=== PATIENT | male | born 1945 | race Caucasian/White ===

== ENCOUNTER → 2016-10-30 | Outpatient (CLI) | payer MEDICARE ==
[~2016-10-30] MED LIST: ACET-2267 PO; ASPI-983 PO; ASPI-999 PO; ATEN50TA PO; ATOR20TA66 PO; CATHETER FLUSH 10 ML SYR IV PRN; CHOL100048 PO; DOXA4TAB2 PO; FLUR100T2 PO; FURO40TA4 PO; LEVO1CAP11 PO; LORA10CA PO; MECL-106 PO; MULT-873 PO; OMEG1000 PO; PANT40TA3 PO; POLY17PO6 PO; REGADENOSON 0.4 MG/5 ML SYR (LEXISCAN) IV ONE; VERA240T98 PO
[2016-10-30 12:44] VITALS: BP 141/89
--- NOTE | 2016-10-31 12:44 | STRESS TEST ---
DATE OF SERVICE: 10/30/2016 RESTING AND POST REGADENOSON TECHNETIUM 99-M AND TETROFOSMIN SPECT CT IMAGING CLINICAL DIAGNOSES: Coronary artery disease, hypertension. ORDERING PHYSICIAN: Dr. Longo PRIMARY PHYSICIAN: Dr. Palafox Baseline images were carried out after injection of 10.19 mCi of technetium-99m tetrofosmin. This was followed by 0.4 mg of regadenoson and 29.5 mCi of technetium-99m tetrofosmin for stress imaging. The electrocardiogram showed sinus rhythm at baseline and the electrocardiogram did not change significantly with the regadenoson infusion. Only rare isolated premature ventricular contractions were seen. The patient tolerated the procedure well and did not report symptoms. Review of images at rest and following stress does not indicate any significant perfusion defects consistent with significant myocardial ischemia or infarction. Gated images show normal global left ventricular systolic function with normal regional wall motion. Left ventricular ejection fraction is calculated to be 58%. Left ventricular end-diastolic volume is 91 mL. TID is absent (1.07). CONCLUSIONS: 1. No evidence of any significant myocardial ischemia or infarction on this study. 2. Normal regional wall motion. 3. Normal global left ventricular systolic function with a calculated ejection fraction of 58%. Job ID: [id number] DocumentID: [id number] Dictated Date: 10/31/2016 09:05:09 Veterinary Technician Date: 10/31/2016 11:45:30 Dictated By: FELECIA LONGO MD, MA, FACP, FACC,
--- NOTE | 2016-11-01 08:39 | ECHOCARDIOGRAPHY REPORT ---
DATE OF SERVICE: 10/30/2016 ECHOCARDIOGRAM DATE OF SERVICE: 10/30/2016 ORDERING PHYSICIAN: Dr. Longo. PRIMARY PHYSICIAN: Dr. Palafox. CLINICAL DIAGNOSIS: Coronary artery disease, hypertension, shortness of breath. MEASUREMENTS: Left atrium 4.5. Aortic root 3.9. LV diameter, diastolic 5.1. IVF thickness, diastolic 1.3. LVPW thickness, diastolic 1.2. DESCRIPTION: Two-dimensional echocardiography shows mild concentric left ventricular hypertrophy, global left ventricular systolic function is normal. Left ventricular ejection fraction approximately 60%. Mitral valve and tricuspid valve leaflets show good leaflet excursion. There is moderate aortic valve sclerosis and calcification. There is no Doppler evidence of any significant valvular stenosis. Doppler imaging shows trivial to mild mitral and tricuspid regurgitation. There appears to be mild aortic regurgitation. Mitral inflow is consistent with grade 1 diastolic dysfunction of left ventricle. There is no evidence of any significant intracardiac shunt on this transthoracic echocardiographic study. Inferior vena cava does not appear dilated. CONCLUSIONS: 1. Normal global systolic function with ejection fraction approximately 60%. 2. Aortic valve sclerosis without significant aortic stenosis. 3. Mild aortic regurgitation. 4. Trivial to mild mitral, tricuspid and pulmonic regurgitation. 5. Mild diastolic dysfunction, left ventricle. 6. Mild concentric left ventricular hypertrophy. 7. Pulmonary artery systolic pressure is estimated to be approximately 25 mmHg. Job ID: [id number] DocumentID: [id number] Dictated Date: 10/31/2016 16:21:01 Pulp Refiner Operator Date: 11/01/2016 08:34:40 Dictated By: FELECIA LONGO MD, MA, FACP, FACC,
== END ==
LOC: CARD 09:52
PROVIDERS: ATTEND Internal Medicine Cardiovascular Disease
DX: I25.10 Atherosclerotic heart disease of native coronary artery without angina pectoris (principal); I10 Essential (primary) hypertension; E66.09 Other obesity due to excess calories; R06.02 Shortness of breath
CPT/HCPCS: 78452; 93017; 93306

== ENCOUNTER → 2017-04-15 | Outpatient (CLI) | payer MEDICARE ==
[~2017-04-15] MED LIST changes: +BARIUM SUSPENSION 2.1% (VANILLA SILQ) 450 ML PO ONE; +IOHEXOL 350 MG/ML 100 ML (OMNIPAQUE 350) VIAL IV ONE; +NS 100 ML (IVPB) BAG IV ONE; -REGADENOSON 0.4 MG/5 ML SYR (LEXISCAN) IV ONE
--- NOTE | 2017-04-15 13:28 | Diagnostic Imaging Report ---
PROCEDURE: CT chest and abdomen with contrast. TECHNIQUE: Multiple contiguous axial images were obtained through the chest and abdomen after the administration of intravenous contrast. INDICATION: Lung cancer. Status post resection of the left upper lobe. 100 mL Omnipaque 350 administered intravenously. FINDINGS: CT chest: There is post left upper lobe resection with no soft tissue mass or suspicious pulmonary nodule seen. There is minimal atelectasis or scarring suggested in the dependent region of the left lower lobe. No suspicious pulmonary nodule. There is no significant lymphadenopathy in the alejandra, the mediastinum, or in the axilla. The heart size is normal. No pericardial or pleural effusion. The thoracic aorta is normal in caliber. The osseous structures demonstrate degenerative changes. CT abdomen: The liver demonstrates diffuse hypodensity compatible with fatty infiltration. The gallbladder, the spleen, the adrenal glands, and the pancreas appear unremarkable. There are multiple nonobstructive stones in the left kidney up to 5 mm in size without hydronephrosis. Symmetric contrast enhancement and excretion of the kidneys is seen. The abdominal aorta is normal in caliber. No para-aortic significantly enlarged lymph node is seen. There is a tiny fat-containing umbilical hernia. The lumbar spine demonstrates degenerative changes particularly prominent at the L5-S1 disc and facet joints. IMPRESSION: CT chest: Post resection of the left upper lobe without evidence of tumor recurrence or lymphadenopathy. CT abdomen: No evidence of metastasis. Dictated by: Dictated on workstation # [id number]
== END ==
LOC: RAD 10:32
PROVIDERS: ATTEND Internal Medicine Hematology & Oncology
DX: C34.90 Malignant neoplasm of unspecified part of unspecified bronchus or lung (principal); Z90.2 Acquired absence of lung [part of]
CPT/HCPCS: 71260; 74160

== ENCOUNTER → 2017-07-04 | Outpatient (RCR) | payer MEDICARE ==
[2017-04-09 10:24] LABS: BASOPHILS % (AUTO) 1 % (0-10); EOSINOPHILS # (AUTO) 0.1 10^3/uL (0.0-0.3); EOSINOPHILS % (AUTO) 2 % (0-10); HEMATOCRIT 45 % (40-54); HEMOGLOBIN 15.3 G/DL (13.3-17.7); LYMPHOCYTES # (AUTO) 1.3 X 10^3 (1.0-4.0); LYMPHOCYTES % (AUTO) 24 % (12-44); MEAN CORPUSCULAR HEMOGLOBIN 31 PG (25-34); MEAN CORPUSCULAR HGB CONC 34 G/DL (32-36); MEAN CORPUSCULAR VOLUME 92 FL (80-99); MEAN PLATELET VOLUME 9.7 FL (7.4-10.4); MONOCYTES # (AUTO) 0.6 X 10^3 (0.0-1.0); MONOCYTES % (AUTO) 10 % (0-12); NEUTROPHILS # (AUTO) 3.6 X 10^3 (1.8-7.8); NEUTROPHILS % (AUTO) 64 % (42-75); PLATELET COUNT 233 10^3/uL (130-400); RED BLOOD COUNT 4.92 10^6/uL (4.35-5.85); RED CELL DISTRIBUTION WIDTH 13.5 % (10.0-14.5); WHITE BLOOD COUNT 5.6 10^3/uL (4.3-11.0)
[2017-04-09 10:47] LABS: BILIRUBIN,TOTAL 0.8 MG/DL (0.1-1.0); CALCIUM 9.3 MG/DL (8.5-10.1); CREATININE SERUM 1.19 MG/DL (0.60-1.30); TOTAL PROTEIN 7.9 GM/DL (6.4-8.2)
[~2017-07-04] MED LIST changes: -BARIUM SUSPENSION 2.1% (VANILLA SILQ) 450 ML PO ONE; -CATHETER FLUSH 10 ML SYR IV PRN; -IOHEXOL 350 MG/ML 100 ML (OMNIPAQUE 350) VIAL IV ONE; -NS 100 ML (IVPB) BAG IV ONE
== END | disposition home or self-care (01) ==
LOC: ONC 10-27 11:05
PROVIDERS: ATTEND Internal Medicine Hematology & Oncology
DX: Z51.0 Encounter for antineoplastic radiation therapy (principal); D3A.090 Benign carcinoid tumor of the bronchus and lung; I25.10 Atherosclerotic heart disease of native coronary artery without angina pectoris; I10 Essential (primary) hypertension; E78.00 Pure hypercholesterolemia, unspecified; K21.9 Gastro-esophageal reflux disease without esophagitis; M19.91 Primary osteoarthritis, unspecified site; G47.30 Sleep apnea, unspecified; Z79.82 Long term (current) use of aspirin; Z79.899 Other long term (current) drug therapy
CPT/HCPCS: 36415; 77300; 77301; 77334; 77336; 77338; 77385; 80053; 83615; 85025; 99213; 99214

== ENCOUNTER 2017-09-17 15:44 | Outpatient (RCR) | payer MEDICARE | END 2017-10-03 | disposition home or self-care (01) | LOC: ONC 15:44 | PROVIDERS: ATTEND Internal Medicine Hematology & Oncology | DX: Z51.0 Encounter for antineoplastic radiation therapy (principal); D3A.090 Benign carcinoid tumor of the bronchus and lung; I25.10 Atherosclerotic heart disease of native coronary artery without angina pectoris; I10 Essential (primary) hypertension; E78.00 Pure hypercholesterolemia, unspecified; K21.9 Gastro-esophageal reflux disease without esophagitis; M19.91 Primary osteoarthritis, unspecified site; G47.30 Sleep apnea, unspecified; Z79.82 Long term (current) use of aspirin; Z79.899 Other long term (current) drug therapy | CPT/HCPCS: 36415; 77307; 77334; 77336; 77385; 84153; 99213 ==

== ENCOUNTER → 2017-09-30 | Outpatient (CLI) | payer MEDICARE ==
[~2017-09-30] MED LIST changes: +CATHETER FLUSH 10 ML SYR IV PRN; +IOHEXOL 350 MG/ML 100 ML (OMNIPAQUE 350) VIAL IV ONE; +NS 100 ML (IVPB) BAG IV ONE
--- NOTE | 2017-09-30 17:22 | Diagnostic Imaging Report ---
PROCEDURE: CT abdomen and pelvis with and without contrast. TECHNIQUE: Precontrast acquisitions were acquired through the abdomen and pelvis. Multiple contiguous axial images were obtained through the abdomen and pelvis after the administration of intravenous contrast. INDICATION: Left upper quadrant abdominal pain. COMPARISON: 04/15/2017 FINDINGS: Included portions of the lower chest show severe calcified coronary atherosclerosis. Included portions of the lung jaramillo are clear. CT ABDOMEN: There is colonic diverticulosis, but no CT evidence of acute diverticulitis. Normal appendix cannot be adequately identified, but there is no pericecal inflammation. Small bowel loops are nondistended. Multiple bilateral nonobstructive renal calculi are noted, left greater than right. No calculi are seen within either ureter. Additionally, there is no hydroureteronephrosis or other evidence of obstruction. No focal renal mass type lesions are identified. Liver is diffusely hypodense consistent with hepatic steatosis. No focal hepatic mass type lesions are identified. The adrenal glands, spleen, and pancreas have a normal CT appearance. There is no loculated fluid collection, free fluid, nor free air within the abdomen. No abnormal mesenteric or retroperitoneal adenopathy is seen. There is moderate calcified aortic and arterial atherosclerosis. Bony structures show no acute abnormalities. CT PELVIS: There is a lobulated appearance to the serosal surface of the anterior margins of the urinary bladder. Largest nodular area measures approximately 1.2 cm. No intraluminal filling defects are seen, but the urinary bladder is incompletely opacified. There is no loculated fluid collection, free fluid, nor free air within the pelvis. No abnormal lymph nodes are identified. Bony structures show no acute abnormalities. Patient is status post previous prostatectomy. IMPRESSION: 1. Abnormal lobulated appearance to the serosal surface of the anterior urinary bladder. These do not have typical appearance for urinary bladder diverticuli, but further evaluation with delayed sequence in prone positioning may be of benefit. Urologic consultation and direct visualization should also be considered, as malignancy cannot be excluded. 2. Significant calcified coronary and aortic atherosclerosis. Correlation for underlying risk factors is recommended. 3. Multiple bilateral nonobstructive renal calculi. 4. Hepatic steatosis. 5. Colonic diverticulosis, but no CT evidence of acute diverticulitis. Dictated by: Dictated on workstation # [id number]
== END ==
LOC: RAD 15:57
DX: K76.0 Fatty (change of) liver, not elsewhere classified (principal); K57.30 Diverticulosis of large intestine without perforation or abscess without bleeding; I25.10 Atherosclerotic heart disease of native coronary artery without angina pectoris; N20.0 Calculus of kidney
CPT/HCPCS: 74178

== ENCOUNTER 2017-10-08 13:36 | Outpatient (RCR) | payer MEDICARE ==
[~2017-10-08 13:36] MED LIST changes: -CATHETER FLUSH 10 ML SYR IV PRN; -IOHEXOL 350 MG/ML 100 ML (OMNIPAQUE 350) VIAL IV ONE; -NS 100 ML (IVPB) BAG IV ONE
[2017-10-08 13:46] LABS: BASOPHILS % (AUTO) 0 % (0-10); EOSINOPHILS # (AUTO) 0.1 10^3/uL (0.0-0.3); EOSINOPHILS % (AUTO) 1 % (0-10); HEMATOCRIT 44 % (40-54); HEMOGLOBIN 15.5 G/DL (13.3-17.7); LYMPHOCYTES # (AUTO) 0.8 X 10^3 (1.0-4.0); LYMPHOCYTES % (AUTO) 11 % (12-44); MEAN CORPUSCULAR HEMOGLOBIN 33 PG (25-34); MEAN CORPUSCULAR HGB CONC 35 G/DL (32-36); MEAN CORPUSCULAR VOLUME 94 FL (80-99); MEAN PLATELET VOLUME 8.8 FL (7.4-10.4); MONOCYTES # (AUTO) 0.8 X 10^3 (0.0-1.0); MONOCYTES % (AUTO) 12 % (0-12); NEUTROPHILS # (AUTO) 5.1 X 10^3 (1.8-7.8); NEUTROPHILS % (AUTO) 76 % (42-75); PLATELET COUNT 203 10^3/uL (130-400); RED CELL DISTRIBUTION WIDTH 13.7 % (10.0-14.5); WHITE BLOOD COUNT 6.7 10^3/uL (4.3-11.0)
[2017-10-08 14:06] LABS: ALANINE AMINOTRANSFERASE 51 U/L (0-55); ALBUMIN 4.4 GM/DL (3.2-4.5); ALKALINE PHOSPHATASE 43 U/L (40-136); BILIRUBIN,TOTAL 0.7 MG/DL (0.1-1.0); BUN/CREATININE RATIO 17; CALCIUM 9.7 MG/DL (8.5-10.1); CARBON DIOXIDE 31 MMOL/L (21-32); CHLORIDE 103 MMOL/L (98-107); CREATININE SERUM 1.09 MG/DL (0.60-1.30); GFR ESTIMATED > 60; GLUCOSE 91 MG/DL (70-105); POTASSIUM 4.7 MMOL/L (3.6-5.0); SODIUM 137 MMOL/L (135-145)
== END 2018-01-06 | disposition home or self-care (01) ==
LOC: ONC 13:36
PROVIDERS: ATTEND Internal Medicine Hematology & Oncology
DX: D3A.090 Benign carcinoid tumor of the bronchus and lung (principal); I25.10 Atherosclerotic heart disease of native coronary artery without angina pectoris; I10 Essential (primary) hypertension; E78.00 Pure hypercholesterolemia, unspecified; K21.9 Gastro-esophageal reflux disease without esophagitis; M19.91 Primary osteoarthritis, unspecified site; G47.30 Sleep apnea, unspecified; Z79.82 Long term (current) use of aspirin; Z79.899 Other long term (current) drug therapy
CPT/HCPCS: 36415; 80053; 83615; 85025; 99213

== ENCOUNTER → 2018-04-10 | Outpatient (CLI) | payer MEDICARE ==
[~2018-04-10] MED LIST changes: +IOHEXOL 350 MG/ML 100 ML (OMNIPAQUE 350) VIAL IV ONE; +NS 250 ML (IVPB) BAG IV ONE
--- NOTE | 2018-04-10 14:30 | Diagnostic Imaging Report ---
PROCEDURE: CT chest with contrast only. TECHNIQUE: Multiple contiguous axial images were obtained through the chest after administration of intravenous contrast. INDICATION: Carcinoid tumor of the lung. FINDINGS: The previous exam of 04/15/2017 noted postsurgical changes consistent with resection of a left upper lobe nodule. On this exam, there is a small 3 mm nodular density in the left apex (image 10, series 2, image 19, series 4, image 42, series 5). This finding is of uncertain etiology. This may be minimally larger than noted on the previous exam. The precise etiology of this finding is not certain. While this may well be benign, the possibly that this finding is neoplastic in nature should still be considered. I do feel that this finding would be too small to resolve by PET/CT imaging. A short-term (6 month) followup exam would be recommended for continued evaluation. The lungs are otherwise generally clear and well aerated. There is no sign of failure, pneumonia or pleural effusion to indicate an acute abnormality. The heart is stable in size. Dense coronary artery calcifications are noted. The aorta is not abnormally dilated and there is no sign of a dissection. There is no defect within the pulmonary arteries to indicate a pulmonary embolus. There is no mediastinal or hilar adenopathy. The thyroid gland is partially obscured by streak artifact. The sections through the upper abdomen failed to show any sign of an acute abnormality. The liver is of lower density than usually seen. This does suggest fatty metamorphosis. The bone windows are unremarkable for a fracture or for a destructive lesion. IMPRESSION: 1. There is a small 3 mm nodular density in the left apex. This finding is of uncertain etiology but could be neoplastic in nature. Recommendations as above. 2. There is no other parenchymal mass identified and there is no sign of an acute cardiopulmonary abnormality. Dictated by: Dictated on workstation # [id number]
== END ==
LOC: RAD 12:58
PROVIDERS: ATTEND Internal Medicine Hematology & Oncology
DX: D3A.090 Benign carcinoid tumor of the bronchus and lung (principal)
CPT/HCPCS: 71260

== ENCOUNTER 2018-04-15 15:00 | Outpatient (RCR) | payer MEDICARE ==
[2018-04-08 13:20] LABS: BASOPHILS % (AUTO) 0 % (0-10); EOSINOPHILS # (AUTO) 0.1 10^3/uL (0.0-0.3); EOSINOPHILS % (AUTO) 1 % (0-10); HEMATOCRIT 45 % (40-54); HEMOGLOBIN 15.5 G/DL (13.3-17.7); LYMPHOCYTES # (AUTO) 0.9 X 10^3 (1.0-4.0); LYMPHOCYTES % (AUTO) 12 % (12-44); MEAN CORPUSCULAR HEMOGLOBIN 33 PG (25-34); MEAN CORPUSCULAR HGB CONC 35 G/DL (32-36); MEAN CORPUSCULAR VOLUME 96 FL (80-99); MEAN PLATELET VOLUME 8.7 FL (7.4-10.4); MONOCYTES # (AUTO) 0.8 X 10^3 (0.0-1.0); MONOCYTES % (AUTO) 11 % (0-12); NEUTROPHILS # (AUTO) 5.8 X 10^3 (1.8-7.8); NEUTROPHILS % (AUTO) 77 % (42-75); PLATELET COUNT 232 10^3/uL (130-400); RED BLOOD COUNT 4.67 10^6/uL (4.35-5.85); RED CELL DISTRIBUTION WIDTH 13.7 % (10.0-14.5); WHITE BLOOD COUNT 7.6 10^3/uL (4.3-11.0)
[2018-04-08 13:41] LABS: ALBUMIN 4.3 GM/DL (3.2-4.5); BILIRUBIN,TOTAL 0.9 MG/DL (0.1-1.0); CALCIUM 9.4 MG/DL (8.5-10.1); CREATININE SERUM 1.21 MG/DL (0.60-1.30); POTASSIUM 3.9 MMOL/L (3.6-5.0); TOTAL PROTEIN 7.8 GM/DL (6.4-8.2)
[~2018-04-15 15:00] MED LIST changes: -IOHEXOL 350 MG/ML 100 ML (OMNIPAQUE 350) VIAL IV ONE; -NS 250 ML (IVPB) BAG IV ONE
== END 2018-07-07 | disposition home or self-care (01) ==
LOC: ONC 15:00
PROVIDERS: ATTEND Internal Medicine Hematology & Oncology
DX: D3A.090 Benign carcinoid tumor of the bronchus and lung (principal); I25.10 Atherosclerotic heart disease of native coronary artery without angina pectoris; I10 Essential (primary) hypertension; E78.00 Pure hypercholesterolemia, unspecified; K21.9 Gastro-esophageal reflux disease without esophagitis; M19.91 Primary osteoarthritis, unspecified site; G47.30 Sleep apnea, unspecified; Z85.46 Personal history of malignant neoplasm of prostate; Z79.899 Other long term (current) drug therapy; Z79.82 Long term (current) use of aspirin
CPT/HCPCS: 36415; 80053; 84153; 85025; 86316; 99213

== ENCOUNTER → 2018-10-07 | Outpatient (CLI) | payer MEDICARE ==
[~2018-10-07] MED LIST changes: +VERA240T14 PO; -VERA240T98 PO
--- NOTE | 2018-10-07 13:27 | Diagnostic Imaging Report ---
PROCEDURE: CT chest with contrast only. TECHNIQUE: Multiple contiguous axial images were obtained through the chest after administration of intravenous contrast. Auto Exposure Controls were utilized during the CT exam to meet ALARA standards for radiation dose reduction. INDICATION: Carcinoid tumor. FINDINGS: The previous CT chest exam of 04/10/2018 noted a 3 mm parenchymal density in the left upper lung. That findings is again evident and no different (image 9/48). When compared to the prior exam of 04/15/2017, I do not feel that this finding has changed significantly. There is no other parenchymal lung mass visualized. The lungs are clear and well aerated. The heart is stable in size. There are extensive coronary artery calcifications again evident. The aorta is not abnormally dilated and there is no sign of dissection. There is no defect within the pulmonary arteries to indicate a pulmonary embolus either. There is no mediastinal or hilar adenopathy. The sections through the upper abdomen show that the liver is of lower density than usually seen. This does suggest fatty metamorphosis. The bone windows show no sign of an acute fracture. The mild compression deformities of the lower thoracic spine noted on the prior exam are again evident and no different. IMPRESSION: 1. There is no evidence for an acute cardiopulmonary abnormality. 2. The small nodular density in the left upper lung seen previously appears stable. The fact that this density has not changed over an 18-month period would suggest that it is most likely benign. A six-month followup study would be recommended for continued evaluation and to establish a two-year stability. 3. There is cardiomegaly and coronary artery disease. 4. The appearance of the liver does suggest fatty metamorphosis. Dictated by: Dictated on workstation # [id number]
== END ==
LOC: RAD 11:23
PROVIDERS: ATTEND Internal Medicine Hematology & Oncology
DX: D3A.090 Benign carcinoid tumor of the bronchus and lung (principal); I25.10 Atherosclerotic heart disease of native coronary artery without angina pectoris; I51.7 Cardiomegaly; J98.4 Other disorders of lung
CPT/HCPCS: 71260

== ENCOUNTER 2018-10-14 14:44 | Outpatient (RCR) | payer MEDICARE ==
[2018-10-07 11:19] LABS: BASOPHILS % (AUTO) 0 % (0-10); EOSINOPHILS # (AUTO) 0.1 10^3/uL (0.0-0.3); EOSINOPHILS % (AUTO) 1 % (0-10); HEMATOCRIT 46 % (40-54); HEMOGLOBIN 16.1 G/DL (13.3-17.7); LYMPHOCYTES % (AUTO) 13 % (12-44); MEAN CORPUSCULAR HEMOGLOBIN 33 PG (25-34); MEAN CORPUSCULAR HGB CONC 35 G/DL (32-36); MEAN CORPUSCULAR VOLUME 95 FL (80-99); MEAN PLATELET VOLUME 8.8 FL (7.4-10.4); MONOCYTES # (AUTO) 0.8 X 10^3 (0.0-1.0); MONOCYTES % (AUTO) 10 % (0-12); NEUTROPHILS # (AUTO) 5.9 X 10^3 (1.8-7.8); NEUTROPHILS % (AUTO) 76 % (42-75); PLATELET COUNT 252 10^3/uL (130-400); RED CELL DISTRIBUTION WIDTH 14.2 % (10.0-14.5); WHITE BLOOD COUNT 7.7 10^3/uL (4.3-11.0)
[2018-10-07 11:42] LABS: ALBUMIN 4.3 GM/DL (3.2-4.5); BILIRUBIN,TOTAL 0.9 MG/DL (0.1-1.0); CALCIUM 9.9 MG/DL (8.5-10.1); CREATININE SERUM 1.43 MG/DL (0.60-1.30); POTASSIUM 4.4 MMOL/L (3.6-5.0); TOTAL PROTEIN 7.8 GM/DL (6.4-8.2)
== END 2019-01-05 | disposition home or self-care (01) ==
LOC: ONC 14:44
PROVIDERS: ATTEND Internal Medicine Hematology & Oncology
DX: D3A.090 Benign carcinoid tumor of the bronchus and lung (principal); Z85.46 Personal history of malignant neoplasm of prostate; I25.10 Atherosclerotic heart disease of native coronary artery without angina pectoris; I10 Essential (primary) hypertension; E78.00 Pure hypercholesterolemia, unspecified; K21.9 Gastro-esophageal reflux disease without esophagitis; M19.91 Primary osteoarthritis, unspecified site; G47.30 Sleep apnea, unspecified; Z79.899 Other long term (current) drug therapy; Z79.82 Long term (current) use of aspirin
CPT/HCPCS: 36415; 80053; 84153; 85025; 86316; 99213

== ENCOUNTER → 2018-12-18 | Outpatient (CLI) | payer MEDICARE ==
--- NOTE | 2018-12-18 21:17 | Diagnostic Imaging Report ---
INDICATION: Pain behind the right nipple. No prior studies are available for comparison. Unilateral right 2-D and 3-D diagnostic mammography was performed. The current study was also evaluated with a Computer Aided Detection (CAD) system. 3-D tomosynthesis was also performed and reviewed. FINDINGS: Minimal fibroglandular tissue is identified in the retroareolar right breast consistent with minimal gynecomastia. No discrete mass or suspicious microcalcifications are seen. Right axilla is unremarkable. IMPRESSION: Findings suggestive of mild gynecomastia on the right. Sonographic interrogation of the retroareolar right breast is recommended and will be performed today. ACR BI-RADS Category 0: Incomplete. (Needs additional imaging evaluation). Result letter will be mailed to the patient. Note: At least 10% of breast cancer is not imaged by mammography. Dictated by: Dictated on workstation # [id number]
--- NOTE | 2018-12-18 21:19 | Diagnostic Imaging Report ---
INDICATION: Pain behind the right nipple. Correlation is made with diagnostic mammogram earlier same day. FINDINGS: Sonographic interrogation of the retroareolar right breast was performed. No sonographic abnormality is seen. No solid or cystic mass is detected. IMPRESSION: No sonographic abnormality is identified. Mammographic findings are consistent with mild gynecomastia. ACR BI-RADS Category 2: Benign findings. Dictated by: Dictated on workstation # [id number]
== END ==
LOC: RAD 09:48
DX: N64.4 Mastodynia (principal)

== ENCOUNTER 2019-04-16 13:20 | Outpatient (RCR) | payer MEDICARE | END 2019-07-15 | disposition home or self-care (01) | LOC: ONC 13:20 | PROVIDERS: ATTEND Internal Medicine Hematology & Oncology | DX: D3A.090 Benign carcinoid tumor of the bronchus and lung (principal); Z85.46 Personal history of malignant neoplasm of prostate; I25.10 Atherosclerotic heart disease of native coronary artery without angina pectoris; I10 Essential (primary) hypertension; E78.00 Pure hypercholesterolemia, unspecified; K21.9 Gastro-esophageal reflux disease without esophagitis; M19.91 Primary osteoarthritis, unspecified site; G47.30 Sleep apnea, unspecified; Z79.899 Other long term (current) drug therapy; Z79.82 Long term (current) use of aspirin | CPT/HCPCS: 99213 ==

== ENCOUNTER → 2019-07-28 | Outpatient (CLI) | payer MEDICARE ==
[~2019-07-28] VITALS: Ht 173 cm; Wt 146.0 kg
[~2019-07-28] MED LIST changes: +CATHETER FLUSH 10 ML SYR IV PRN; +REGADENOSON 0.4 MG/5 ML SYR (LEXISCAN) IV ONE
--- NOTE | 2019-07-29 11:36 | STRESS TEST ---
DATE OF SERVICE: 07/28/2019 RESTING AND POST REGADENOSON TECHNETIUM-99M TETROFOSMIN SPECT CT IMAGING CLINICAL DIAGNOSES: Coronary artery disease, hypertension, shortness of breath. Baseline images were carried out after injection of 10.71 mCi of technetium-99m Tetrofosmin. This was followed by 0.4 mg regadenoson and 33 mCi of technetium-99m Tetrofosmin for stress imaging. The electrocardiogram showed sinus rhythm at baseline. The electrocardiogram did not change significantly with regadenoson infusion. The patient tolerated the procedure well. Review of images at rest and following stress does not indicate any significant perfusion defects consistent with myocardial ischemia or infarction. Gated images show well preserved global left ventricular systolic function with a calculated ejection fraction of 51%. No regional wall motion abnormalities seen. Left ventricular end diastolic volume is 99 mL. CONCLUSIONS: 1. No evidence of significant myocardial ischemia or infarction on this study. 2. Mild cardiomegaly. 3. Well preserved global left ventricular systolic function with a calculated ejection fraction of 51%. 4. No significant regional wall motion abnormalities seen on this study. Job ID: [id number] DocumentID: [id number] Dictated Date: 07/29/2019 08:54:30 Fresh Foods Technician Date: 07/29/2019 11:36:00 Dictated By: FELECIA CANCINO MD, MA, FACP, FACC,
== END ==
LOC: CARD 11:11
PROVIDERS: ATTEND Internal Medicine Cardiovascular Disease
DX: I25.10 Atherosclerotic heart disease of native coronary artery without angina pectoris (principal); I11.9 Hypertensive heart disease without heart failure; I77.89 Other specified disorders of arteries and arterioles; E66.9 Obesity, unspecified; R06.02 Shortness of breath; Z79.82 Long term (current) use of aspirin; Z79.899 Other long term (current) drug therapy
CPT/HCPCS: 78452; 93017; 93306

== ENCOUNTER → 2020-06-14 | Outpatient (CLI) | payer MEDICARE ==
[~2020-06-14] MED LIST changes: +ASPI-1238 PO; -ASPI-983 PO; -CATHETER FLUSH 10 ML SYR IV PRN; -MECL-106 PO; +MECL-149 PO; -PANT40TA3 PO; +PANT40TA52 PO; -REGADENOSON 0.4 MG/5 ML SYR (LEXISCAN) IV ONE
[2020-06-14 09:18] LABS: BASOPHILS % (AUTO) 1 % (0-10); EOSINOPHILS # (AUTO) 0.1 10^3/uL (0.0-0.3); EOSINOPHILS % (AUTO) 1 % (0-10); HEMATOCRIT 53 % (40-54); HEMOGLOBIN 17.5 g/dL (13.3-17.7); LYMPHOCYTES # (AUTO) 1.2 X 10^3 (1.0-4.0); LYMPHOCYTES % (AUTO) 19 % (12-44); MEAN CORPUSCULAR HEMOGLOBIN 32 pg (25-34); MEAN CORPUSCULAR HGB CONC 33 g/dL (32-36); MEAN CORPUSCULAR VOLUME 97 fL (80-99); MONOCYTES # (AUTO) 0.8 X 10^3 (0.0-1.0); MONOCYTES % (AUTO) 12 % (0-12); NEUTROPHILS # (AUTO) 4.5 X 10^3 (1.8-7.8); NEUTROPHILS % (AUTO) 67 % (42-75); PLATELET COUNT 244 10^3/uL (130-400); WHITE BLOOD COUNT 6.6 10^3/uL (4.3-11.0)
[2020-06-14 09:28] LABS: ALBUMIN 4.2 GM/DL (3.2-4.5); POTASSIUM 3.7 MMOL/L (3.6-5.0)
[2020-06-14 09:29] LABS: CALCIUM 9.4 MG/DL (8.5-10.1)
[2020-06-14 09:31] LABS: TOTAL PROTEIN 8.1 GM/DL (6.4-8.2)
[2020-06-14 09:32] LABS: BILIRUBIN,TOTAL 0.8 MG/DL (0.1-1.0)
[2020-06-14 09:34] LABS: CREATININE SERUM 1.24 MG/DL (0.60-1.30)
== END | disposition home or self-care (01) ==
LOC: ONC 09:08 → EDSTATUS 16:05
PROVIDERS: ATTEND Internal Medicine Hematology & Oncology
DX: C34.90 Malignant neoplasm of unspecified part of unspecified bronchus or lung (principal); C61 Malignant neoplasm of prostate; D14.32 Benign neoplasm of left bronchus and lung
CPT/HCPCS: 80053; 84153; 85025; 86316; G0463; 99213

== ENCOUNTER → 2021-01-16 | Outpatient (CLI) | payer MEDICARE ==
--- NOTE | 2021-01-16 18:51 | Diagnostic Imaging Report ---
INDICATION: Abdominal pain TECHNIQUE: Multiple contiguous axial images were obtained through the abdomen and pelvis without the use of intravenous contrast. Auto Exposure Controls were utilized during the CT exam to meet ALARA standards for radiation dose reduction. The exam was compared to 09/30/2017 The visualized portions of the lung bases are clear. There were no pleural fluid collections. There is no free intraperitoneal air. There are extensive coronary calcifications. The liver and gallbladder appear unremarkable without contrast. The spleen, adrenals, and pancreas appear unremarkable without contrast. There are numerous bilateral intrarenal calculi, left more numerous than right, but no evidence of hydronephrosis or ureteral stone. There is no retroperitoneal mass or adenopathy. There is no ascites or abnormal fluid collection. There are sigmoid diverticula which are fairly extensive, as well as an diverticula along the left colon. The is minimal fat stranding about the mid descending colon with thickening of Gerota's fascia, this may represent minimal or early diverticulitis. There is no sign of bowel obstruction or abscess. There are postoperative changes status post prior prostate surgery. IMPRESSION: There is extensive colonic diverticulosis, with mild fat stranding about the mid descending colon which may represent minimal or early diverticulitis. There is no evidence of abscess. There is extensive nephrolithiasis without hydronephrosis or ureteral stone. Incidentally, there are extensive coronary artery calcifications. Dictated by: Dictated on workstation # [id number]
== END ==
LOC: RAD 16:45
DX: K57.30 Diverticulosis of large intestine without perforation or abscess without bleeding (principal); N20.0 Calculus of kidney; I25.10 Atherosclerotic heart disease of native coronary artery without angina pectoris
CPT/HCPCS: 74176

== ENCOUNTER 2021-01-22 12:30 | Emergency (ER) | payer MEDICARE ==
[~2021-01-22] VITALS: Ht 180 cm; Wt 136.0 kg
[2021-01-22] MEDS ORDERED: ASPIRIN 81 MG CHEW (CHILDREN'S ASA) PO ONE (12:45)
[2021-01-22 12:59] LABS: BASOPHILS % (AUTO) 1 % (0-10); EOSINOPHILS # (AUTO) 0.1 10^3/uL (0.0-0.3); EOSINOPHILS % (AUTO) 1 % (0-10); HEMATOCRIT 47 % (40-54); HEMOGLOBIN 15.7 g/dL (13.3-17.7); LYMPHOCYTES # (AUTO) 0.8 10^3/uL (1.0-4.0); LYMPHOCYTES % (AUTO) 13 % (12-44); MEAN CORPUSCULAR HEMOGLOBIN 33 pg (25-34); MEAN CORPUSCULAR HGB CONC 34 g/dL (32-36); MEAN CORPUSCULAR VOLUME 97 fL (80-99); MEAN PLATELET VOLUME 8.9 fL (9.0-12.2); MONOCYTES # (AUTO) 0.5 10^3/uL (0.0-1.0); MONOCYTES % (AUTO) 9 % (0-12); NEUTROPHILS # (AUTO) 4.8 10^3/uL (1.8-7.8); NEUTROPHILS % (AUTO) 77 % (42-75); PLATELET COUNT 196 10^3/uL (130-400); WHITE BLOOD COUNT 6.2 10^3/uL (4.3-11.0)
[2021-01-22 13:10] LABS: ALBUMIN 3.6 GM/DL (3.2-4.5)
[2021-01-22 13:11] LABS: POTASSIUM 3.7 MMOL/L (3.6-5.0)
[2021-01-22 13:12] LABS: CALCIUM 8.6 MG/DL (8.5-10.1)
[2021-01-22 13:13] LABS: INR 1.1 (0.8-1.4); PROTHROMBIN TIME PATIENT 14.5 SEC (12.2-14.7); TOTAL PROTEIN 6.9 GM/DL (6.4-8.2)
[2021-01-22 13:15] LABS: BILIRUBIN,TOTAL 1.2 MG/DL (0.1-1.0)
[2021-01-22 13:17] LABS: CREATININE SERUM 0.93 MG/DL (0.60-1.30)
--- NOTE | 2021-01-22 14:05 | Diagnostic Imaging Report ---
Indication: Chest pain Comparison made with prior study from April 102014 FINDINGS: There are some background interstitial changes present within the lungs. Allowing for differences in technique, heart size is not significantly changed. There are no current findings of edema or failure. There is no convincing evidence of new consolidation, large effusion or pneumothorax. IMPRESSION: Background interstitial changes within the lungs with mild prominence of the cardiac silhouette. There is no current edema or failure. There is no convincing evidence of new alveolar infiltrate or consolidation. Dictated by: Dictated on workstation # [id number]
[2021-01-22] MEDS ORDERED: hydrALAZINE (APESOLINE) 20 MG/ML VIAL IV ONE (14:15)
--- NOTE | 2021-01-22 14:17 | ED Respiratory ---
General Chief Complaint: Respiratory Problems Stated Complaint: INTERMITTENT CP Nursing Triage Note: PT AMB TO ROOM 5 PT CO OF SOA AND TINGE IN CHEST THIS AM. DENIES C/P AT THIS X. (KAREN BROOKS) History of Present Illness Date Seen by Provider: Jan 22, 2021 Time Seen by Provider: 12:38 Initial Comments 75-year-old male presents for shortness of air and occasional twinge in his left chest. He denies chest pain at this time. He reports getting a new CPAP machine and he did not use it last night, he had shortness of breath through the night but was able to sleep. Earlier today he had some twinges in his left chest and was uncertain of the origin. They did not continue or get worse. He denies any chest pain presently. He took all of his morning medications including aspirin. He denies a history of diabetes, and has had no nausea or vomiting today. No known exposure to Covid, he did receive his vaccine. Timing/Duration: this morning Prior Episodes/Possible Cause: no prior episodes Associated Symptoms: No chest pain/soreness, No cough, No fever/chills, No headache, No lightheadedness, No muscle aches; shortness of breath; No sinus infection, No sore throat, No wheezing (KAREN BROOKS) Allergies and Home Medications Allergies Coded Allergies: No Known Drug Allergies (Unverified , 04/10/15) Home Medications Acetaminophen 500 Mg Tablet, 500 MG PO Q6H PRN for PAIN, (Reported) Aspirin 81 Mg Tablet.dr, 81 MG PO DAILY, (Reported) Atenolol 50 Mg Tablet, 50 MG PO HS, (Reported) Atorvastatin Calcium 20 Mg Tablet, 20 MG PO HS, (Reported) Cholecalciferol (Vitamin D3) 1,000 Unit Capsule, 1,000 UNIT PO DAILY, (Reported) Doxazosin Mesylate 4 Mg Tablet, 4 MG PO HS, (Reported) Furosemide 40 Mg Tablet, 40 MG PO DAILY PRN for SWELLING, (Reported) Levomefolate/B6/B12/Algal Oil 1 Each Capsule, 1 TAB PO DAILY, (Reported) Loratadine 10 Mg Capsule, 10 MG PO DAILY, (Reported) Meclizine HCl 25 Mg Tablet, 25 MG PO Q6HR Prescribed by: RADHA MILAN on 04/11/15 1323 Mv,Minerals/FA/Lycopene/Ginkgo 1 Each Tablet, 1 TAB PO DAILY, (Reported) [place]-3 Fatty Acids 1,000 Mg Capsule, 1,000 MG PO DAILY, (Reported) Pantoprazole Sodium 40 Mg Tablet.dr, 40 MG PO TWICE WEEKLY PRN for HEARTBURN, (Reported) [facility] LAST FILLED 01-28-14 #180 Polyethylene Glycol 3350 17 Gm Powd.pack, 17 GM PO HS, (Reported) Verapamil HCl 240 Mg Tablet.er, 240 MG PO HS, (Reported) Patient Home Medication List Home Medication List Reviewed: Yes (KAREN BROOKS) Review of Systems Review of Systems Constitutional: no symptoms reported, see HPI Respiratory: see HPI, dyspnea on exertion (Chronic) Cardiovascular: no symptoms reported, see HPI; No chest pain Gastrointestinal: no symptoms reported, see HPI (KAREN BROOKS) All Other Systems Reviewed Negative Unless Noted: Yes (KAREN BROOKS) Past Pwgyggi-Vecsqn-Wkmqoo Hx Patient Social History Tobacco Use?: No Substance use?: No Alcohol Use?: No Pt feels they are or have been: No (KAREN BROOKS) Immunizations Up To Date 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 (KAREN BROOKS) Seasonal Allergies Seasonal Allergies: No (KAREN BROOKS) Past Medical History Adenoidectomy, Orthopedic, Tonsillectomy Sleep Apnea Currently Using CPAP: Yes Currently Using BIPAP: No High Cholesterol, Hypertension Reproductive Disorders: No Sexually Transmitted Disease: No HIV/AIDS: No Arthritis Loss of Vision: Denies Hearing Impairment: Denies Recent Skin Changes (KAREN BROOKS) Family Medical History Reviewed Nursing Family Hx (KAREN BROOKS) Arthritis Hypertension Physical Exam Vital Signs - First Documented 01/22/21 12:38 Temp 36.3 Pulse 86 Resp 26 B/P (MAP) 188/96 (126) Pulse Ox 96 O2 Delivery Room Air (LINDA PIMENTEL MD) Capillary Refill : Less Than 3 Seconds (KAREN BROOKS) Height: 5'11.00" Weight: 310lbs. 0.0oz. 140.423399fv; 41.00 BMI Method: General Appearance: no apparent distress, obese HEENT: PERRL/EOMI, normal ENT inspection, TMs normal, pharynx normal Neck: non-tender, full range of motion, supple, normal inspection Respiratory: chest non-tender, lungs clear, normal breath sounds Cardiovascular: normal peripheral pulses, regular rate, rhythm Gastrointestinal: normal bowel sounds, non tender, soft, distended Neurologic/Psychiatric: no motor/sensory deficits, alert, normal mood/affect, oriented x 3 Skin: normal color, warm/dry (KAREN BROOKSP) Progress/Results/Core Measures Suspected Sepsis SIRS Temperature: Pulse: 86 Respiratory Rate: 26 Laboratory Tests 01/22/21 12:45: White Blood Count 6.2 Blood Pressure 188 /96 Mean: 126 Laboratory Tests 01/22/21 12:45: Creatinine 0.93, INR Comment 1.1, Platelet Count 196, Total Bilirubin 1.2H (CECILIAKAREN VILLALOBOSP) Results/Orders Lab Results Laboratory Tests Test 01/22/21 12:45 Range/Units White Blood Count 6.2 4.3-11.0 10^3/uL Red Blood Count 4.82 4.30-5.52 10^6/uL Hemoglobin 15.7 13.3-17.7 g/dL Hematocrit 47 40-54 % Mean Corpuscular Volume 97 80-99 fL Mean Corpuscular Hemoglobin 33 25-34 pg Mean Corpuscular Hemoglobin Concent 34 32-36 g/dL Red Cell Distribution Width 13.8 10.0-14.5 % Platelet Count 196 130-400 10^3/uL Mean Platelet Volume 8.9 L 9.0-12.2 fL Immature Granulocyte % (Auto) 0 % Neutrophils (%) (Auto) 77 H 42-75 % Lymphocytes (%) (Auto) 13 12-44 % Monocytes (%) (Auto) 9 0-12 % Eosinophils (%) (Auto) 1 0-10 % Basophils (%) (Auto) 1 0-10 % Neutrophils # (Auto) 4.8 1.8-7.8 10^3/uL Lymphocytes # (Auto) 0.8 L 1.0-4.0 10^3/uL Monocytes # (Auto) 0.5 0.0-1.0 10^3/uL Eosinophils # (Auto) 0.1 0.0-0.3 10^3/uL Basophils # (Auto) 0.0 0.0-0.1 10^3/uL Immature Granulocyte # (Auto) 0.0 0.0-0.1 10^3/uL Prothrombin Time 14.5 12.2-14.7 SEC INR Comment 1.1 0.8-1.4 Activated Partial Thromboplast Time 32 24-35 SEC Sodium Level 144 135-145 MMOL/L Potassium Level 3.7 3.6-5.0 MMOL/L Chloride Level 110 H 98-107 MMOL/L Carbon Dioxide Level 24 21-32 MMOL/L Anion Gap 10 5-14 MMOL/L Blood Urea Nitrogen 10 7-18 MG/DL Creatinine 0.93 0.60-1.30 MG/DL Estimat Glomerular Filtration Rate 79 BUN/Creatinine Ratio 11 Glucose Level 87 70-105 MG/DL Calcium Level 8.6 8.5-10.1 MG/DL Corrected Calcium 8.9 8.5-10.1 MG/DL Magnesium Level 2.0 1.6-2.4 MG/DL Total Bilirubin 1.2 H 0.1-1.0 MG/DL Aspartate Amino Transf (AST/SGOT) 43 H 5-34 U/L Alanine Aminotransferase (ALT/SGPT) 54 0-55 U/L Alkaline Phosphatase 45 40-136 U/L Myoglobin 157.0 H 10.0-92.0 NG/ML Troponin I < 0.028 <0.028 NG/ML B-Type Natriuretic Peptide 151.1 H <100.0 PG/ML Total Protein 6.9 6.4-8.2 GM/DL Albumin 3.6 3.2-4.5 GM/DL (LINDA PIMENTEL MD) Medications Given in ED Current Medications Medications Dose Ordered Sig/Maribeth Route Start Time Stop Time Status Last Admin Dose Admin Aspirin 324 mg ONCE ONCE PO 01/22/21 12:45 01/22/21 12:46 DC 01/22/21 13:04 324 MG Hydralazine HCl 10 mg ONCE ONCE IV 01/22/21 14:15 01/22/21 14:17 DC 01/22/21 14:18 10 MG (LINDA PIMENTEL MD) Vital Signs/I&O 01/22/21 01/22/21 12:38 14:57 Temp 36.3 Pulse 86 65 Resp 26 18 B/P (MAP) 188/96 (126) 172/96 (126) Pulse Ox 96 96 O2 Delivery Room Air (LINDA PIMENTEL MD) Vital Signs/I&O Capillary Refill : Less Than 3 Seconds (KAREN BROOKS) Blood Pressure Mean: 126 Progress Note : Time: 12:38 Progress Note Patient seen and evaluated, will obtain EKG, chest x-ray, and labs. 1330 patient's had no complaints of shortness of breath or chest pain since admission. Labs are all within normal limits. B/P has remained elevated 160-180/90-100. Will give Hydralazine 10 mg IV. 1420 B/P 160/80. Discharge instructions and return precautions reviewed with the patient. (KAREN BROOKS) ECG Initial ECG Impression Date: Jan 22, 2021 Initial ECG Impression Time: 12:38 Initial ECG Rate: 71 Initial ECG Rhythm: Normal Sinus Initial ECG Intervals: Normal Initial ECG Intervals SC 233, QRSD 92, QT 410, QTc 446. Donna P 23, QRS -35, T 43 Initial ECG Impression: Normal Initial ECG Comparisson: Unchanged (KAREN BROOKS) Diagnostic Imaging Diagonstic Imaging: Xray Plain Films/CT/US/NM/MRI: chest Comments NAME: EVENS DOMINGUEZ [facility] REC#: [id number] PT STATUS: REG ER : 1945 PHYSICIAN: KAREN BROOKS ADMIT DATE: 01/22/21/ER Draft Date of Exam:01/22/21 CHEST 1 VIEW, AP/PA ONLY Indication: Chest pain Comparison made with prior study from April 102014 FINDINGS: There are some background interstitial changes present within the lungs. Allowing for differences in technique, heart size is not significantly changed. There are no current findings of edema or failure. There is no convincing evidence of new consolidation, large effusion or pneumothorax. IMPRESSION: Background interstitial changes within the lungs with mild prominence of the cardiac silhouette. There is no current edema or failure. There is no convincing evidence of new alveolar infiltrate or consolidation. Dictated on workstation # [id number] Dict: 01/22/21 1348 Trans: 01/22/21 1405 [facility] [id number] Interpreted by: CORY MELÉNDEZ MD Electronically signed by: (KAREN BROOKS) Departure Impression Primary Impression: Sleep apnea Qualified Codes: G47.30 - Sleep apnea, unspecified Additional Impression: Essential hypertension Disposition: 01 HOME, SELF-CARE Condition: Improved Departure-Patient Inst. Decision time for Depature: 14:00 (KAREN BROOKS) Referrals: RADHA MILAN MD (PCP/Family) Primary Care Physician Patient Instructions: Sleep Apnea (DC), High Blood Pressure (DC) Add. Discharge Instructions: Continue taking your home medications as prescribed. Return to the emergency department for chest pain. Use the CPAP every night. Follow-up with your primary care provider if symptoms are not improving or worsen. All discharge instructions reviewed with patient and/or family. Voiced understanding. ATTENDING PHYSICIAN NOTE: I was physically present as attending physician in the emergency department during the care of this patient, but I was not directly involved in the decision making or delivery of care for this patient. (LINDA PIMENTEL MD) KAREN BROOKS Jan 22, 2021 14:17 LINDA PIMENTEL MD Jan 22, 2021 20:56
[2021-01-22 14:57] VITALS: BP 172/96
== END 2021-01-22 14:57 | disposition home or self-care (01) ==
LOC: EDUNIT# 12:30 → ER 12:32
DX: G47.30 Sleep apnea, unspecified (principal); I10 Essential (primary) hypertension; E66.9 Obesity, unspecified; E78.00 Pure hypercholesterolemia, unspecified; Z68.41 Body mass index [BMI] 40.0-44.9, adult; Z79.899 Other long term (current) drug therapy; Z79.82 Long term (current) use of aspirin
CPT/HCPCS: 36415; 71045; 80053; 83735; 83874; 83880; 84484; 85025; 85610; 85730; 93005; 93041; 96374

== ENCOUNTER → 2021-10-16 | Outpatient (CLI) | payer MEDICARE ==
[~2021-10-16] MED LIST changes: -VERA240T14 PO; +VERA240T90 PO
[2021-10-16 15:36] LABS: HEMATOCRIT 48 % (40-54); HEMOGLOBIN 16.7 g/dL (13.3-17.7); MEAN CORPUSCULAR HEMOGLOBIN 32 pg (25-34); MEAN CORPUSCULAR HGB CONC 35 g/dL (32-36); MEAN CORPUSCULAR VOLUME 92 fL (80-99); MEAN PLATELET VOLUME 9.5 fL (9.0-12.2); PLATELET COUNT 235 10^3/uL (130-400); WHITE BLOOD COUNT 9.2 10^3/uL (4.3-11.0)
[2021-10-16 15:59] LABS: BILIRUBIN,TOTAL 1.4 MG/DL (0.1-1.0); CALCIUM 9.6 MG/DL (8.5-10.1); CREATININE SERUM 1.57 MG/DL (0.60-1.30); POTASSIUM 2.8 MMOL/L (3.6-5.0); TOTAL PROTEIN 7.8 GM/DL (6.4-8.2)
--- NOTE | 2021-10-16 16:00 | Diagnostic Imaging Report ---
Indication: Shortness of air. Time of Exam: 3:53 PM Comparison is made with prior chest from 01/22/2021. Minimal scarring or atelectasis in the left base is noted. Otherwise, the lungs are clear. There is no effusion or pneumothorax. IMPRESSION: No acute cardiopulmonary process is detected. Dictated by: Dictated on workstation # [id number]
== END ==
LOC: LAB 15:06
DX: R53.83 Other fatigue (principal); R06.02 Shortness of breath
CPT/HCPCS: 36415; 71046; 80053; 83880; 84443; 85027; 93005

== ENCOUNTER → 2021-12-12 | Outpatient (CLI) | payer MEDICARE ==
[~2021-12-12] MED LIST changes: +REGADENOSON 0.4 MG/5 ML SYR (LEXISCAN) IV ONE
[2021-12-12] MEDS: CATHETER FLUSH 10 ML SYR IVP PRN ×2 (11:13→12:42)
[2021-12-12 12:39] VITALS: BP 209/90
--- NOTE | 2021-12-14 14:55 | STRESS TEST ---
DATE OF SERVICE: 12/12/2021 RESTING AND POST REGADENOSON TECHNETIUM-99M TETROFOSMIN SPECT CT IMAGING ORDERING PHYSICIAN: Dr. Longo. PRIMARY PHYSICIAN: Dr. Palafox. CLINICAL DIAGNOSES: Coronary artery disease, congestive heart failure. Baseline images were carried out after injection of 10.21 mCi of technetium-99m Tetrofosmin. This was followed by 0.4 mg regadenoson and 29.1 mCi of technetium-99m Tetrofosmin for stress imaging. The electrocardiogram showed sinus rhythm at baseline. It did not change significantly with the regadenoson infusion. The patient tolerated the procedure well. Review of images at rest and following stress indicates a small to moderate amount of a transient inferolateral perfusion defect. Gated images show well preserved global left ventricular systolic function without any distinct regional wall motion abnormality. Left ventricular ejection fraction is calculated to be 64%. CONCLUSIONS: 1. This study is indicative of a small to moderate amount of inferolateral ischemia. 2. Normal regional wall motion. 3. Normal global left ventricular systolic function with a calculated ejection fraction of 64%. Job ID: [id number] DocumentID: [id number] Dictated Date: 12/14/2021 12:13:51 Labor Relations Analyst Date: 12/14/2021 14:54:36 Dictated By: FELECIA LONGO MD, MA, FACP, FACC,
== END ==
LOC: CARD 10:30
PROVIDERS: ATTEND Internal Medicine Cardiovascular Disease
DX: I51.7 Cardiomegaly (principal); I35.1 Nonrheumatic aortic (valve) insufficiency; I25.10 Atherosclerotic heart disease of native coronary artery without angina pectoris; I65.23 Occlusion and stenosis of bilateral carotid arteries; G47.33 Obstructive sleep apnea (adult) (pediatric)
CPT/HCPCS: 78452; 93017; 93306; A9502

== ENCOUNTER 2021-12-26 08:00 | Day surgery (SDC) | payer MEDICARE ==
[~2021-12-26] VITALS: Ht 174 cm; Wt 142.3 kg
[2021-12-26] VITALS (9 sets, daily range): BP systolic 107–158; BP diastolic 68–113
[~2021-12-26 08:00] MED LIST changes: +HEParin (CATH LAB) 2,000 ML IV ONE; +LIDOCAINE 1% INJ 20 ML VIAL ONE; +NS IV 1000 ML 1,000 ML IV SCH; +NS IV 1000 ML 1,000 ML ONE; -REGADENOSON 0.4 MG/5 ML SYR (LEXISCAN) IV ONE
[2021-12-26 08:03] LABS: HEMATOCRIT 46 % (40-54); HEMOGLOBIN 15.5 g/dL (13.3-17.7); MEAN CORPUSCULAR HEMOGLOBIN 32 pg (25-34); MEAN CORPUSCULAR HGB CONC 34 g/dL (32-36); MEAN CORPUSCULAR VOLUME 96 fL (80-99); MEAN PLATELET VOLUME 8.9 fL (9.0-12.2); PLATELET COUNT 230 10^3/uL (130-400); WHITE BLOOD COUNT 5.3 10^3/uL (4.3-11.0)
[2021-12-26] MEDS ORDERED: OXYB-52 PO (08:19)
[2021-12-26] MEDS ORDERED: TRIA1CAP84 PO (08:19)
[2021-12-26] MEDS ORDERED: FAMO40TA6 PO (08:19)
[2021-12-26] MEDS ORDERED: MONT-40 PO (08:19)
[2021-12-26] MEDS ORDERED: TMSL.4C PO (08:19)
[2021-12-26] MEDS ORDERED: PRAM1TAB2 PO (08:19)
[2021-12-26] MEDS ORDERED: GABA-486 PO (08:19)
[2021-12-26] MEDS ORDERED: POTA10CA43 PO (08:19)
[2021-12-26] MEDS ORDERED: TRM50T PO (08:19)
[2021-12-26] MEDS ORDERED: CITA20TA9 PO (08:19)
[2021-12-26] MEDS ORDERED: SPIR25TA PO (08:19)
[2021-12-26 08:25] LABS: ALBUMIN 3.6 GM/DL (3.2-4.5); CALCIUM 9.4 MG/DL (8.5-10.1); CREATININE SERUM 1.08 MG/DL (0.60-1.30); POTASSIUM 3.9 MMOL/L (3.6-5.0); TOTAL PROTEIN 7.2 GM/DL (6.4-8.2)
[2021-12-26 08:42] LABS: INR 1.1 (0.8-1.4); PROTHROMBIN TIME PATIENT 14.2 SEC (12.2-14.7)
[2021-12-26] MEDS ORDERED: fentaNYL INJ 100 MCG/2 ML AMP ONE (09:51)
[2021-12-26] MEDS ORDERED: MIDAZOLAM 5 MG/5 ML (VERSED) VIAL ONE (09:51)
--- NOTE | 2021-12-26 11:16 | Cardiac Procedure Note-CS/ASA ---
Pre-Procedure Note Pre-Op Procedure Note H&P Reviewed The H&P was reviewed, patient examined and no changes noted. Date H&P Reviewed: Dec 26, 2021 Time H&P Reviewed: 10:15 Conscious Sedation Pre-Proced Time 10:15 ASA Score 4 For ASA 3 and 4: Consider anesthesia and medical clearance. Also, for patients with a history of failed moderate sedation consider anesthesia. Airway Lungs Heart ASA score ASA 1: a normal healthy patient ASA 2: a patient with a mild systemic disease (mid diabetes, controlled hypertension, obesity ASA 3: a patient with a severe systemic disease that limits activity (angina, COPD, prior Myocardial infarction) ASA 4: a patient with an incapacitating disease that is a constant threat to life (CHF, renal failure) ASA 5: a moribund patient not expected to survive 24 hrs. (ruptured aneurysm) ASA 6: a declared brain- patient whose organs are being harvested. For emergent operations, add the letter E after the classification Mallampati Classification Grade 3 Sedation Plan Analgesia, Amnesia, Plan communicated to team members, Discussed options with patient/fam, Discussed risks with patient/fam The patient is an appropriate candidate to undergo the planned procedure, sedation, and anesthesia. The patient immediately re-assessed prior to indication. FELECIA CANCINO MD FACP FAC CCDS Dec 26, 2021 11:16
[2021-12-26] MEDS ORDERED: ASPI-999 PO (11:27)
[2021-12-26] MEDS ORDERED: METO100T6 PO (11:27)
[2021-12-26] MEDS ORDERED: NS IV 1000 ML 1,000 ML IV SCH (11:30)
[2021-12-26] MEDS ORDERED: PATIENT MAY USE OWN MEDS, ALL PO SCH (11:30)
--- NOTE | 2021-12-26 11:30 | Discharge Inst-Cardiology ---
Discharge Inst-Cardiac Discharge Medications New Medications: Aspirin (Aspirin) 81 Mg Tab.chew 81 MG PO DAILY, #90 TAB 3 Refills Metoprolol Succinate (Toprol Xl) 100 Mg Tab.er.24h 100 MG PO DAILY, #30 TAB 5 Refills Continued Medications: Acetaminophen (Tylenol Extra Strength) 500 Mg Tablet 500 MG PO Q6H PRN for PAIN Atorvastatin Calcium (Atorvastatin Calcium) 20 Mg Tablet 20 MG PO HS Cholecalciferol (Vitamin D3) (Vitamin D) 1,000 Unit Capsule 1000 UNIT PO DAILY, CAP Citalopram Hydrobromide (Citalopram HBr) 20 Mg Tablet 20 MG PO DAILY, TAB Famotidine (Famotidine) 40 Mg Tablet 40 MG PO DAILY, TAB Furosemide (Furosemide) 40 Mg Tablet 40 MG PO DAILY Gabapentin (Gabapentin) 100 Mg Capsule 200 MG PO HS for Neuropathic pain, CAP Loratadine (Claritin) 10 Mg Capsule 10 MG PO DAILY, CAP Montelukast Sodium (Montelukast Sodium) 10 Mg Tablet 10 MG PO DAILY, TAB Oxybutynin Chloride (Oxybutynin Chloride ER) 5 Mg Tab.er.24 5 MG PO DAILY, TAB Potassium Chloride (Potassium Chloride) 10 Meq Capsule.er 5 MEQ PO DAILY, CAP Pramipexole Di-HCl (Mirapex) 1 Mg Tablet 1 MG PO HS, TAB Spironolactone (Aldactone) 25 Mg Tablet 25 MG PO DAILY, TAB Tamsulosin HCl (Flomax) 0.4 Mg Cap 0.4 MG PO DAILY, CAP Tramadol HCl (Tramadol HCl) 50 Mg Tablet 50 MG PO Q4-6HRS PRN for PAIN-MODERATE (5-7), TAB Triamterene/Hydrochlorothiazid (Triamterene-Hctz 37.5-25 mg Cp) 37.5 Mg-25 Mg Capsule 1 EACH PO DAILY, CAP Discontinued Medications: Verapamil HCl (Verapamil ER) 240 Mg Tablet.er 240 MG PO HS FELECIA CANCINO MD [facility] Dec 26, 2021 11:30
--- NOTE | 2021-12-26 11:31 | Discharge Inst-Post CATH ---
Discharge Inst-CATH/EP Post Cardiac Cath/EP D/C Inst Follow Up/Plan F/u with Dr Longo in 2 weeks ACTIVITY * Go Home directly and rest. * Limit activity of the leg (or wrist if it was used) for 7 days including aerobics, swimming, jogging, bicycling, etc. * Restrict stair-climbing for 7 days if possible, if not, climb up with your n on-cath leg, then bring together on the same step. * Avoid lifting, pushing, pulling or excessive movement of the affected ex tremity for 7 days. * Customary sexual activity may be resumed after 2 days-use caution not to use a position that strains or causes pain to the affected extremity. * No driving for 24 hours. * NO SMOKING. * Avoid straining for bowel movements for 7 days. * Gentle walking on level ground is allowed. * Returning to work will depend on the type of procedure and the results. Your doctor will discuss this with you. CALL YOUR DOCTOR FOR ANY OF THE FOLLOWING: *If bleeding from the puncture site occurs- Apply gentle pressure to site with clean cloth and call your doctor or EMS. * If a knot or lump forms under the skin, increases in size, or causes pain. * If bruising appears to be worsening or moving further down your leg instead of disappearing. * Temperature above 101 F. CARE OF YOUR GROIN INCISION; * Bruising or purple discoloration of the skin near the puncture site is common. * You may shower only, no bathtub bathing for 5 days. Be careful to avoid slipping as your leg may feel stiff. * If a closure device was used on your femoral artery, please see the attached guide regarding care of the device and your leg. * Leave dressing on FOR 24 hours. CARE OF YOUR WRIST INCISION; * Bruising or purple discoloration of the skin near the puncture site is common. * You may shower. * DO NOT submerge wrist. * Leave dressing on FOR 24 hours. FELECIA LONGO MD [facility] CCDS Dec 26, 2021 11:31
--- NOTE | 2021-12-26 11:37 | CARDIAC CATHETERIZATION ---
DATE OF SERVICE: 12/26/2021 CARDIAC CATHETERIZATION REPORT The patient is a 76-year-old gentleman who has recently been diagnosed with congestive heart failure. Myocardial perfusion imaging indicated inferolateral ischemia. Cardiac catheterization was recommended, and informed consent was obtained. DESCRIPTION OF PROCEDURE: He is brought to the cardiac catheterization laboratory in a fasting state. Right groin was prepared and draped in the usual sterile fashion. Lidocaine 1% was used for local anesthesia. Modified Seldinger technique was used to advance a 5-[place] sheath in the right femoral artery, 5-[place] JL4 catheter for left coronary angiography, 5-[place] JR4 catheter for right coronary angiography, 5-[place] pigtail catheter was used for left heart catheterization and left ventricular angiography. At the end of the procedure, angiography of the right femoral artery was carried out through the sheath and Mynx was used to achieve hemostasis. HEMODYNAMICS: Left ventricular end-diastolic pressure following coronary angiography was 12 mmHg. There is no significant pressure gradient on pullback across the aortic valve. Ascending aortic pressure was 112/67 with a mean of 85 mmHg. CORONARY ANGIOGRAPHY: Heavy coronary calcification is seen, particularly in the proximal and left anterior descending and the proximal and mid right coronary arteries. The left main coronary artery does not exhibit significant disease. Left anterior descending artery has diffuse moderate disease. The first diagonal branch of the left anterior descending artery has approximately 70% ostial and proximal stenosis. This vessel is of a relatively small caliber. Left circumflex has diffuse moderate disease. Right coronary artery is occluded in its mid portion and is collateralized by the left anterior descending artery in its distal portion. LEFT VENTRICULAR ANGIOGRAPHY: Left ventricular angiography was carried out in the right anterior oblique projection. In the first of view, there appeared to be catheter-induced mitral regurgitation. The catheter was then moved forward, and a repeat angiogram did not indicate any significant mitral regurgitation. Left ventricular ejection fraction is approximately 60%. No distinct regional wall motion abnormality was seen. CONCLUSIONS: 1. Coronary artery disease primarily consisting of mid vessel occlusion of the right coronary with collateralization of the distal right coronary by the left anterior descending artery. There is diffuse moderate disease of the left coronary system. The first diagonal branch of left anterior descending artery is of a small caliber and has approximately 70% ostial and proximal stenosis. 2. Normal left ventricular end-diastolic pressure. 3. Normal global left ventricular systolic function with ejection fraction approximately 60%. DISCUSSION AND RECOMMENDATIONS: Based on results of the study, it appears appropriate to continue a conservative approach at this time. Continuing outpatient followup is advised. Job ID: [id number] DocumentID: [id number] Dictated Date: 12/26/2021 11:21:21 [employer] Bi Developer Date: 12/26/2021 11:36:35 Dictated By: FELECIA CANCINO MD, MA, FACP, FACC, MTDD
== END 2021-12-26 15:15 | disposition home or self-care (01) ==
LOC: CATH 08:00 → SDC 11:51 → CATH 15:15
PROVIDERS: ATTEND Internal Medicine Cardiovascular Disease
DX: I25.10 Atherosclerotic heart disease of native coronary artery without angina pectoris (principal); G47.33 Obstructive sleep apnea (adult) (pediatric); C61 Malignant neoplasm of prostate; N18.30 Chronic kidney disease, stage 3 unspecified; I65.23 Occlusion and stenosis of bilateral carotid arteries; I50.33 Acute on chronic diastolic (congestive) heart failure; R94.39 Abnormal result of other cardiovascular function study; E66.01 Morbid (severe) obesity due to excess calories; Z68.42 Body mass index [BMI] 45.0-49.9, adult; Z79.82 Long term (current) use of aspirin
CPT/HCPCS: 80053; 80061; 85027; 85610; 85730; 87081; 93005; 93458; C1760; C1894; 36415

== ENCOUNTER 2021-12-30 08:26 | Emergency (ER) | payer MEDICARE ==
[~2021-12-30] VITALS: Ht 180 cm; Wt 145.0 kg
[~2021-12-30 08:26] MED LIST changes: +CITA20TA9 PO; +FAMO40TA6 PO; +GABA-486 PO; -HEParin (CATH LAB) 2,000 ML IV ONE; -LIDOCAINE 1% INJ 20 ML VIAL ONE; +METO100T6 PO; +MONT-40 PO; -NS IV 1000 ML 1,000 ML IV SCH; -NS IV 1000 ML 1,000 ML ONE; +OXYB-52 PO; +POTA10CA43 PO; +PRAM1TAB2 PO; +SPIR25TA PO; +TMSL.4C PO; +TRIA1CAP84 PO; +TRM50T PO
--- NOTE | 2021-12-30 09:03 | ED Abdominal Pain ---
General Chief Complaint: Abdominal/GI Problems Stated Complaint: LEFT LEG/BACK PAIN Nursing Triage Note: PT AMBULATORY TO ER. PT C/O L FLANK/ABD PAIN ONSET 4-5 DAYS AGO, DENIES HEMATURIA AND N/V/D. PT POOR HISTORIAN. Source of Information: Patient Exam Limitations: Other (Memory) History of Present Illness Date Seen by Provider: Dec 30, 2021 Time Seen by Provider: 08:50 Initial Comments Patient is a 76-year-old male who presents to the emergency department today with a chief complaint of left lower quadrant and left flank pain. Patient states that this pain has been going on for "weeks". He states over the last 4 to 5 days it is more intense. He states when he gets up and moves around the pain is more intense. He denies chest pain or shortness of breath. He denies nausea, vomiting. No diarrhea or black or bloody stools. He denies painful urination. He thinks his urine is "normal". He had a remote history of kidney stones. No fevers or chills. He is on multiple medications but has a hard time remembering them. He did see an orthopedic doctor recently for his left knee and states he was given some pain pills. He took 1 at 6:00 this morning but it has not really helped. Nothing makes the pain any better. He currently rates it at a "9". He states he has had a history of colonoscopy in the past with no abnormalities. He is very poor on details of his history. He states he came in this morning because his was coming in to be seen and he thought he would seek another opinion. His primary care doctor, Dr. Milan recently . All other review of systems reviewed and negative except as stated. Timing/Duration: Other (Several weeks) Severity/Quality: Moderate, Aching Location: LLQ Radiation: No Radiation Activities at Onset: None Modifying Factors: Worsens With Movement Associated Symptoms: Denies Symptoms Allergies and Home Medications Allergies Coded Allergies: No Known Drug Allergies (Unverified , 04/10/15) Patient Home Medication List Home Medication List Reviewed: Yes Acetaminophen (Tylenol Extra Strength) 500 Mg Tablet, 500 MG PO Q6H PRN for PAIN, (Reported) Entered as Reported by: FATIMAH BEAR on 04/11/15 0940 Aspirin (Aspirin) 81 Mg Tab.chew, 81 MG PO DAILY Prescribed by: FELECIA CANCINO on 12/26/21 112 Atorvastatin Calcium (Atorvastatin Calcium) 20 Mg Tablet, 20 MG PO HS, (Reported) Entered as Reported by: MARIELENA FERNANDEZ on 04/10/15 110 Cholecalciferol (Vitamin D3) (Vitamin D) 1,000 Unit Capsule, 1,000 UNIT PO DAILY, (Reported) Entered as Reported by: MARIELENA FERNANDEZ on 04/10/15 111 Citalopram Hydrobromide (Citalopram HBr) 20 Mg Tablet, 20 MG PO DAILY, (Reported) Entered as Reported by: MATEUSZ BISHOP on 12/26/21818 Famotidine (Famotidine) 40 Mg Tablet, 40 MG PO DAILY, (Reported) Entered as Reported by: MATEUSZ BISHOP on 12/26/21818 Furosemide (Furosemide) 40 Mg Tablet, 40 MG PO DAILY, (Reported) Entered as Reported by: MARIELENA FERNANDEZ on 04/10/15 110 Gabapentin (Gabapentin) 100 Mg Capsule, 200 MG PO HS, (Reported) Entered as Reported by: MATEUSZ BISHOP on 12/26/21818 Loratadine (Claritin) 10 Mg Capsule, 10 MG PO DAILY, (Reported) Entered as Reported by: MARIELENA FERNANDEZ on 04/10/15 111 Metoprolol Succinate (Toprol Xl) 100 Mg Tab.er.24h, 100 MG PO DAILY Prescribed by: FELECIA CANCINO on 12/26/21 112 Montelukast Sodium (Montelukast Sodium) 10 Mg Tablet, 10 MG PO DAILY, (Reported) Entered as Reported by: MATEUSZ BISHOP on 12/26/21818 Oxybutynin Chloride (Oxybutynin Chloride ER) 5 Mg Tab.er.24, 5 MG PO DAILY, (Reported) Entered as Reported by: MATEUSZ BISHOP on 12/26/21818 Potassium Chloride (Potassium Chloride) 10 Meq Capsule.er, 5 MEQ PO DAILY, (Reported) Entered as Reported by: MATEUSZ BISHOP on 12/26/21818 Pramipexole Di-HCl (Mirapex) 1 Mg Tablet, 1 MG PO HS, (Reported) Entered as Reported by: MATEUSZ BISHOP on 12/26/21818 Spironolactone (Aldactone) 25 Mg Tablet, 25 MG PO DAILY, (Reported) Entered as Reported by: MATEUSZ BISHOP on 12/26/21818 Tamsulosin HCl (Flomax) 0.4 Mg Cap, 0.4 MG PO DAILY, (Reported) Entered as Reported by: MATEUSZ BISHOP on 12/26/21818 Tramadol HCl (Tramadol HCl) 50 Mg Tablet, 50 MG PO Q4-6HRS PRN for PAIN-MODERATE (5-7), (Reported) Entered as Reported by: MATEUSZ BISHOP on 12/26/21818 Triamterene/Hydrochlorothiazid (Triamterene-Hctz 37.5-25 mg Cp) 37.5 Mg-25 Mg Capsule, 1 EACH PO DAILY, (Reported) Entered as Reported by: MATEUSZ BISHOP on 12/26/21818 Discontinued Medications Aspirin (Aspirin EC) 81 Mg Tablet.dr, 81 MG PO DAILY, (Reported) Discontinued Reason: No Longer Taking Entered as Reported by: FATIMAH BEAR on 04/11/15 0940 Atenolol (Atenolol) 50 Mg Tablet, 50 MG PO HS, (Reported) Discontinued Reason: No Longer Taking Entered as Reported by: MARIELENA FERNANDEZ on 04/10/15 1105 Doxazosin Mesylate (Doxazosin Mesylate) 4 Mg Tablet, 4 MG PO HS, (Reported) Discontinued Reason: No Longer Taking Entered as Reported by: MARIELENA FERNANDEZ on 04/10/15 1105 Levomefolate/B6/B12/Algal Oil (Metanx Capsule) 1 Each Capsule, 1 TAB PO DAILY, (Reported) Discontinued Reason: No Longer Taking Entered as Reported by: MARIELENA FERNANDEZ on 04/10/15 1113 Meclizine HCl (Meclizine HCl) 25 Mg Tablet, 25 MG PO Q6HR Discontinued Reason: No Longer Taking Prescribed by: RADHA MILAN on 04/11/15 1323 Mv,Minerals/FA/Lycopene/Ginkgo (Men's 50+ Daily Formula Tablet) 1 Each Tablet, 1 TAB PO DAILY, (Reported) Discontinued Reason: No Longer Taking Entered as Reported by: MARIELENA FERNANDEZ on 04/10/15 1113 Jeannette-3 Fatty Acids (Fish Oil Concentrate) 1,000 Mg Capsule, 1,000 MG PO DAILY, (Reported) Discontinued Reason: No Longer Taking Entered as Reported by: MARIELENA FERNANDEZ on 04/10/15 1113 Pantoprazole Sodium (Pantoprazole Sodium) 40 Mg Tablet.dr, 40 MG PO TWICE WEEKLY PRN for HEARTBURN, (Reported) Discontinued Reason: No Longer Taking Entered as Reported by: MARIELENA FERNANDEZ on 04/10/15 1113 Polyethylene Glycol 3350 (Miralax) 17 Gm Powd.pack, 17 GM PO HS, (Reported) Discontinued Reason: No Longer Taking Entered as Reported by: MARIELENA FERNANDEZ on 04/10/15 1113 Verapamil HCl (Verapamil ER) 240 Mg Tablet.er, 240 MG PO HS, (Reported) Entered as Reported by: MARIELENA FERNANDEZ on 04/10/15 1105 Review of Systems Review of Systems Constitutional: see HPI EENTM: No Symptoms Reported Respiratory: No Symptoms Reported Cardiovascular: No Symptoms Reported Gastrointestinal: Abdominal Pain Genitourinary: No Symptoms Reported Musculoskeletal: no symptoms reported Skin: no symptoms reported Psychiatric/Neurological: No Symptoms Reported All Other Systems Reviewed Negative Unless Noted: Yes Past Yaztowf-Efaafx-Piciub Hx Patient Social History Tobacco Use?: No Use of E-Cig and/or Vaping dev: No Substance use?: No Alcohol Use?: Yes Alcohol Frequency: Several times a month Pt feels they are or have been: No Immunizations Up To Date First/Initial COVID19 Vaccinat: YES, UNK WHEN COVID19 Vaccine Pedigree Researcher: UNK Seasonal Allergies Seasonal Allergies: No Past Medical History Adenoidectomy, Orthopedic, Tonsillectomy Sleep Apnea Currently Using CPAP: Yes Currently Using BIPAP: No High Cholesterol, Hypertension Reproductive Disorders: No Sexually Transmitted Disease: No HIV/AIDS: No Arthritis Loss of Vision: Denies Hearing Impairment: Denies Recent Skin Changes Family Medical History Arthritis Hypertension Physical Exam Vital Signs Vital Signs - First Documented 12/30/21 12/30/21 08:44 09:17 Temp 36.0 Pulse 62 Resp 24 B/P (MAP) 147/97 (114) Pulse Ox 93 O2 Delivery Room Air Capillary Refill : Height/Weight/BMI Height: 5'11.00" Weight: 310lbs. 0.0oz. 140.210388wz; 44.00 BMI Method: General Appearance: WD/WN, mild distress (Slightly labored breathing secondary to comfort and obesity) HEENT: PERRL/EOMI Respiratory: lungs clear, normal breath sounds, no respiratory distress, no accessory muscle use Cardiovascular: regular rate, rhythm Gastrointestinal: soft, tenderness (Left lower quadrant) Extremities: normal range of motion, normal inspection, pedal edema (2+ pedal edema bilateral lower extremity) Back: normal inspection Neurologic/Psychiatric: alert, normal mood/affect, oriented x 3 Skin: normal color, warm/dry, other (Patchy macular erythematous rash along the waistline and over his left flank. This appears to be more irritative in origin rather than contact dermatitis or infectious. I do not suspect shingles.) Progress/Results/Core Measures Results/Orders Lab Results Laboratory Tests Test 12/30/21 09:09 12/30/21 10:05 12/30/21 10:28 Range/Units White Blood Count 7.3 4.3-11.0 10^3/uL Red Blood Count 4.54 4.30-5.52 10^6/uL Hemoglobin 14.6 13.3-17.7 g/dL Hematocrit 44 40-54 % Mean Corpuscular Volume 97 80-99 fL Mean Corpuscular Hemoglobin 32 25-34 pg Mean Corpuscular Hemoglobin Concent 33 32-36 g/dL Red Cell Distribution Width 14.2 10.0-14.5 % Platelet Count 194 130-400 10^3/uL Mean Platelet Volume 9.3 9.0-12.2 fL Immature Granulocyte % (Auto) 1 % Neutrophils (%) (Auto) 73 42-75 % Lymphocytes (%) (Auto) 11 L 12-44 % Monocytes (%) (Auto) 15 H 0-12 % Eosinophils (%) (Auto) 0 0-10 % Basophils (%) (Auto) 0 0-10 % Neutrophils # (Auto) 5.3 1.8-7.8 10^3/uL Lymphocytes # (Auto) 0.8 L 1.0-4.0 10^3/uL Monocytes # (Auto) 1.1 H 0.0-1.0 10^3/uL Eosinophils # (Auto) 0.0 0.0-0.3 10^3/uL Basophils # (Auto) 0.0 0.0-0.1 10^3/uL Immature Granulocyte # (Auto) 0.0 0.0-0.1 10^3/uL Sodium Level 137 135-145 MMOL/L Potassium Level 3.9 3.6-5.0 MMOL/L Chloride Level 105 98-107 MMOL/L Carbon Dioxide Level 23 21-32 MMOL/L Anion Gap 9 5-14 MMOL/L Blood Urea Nitrogen 11 7-18 MG/DL Creatinine 1.26 0.60-1.30 MG/DL Estimat Glomerular Filtration Rate 58 BUN/Creatinine Ratio 9 Glucose Level 86 70-105 MG/DL Calcium Level 8.8 8.5-10.1 MG/DL Corrected Calcium 9.1 8.5-10.1 MG/DL Total Bilirubin 1.0 0.1-1.0 MG/DL Aspartate Amino Transf (AST/SGOT) 102 H 5-34 U/L Alanine Aminotransferase (ALT/SGPT) 81 H 0-55 U/L Alkaline Phosphatase 69 40-136 U/L Total Protein 6.9 6.4-8.2 GM/DL Albumin 3.6 3.2-4.5 GM/DL SARS-CoV-2 RNA (RT-PCR) Detected H Not Detecte Urine Color YELLOW Urine Clarity CLEAR Urine pH 5.5 5-9 Urine Specific [place] 1.025 H 1.016-1.022 Urine Protein NEGATIVE NEGATIVE Urine Glucose (UA) NEGATIVE NEGATIVE Urine Ketones NEGATIVE NEGATIVE Urine Nitrite NEGATIVE NEGATIVE Urine Bilirubin NEGATIVE NEGATIVE Urine Urobilinogen 0.2 < = 1.0 MG/DL Urine Leukocyte Esterase NEGATIVE NEGATIVE Urine RBC (Auto) 1+ H NEGATIVE Urine RBC 5-10 H /HPF Urine WBC NONE /HPF Urine Squamous Epithelial Cells NONE /HPF Urine Crystals NONE /LPF Urine Bacteria NEGATIVE /HPF Urine Casts NONE /LPF Urine Mucus NEGATIVE /LPF Urine Culture Indicated NO My Orders Orders - NANCY CRUZ MD Ed Iv/Invasive Line Start (12/30/21 09:03) Cbc With Automated Diff (12/30/21 09:03) Comprehensive Metabolic Panel (12/30/21 09:03) Ua Culture If Indicated (12/30/21 09:03) Covid 19 Inhouse Test (12/30/21 10:06) Isolation Central Supply Req (12/30/21 10:06) Ibuprofen Tablet (Motrin Tablet) (12/30/21 10:15) Ct Abd/Pelvis Wo(Kidney Stone) (12/30/21 10:51) Abdomen/Kub 1view (12/30/21 11:48) Bebtelovimab (Bebtelovimab) (12/30/21 12:00) Medications Given in ED Current Medications Medications Dose Ordered Sig/Maribeth Route Start Time Stop Time Status Last Admin Dose Admin Bebtelovimab 175 mg ONCE ONCE IV 12/30/21 12:00 12/30/21 12:01 DC 12/30/21 12:15 175 MG Ibuprofen 600 mg ONCE ONCE PO 12/30/21 10:15 12/30/21 10:16 DC 12/30/21 10:15 600 MG Vital Signs/I&O 12/30/21 12/30/21 12/30/21 08:44 09:17 12:38 Temp 36.0 Pulse 62 48 54 Resp 24 18 B/P (MAP) 147/97 (114) 117/72 137/76 Pulse Ox 93 98 92 O2 Delivery Room Air Room Air Blood Pressure Mean: 114 Progress Progress Note #1: Time: 10:10 Progress Note Patient's who also presented for evaluation this morning, hypoxic with a cough was noted to be COVID-positive the test is now being done on Mr. Dominguez. I did look at medicine reconciliation and saw that he was prescribed some tramadol on 12/26. Labs look good.. I am not concerned for any acute intra abdominal pathology. I did note that his last colonoscopy was in 2010. He will need to follow-up for repeat screening colonoscopy soon. We will encourage him to take the tramadol as well as ibuprofen with food for pain. Anticipate discharge to home. We will likely offer monoclonal antibody infusion secondary to age and risk factors for severe COVID disease. Progress Note #2: Time: 11:45 Progress Note Patient noted to have a 3 mm left mid ureteral stone which does support his pain and microscopic hematuria. He is fairly comfortable sitting at the bedside. I am going to get a KUB for follow-up. I have also talked to him about the monoclonal antibody infusion for COVID. He is asymptomatic of his infection c urrently but would be at high risk due to age and comorbidities. I did advise him that it is still under emergency use authorization. We talked about the risks and benefits. He consents to go ahead and have this infusion. Diagnostic Imaging Diagonstic Imaging: CT Comments NAME: EVENS DOMINGUEZ [facility] REC#: [id number] PT STATUS: REG ER : 1945 PHYSICIAN: NANCY CRUZ MD ADMIT DATE: 12/30/21/ER Draft Date of Exam:12/30/21 CT ABD/PELVIS WO(KIDNEY STONE) Procedure: CT urinary tract, rule out kidney stone. Technique: Multiple contiguous axial images were obtained through the abdomen and pelvis without the use of intravenous contrast. Auto Exposure Controls were utilized during the CT exam to meet ALARA standards for radiation dose reduction. Indication: Left flank pain. History of COVID pneumonia. Comparison: 01/16/2021. Discussion: The lung bases are unremarkable. Normal heart size. No pleural or pericardial fluid. The liver, gallbladder, pancreas, stomach, spleen, and adrenal glands are unremarkable. There are bilateral nonobstructing renal calculi noted measuring up to 5 mm. There is a 3 mm stone within the proximal left ureter just after the ureteropelvic junction. No hydronephrosis. Bladder is decompressed. Prostate is normal in size. Diverticulosis with no secondary evidence for diverticulitis. Trace free fluid within the right lower quadrant. No adenopathy. The aorta is normal in caliber. No acute osseous abnormality. 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 Impression: 1. 3 mm nonobstructing stone within the proximal left ureter. Additional nonobstructing bilateral renal calculi are present bilaterally. 2. Diverticulosis. Dictated on workstation # [id number] Dict: 12/30/21 1131 Trans: 12/30/21 1137 [facility] [id number] Interpreted by: CHRISS COVINGTON MD Electronically signed by: Diagonstic Imaging: Xray Comments [facility] [place] [place] NAME: EVENS DOMINGUEZ [facility] REC#: [id number] PT STATUS: REG ER : 1945 PHYSICIAN: NANCY CRUZ MD ADMIT DATE: 12/30/21/ER Draft Date of Exam:12/30/21 ABDOMEN/KUB 1VIEW Indication: Left-sided flank pain. Comparison: CT earlier today. Discussion: Three views of the abdomen were obtained. Nonobstructive bowel gas pattern. There are a few nonobstructing stones projected over the left renal bed. Given the patient body habitus and technique, these are poorly visualized. The stone within the proximal left ureter on CT is not definitely seen by plain film again, the exam is limited. Impression: 1. Limited visualization of the left renal stones due to patient body habitus and technique. Dictated on workstation # [id number] Dict: 12/30/21 1220 Trans: 12/30/21 1224 [facility] [id number] Interpreted by: CHRISS COVINGTON MD Electronically signed by: Departure Impression Primary Impression: Kidney stone on left side Additional Impression: COVID-19 Disposition: 01 HOME, SELF-CARE Condition: Improved Departure-Patient Inst. Decision time for Depature: 13:00 Referrals: NO,LOCAL PHYSICIAN (PCP) Primary Care Physician NA CAHPARRO MD Patient Instructions: COVID-19 ED, Kidney Stone, Adult ED, LOCAL PHYSICIAN LIST Add. Discharge Instructions: You have been diagnosed with COVID-19 today. Please quarantine at home for 5 days. After 5 days you will need to wear a mask out in public for another 5 days. Drink plenty of fluids to stay well-hydrated. Take the Flomax every evening for the next 2 weeks to increase urine flow. Take your tramadol pain medication that was prescribed by your primary care provider every 6 hours as needed for pain. You can always take ibuprofen 3 tablets (200 mg tablets [id number] ) which is 600 mg every 6-8 hours with food as needed for pain as well. Please follow-up with a primary care physician. I have attached the local physician referral list. I have also given you contact information for the urologist on-call, Dr. Plummer, he takes care of patients with kidney stones. Please come back to the emergency department for any worsening pain especially with nausea, vomiting, fever or any other emergent concerning symptoms. Also if you become more short of breath, lightheaded, dizzy or have palpitations you need to come and be reevaluated. Scripts Ondansetron (Ondansetron Odt) 4 Mg Tab.rapdis 4 MG PO Q8H PRN for nausea, #15 TAB Prov: NANCY CRUZ MD 12/30/21 Tamsulosin HCl (Flomax) 0.4 Mg Cap 0.4 MG PO HS, #14 CAP Prov: NANCY CRUZ MD 12/30/21 Copy Copies To 1: NA CHAPARRO MD, KATHRYN M MD Dec 30, 2021 09:03
[2021-12-30 09:15] LABS: BASOPHILS % (AUTO) 0 % (0-10); EOSINOPHILS % (AUTO) 0 % (0-10); HEMATOCRIT 44 % (40-54); HEMOGLOBIN 14.6 g/dL (13.3-17.7); LYMPHOCYTES # (AUTO) 0.8 10^3/uL (1.0-4.0); LYMPHOCYTES % (AUTO) 11 % (12-44); MEAN CORPUSCULAR HEMOGLOBIN 32 pg (25-34); MEAN CORPUSCULAR HGB CONC 33 g/dL (32-36); MEAN CORPUSCULAR VOLUME 97 fL (80-99); MEAN PLATELET VOLUME 9.3 fL (9.0-12.2); MONOCYTES # (AUTO) 1.1 10^3/uL (0.0-1.0); MONOCYTES % (AUTO) 15 % (0-12); NEUTROPHILS # (AUTO) 5.3 10^3/uL (1.8-7.8); NEUTROPHILS % (AUTO) 73 % (42-75); PLATELET COUNT 194 10^3/uL (130-400); WHITE BLOOD COUNT 7.3 10^3/uL (4.3-11.0)
[2021-12-30 09:22] LABS: ALBUMIN 3.6 GM/DL (3.2-4.5)
[2021-12-30 09:23] LABS: POTASSIUM 3.9 MMOL/L (3.6-5.0)
[2021-12-30 09:24] LABS: CALCIUM 8.8 MG/DL (8.5-10.1)
[2021-12-30 09:25] LABS: TOTAL PROTEIN 6.9 GM/DL (6.4-8.2)
[2021-12-30 09:29] LABS: CREATININE SERUM 1.26 MG/DL (0.60-1.30)
[2021-12-30] MEDS ORDERED: IBUPROFEN 600 MG (MOTRIN) TAB PO ONE (10:15)
[2021-12-30 10:34] LABS: BILIRUBIN,URINE NEGATIVE (NEGATIVE); CLARITY,URINE CLEAR; COLOR,URINE YELLOW; GLUCOSE, URINE (UA) NEGATIVE (NEGATIVE); KETONES,URINE NEGATIVE (NEGATIVE); LEUKOCYTE ESTERASE ,URINE NEGATIVE (NEGATIVE); NITRITE,URINE NEGATIVE (NEGATIVE); PH,URINE 5.5 (5-9); PROTEIN,URINE NEGATIVE (NEGATIVE)
[2021-12-30 10:47] LABS: BACTERIA,URINE NEGATIVE /HPF
--- NOTE | 2021-12-30 11:37 | Diagnostic Imaging Report ---
Procedure: CT urinary tract, rule out kidney stone. Technique: Multiple contiguous axial images were obtained through the abdomen and pelvis without the use of intravenous contrast. Auto Exposure Controls were utilized during the CT exam to meet ALARA standards for radiation dose reduction. Indication: Left flank pain. History of COVID pneumonia. Comparison: 01/16/2021. Discussion: The lung bases are unremarkable. Normal heart size. No pleural or pericardial fluid. The liver, gallbladder, pancreas, stomach, spleen, and adrenal glands are unremarkable. There are bilateral nonobstructing renal calculi noted measuring up to 5 mm. There is a 3 mm stone within the proximal left ureter just after the ureteropelvic junction. No hydronephrosis. Bladder is decompressed. Prostate is normal in size. Diverticulosis with no secondary evidence for diverticulitis. Trace free fluid within the right lower quadrant. No adenopathy. The aorta is normal in caliber. No acute osseous abnormality. 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 Impression: 1. 3 mm nonobstructing stone within the proximal left ureter. Additional nonobstructing bilateral renal calculi are present bilaterally. 2. Diverticulosis. Dictated by: Dictated on workstation # [id number]
[2021-12-30] MEDS ORDERED: BEBTELOVIMAB 175 MG/2 ML VIAL IV ONE (12:00)
--- NOTE | 2021-12-30 12:24 | Diagnostic Imaging Report ---
Indication: Left-sided flank pain. Comparison: CT earlier today. Discussion: Three views of the abdomen were obtained. Nonobstructive bowel gas pattern. There are a few nonobstructing stones projected over the left renal bed. Given the patient body habitus and technique, these are poorly visualized. The stone within the proximal left ureter on CT is not definitely seen by plain film again, the exam is limited. Impression: 1. Limited visualization of the left renal stones due to patient body habitus and technique. Dictated by: Dictated on workstation # [id number]
[2021-12-30] MEDS ORDERED: TMSL.4C PO (13:02)
[2021-12-30] MEDS ORDERED: ONDA4TAB11 PO (13:02)
[2021-12-30 13:20] VITALS: BP 122/61
== END 2021-12-30 13:22 | disposition home or self-care (01) ==
LOC: EDUNIT# 08:26 → ER 08:28
DX: U07.1 COVID-19 (principal); N20.0 Calculus of kidney; G47.30 Sleep apnea, unspecified; Z99.89 Dependence on other enabling machines and devices
CPT/HCPCS: 36415; 74018; 74176; 80053; 81000; 85025; 87636

== ENCOUNTER 2022-01-13 22:52 | Inpatient (IN) | payer MEDICARE ==
[~2022-01-13] VITALS: Ht 180.3 cm; Wt 137.8 kg
[~2022-01-13 22:52] MED LIST changes: +ONDA4TAB11 PO
[2022-01-13 23:09] LABS: BASOPHILS % (AUTO) 0 % (0-10); EOSINOPHILS % (AUTO) 0 % (0-10); HEMATOCRIT 50 % (40-54); HEMOGLOBIN 16.6 g/dL (13.3-17.7); LYMPHOCYTES # (AUTO) 0.6 10^3/uL (1.0-4.0); LYMPHOCYTES % (AUTO) 4 % (12-44); MEAN CORPUSCULAR HEMOGLOBIN 32 pg (25-34); MEAN CORPUSCULAR HGB CONC 33 g/dL (32-36); MEAN CORPUSCULAR VOLUME 95 fL (80-99); MEAN PLATELET VOLUME 9.1 fL (9.0-12.2); MONOCYTES # (AUTO) 1.2 10^3/uL (0.0-1.0); MONOCYTES % (AUTO) 9 % (0-12); NEUTROPHILS # (AUTO) 12.6 10^3/uL (1.8-7.8); NEUTROPHILS % (AUTO) 87 % (42-75); PLATELET COUNT 392 10^3/uL (130-400); WHITE BLOOD COUNT 14.6 10^3/uL (4.3-11.0)
[2022-01-13] MEDS ORDERED: LACTATED RINGERS 1,000 ML IV ONE (23:15)
[2022-01-13 23:21] LABS: ALBUMIN 3.5 GM/DL (3.2-4.5); POTASSIUM 3.3 MMOL/L (3.6-5.0)
--- NOTE | 2022-01-13 23:22 | ED General ---
General Chief Complaint: Neurological Problems Stated Complaint: WEAKNESS Source of Information: Patient (VERY POOR HISTORIAN ABOUT CURRENT PROBLEM AND PAST MEDICAL HISTORY--DOES NOT KNOW ANY OF HIS MEDICATIONS; GIVES CONVOLUTED INFORMATION), EMS, Old Records (ALL HISTORY IS FROM OLD RECORDS) History of Present Illness Date Seen by Provider: Jan 13, 2022 Time Seen by Provider: 23:00 Initial Comments PT ARRIVES VIA EMS FROM HOME PT LIVES AT HOME WITH AND 2 CATS SON CALLED EMS TONIGHT TO BRING PT TO HOSPITAL--EMS REPORT THAT SON APPEARED TO BE INTOXICATED. EMS REPORT THAT PT STATES THAT HE "SLID DOWN" FROM A PIECE OF FURNITURE AND COULD NOT GET BACK UP PT HAS BEEN ON THE FLOOR AND NOT ABLE TO GET UP FOR 3 DAYS, BUT HAS BEEN " SCOOTING" HIMSELF AROUND PT HAS URINATED ALL OVER HIMSELF AND ALL OVER THE ROOM AT HOME--PT STATES HE HAS HAD PROBLEMS HOLDING HIS URINE "FOR AWHILE" BUT IS UNABLE TO GIVE DETAILS ABOUT THIS OR HOW LONG THAT PROBLEM HAS BEEN GOING ON EMS REPORT THAT PT HAS NOT HAD ANY MEDICATIONS SINCE THIS HAPPENED THERE IS NO EXPLANATION TO WHY THE DID NOT CONTACT ANYONE ABOUT THIS EMS REPORT THAT NEITHER PT NOR COULD GIVE ANY MEDICAL HISTORY, AND THEY DID NOT KNOW ANY OF HIS MEDICATIONS, BUT STATES "HE TAKES 8 OR 9 OF THEM" NO EXPLANATION TO WHY DID NOT BRING HIM HIS MEDICATIONS EMS REPORT THAT PT HAS HAD SOME WATER BUT HAS NOT EATEN FOR 3 DAYS SINCE THIS HAPPENED--AGAIN, NO EXPLANATION TO WHY DID NOT BRING HIM ANY FOOD. 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 PT STATES HE SAW HIM 3-4 WEEKS AGO, JUST BEFORE DR. MILAN . PT IS UNABLE TO GIVE ANY PAST MEDICAL HISTORY OF ANY KIND OLD CHART REVIEWED AND PT WAS HERE 12/30/21 FOR A KIDNEY STONE, AND HAD A CARDIAC CATH 12/26/[address] CANCINO--MODERATE DISEASE, NO INTERVENTION AT THAT TIME HAS POSSIBLY HAD AT LEAST 1 COVID VACCINE, BUT UNABLE TO VERIFY THIS Allergies and Home Medications Allergies Coded Allergies: No Known Drug Allergies (Unverified , 04/10/15) Patient Home Medication List Home Medication List Reviewed: Yes Acetaminophen (Tylenol Extra Strength) 500 Mg Tablet, 500 MG PO Q6H PRN for PAIN, (Reported) Entered as Reported by: FATIMAH BEAR on 04/11/15 0940 Aspirin (Aspirin) 81 Mg Tab.chew, 81 MG PO DAILY Prescribed by: FELECIA CANCINO on 12/26/21 1127 Atorvastatin Calcium (Atorvastatin Calcium) 20 Mg Tablet, 20 MG PO HS, (Reported) Entered as Reported by: MARIELENA FERNANDEZ on 04/10/15 1105 Cholecalciferol (Vitamin D3) (Vitamin D) 1,000 Unit Capsule, 1,000 UNIT PO DAILY, (Reported) Entered as Reported by: MARIELENA FERNANDEZ on 04/10/15 1113 Citalopram Hydrobromide (Citalopram HBr) 20 Mg Tablet, 20 MG PO DAILY, (Reported) Entered as Reported by: MATEUSZ BISHOP on 12/26/21 0819 Famotidine (Famotidine) 40 Mg Tablet, 40 MG PO DAILY, (Reported) Entered as Reported by: MATEUSZ BISHOP on 12/26/21 0819 Furosemide (Furosemide) 40 Mg Tablet, 40 MG PO DAILY, (Reported) Entered as Reported by: MARIELENA FERNANDEZ on 04/10/15 1105 Gabapentin (Gabapentin) 100 Mg Capsule, 200 MG PO HS, (Reported) Entered as Reported by: MATEUSZ BISHOP on 12/26/21 0819 Loratadine (Claritin) 10 Mg Capsule, 10 MG PO DAILY, (Reported) Entered as Reported by: MARIELENA FERNANDEZ on 04/10/15 1113 Metoprolol Succinate (Toprol Xl) 100 Mg Tab.er.24h, 100 MG PO DAILY Prescribed by: FELECIA CANCINO on 12/26/21 1127 Montelukast Sodium (Montelukast Sodium) 10 Mg Tablet, 10 MG PO DAILY, (Reported) Entered as Reported by: MATEUSZ BISHOP on 12/26/21 0819 Ondansetron (Ondansetron Odt) 4 Mg Tab.rapdis, 4 MG PO Q8H PRN for nausea Prescribed by: NANCY CRUZ on 12/30/21 1302 Oxybutynin Chloride (Oxybutynin Chloride ER) 5 Mg Tab.er.24, 5 MG PO DAILY, (Reported) Entered as Reported by: MATEUSZ BISHOP on 12/26/21818 Potassium Chloride (Potassium Chloride) 10 Meq Capsule.er, 5 MEQ PO DAILY, (Reported) Entered as Reported by: MATEUSZ BISHOP on 12/26/21818 Pramipexole Di-HCl (Mirapex) 1 Mg Tablet, 1 MG PO HS, (Reported) Entered as Reported by: MATEUSZ BISHOP on 12/26/21818 Spironolactone (Aldactone) 25 Mg Tablet, 25 MG PO DAILY, (Reported) Entered as Reported by: MATEUSZ BISHOP on 12/26/21818 Tamsulosin HCl (Flomax) 0.4 Mg Cap, 0.4 MG PO DAILY, (Reported) Entered as Reported by: MATEUSZ BISHOP on 12/26/21818 Tamsulosin HCl (Flomax) 0.4 Mg Cap, 0.4 MG PO HS Prescribed by: NACNY CRUZ on 12/30/21 1302 Tramadol HCl (Tramadol HCl) 50 Mg Tablet, 50 MG PO Q4-6HRS PRN for PAIN-MODERATE (5-7), (Reported) Entered as Reported by: MATEUSZ BISHOP on 12/26/21818 Triamterene/Hydrochlorothiazid (Triamterene-Hctz 37.5-25 mg Cp) 37.5 Mg-25 Mg Capsule, 1 EACH PO DAILY, (Reported) Entered as Reported by: MATEUSZ BISHOP on 12/26/21818 Review of Systems Review of Systems Constitutional: other (PT DENIES ANY SYMPTOMS) Respiratory: other (PT STATES HE "JUST QUIT USING" HIS CPAP--"DIDN'T LIKE IT" ) Past Pyoleiv-Unbguc-Rablmf Hx Patient Social History Tobacco Use?: No Substance use?: No Alcohol Use?: Yes Immunizations Up To Date First/Initial COVID19 Vaccinat: YES, UNK WHEN Seasonal Allergies Seasonal Allergies: No Past Medical History Surgeries: Yes Adenoidectomy, Cardiac, Lobectomy, Orthopedic, Tonsillectomy Respiratory: Yes (CHRONIC DYSPNEA; CARCINOID TUMOR OF LUNG) Sleep Apnea Currently Using CPAP: No Currently Using BIPAP: No Cardiac: Yes (CHF; CAROTID DISEASE) Chronic Edema/Swelling, Coronary Artery Disease, High Cholesterol, Hypertension Neurological: Yes (SUSPECTED DEMENTIA-HAS BEEN PRESCRIBED ARICEPT IN PAST) Reproductive Disorders: No Sexually Transmitted Disease: No HIV/AIDS: No Genitourinary: Yes (PROSTATE CANCERP;CKD) Kidney Stones Gastrointestinal: Yes (POSSIBLE ABDI) Gastroesophageal Reflux, Liver Disease/Jaundice Musculoskeletal: Yes Arthritis Endocrine: Yes (MORBID OBESITY. ) Loss of Vision: Denies Hearing Impairment: Denies Cancer: Yes Prostate, Lung Did You Recieve Any Treatments: Yes What Type of Treatment Did You: Surgical Intervention CARCINOID TUMOR OF LUNG--S/P VATS ASSISTED FAIAN RESECTION--08/2015 PROSTATE CANCER--DX 2016, WITH RADIATION IMPLANTS 2016 Psychosocial: No Integumentary: No Blood Disorders: No Family Medical History Arthritis Hypertension SOCIAL HISTORY: -DENIES SMOKING -DENIES DRUG USE -HISTORY OF ETOH, CLAIMS NO RECENT USE, PER PT 01/13/22 PAST SURGICAL HISTORY: -BILATERAL KNEE REPLACEMENT -VATS ASSISTED LEFT UPPER LOBE RESECTION FOR CARCINOID TUMOR 08/2015 -RADIATION SEED IMPLANTS FOR PROSTATE CANCER 2016 -EGD/COLONOSCOPIES -CARDIAC CATH 12/26/[address] CANCINO: CONCLUSIONS: 1. Coronary artery disease primarily consisting of mid vessel occlusion of the right coronary with collateralization of the distal right coronary by the left anterior descending artery. There is diffuse moderate disease of the left coronary system. The first diagonal branch of left anterior descending artery is of a small caliber and has approximately 70% ostial and proximal stenosis. 2. Normal left ventricular end-diastolic pressure. 3. Normal global left ventricular systolic function with ejection fraction approximately 60%. DISCUSSION AND RECOMMENDATIONS: Based on results of the study, it appears appropriate to continue a conservative approach at this time. Continuing outpatient followup is advised. Physical Exam Vital Signs Vital Signs - First Documented 01/13/22 23:05 Temp 36.3 Pulse 111 Resp 24 B/P (MAP) 196/110 (138) Pulse Ox 97 O2 Delivery Nasal Cannula Capillary Refill : Height, Weight, BMI Height: 5'11.00" Weight: 310lbs. 0.0oz. 140.564102eg; 44.00 BMI Method: General Appearance: WD/WN, Obese (MORBIDLY OBESE), Other (RAMBLES ON NON-STOP, DIFFICULT TO KEEP ON SUBJECT. PT IS MODERATELY DYSPNEIC, BUT TALKS NON-STOP IN FULL SENTENCES. PT WITH VERY POOR MEMORY. PT IS EXTREMELY MALODOROUS AND CLOTHING IS SATURATED WITH URINE, WITH AN EXTREMELY STRONG SMELL OF OLD URINE. BAREFOOT. COVERED IN ANIMAL HAIR. ) HEENT: PERRL/EOMI, Normal ENT Inspection Respiratory: Accessory Muscle Use, Decreased Breath Sounds (IN BASES); No Rales, No Rhonci, No Wheezing; Other (DYSPNEIC) Cardiovascular: Tachycardia (100-110) Gastrointestinal: Non Tender, Soft Extremity: Pedal Edema (UNABLE TO DETERMINE DEGREE OF EDEMA DUE TO BODY HABITUS, BUT RIGHT FOOT AND ANKLE WITH MODERATE SWELLING AND MILD ERYTHEMA. NO WOUNDS/SORES/ULCERS NOTED. ) Neurologic/Psychiatric: Alert, No Motor/Sensory Deficits, Normal Mood/Affect, [employer] II-XII Norm as Tested, Other (ORIENTED TO PERSON, PLACE, CONFUSED TO TIME, SOMEWHAT CONFUSED TO SITUATION, AND VERY POOR MEMORY. ) Skin: Normal Color, Warm/Dry, Tattoos/Piercings (MULTIPLE TATTOOS ) Progress/Results/Core Measures Suspected Sepsis SIRS Temperature: Pulse: Respiratory Rate: Laboratory Tests 01/13/22 22:57: White Blood Count 14.6H Blood Pressure / Mean: Laboratory Tests 01/13/22 22:57: Creatinine 1.41H, Platelet Count 392, Total Bilirubin 2.3H Results/Orders Lab Results Laboratory Tests Test 01/13/22 22:57 01/13/22 23:16 01/13/22 23:21 Range/Units White Blood Count 14.6 H 4.3-11.0 10^3/uL Red Blood Count 5.24 4.30-5.52 10^6/uL Hemoglobin 16.6 13.3-17.7 g/dL Hematocrit 50 40-54 % Mean Corpuscular Volume 95 80-99 fL Mean Corpuscular Hemoglobin 32 25-34 pg Mean Corpuscular Hemoglobin Concent 33 32-36 g/dL Red Cell Distribution Width 13.7 10.0-14.5 % Platelet Count 392 130-400 10^3/uL Mean Platelet Volume 9.1 9.0-12.2 fL Immature Granulocyte % (Auto) 1 % Neutrophils (%) (Auto) 87 H 42-75 % Lymphocytes (%) (Auto) 4 L 12-44 % Monocytes (%) (Auto) 9 0-12 % Eosinophils (%) (Auto) 0 0-10 % Basophils (%) (Auto) 0 0-10 % Neutrophils # (Auto) 12.6 H 1.8-7.8 10^3/uL Lymphocytes # (Auto) 0.6 L 1.0-4.0 10^3/uL Monocytes # (Auto) 1.2 H 0.0-1.0 10^3/uL Eosinophils # (Auto) 0.0 0.0-0.3 10^3/uL Basophils # (Auto) 0.0 0.0-0.1 10^3/uL Immature Granulocyte # (Auto) 0.1 0.0-0.1 10^3/uL Neutrophils % (Manual) 85 % Lymphocytes % (Manual) 11 % Monocytes % (Manual) 3 % Sodium Level 147 H 135-145 MMOL/L Potassium Level 3.3 L 3.6-5.0 MMOL/L Chloride Level 107 98-107 MMOL/L Carbon Dioxide Level 21 21-32 MMOL/L Anion Gap 19 H 5-14 MMOL/L Blood Urea Nitrogen 21 H 7-18 MG/DL Creatinine 1.41 H 0.60-1.30 MG/DL Estimat Glomerular Filtration Rate 51 BUN/Creatinine Ratio 15 Glucose Level 95 70-105 MG/DL Calcium Level 9.5 8.5-10.1 MG/DL Corrected Calcium 9.9 8.5-10.1 MG/DL Magnesium Level 2.2 1.6-2.4 MG/DL Total Bilirubin 2.3 H 0.1-1.0 MG/DL Aspartate Amino Transf (AST/SGOT) 120 H 5-34 U/L Alanine Aminotransferase (ALT/SGPT) 65 H 0-55 U/L Alkaline Phosphatase 82 40-136 U/L Total Creatine Kinase 1846 H 30-200 U/L Creatine Kinase MB 23.4 *H <6.6 NG/ML Myoglobin 1778.2 H 10.0-92.0 NG/ML Troponin I 0.049 H <0.028 NG/ML B-Type Natriuretic Peptide 64.3 <100.0 PG/ML Total Protein 7.6 6.4-8.2 GM/DL Albumin 3.5 3.2-4.5 GM/DL Serum Alcohol < 10 <10 MG/DL SARS-CoV-2 RNA (RT-PCR) Detected H Not Detecte Urine Color YELLOW Urine Clarity CLEAR Urine pH 6.0 5-9 Urine Specific [place] 1.025 H 1.016-1.022 Urine Protein TRACE H NEGATIVE Urine Glucose (UA) NEGATIVE NEGATIVE Urine Ketones 1+ H NEGATIVE Urine Nitrite NEGATIVE NEGATIVE Urine Bilirubin 1+ H NEGATIVE Urine Urobilinogen 2.0 < = 1.0 MG/DL Urine Leukocyte Esterase NEGATIVE NEGATIVE Urine RBC (Auto) TRACE-I H NEGATIVE Urine RBC 0-2 /HPF Urine WBC NONE /HPF Urine Crystals NONE /LPF Urine Bacteria TRACE /HPF Urine Casts NONE /LPF Urine Mucus SMALL H /LPF Urine Culture Indicated NO Urine Opiates Screen NEGATIVE NEGATIVE Urine Oxycodone Screen NEGATIVE NEGATIVE Urine Methadone Screen NEGATIVE NEGATIVE Urine Propoxyphene Screen NEGATIVE NEGATIVE Urine Barbiturates Screen NEGATIVE NEGATIVE Ur Tricyclic Antidepressants Screen NEGATIVE NEGATIVE Urine Phencyclidine Screen NEGATIVE NEGATIVE Urine Amphetamines Screen NEGATIVE NEGATIVE Urine Methamphetamines Screen NEGATIVE NEGATIVE Urine Benzodiazepines Screen NEGATIVE NEGATIVE Urine Cocaine Screen NEGATIVE NEGATIVE Urine Cannabinoids Screen NEGATIVE NEGATIVE My Orders Orders - SNEHA COLE DO Ed Iv/Invasive Line Start (01/13/22 23:) Ekg Tracing (01/13/22 23:) Monitor-Rhythm Ecg Trace Only (01/13/22 23:) Cbc With Automated Diff (01/13/22 23:) Comprehensive Metabolic Panel (01/13/22 23:) Creatine Kinase (01/13/22:) Creatine Kinase Mb (01/13/22 23:) Magnesium (01/13/22:) Ua Culture If Indicated (01/13/22:) Myoglobin Serum (01/13/22 23:) Ed Iv/Invasive Line Start (01/13/22 23:) Lactated Ringers (Lr 1000 Ml Iv Solution (01/13/22 23:15) Ct Thoracic/Lumbar Spine Wo (01/13/22 23:01) Covid 19 Inhouse Test (01/13/22 23:) Isolation Central Supply Req (01/13/22 23:) Manual Differential (01/13/22 22:57) Ct Head/Cervical Spine Wo (01/13/22 23:01) D5 1/2 Ns W/Kcl 20 Meq/L (Dextrose 5%/0. (01/14/22 00:00) Chest 1 View, Ap/Pa Only (01/14/22 00:01) Pelvis (01/14/22 00:01) Bnp González (01/14/22 00:20) Troponin I González (01/14/22 00:20) Alcohol (01/14/22 00:30) Drug Screen Stat (Urine) (01/14/22 00:30) Nitroglycerin Ointment (Nitrobid Ointme (01/14/22 01:00) Medications Given in ED Current Medications Medications Dose Ordered Sig/Maribeth Route Start Time Stop Time Status Last Admin Dose Admin Lactated Ringer's 1,000 ml @ 0 mls/hr Q0M ONCE IV 01/13/22 23:15 01/13/22 23:16 DC 01/13/22 23:42 1,000 MLS/HR Nitroglycerin 1 inch ONCE ONCE TOP 01/14/22 01:00 01/14/22 01:01 DC 01/14/22 01:01 1 INCH Vital Signs/I&O 01/13/22 01/13/22 23:05 23:37 Temp 36.3 36.3 Pulse 111 108 Resp 24 24 B/P (MAP) 196/110 (138) Pulse Ox 97 96 O2 Delivery Nasal Cannula Nasal Cannula 01/14/22 00:00 Intake Total 100 ml Balance 100 ml Capillary Refill : Progress Note : Progress Note PPE WORN COVID TESTING DONE GIVEN IV FLUIDS NITROPASTE APPLIED FOR PERSISTENT HTN--190-200 SYSTOLIC. O2 SATS 99% ON ROOM AIR ON ARRIVAL, WHILE LAYING NEARLY FLAT, BUT PT IS MODERATELY DYSPNEIC--BUT ABLE TO TALK IN FULL SENTENCES PLACED ON O2 AT 2L/NC WITH IMPROVEMENT IN DYSPNEA. PT LATER STATES HE IS SUPPOSED TO USE CPAP , BUT HE QUIT USING IT "A LONG TIME AGO" BECAUSE HE SIMPLY "DIDN'T LIKE IT" DID APPEAR TO EXHIBIT SOME CONFUSION AT TIMES DURING ER STAY. REVIEWED MED RECONCILATION, AND PT HAS BEEN PRESCRIBED ARICEPT/DONEPEZIL IN THE PAST. PT VOICED NO COMPLAINTS DURING ER STAY ECG Initial ECG Impression Date: Jan 13, 2022 Initial ECG Impression Time: 23:11 Initial ECG Rate: 107 Initial ECG Rhythm: S.Tach Initial ECG Impression: Nonspecific Changes Diagnostic Imaging Comments CXR--CARDIOMEGALY, CHF, PENDING RADIOLOGIST REVIEW PELVIS XRAY--NO FX OR DISLOCATION, PENDING RADIOLOGIST REVIEW CT HEAD/CERVICAL SPINE--PER [facility] VIA FAX AT 0100 -NO ACUTE FINDINGS -CHRONIC DEGENERATIVE CHANGES CT THORACIC/LUMBAR SPINE--PER [facility] VIA FAX AT 0125 -MILD RIGHT PLEURAL EFFUSION -NO ACUTE FINDINGS IN CHEST -AGE INDETERMINATE MILD SUPERIOR ENDPLATE WEDGING OF L3. NO SUBLUXATION -MILD LEFT HYDRONEPHROSIS, DISTAL URETER NOT VISUALIZED. NO STONE IN PROXIMAL URETER -DEGENERATIVE CHANGES OF SPINE Reviewed: Reviewed by Me Departure Communication (Admissions) 0125--SPOKE WITH DR. HAAS, HOSPITALIST, ACCEPTS PT FOR ADMIT. Impression Primary Impression: COVID-19 virus infection Additional Impressions: Rhabdomyolysis Acute kidney injury Morbid obesity Dyspnea HTN (hypertension) UNABLE TO CARE FOR SELF Dehydration Chronic CHF Sleep apnea Elevated troponin INTERMITTNT CONFUSION, SUSPECTED DEMENTIA Disposition: ADMITTED INPATIENT Condition: Stable Admissions Decision to Admit Reason: Admit from ER (General) Decision to Admit/Date: Jan 14, 2022 Time/Decision to Admit Time: 01:25 Departure-Patient Inst. Referrals: NO,LOCAL PHYSICIAN (PCP/Family) Primary Care Physician SNEHA COLE DO Jan 13, 2022 23:22
[2022-01-13 23:23] LABS: CALCIUM 9.5 MG/DL (8.5-10.1)
[2022-01-13 23:24] LABS: TOTAL PROTEIN 7.6 GM/DL (6.4-8.2)
[2022-01-13 23:26] LABS: BILIRUBIN,TOTAL 2.3 MG/DL (0.1-1.0)
[2022-01-13 23:26] LABS: BILIRUBIN,URINE 1+ (NEGATIVE); CLARITY,URINE CLEAR; COLOR,URINE YELLOW; GLUCOSE, URINE (UA) NEGATIVE (NEGATIVE); KETONES,URINE 1+ (NEGATIVE); LEUKOCYTE ESTERASE ,URINE NEGATIVE (NEGATIVE); NITRITE,URINE NEGATIVE (NEGATIVE); PROTEIN,URINE TRACE (NEGATIVE)
[2022-01-13 23:27] LABS: CREATININE SERUM 1.41 MG/DL (0.60-1.30)
[2022-01-13 23:30] LABS: MAGNESIUM 2.2 MG/DL (1.6-2.4)
[2022-01-13 23:50] LABS: BACTERIA,URINE TRACE /HPF; RBC,URINE 0-2 /HPF
[2022-01-13 23:51] LABS: CREATINE KINASE MB 23.4 NG/ML (<6.6)
[2022-01-13 23:54] LABS: LYMPHOCYTES % (MANUAL) 11 %; MONOCYTES % (MANUAL) 3 %; NEUTROPHILS % (MANUAL) 85 %
[2022-01-14] VITALS (8 sets, daily range): BP systolic 112–196; BP diastolic 65–110
[2022-01-14] MEDS ORDERED: D5 1/2 NS W/KCL 20 MEQ/L 1,000 ML IV SCH
[2022-01-14] MEDS ORDERED: NITROGLYCERIN 2% OINT 1 GM UNIT DOSE PACKET TOP ONE (01:00)
[2022-01-14 01:33] LABS: AMPHETAMINE SCREEN, URINE NEGATIVE (NEGATIVE); BARBITURATE SCREEN URINE NEGATIVE (NEGATIVE); BENZODIAZEPINES SCREEN URINE NEGATIVE (NEGATIVE); CANNABINOID SCREEN, URINE NEGATIVE (NEGATIVE); COCAINE SCREEN URINE NEGATIVE (NEGATIVE); METHADONE STAT NEGATIVE (NEGATIVE); OPIATE SCREEN URINE NEGATIVE (NEGATIVE); OXYCODONE STAT NEGATIVE (NEGATIVE); PROPOXYPHENE STAT NEGATIVE (NEGATIVE); TRICYCLIC ANTIDEPRESSANTS SCRE NEGATIVE (NEGATIVE)
[2022-01-14] MEDS ORDERED: ONDANSETRON 4 MG/2 ML (SDV) Z0FRAN IV PRN (02:15)
[2022-01-14] MEDS: D5 1/2 NS W/KCL 20 MEQ/L 1,000 ML IV SCH ×3 (03:05→20:27)
[2022-01-14] MEDS ORDERED: RT-ALBUTEROL HFA 8.5 GM INHALER IH PRN (04:00)
--- NOTE | 2022-01-14 05:07 | Diagnostic Imaging Report ---
PROCEDURE: CT head and CT cervical spine without contrast. TECHNIQUE: Multiple contiguous axial images were obtained through the brain and cervical spine without the use of intravenous contrast. Sagittal and coronal reformations through the cervical spine were then performed. Auto Exposure Controls were utilized during the CT exam to meet ALARA standards for radiation dose reduction. INDICATION: Neurologic deficit. FINDINGS: There is prominence of the ventricles and sulci. There is no hydrocephalus or cerebral edema. There is no midline shift or mass-effect. There is no intracranial mass, hemorrhage, or extra-axial fluid collection. There is some diffuse decreased attenuation of the periventricular white matter which is nonspecific. The visualized paranasal sinuses and mastoid air cells are clear. There are no regional areas of decreased attenuation appreciated to suggest an acute CVA. IMPRESSION: 1. No acute intracranial process. 2. Age-appropriate atrophy. 3. Decreased attenuation of the periventricular white matter which is nonspecific, however, likely reflects senescent change and/or chronic small vessel ischemic disease. If there is continued clinical concern for acute CVA, further evaluation with MRI should be considered. Dictated by: Dictated on workstation # [id number]
--- NOTE | 2022-01-14 05:09 | Diagnostic Imaging Report ---
INDICATION: Weakness. Comparison is made with prior examination of 01/22/2021. FINDINGS: There is cardiomegaly. There is a patchy left basilar infiltrate. There is no pleural effusion or pneumothorax. The mediastinum is unremarkable. IMPRESSION: Cardiomegaly and patchy left basilar infiltrate. There may be some mild central pulmonary venous congestion Dictated by: Dictated on workstation # [id number]
--- NOTE | 2022-01-14 05:46 | Diagnostic Imaging Report ---
INDICATION: Pelvic pain. FINDINGS: The bony pelvis is intact. Proximal femurs are intact. There is no fracture or dislocation. Soft tissues are unremarkable. IMPRESSION: Unremarkable single view pelvis Dictated by: Dictated on workstation # [id number]
--- NOTE | 2022-01-14 05:55 | Diagnostic Imaging Report ---
PROCEDURE: CT thoracic and lumbar spine without contrast. TECHNIQUE: Multiple contiguous axial images were obtained through the thoracic and lumbar spine without the use of intravenous contrast. Sagittal and coronal reformations were then performed. All CT scans use one or more of the following dose optimizing techniques: automated exposure control, MA and/or KvP adjustment based on a patient size and exam type, or iterative reconstruction. INDICATION: Back pain. FINDINGS: The alignment of the thoracic spine is essentially normal. Vertebral body heights are well-maintained. There is no fracture or traumatic subluxation. There is no bony encroachment upon the spinal canal. There is a small right pleural effusion. There are coronary artery calcifications. The alignment of the lumbar spine is normal. There is minimal superior endplate deformity at L3. There is no spondylolysis or spondylolisthesis. There is a vacuum disc at L5-S1. There are otherwise diffuse degenerative changes. There is mild left hydronephrosis. No obvious stone is appreciated. IMPRESSION: [id number] diffuse thoracolumbar spondylosis with slight superior endplate deformity at L3 age of which is indeterminate. If there is high clinical concern for acute fracture, further evaluation with MRI should be considered. Small right pleural effusion. Left hydronephrosis without definitive visualization of a left ureteral stone. Dictated by: Dictated on workstation # [id number]
[2022-01-14] MEDS: NITROGLYCERIN 2% OINT 1 GM UNIT DOSE PACKET TOP SCH ×3 (06:10→18:26)
[2022-01-14] MEDS: RT-ALBUTEROL HFA 8.5 GM INHALER IH SCH ×5 (07:11→22:20)
[2022-01-14 07:33] LABS: BASOPHILS % (AUTO) 0 % (0-10); EOSINOPHILS % (AUTO) 0 % (0-10); HEMATOCRIT 49 % (40-54); HEMOGLOBIN 15.5 g/dL (13.3-17.7); LYMPHOCYTES # (AUTO) 0.5 10^3/uL (1.0-4.0); LYMPHOCYTES % (AUTO) 4 % (12-44); MEAN CORPUSCULAR HEMOGLOBIN 32 pg (25-34); MEAN CORPUSCULAR HGB CONC 32 g/dL (32-36); MEAN CORPUSCULAR VOLUME 99 fL (80-99); MEAN PLATELET VOLUME 9.1 fL (9.0-12.2); MONOCYTES # (AUTO) 1.2 10^3/uL (0.0-1.0); MONOCYTES % (AUTO) 8 % (0-12); NEUTROPHILS # (AUTO) 13.7 10^3/uL (1.8-7.8); NEUTROPHILS % (AUTO) 88 % (42-75); PLATELET COUNT 295 10^3/uL (130-400); WHITE BLOOD COUNT 15.6 10^3/uL (4.3-11.0)
[2022-01-14 07:46] LABS: POTASSIUM 3.5 MMOL/L (3.6-5.0)
[2022-01-14 07:52] LABS: CREATININE SERUM 1.2 MG/DL (0.60-1.30)
[2022-01-14 08:15] LABS: CREATINE KINASE MB 20.7 NG/ML (<6.6)
[2022-01-14] MEDS: ACETAMINOPHEN 500 MG TAB (TYLENOL) PO PRN (10:29)
[2022-01-14] MEDS ORDERED: meTOprolol SUCCINATE 100 MG (TOPROL XL) TAB PO ONE (10:30)
--- NOTE | 2022-01-14 10:59 | History & Physical-Hospitalist ---
History of Present Illness HPI/Chief Complaint Patient is a 76-year-old male with a past medical history of coronary artery disease who presented to the emergency department after being found down by family member. He is unable to provide much history and does not recall any falls or being on the ground. His only complaint is that he has a headache. Al fernie information is from the chart. Reportedly his son called EMS tonight to bring him to the hospital as he had fallen roughly 3 days ago and had not been able to get up. He had been scooting around his house and was covered in urine. Apparently there is a in the home but I am uncertain whether she was able to help. EMS reported that he had not been given any food or medications in the past 3 days. He was found to have rhabdomyolysis and was COVID-positive admitted for further management. Source: patient Date Seen 01/14/22 Time Seen by a Provider: 10:30 Attending Physician No,Local Physician PCP Admitting Physician: Wesly Dejesus MD Attending Physician: Wesly Dejesus MD Referring Physician Date of Admission Jan 14, 2022 at 01:30 Home Medications & Allergies Home Medications Reviewed patient Home Medication Reconciliation performed by pharmacy medication reconciliations on site wastewater systems technician and/or nursing. Patients Allergies have been reviewed. Allergies Allergies Coded Allergies No Known Drug Allergies (Ldlrxsawrp22/11/15) Past Ixlywzg-Tgrsfe-Bzqkmg Hx Patient Social History Marrital Status: Employed/Student: retired Tobacco Use?: No Smoking Status: Unknown if Ever Smoked Substance use?: No Alcohol Use?: Yes Alcohol Frequency: Rarely Pt feels they are or have been: No Immunizations Up To Date Date of Influenza Vaccine: Mar 31, 2015 First/Initial COVID19 Vaccinat: 2020 Seasonal Allergies Seasonal Allergies: No Current Status Advance Directives: Unable to obtain Communicates: Verbally Primary Language: Austrian Preferred Spoken Language: Austrian Past Medical History Surgeries: Adenoidectomy, Cardiac, Lobectomy, Orthopedic, Tonsillectomy Sleep Apnea Currently Using CPAP: No Currently Using BIPAP: No Chronic Edema/Swelling, Coronary Artery Disease, High Cholesterol, Hypertension Sexually Transmitted Disease: No HIV/AIDS: No Kidney Stones Gastroesophageal Reflux, Liver Disease/Jaundice Arthritis Loss of Vision: Denies Hearing Impairment: Denies Prostate, Lung Did You Recieve Any Treatments: Yes What Type of Treatment Did You: Surgical Intervention CARCINOID TUMOR OF LUNG--S/P VATS ASSISTED FAINA RESECTION--08/2015 PROSTATE CANCER--DX 2017, WITH RADIATION IMPLANTS 2017 Blood Disorders: No Family Medical History Reviewed Nursing Family Hx Arthritis Hypertension SOCIAL HISTORY: -DENIES SMOKING -DENIES DRUG USE -HISTORY OF ETOH, CLAIMS NO RECENT USE, PER PT 01/13/22 PAST SURGICAL HISTORY: -BILATERAL KNEE REPLACEMENT -VATS ASSISTED LEFT UPPER LOBE RESECTION FOR CARCINOID TUMOR 08/2015 -RADIATION SEED IMPLANTS FOR PROSTATE CANCER 2016 -EGD/COLONOSCOPIES -CARDIAC CATH 12/26/[address] CANCINO: CONCLUSIONS: 1. Coronary artery disease primarily consisting of mid vessel occlusion of the right coronary with collateralization of the distal right coronary by the left anterior descending artery. There is diffuse moderate disease of the left coronary system. The first diagonal branch of left anterior descending artery is of a small caliber and has approximately 70% ostial and proximal stenosis. 2. Normal left ventricular end-diastolic pressure. 3. Normal global left ventricular systolic function with ejection fraction approximately 60%. DISCUSSION AND RECOMMENDATIONS: Based on results of the study, it appears appropriate to continue a conservative approach at this time. Continuing outpatient followup is advised. Review of Systems ROS-Unable to Obtain: clinical condition Constitutional: see HPI Psychiatric/Neurological: Headache Physical Exam Physical Exam Vital Signs Vital Signs - First Documented 01/13/22 01/14/22 01/14/22 23:05 01:53 02:23 Temp 36.3 Pulse 111 Resp 24 B/P (MAP) 196/110 (138) Pulse Ox 97 O2 Delivery Nasal Cannula O2 Flow Rate 3.00 FiO2 28 Capillary Refill : Less Than 3 Seconds Height, Weight, BMI Height: 5'11.00" Weight: 310lbs. 0.0oz. 140.069403tq; 42.38 BMI Method: General Appearance: No Apparent Distress, Chronically ill, Obese HEENT: PERRL/EOMI, Moist Mucous Membranes; No Scleral Icterus (L), No Scleral Icterus (R) Neck: Normal Inspection, Supple Respiratory: No Accessory Muscle Use, No Respiratory Distress, Wheezing Cardiovascular: Regular Rate, Rhythm, No JVD, No Murmur Gastrointestinal: Normal Bowel Sounds, Non Tender, Soft Genital/Rectal: Other (conti in place) Extremity: Normal Capillary Refill, No Calf Tenderness, No Pedal Edema (trace) Neurologic/Psychiatric: Alert, Disoriented (knows name only) Skin: Jaundice (mild); No Mottled; Tattoos/Piercings Results Results/Procedures Labs Laboratory Tests 01/13/22 22:57 01/14/22 07:01 Patient resulted labs reviewed. Imaging [facility] [place], [place] NAME: [facility] REC#: [id number] PT STATUS: ADM IN : 1945 PHYSICIAN: SNEHA COLE DO ADMIT DATE: 01/14/22 Signed Date of Exam:01/13/22 CT HEAD/CERVICAL SPINE WO PROCEDURE: CT head and CT cervical spine without contrast. TECHNIQUE: Multiple contiguous axial images were obtained through the brain and cervical spine without the use of intravenous contrast. Sagittal and coronal reformations through the cervical spine were then performed. Auto Exposure Controls were utilized during the CT exam to meet ALARA standards for radiation dose reduction. INDICATION: Neurologic deficit. FINDINGS: There is prominence of the ventricles and sulci. There is no hydrocephalus or cerebral edema. There is no midline shift or mass-effect. There is no intracranial mass, hemorrhage, or extra-axial fluid collection. There is some diffuse decreased attenuation of the periventricular white matter which is nonspecific. The visualized paranasal sinuses and mastoid air cells are clear. There are no regional areas of decreased attenuation appreciated to suggest an acute CVA. IMPRESSION: 1. No acute intracranial process. 2. Age-appropriate atrophy. 3. Decreased attenuation of the periventricular white matter which is nonspecific, however, likely reflects senescent change and/or chronic small vessel ischemic disease. If there is continued clinical concern for acute CVA, further evaluation with MRI should be considered. Dictated by: Dictated on workstation # [id number] Dict: 01/14/22 0456 Trans: 01/14/22 07 TO [id number] Interpreted by: BETSY SENA MD Electronically signed by: BETSY SENA MD 01/14/22720 [facility] [place] [place] NAME: [facility] REC#: [id number] PT STATUS: ADM IN : 1945 PHYSICIAN: SNEHA COLE DO ADMIT DATE: 01/14/22 Signed Date of Exam:01/13/22 CT THORACIC/LUMBAR SPINE WO PROCEDURE: CT thoracic and lumbar spine without contrast. TECHNIQUE: Multiple contiguous axial images were obtained through the thoracic and lumbar spine without the use of intravenous contrast. Sagittal and coronal reformations were then performed. All CT scans use one or more of the following dose optimizing techniques: automated exposure control, MA and/or KvP adjustment based on a patient size and exam type, or iterative reconstruction. INDICATION: Back pain. FINDINGS: The alignment of the thoracic spine is essentially normal. Vertebral body heights are well-maintained. There is no fracture or traumatic subluxation. There is no bony encroachment upon the spinal canal. There is a small right pleural effusion. There are coronary artery calcifications. The alignment of the lumbar spine is normal. There is minimal superior endplate deformity at L3. There is no spondylolysis or spondylolisthesis. There is a vacuum disc at L5-S1. There are otherwise diffuse degenerative changes. There is mild left hydronephrosis. No obvious stone is appreciated. IMPRESSION: Kauf-aq-osquaztk diffuse thoracolumbar spondylosis with slight superior endplate deformity at L3 age of which is indeterminate. If there is high clinical concern for acute fracture, further evaluation with MRI should be considered. Small right pleural effusion. Left hydronephrosis without definitive visualization of a left ureteral stone. Dictated by: Dictated on workstation # [id number] Dict: 01/14/22 0501 Trans: 01/14/22 0721 [facility] [id number] Interpreted by: BETSY SENA MD Electronically signed by: BETSY SENA MD 01/14/22 0721 [facility] [place] NAME: [facility] REC#: [id number] PT STATUS: ADM IN : 1945 PHYSICIAN: SNEHA COLE DO ADMIT DATE: 01/14/22 Signed Date of Exam:01/14/22 CHEST 1 VIEW, AP/PA ONLY INDICATION: Weakness. Comparison is made with prior examination of 01/22/2021. FINDINGS: There is cardiomegaly. There is a patchy left basilar infiltrate. There is no pleural effusion or pneumothorax. The mediastinum is unremarkable. IMPRESSION: Cardiomegaly and patchy left basilar infiltrate. There may be some mild central pulmonary venous congestion Dictated by: Dictated on workstation # [id number] Dict: 01/14/22 0421 Trans: 01/14/22720 TO [id number] Interpreted by: BETSY SENA MD Electronically signed by: BETSY SENA MD 01/14/22720 [facility] [place] NAME: [facility] REC#: [id number] PT STATUS: ADM IN : 1945 PHYSICIAN: SNEHA COLE DO ADMIT DATE: 01/14/22 Signed Date of Exam:01/14/22 PELVIS INDICATION: Pelvic pain. FINDINGS: The bony pelvis is intact. Proximal femurs are intact. There is no fracture or dislocation. Soft tissues are unremarkable. IMPRESSION: Unremarkable single view pelvis Dictated by: Dictated on workstation # [id number] Dict: 01/14/22 0516 Trans: 01/14/22721 TO [id number] Interpreted by: BETSY SENA MD Electronically signed by: BETSY SENA MD 01/14/22721 Assessment/Plan Admission Diagnosis Rhabdomyolysis Admission Status: Inpatient Order (span 2 midnights) Reason for Inpatient Admission: see below Assessment and Plan Rhabdomyolysis SALINA Falls Debility Continue IVF CK trended down Creatinine improving as well Monitor UOP Check in AM PT/OT Troponin up slightly likely due to rhabdo Cardiology consulted, appreciate recs COVID19 Start Decadron Was on 3-4 lpm on arrival Now on CPAP from overnight which he wears at home for JENN MAT Protocol HTN resume home Metoprolol AMS Unsure of baseline Son reportedly intoxicated and demented nutrition services manager consulted Diagnosis/Problems Diagnosis/Problems (1) COVID-19 virus infection Status: Acute (2) Acute kidney injury Status: Acute (3) Elevated troponin Status: Acute (4) Sleep apnea Status: Acute (5) Rhabdomyolysis Status: Acute (6) HTN (hypertension) Status: Acute (7) Morbid obesity Status: Acute (8) Dehydration Status: Acute (9) CAD (coronary artery disease) (10) Chronic diastolic (congestive) heart failure WESLY DEJESUS MD Jan 14, 2022 10:59
[2022-01-14] MEDS: dexAMETHasone 6 MG TAB (DECADRON) PO SCH (12:15)
--- NOTE | 2022-01-14 15:11 | Consultation-Cardiology ---
HPI-Cardiology Cardiology Consultation: Date of Consultation 01/14/22 Time Seen by a Provider: 13:45 Date of Admission 01/13/22 Attending Physician No,Local Physician Admitting Physician Admitting Physician: Keke Dejesus MD Attending Physician: Keke Dejesus MD Consulting Physician FELECIA CANCINO MD, MA, FACP, FACC, FSCAI, CCDS Physician requesting consult: Dr Dejesus HPI: Chief Complaint: Reason for Card consult: H/o CAD 76 yo man who was admitted to Dr Dejesus after his son called EMS after he found him lying on the floor and having urinated on the floor. The patient himself is unable to provide any history. History is gathered from the ER and from the Hospitalist notes. Apparently, he had not taken any food or meds for 3 days. He had reported at presentation to the ER physician that he had slid off a chair and could not get up. Had not reported any other symptoms Review of Systems-Cardiology Review of Systems Constitutional: other (pt is not communicative at the time of my exam; he does not provide a history or ROS) FRO-Mpnsnb-Mwnlkf Hx Patient Social History Marrital Status: Employed/Student: retired Smoking Status: Unknown if Ever Smoked Have you traveled recently?: Unable to obtain Alcohol Use?: Yes Pt feels they are or have been: No Immunizations Up To Date Date of Influenza Vaccine: Mar 31, 2015 Past Medical History PMH As described under Assessment. Family Medical History Family History: Arthritis Hypertension Allergies and Home Medications Allergies Coded Allergies: No Known Drug Allergies (Unverified , 04/10/15) Patient Home Medication List Home Medication List Reviewed: Yes Acetaminophen (Tylenol Extra Strength) 500 Mg Tablet, 500 MG PO Q6H PRN for PAIN, (Reported) Entered as Reported by: FATIMAH BEAR on 04/11/15 0940 Aspirin (Aspirin) 81 Mg Tab.chew, 81 MG PO DAILY Prescribed by: FELECIA CANCINO on 12/26/21 1127 Atorvastatin Calcium (Atorvastatin Calcium) 20 Mg Tablet, 20 MG PO HS, (Reported) Entered as Reported by: MARIELENA FERNANDEZ on 04/10/15 1105 Cholecalciferol (Vitamin D3) (Vitamin D) 1,000 Unit Capsule, 1,000 UNIT PO DAILY, (Reported) Entered as Reported by: MARIELENA FERNANDEZ on 04/10/15 1113 Citalopram Hydrobromide (Citalopram HBr) 20 Mg Tablet, 20 MG PO DAILY, (Reported) Entered as Reported by: MATEUSZ BISHOP on 12/26/21818 Famotidine (Famotidine) 40 Mg Tablet, 40 MG PO DAILY, (Reported) Entered as Reported by: MATEUSZ BISHOP on 12/26/21818 Furosemide (Furosemide) 40 Mg Tablet, 40 MG PO DAILY, (Reported) Entered as Reported by: MARIELENA FERNANDEZ on 04/10/15 1105 Gabapentin (Gabapentin) 100 Mg Capsule, 200 MG PO HS, (Reported) Entered as Reported by: MATEUSZ BISHOP on 12/26/21818 Loratadine (Claritin) 10 Mg Capsule, 10 MG PO DAILY, (Reported) Entered as Reported by: MARIELENA FERNANDEZ on 04/10/15 111 Metoprolol Succinate (Toprol Xl) 100 Mg Tab.er.24h, 100 MG PO DAILY Prescribed by: FELECIA CANCINO on 12/26/21 1127 Montelukast Sodium (Montelukast Sodium) 10 Mg Tablet, 10 MG PO DAILY, (Reported) Entered as Reported by: MATEUSZ BISHOP on 12/26/21818 Ondansetron (Ondansetron Odt) 4 Mg Tab.rapdis, 4 MG PO Q8H PRN for nausea Prescribed by: NANCY CRUZ on 12/30/21 1302 Oxybutynin Chloride (Oxybutynin Chloride ER) 5 Mg Tab.er.24, 5 MG PO DAILY, (Reported) Entered as Reported by: MATEUSZ BISHOP on 12/26/21818 Potassium Chloride (Potassium Chloride) 10 Meq Capsule.er, 5 MEQ PO DAILY, (Reported) Entered as Reported by: MATEUSZ BISHOP on 12/26/21818 Pramipexole Di-HCl (Mirapex) 1 Mg Tablet, 1 MG PO HS, (Reported) Entered as Reported by: MATEUSZ BISHOP on 12/26/21818 Spironolactone (Aldactone) 25 Mg Tablet, 25 MG PO DAILY, (Reported) Entered as Reported by: MATEUSZ BISHOP on 12/26/21818 Tamsulosin HCl (Flomax) 0.4 Mg Cap, 0.4 MG PO DAILY, (Reported) Entered as Reported by: MATEUSZ BISHOP on 12/26/21818 Tamsulosin HCl (Flomax) 0.4 Mg Cap, 0.4 MG PO HS Prescribed by: NANCY CRUZ on 12/30/21 1302 Tramadol HCl (Tramadol HCl) 50 Mg Tablet, 50 MG PO Q4-6HRS PRN for PAIN-MODERATE (5-7), (Reported) Entered as Reported by: MATEUSZ BISHOP on 12/26/21818 Triamterene/Hydrochlorothiazid (Triamterene-Hctz 37.5-25 mg Cp) 37.5 Mg-25 Mg Capsule, 1 EACH PO DAILY, (Reported) Entered as Reported by: MATEUSZ BISHOP on 12/26/21818 Physical Exam-Cardiology Physical Exam Vital Signs/I&O 01/14/22 01/14/22 01/14/22 01/14/22 03:16 04:00 07:00 07:11 Temp 36.1 Pulse 110 95 91 191 Resp 24 27 B/P (MAP) 161/86 (111) Pulse Ox 97 93 O2 Delivery NIV CPAP O2 Flow Rate 30.00 30.00 01/14/22 01/14/22 01/14/22 01/14/22 08:30 08:52 10:54 12:29 Temp 36.1 36.4 Pulse 98 92 76 Resp 26 27 24 B/P (MAP) 174/107 (129) 155/89 (111) Pulse Ox 93 96 95 98 O2 Delivery NIV CPAP NIV CPAP NIV CPAP O2 Flow Rate 4.00 30.00 30.00 30.00 01/14/22 12:59 Pulse 71 01/13/22 23:59 Intake Total 100 ml Balance 100 ml Capillary Refill : Less Than 3 Seconds Constitutional: No AAO x 3; well-developed, well-nourished, other (non- communicative, on BiPAP) HEENT: PERRL; No xanthelasmas are seen Neck: carotid pulses are 2 + bilaterally Respiratory: No accessory muscle use; other (fair air entry, prolonged exp, diminished bs at bases) Cardiovascular: regular rate-rhythm, S1 and S2, systolic murmur (soft GAURAV at card base) Gastrointestinal: No tender; soft, distended; No guarding, No rebound; audible bowel sounds Extremities: other (mod, bilateral, pitting and non-pitting leg edema); No clubbing, No cyanosis Neurologic/Psychiatric: oriented x 3, other (not cooperative with neuro exam) Skin: warm/dry; No rash on exposed areas, No ulcerations on exposed areas Data Review Labs Laboratory Tests 01/13/22 22:57: White Blood Count 14.6H, Red Blood Count 5.24, Hemoglobin 16.6, Hematocrit 50, Mean Corpuscular Volume 95, Mean Corpuscular Hemoglobin 32, Mean Corpuscular Hemoglobin Concent 33, Red Cell Distribution Width 13.7, Platelet Count 392, Mean Platelet Volume 9.1, Immature Granulocyte % (Auto) 1, Neutrophils (%) (Auto) 87H, Lymphocytes (%) (Auto) 4L, Monocytes (%) (Auto) 9, Eosinophils (%) (Auto) 0, Basophils (%) (Auto) 0, Neutrophils # (Auto) 12.6H, Lymphocytes # (Auto) 0.6L, Monocytes # (Auto) 1.2H, Eosinophils # (Auto) 0.0, Basophils # (Auto) 0.0, Immature Granulocyte # (Auto) 0.1, Neutrophils % (Manual) 85, Lymphocytes % (Manual) 11, Monocytes % (Manual) 3, Sodium Level 147H, Potassium Level 3.3L, Chloride Level 107, Carbon Dioxide Level 21, Anion Gap 19H, Blood Urea Nitrogen 21H, Creatinine 1.41H, Estimat Glomerular Filtration Rate 51, BUN/Creatinine Ratio 15, Glucose Level 95, Calcium Level 9.5, Corrected Calcium 9.9, Magnesium Level 2.2, Total Bilirubin 2.3H, Aspartate Amino Transf (AST/SGOT) 120H, Alanine Aminotransferase (ALT/SGPT) 65H, Alkaline Phosphatase 82, Total Creatine Kinase 1846H, Creatine Kinase MB 23.4*H, Myoglobin 1778.2H, Troponin I 0.049H, B-Type Natriuretic Peptide 64.3, Total Protein 7.6, Albumin 3.5, Serum Alcohol < 10 01/13/22 23:16: SARS-CoV-2 RNA (RT-PCR) DetectedH 01/13/22 23:21: Urine Color YELLOW, Urine Clarity CLEAR, Urine pH 6.0, Urine Specific [place] 1.025H, Urine Protein TRACEH, Urine Glucose (UA) NEGATIVE, Urine Ketones 1+H, Urine Nitrite NEGATIVE, Urine Bilirubin 1+H, Urine Urobilinogen 2.0, Urine Leukocyte Esterase NEGATIVE, Urine RBC (Auto) TRACE-IH, Urine RBC 0-2, Urine WBC NONE, Urine Crystals NONE, Urine Bacteria TRACE, Urine Casts NONE, Urine Mucus SMALLH, Urine Culture Indicated NO, Urine Opiates Screen NEGATIVE, Urine Oxycodone Screen NEGATIVE, Urine Methadone Screen NEGATIVE, Urine Propoxyphene Screen NEGATIVE, Urine Barbiturates Screen NEGATIVE, Ur Tricyclic Antidepressants Screen NEGATIVE, Urine Phencyclidine Screen NEGATIVE, Urine Amphetamines Screen NEGATIVE, Urine Methamphetamines Screen NEGATIVE, Urine Benzodiazepines Screen NEGATIVE, Urine Cocaine Screen NEGATIVE, Urine Cannabinoids Screen NEGATIVE 01/14/22 07:01: White Blood Count 15.6H, Red Blood Count 4.92, Hemoglobin 15.5, Hematocrit 49, Mean Corpuscular Volume 99, Mean Corpuscular Hemoglobin 32, Mean Corpuscular H emoglobin Concent 32, Red Cell Distribution Width 13.9, Platelet Count 295, Mean Platelet Volume 9.1, Immature Granulocyte % (Auto) 1, Neutrophils (%) (Auto) 88H , Lymphocytes (%) (Auto) 4L, Monocytes (%) (Auto) 8, Eosinophils (%) (Auto) 0, Basophils (%) (Auto) 0, Neutrophils # (Auto) 13.7H, Lymphocytes # (Auto) 0.5L, Monocytes # (Auto) 1.2H, Eosinophils # (Auto) 0.0, Basophils # (Auto) 0.0, I mmature Granulocyte # (Auto) 0.1, Sodium Level 143, Potassium Level 3.5L, Chloride Level 111H, Carbon Dioxide Level 19L, Anion Gap 13, Blood Urea Nitrogen 20H, Creatinine 1.20, Estimat Glomerular Filtration Rate 62, BUN/Creatinine Ratio 17, Glucose Level 116H, Calcium Level 9.0, Total Creatine Kinase 1522H, Creatine Kinase MB 20.7*H, Myoglobin 857.5H Laboratory Tests 01/13/22 22:57 01/14/22 07:01 A/P-Cardiology Assessment/Admission Diagnosis Rhabdomyolysis due to prolonged stay on the floor at home (reason unclear) - minimal troponin elevation probably is a part of the marked enzyme release of rhabdomyolysis (no evidence of ACS; see recent cath results below) Confusion / Mental Status Change - etiology unclear, Hospitalist service managing CAD: - CT chest of August 2016 at [facility] is reported to have shown marked cor calcification and at least mildaortic valve calcification - Echocardiogram of 07/28/19 showed LVEF 60-65%; mild MR, mild to mod tricuspid regurg; [id number] - MPI 12-12-21: Small to moderate amount of inferolateral ischemia. Normal regional wall motion. Normal global left ventricular systolic function with a calculated ejection fraction of 64%. - Last card cath of 12-26-21: 1. Coronary artery disease primarily consisting of mid vessel occlusion of the right coronary with collateralization of the distal right coronary by the left anterior descending artery. There is diffuse moderate disease of the left coronary system. The first diagonal branch of left anterior descending artery is of a small caliber and has approximately 70% ostial and proximal stenosis. Normal left ventricular end-diastolic pressure. Normal global left ventricular systolic function with ejection fraction approximately 60%. Carotid dz - Mild carotid art disease on carotid u/s of 12/04/18 No evidence of AAA on abd ao screening scan of 11/06/16 Sinus donita - seen on ECG of 04/10/15; beta-blockers were stopped at that time by Dr Palafox Palpitations - Holter study of 04-25-15 showed infrequent isolated and coupled PVC's. 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 Status post VATS assisted left upper lobe lobectomy in August 2015. Followed by Dr Pederson - cT1c [place] 7 (4+3) prostate cancer with initial PSA level of 8.98 diagnosed in late 2016, status-post definitive radiation therapy to 8100 cGy in 45 fractions completed on 08/08/2017 with no ADT. Followedby Henrique Pederson and Dyana Obesity - with BMI approx 42 Obstructive sleep apnea - treated with CPAP CHAUDHARY - prob multifactorial: Partial pneumonectomy, obesity-hypovent Chronic bilat leg swelling - likely related to venous insuff and/or chronic therapy with calcium channel blockers Prostate cancer, - managed by his urologist, Dr Turpin Chronic mild transaminase elevation -likely ABDI, followed by Dr Palafox Discussion and Recomendations * ASA and bb because of h/o CAD * Monitor labs * Treat bp * Further recs to be based on hosp course FELECIA CANCINO MD FACP FACC CCDS Jan 14, 2022 15:11
[2022-01-14] MEDS: TAMSULOSIN 0.4 MG (FLOMAX) CAP PO SCH (16:27)
[2022-01-14 19:07] LABS: INR 1.2 (0.8-1.4); PROTHROMBIN TIME PATIENT 15.3 SEC (12.2-14.7)
[2022-01-15] VITALS (7 sets, daily range): BP systolic 141–180; BP diastolic 72–94
[2022-01-15] MEDS: NITROGLYCERIN 2% OINT 1 GM UNIT DOSE PACKET TOP SCH ×5 (00:34→23:15)
[2022-01-15] MEDS: RT-ALBUTEROL HFA 8.5 GM INHALER IH SCH ×6 (02:33→21:56)
[2022-01-15] MEDS: D5 1/2 NS W/KCL 20 MEQ/L 1,000 ML IV SCH (05:52)
[2022-01-15] MEDS: dexAMETHasone 6 MG TAB (DECADRON) PO SCH (05:54)
[2022-01-15 06:49] LABS: HEMATOCRIT 43 % (40-54); HEMOGLOBIN 14.3 g/dL (13.3-17.7); MEAN CORPUSCULAR HEMOGLOBIN 32 pg (25-34); MEAN CORPUSCULAR HGB CONC 33 g/dL (32-36); MEAN CORPUSCULAR VOLUME 98 fL (80-99); MEAN PLATELET VOLUME 9.5 fL (9.0-12.2); PLATELET COUNT 266 10^3/uL (130-400); WHITE BLOOD COUNT 12.4 10^3/uL (4.3-11.0)
[2022-01-15 07:05] LABS: POTASSIUM 3.6 MMOL/L (3.6-5.0)
[2022-01-15 07:06] LABS: CALCIUM 8.7 MG/DL (8.5-10.1)
[2022-01-15 07:11] LABS: CREATININE SERUM 0.83 MG/DL (0.60-1.30)
[2022-01-15] MEDS: meTOprolol SUCCINATE 100 MG (TOPROL XL) TAB PO SCH (08:50)
[2022-01-15] MEDS: ACETAMINOPHEN 500 MG TAB (TYLENOL) PO PRN (08:50)
[2022-01-15] MEDS ORDERED: ASPIRIN 81 MG CHEW (CHILDREN'S ASA) PO SCH (09:00)
--- NOTE | 2022-01-15 10:13 | Progress Note - Cardiology ---
Cardiology SOAP Progress Note Subjective: Sitting up in bed Oriented to self only States he does not know why he's here No c/o CP or SOB States he wants to go home soon Objective: I&O/Vital Signs 01/14/22 01/15/22 01/15/22 01/15/22 22:21 00:00 01:00 02:33 Temp 36.0 Pulse 77 67 Resp 24 B/P (MAP) 155/82 (106) Pulse Ox 94 95 99 O2 Delivery Nasal Cannula NIV CPAP Nasal Cannula O2 Flow Rate 4.00 4.00 01/15/22 01/15/22 01/15/22 01/15/22 04:00 06:00 07:00 07:39 Temp 36.0 36.0 Pulse 70 69 68 Resp 22 18 B/P (MAP) 141/72 (95) 160/90 (113) Pulse Ox 95 96 O2 Delivery NIV CPAP Nasal Cannula Nasal Cannula O2 Flow Rate 2.00 2.00 01/15/22 01/15/22 01/15/22 07:46 07:47 08:51 Pulse Ox 96 O2 Delivery Nasal Cannula Nasal Cannula Nasal Cannula O2 Flow Rate 3.00 2.00 2.00 01/15/22 00:00 Intake Total 1350 ml Output Total 800 ml Balance 550 ml Weight (Pounds): 310 Weight (Ounces): 0.0 Weight (Calculated Kilograms): 140.690136 Constitutional: No AAO x 3; well-developed, well-nourished, other (oriented to self only) Respiratory: No accessory muscle use; other (fair air entry, prolonged exp, diminished bs at bases) Cardiovascular: regular rate-rhythm, S1 and S2, systolic murmur (soft GAURAV at card base) Gastrointestional: No tender; soft, distended; No guarding, No rebound; audible bowel sounds Extremities: other (mod, bilateral, pitting and non-pitting leg edema); No clubbing, No cyanosis Neurologic/Psychiatric: other (Oriented to self; able to move all extremities) Skin: warm/dry; No rash on exposed areas, No ulcerations on exposed areas Results/Procedures: Labs Laboratory Tests 01/14/22 18:40: Prothrombin Time 15.3H, INR Comment 1.2 01/14/22 20:50: Glucometer 94 01/14/22 21:28: Glucometer 216H 01/15/22 06:45: Sodium Level 142, Potassium Level 3.6, Chloride Level 109H, Carbon Dioxide Level 22, Anion Gap 11, Blood Urea Nitrogen 20H, Creatinine 0.83, Estimat Glomerular Filtration Rate 90, BUN/Creatinine Ratio 24, Glucose Level 83, Calcium Level 8.7, Total Creatine Kinase 647H 01/15/22 06:46: White Blood Count 12.4H, Red Blood Count 4.43, Hemoglobin 14.3, Hematocrit 43, Mean Corpuscular Volume 98, Mean Corpuscular Hemoglobin 32, Mean Corpuscular Hemoglobin Concent 33, Red Cell Distribution Width 13.8, Platelet Count 266, Mean Platelet Volume 9.5 Laboratory Tests 01/13/22 22:57 01/14/22 07:01 01/15/22 06:45 01/15/22 06:46 A/P: Assessment: COVID (+) - management per medical services Rhabdomyolysis due to prolonged stay on the floor at home (reason unclear) - minimal troponin elevation probably is a part of the marked enzyme release of rhabdomyolysis (no evidence of ACS; see recent cath results below) Confusion / Mental Status Change - etiology unclear, Hospitalist service managing CAD: - CT chest of August 2016 at is reported to have shown marked cor calcification and at least mildaortic valve calcification - Echocardiogram of 07/28/19 showed LVEF 60-65%; mild MR, mild to mod tricuspid regurg; [id number] - MPI 12-12-21: Small to moderate amount of inferolateral ischemia. Normal regional wall motion. Normal global left ventricular systolic function with a calculated ejection fraction of 64%. - Last card cath of 12-26-21: 1. Coronary artery disease primarily consisting of mid vessel occlusion of the right coronary with collateralization of the distal right coronary by the left anterior descending artery. There is diffuse moderate disease of the left coronary system. The first diagonal branch of left anterior descending artery is of a small caliber and has approximately 70% ostial and proximal stenosis. Normal left ventricular end-diastolic pressure. Normal global left ventricular systolic function with ejection fraction approximately 60%. Carotid dz - Mild carotid art disease on carotid u/s of 12/04/18 No evidence of AAA on abd ao screening scan of 11/06/16 Sinus donita - seen on ECG of 04/10/15; beta-blockers were stopped at that time by Dr Palafox Palpitations - Holter study of 04-25-15 showed infrequent isolated and coupled PVC's. 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 Status post VATS assisted left upper lobe lobectomy in August 2015. Followed by Dr Pederson - cT1c [place] 7 (4+3) prostate cancer with initial PSA level of 8.98 diagnosed in late 2016, status-post definitive radiation therapy to 8100 cGy in 45 fractions completed on 08/08/2017 with no ADT. Followedby Henrique Pederson and Dyana Obesity - with BMI approx 42 Obstructive sleep apnea - treated with CPAP CHAUDHARY - prob multifactorial: Partial pneumonectomy, obesity-hypovent Chronic bilat leg swelling - likely related to venous insuff and/or chronic therapy with calcium channel blockers Prostate cancer, - managed by his urologist, Dr Turpin Chronic mild transaminase elevation -likely ABDI, followed by Dr Palafox Plan: * Management of COVID per medical services * ASA and bb because of h/o CAD * Monitor labs * Treat bp - add Norvasc * Further recs to be based on hosp course KALPANA LINDO Jan 15, 2022 10:13
[2022-01-15] MEDS ORDERED: amLODIPine 5 MG (NORVASC) TAB PO NR (10:45)
--- NOTE | 2022-01-15 11:30 | Physical Therapy Evaluation ---
PT Evaluation-General Medical Diagnosis Admission Date Jan 14, 2022 at 01:30 Medical Diagnosis: Covid/Rhabdomylosis/SALINA/CHF Onset Date: Jan 14, 2022 Therapy Diagnosis Therapy Diagnosis: debility/weakness Height/Weight Height (Feet): 5 Height (Inches): 11.00 Weight (Pounds): 310 Weight (Ounces): 0.0 Precautions Precautions/Isolations: Airborne Isolation, Contact Isolation, Droplet I solation, Fall Prevention Referral Physician: Martha Reason for Referral: Evaluation/Treatment Medical History Pertinent Medical History: CAD, Heart Failure, HTN Additional Medical History morbid obesity Current History EMS from home secondary to scooting on floor after a fall, for 3 days. FAmily present at home (spouse and son) Reviewed History: Yes Social History Home: Single Level Current Living Status: Spouse Prior Prior Level of Function SCALE: Activities may be completed with or without assistive devices. 9-Jehxbzrvhi-ogmuhdv completes the activity by him/herself with no assistance from a helper. 5-Set-up or Clean-up Assistance-helper sets up or cleans up; patient completes activity. [place] assists only prior to or following the activity. 4-Supervision or Touching Assistance-helper provides verbal cues and/or touching/steadying and/or contact guard assistance as patient completes activity. Assistance may be provided throughout the activity or intermittently. 3-Partial/Moderate Assistance-helper does LESS THAN HALF the effort. [place] lifts, holds or supports trunk or limbs, but provides less than half the effort. 2-Substantial/Maximal Assistance-helper does MORE THAN HALF the effort. [place] lifts or holds trunk or limbs and provides more than half the effort. 3-Aqrjazodr-fjaxhk does ALL the effort. Patient does none of the effort to complete the activity. Or, the assistance of 2 or more helpers is required for the patient to complete the activity. If activity was not attempted, code reason: 7-Patient Refused. 9-Not Applicable-not attempted and the patient did not perform the activity before the current illness, exacerbation or injury. 10-Not Attempted due to Environmental Limitations-(lack of equipment, weather restraints, etc.). 88-Not Attempted due to Medical Conditions or Safety Concerns. Bed Mobility: 6 Transfers (B,C,W/C): 6 Gait: 6 Indoor Mobility (Ambulation): Independent Prior Devices Use: Other-see list below (2 canes per patient report) PT Evaluation-Current Subjective Patient agrees to PT. Objective Patient Orientation: Person, Time, Situation Attachments: Diggs Catheter, IV ROM/Strength ROM Lower Extremities bilateral LE WFL Strength Lower Extremities 3+/5 grossly bilateral LE Integumentary/Posture Bladder Incontinence: Diggs Cath Posture WFL Neuromuscular (Tone, Coordination, Reflexes) grossly intact Sensory Vision: Functional Hearing: Impaired Transfers Lying to Sitting/Side of Bed(Q: 4 Sit to Stand (QC): 4 Chair/Uxq-sb-Uurky Xfer(QC): 4 Gait Does the Patient Walk?: Yes Mode of Locomotion: Walk Anticipated Mode of Locomotion: Walk Walk 10 feet (QC): 4 Walk 50 ft with 2 Turns(QC): 4 Walk 150 ft (QC): 88 Distance: 50' Gait Assistive Device: FWW Comments/Gait Description slightly unsteady due to weakness Balance Sitting Static: Normal Sitting Dynamic: Normal Standing Static: Fair Standing Dynamic: Fair Assessment/Needs 76 y.o. male, will benefit from skilled PT to address functional strength and mobility to improve current LOF to safely return to home with spouse at maximum LOF. Rehab Potential: Fair PT Cdl Bulk Driver Goals Cdl Bulk Driver Goals PT Custodial Goals Time Frame: Jan 27, 2022 Roll Left & Right (QC): 6 Sit to Lying (QC): 6 Lying-Sitting on Side/Bed(QC): 6 Sit to Stand (QC): 6 Chair/Rhy-lg-Jwtdk Xfer(QC): 6 Toilet Transfer (QC): 6 Walk 10 feet (QC): 6 Walk 50ft with 2 Turns (QC): 6 Walk 150 ft (QC): 6 PT Plan Problem List Problem List: Activity Tolerance, Functional Strength, Safety, Balance, Gait, Transfer, Bed Mobility Treatment/Plan Treatment Plan: Continue Plan of Care Treatment Plan: Bed Mobility, Education, Functional Activity Prasanna, Functional Strength, Gait, Safety, Therapeutic Exercise, Transfers Treatment Duration: Jan 27, 2022 Frequency: 6 times per week Estimated Hrs Per Day: .25 hour per day Patient and/or Family Agrees t: Yes Time/GCodes Time In: 1030 Time Out: 1040 Total Billed Treatment Time: 10 Total Billed Treatment 1 visit EVModC 10 min KATHIE PALOMINO PT Jan 15, 2022 11:30
--- NOTE | 2022-01-15 13:59 | Occupational Therapy Eval ---
OT Evaluation-General/PLF Medical Diagnosis Admission Date Jan 14, 2022 at 01:30 Medical Diagnosis: Covid/Rhabdomylosis/SALINA/CHF Onset Date: Jan 14, 2022 Therapy Diagnosis Therapy Diagnosis: decreased ADL status Height/Weight Height (Feet): 5 Height (Inches): 11.00 Weight (Pounds): 310 Weight (Ounces): 0.0 Precautions Precautions/Isolations: Airborne Isolation, Contact Isolation, Droplet Isolation, Fall Prevention Referral Physician: Martha Referral Reason: Evaluation/Treatment Medical History Pertinent Medical History: CAD, Heart Failure, HTN Additional Medical History CAD, lobectomy, sleep apnea, chronic edema/swelling, HTN, kidney stones, GERD, arthritis, prostate cancer, lung cancer Current History ED after being found down on floor x3 days by a family member, c/o headache Social History Home: Single Level Current Living Status: Spouse ADL-Prior Level of Function SCALE: Activities may be completed with or without assistive devices. 8-Vkcroskvgq-umvaspf completes the activity by him/herself with no assistance from a helper. 5-Set-up or Clean-up Assistance-helper sets up or cleans up; patient completes activity. [place] assists only prior to or following the activity. 4-Supervision or Touching Assistance-helper provides verbal cues and/or touching/steadying and/or contact guard assistance as patient completes activity. Assistance may be provided throughout the activity or intermittently. 3-Partial/Moderate Assistance-helper does LESS THAN HALF the effort. [place] lifts, holds or supports trunk or limbs, but provides less than half the effort. 2-Substantial/Maximal Assistance-helper does MORE THAN HALF the effort. [place] lifts or holds trunk or limbs and provides more than half the effort. 0-Sdtokjlrq-dhwrrd does ALL the effort. Patient does none of the effort to complete the activity. Or, the assistance of 2 or more helpers is required for the patient to complete the activity. If activity was not attempted, code reason: 7-Patient Refused. 9-Not Applicable-not attempted and the patient did not perform the activity before the current illness, exacerbation or injury. 10-Not Attempted due to Environmental Limitations-(lack of equipment, weather restraints, etc.). 88-Not Attempted due to Medical Conditions or Safety Concerns. ADL PLOF Comments Pt reports IND with ADLs and functional mobility at PLOF, declines AD. Pt reports assisting with IADLs, housework and cooking. Accuracy of info rmation unknown due to slight confusion. Pt unable to state what brought him to the hospital Self Care: Unknown Functional Cognition: Unknown OT Current Status Subjective Pt in bed, agreeable to OT tx. Pt unable to recall why he is in the hospital. Mental Status/Objective Patient Orientation: Person, Confused Current Upper Extremity ROM WFL Upper Extremity Strength grossly 4-/5 ADL-Treatment Eating (QC): 6 (IND per nursing report.) On/Off Footwear (QC): 7 Toileting Hygiene (QC): 7 Other Treatments Pt in bed, agreeable to OT Tx. Pt unable to provide much information about PLOF and home set up. Pt transferred supine to sit EOB, SBA, sit to stand from EOB CGA, then CGA transfer to recliner. Pt declined need to toilet or perform ADLs at this time. Post tx, pt in recliner, call light in reach and all needs met. Education OT Patient Education: Correct positioning, Energy conservation, Modified ADL techniques, Progress toward Goal/Update tx plan, Purpose of tx/functional a ctivities, Rehab process Teaching Recipient: Patient Teaching Methods: Discussion Response to Teaching: Verbalize Understanding OT Fiber Designer Goals Fiber Designer Goals Time Frame: Jan 26, 2022 Eating (QC): 6 Oral Hygiene (QC): 6 Toileting Hygiene (QC): 6 Shower/Bathe Self (QC): 6 Upper Body Dressing (QC): 6 Lower Body Dressing (QC): 6 On/Off Footwear (QC): 6 Additional Goals: 1-Demonstrate ADL Tasks, 2-Verbalize Understanding, 3- ImproveStrength/Prasanna 1=Demonstrate adherence to instructed precautions during ADL tasks. 2=Patient will verbalize/demonstrate understanding of assistive devices/modifications for ADL. 3=Patient will improve strength/tolerance for activity to enable patient to perform ADL's. OT Education/Plan Problem List/Assessment Assessment: Decreased Activ Tolerance, Decreased UE Strength, Impaired Funct Balance, Impaired I ADL's, Impaired Self-Care Skills Pt would benefit from skilled OT Services in order to increase BUE Strength and activity tolerance, and to increase independence and safety with ADLs and functional mobility in order to maximize LOF for safe return home. Discharge Recommendations Plan/Recommendations: Continue POC Treatment Plan/Plan of Care Patient would benefit from OT for education, treatment and training to promote independence in ADL's, mobility, safety and/or upper extremity function for ADL's. Plan of Care: ADL Retraining, Functional Mobility, UE Funct Exercise/Act Treatment Duration: Jan 26, 2022 Frequency: 3 times per week (3-5 times per week) Estimated Hrs Per Day: .25 hour per day Agreement: Yes Rehab Potential: Fair Time/GCodes Start Time: 13:36 Stop Time: 13:50 Total Time Billed (hr/min): 14 Billed Treatment Time 1, MARIBEL SIMS OT Jan 15, 2022 13:59
[2022-01-15] MEDS: TAMSULOSIN 0.4 MG (FLOMAX) CAP PO SCH (16:51)
--- NOTE | 2022-01-15 16:55 | Progress Note - Hospitalist ---
Subjective HPI/CC On Admission Date Seen by Provider: Jan 15, 2022 Time Seen by Provider: 10:55 Patient is a 76-year-old male with a past medical history of coronary artery disease who presented to the emergency department after being found down by family member. He is unable to provide much history and does not recall any falls or being on the ground. His only complaint is that he has a headache. All information is from the chart. Reportedly his son called EMS tonight to bring him to the hospital as he had fallen roughly 3 days ago and had not been able to get up. He had been scooting around his house and was covered in urine. Apparently there is a in the home but I am uncertain whether she was able to help. EMS reported that he had not been given any food or medications in the past 3 days. He was found to have rhabdomyolysis and was COVID-positive admitted for further management. Subjective/Events-last exam He is sitting on the toilet. He is not on oxygen. He has been up and moving. He is feeling better. He does not remember what happened that he ended up in the hospital. Objective Exam Vital Signs Vital Signs Date Time Temp Pulse Resp B/P (MAP) Pulse Ox O2 Delivery O2 Flow Rate FiO2 01/15/22 15:55 36.7 81 20 150/85 (106) 92 Room Air 0.00 01/14/22 02:23 28 Capillary Refill : Less Than 3 Seconds General Appearance: No Apparent Distress, Obese Respiratory: Lungs Clear, No Respiratory Distress Cardiovascular: Regular Rate, Rhythm, No Murmur Gastrointestinal: Normal Bowel Sounds, Non Tender Extremity: Normal Inspection, No Pedal Edema Neurologic/Psychiatric: Alert, Normal Mood/Affect Skin: Normal Color, Warm/Dry Results/Procedures Lab Laboratory Tests 01/15/22 06:45 01/15/22 06:46 Patient resulted labs reviewed. Assessment/Plan Assessment and Plan Assess & Plan/Chief Complaint Rhabdomyolysis SALINA Falls Debility Stop fluids Remove conti CK trended down Creatinine improving as well PT/OT COVID-19 JENN on CPAP Decadron Was on 3-4 lpm on arrival, now on room air CPAP at night MAT Protocol Elevated troponin Cardiology following No evidence of ACS HTN Continue Metoprolol DVT prophylaxis: Lovenox AMS, resolved Diagnosis/Problems Diagnosis/Problems (1) COVID-19 virus infection Status: Acute (2) Acute kidney injury Status: Acute (3) Rhabdomyolysis Status: Acute (4) Morbid obesity Status: Acute (5) Sleep apnea Status: Acute (6) Elevated troponin Status: Acute OKSANA WARE MD Jan 15, 2022 16:55
[2022-01-15] MEDS ORDERED: ENOXAPARIN 40 MG/0.4 ML (LOVENOX) SYR SQ SCH (17:00)
[2022-01-15] MEDS: ENOXAPARIN 40 MG/0.4 ML (LOVENOX) SYR SC SCH (17:30)
--- NOTE | 2022-01-15 18:39 | Progress Note - Cardiology ---
Cardiology SOAP Progress Note Subjective: He is confused and not able to provide a meaningful history Objective: I&O/Vital Signs 01/15/22 01/15/22 01/15/22 01/15/22 07:00 07:39 07:46 07:47 Temp 36.0 Pulse 69 68 Resp 18 B/P (MAP) 160/90 (113) Pulse Ox 96 96 O2 Delivery Nasal Cannula Nasal Cannula Nasal Cannula O2 Flow Rate 2.00 3.00 2.00 01/15/22 01/15/22 01/15/22 01/15/22 08:51 10:06 11:33 13:00 Temp 36.2 Pulse 70 86 Resp 18 B/P (MAP) 155/86 (109) Pulse Ox 90 96 O2 Delivery Nasal Cannula Room Air Nasal Cannula O2 Flow Rate 2.00 2.00 01/15/22 15:55 Temp 36.7 Pulse 81 Resp 20 B/P (MAP) 150/85 (106) Pulse Ox 92 O2 Delivery Room Air O2 Flow Rate 0.00 01/15/22 00:00 Intake Total 1350 ml Output Total 800 ml Balance 550 ml Weight (Pounds): 310 Weight (Ounces): 0.0 Weight (Calculated Kilograms): 140.003468 Constitutional: No AAO x 3; well-developed, well-nourished, other (oriented to self only) Respiratory: No accessory muscle use; other (fair air entry, prolonged exp, diminished bs at bases) Cardiovascular: regular rate-rhythm, S1 and S2, systolic murmur (soft GAURAV at card base) Gastrointestional: No tender; soft, distended; No guarding, No rebound; audible bowel sounds Extremities: other (mod, bilateral, pitting and non-pitting leg edema); No clubbing, No cyanosis Neurologic/Psychiatric: other (Oriented to self; able to move all extremities) Skin: warm/dry; No rash on exposed areas, No ulcerations on exposed areas Results/Procedures: Labs Laboratory Tests 01/14/22 18:40: Prothrombin Time 15.3H, INR Comment 1.2 01/14/22 20:50: Glucometer 94 01/14/22 21:28: Glucometer 216H 01/15/22 06:45: Sodium Level 142, Potassium Level 3.6, Chloride Level 109H, Carbon Dioxide Level 22, Anion Gap 11, Blood Urea Nitrogen 20H, Creatinine 0.83, Estimat Glomerular Filtration Rate 90, BUN/Creatinine Ratio 24, Glucose Level 83, Calcium Level 8.7, Total Creatine Kinase 647H 01/15/22 06:46: White Blood Count 12.4H, Red Blood Count 4.43, Hemoglobin 14.3, Hematocrit 43, Mean Corpuscular Volume 98, Mean Corpuscular Hemoglobin 32, Mean Corpuscular Hemoglobin Concent 33, Red Cell Distribution Width 13.8, Platelet Count 266, Mean Platelet Volume 9.5 Laboratory Tests 01/13/22 22:57 01/14/22 07:01 01/15/22 06:45 01/15/22 06:46 A/P: Assessment: COVID (+) - management per Medical services Rhabdomyolysis due to prolonged stay on the floor at home (reason unclear) - minimal troponin elevation probably is a part of the marked enzyme release of rhabdomyolysis (no evidence of ACS; see recent cath results below) Confusion / Mental Status Change - etiology unclear, Hospitalist service managing CAD: - CT chest of August 2016 at is reported to have shown marked cor calcification and at least mildaortic valve calcification - Echocardiogram of 07/28/19 showed LVEF 60-65%; mild MR, mild to mod tricuspid regurg; [id number] - MPI 12-12-21: Small to moderate amount of inferolateral ischemia. Normal regional wall motion. Normal global left ventricular systolic function with a calculated ejection fraction of 64%. - Last card cath of 12-26-21: 1. Coronary artery disease primarily consisting of mid vessel occlusion of the right coronary with collateralization of the distal right coronary by the left anterior descending artery. There is diffuse moderate disease of the left coronary system. The first diagonal branch of left anterior descending artery is of a small caliber and has approximately 70% ostial and proximal stenosis. Normal left ventricular end-diastolic pressure. Normal global left ventricular systolic function with ejection fraction approximately 60%. Carotid dz - Mild carotid art disease on carotid u/s of 12/04/18 No evidence of AAA on abd ao screening scan of 11/06/16 Sinus donita - seen on ECG of 04/10/15; beta-blockers were stopped at that time by Dr Palafox Palpitations - Holter study of 04-25-15 showed infrequent isolated and coupled PVC's. 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 Status post VATS assisted left upper lobe lobectomy in August 2015. Followed by Dr Pederson - cT1c [place] 7 (4+3) prostate cancer with initial PSA level of 8.98 diagnosed in late 2016, status-post definitive radiation therapy to 8100 cGy in 45 fractions completed on 08/08/2017 with no ADT. Followedby Henrique Pederson and Dyana Obesity - with BMI approx 42 Obstructive sleep apnea - treated with CPAP CHAUDHARY - prob multifactorial: Partial pneumonectomy, obesity-hypovent Chronic bilat leg swelling - likely related to venous insuff and/or chronic therapy with calcium channel blockers Prostate cancer, - managed by his urologist, Dr Turpin Chronic mild transaminase elevation -likely ABDI, followed by Dr Palafox Plan: * Management of COVID per medical services * ASA and bb because of h/o CAD * Monitor labs * Treat bp - add Norvasc * Further recs to be based on hosp course FELECIA CANCINO MD FACP FACC CCDS Jan 15, 2022 18:39
[2022-01-15] MEDS: OLANZapine 5 MG (ZyPREXA) TAB PO SCH (23:15)
[2022-01-15] MEDS: HALOPERIDOL 5 MG/ML (HALDOL) VIAL IM PRN (23:15)
[2022-01-16] MEDS: HALOPERIDOL 5 MG/ML (HALDOL) VIAL IM PRN (02:22)
[2022-01-16] MEDS: RT-ALBUTEROL HFA 8.5 GM INHALER IH SCH ×4 (02:40→20:00)
[2022-01-16 03:46] VITALS: BP 166/80
[2022-01-16] MEDS: NITROGLYCERIN 2% OINT 1 GM UNIT DOSE PACKET TOP SCH ×4 (05:49→17:40)
[2022-01-16] MEDS: dexAMETHasone 6 MG TAB (DECADRON) PO SCH ×2 (05:49→09:39)
[2022-01-16] MEDS: ENOXAPARIN 40 MG/0.4 ML (LOVENOX) SYR SC SCH ×2 (05:49→17:40)
[2022-01-16 07:36] VITALS: BP 166/77
[2022-01-16] MEDS ORDERED: amLODIPine 5 MG (NORVASC) TAB PO SCH (09:00)
--- NOTE | 2022-01-16 09:21 | Physical Therapy Progress Note ---
Therapy Progress Note Patient adamantly declined PT stating, "I just don't want to do anything." PT will attempt tomorrow a.m. 1 ref KATHIE PALOMINO PT Jan 16, 2022 09:21
[2022-01-16] MEDS: ASPIRIN 81 MG CHEW (CHILDREN'S ASA) PO SCH (09:38)
[2022-01-16] MEDS: meTOprolol SUCCINATE 100 MG (TOPROL XL) TAB PO SCH (09:39)
[2022-01-16 11:11] VITALS: BP 134/72
--- NOTE | 2022-01-16 13:35 | Occ Therapy Progress Note ---
Therapy Progress Note Attempted to wake pt. Pt would open eyes for seconds then close them again and fall asleep. Attempted to have pt look at lunch, pt would then he would close eyes and fall asleep. Will attempt to see pt tomorrow. WALLY ABDUL Jan 16, 2022 13:35
[2022-01-16 15:25] VITALS: BP 159/79
--- NOTE | 2022-01-16 16:38 | Physician Query Clarification ---
Physician Query-General Query to Physician: The medical record reflects the following clinical evidence: Clinical Indicators: O2 sat 95% on 5L (P/F=198) on arrival to the medical floor, has been on oxygen from 1 to 5 L O2 sat 92% on 1 L 90% on room air O2 as high as 5 L, respiratory rate 24 on admission increased to 27 and remained 23 to 27 for more than 8 hours, Nursing documenting shortness of air at rest on admission as well as unable to lie flat,Has been on 02 for more than 48 hours Risk Factor(s): COVID, advanced age, rhabdomyolysis, No documentation of Home 02, Hx of Lung cancer with lobectomy Treatment: Supplemental 02 up to 5L, Breathing RX, 1. Acute respiratory failure with hypoxia, present on admission 2. Other explanation of clinical findings 3. Unable to determine (no explanation for clinical findings) Please clarify and document your clinical opinion in the progress notes and discharge summary including the definitive and/or presumptive diagnosis, (suspected or probable), related to the above clinical findings. Please include clinical findings supporting your diagnosis. Christiane Hamilton RN, MSN Clinical Pleater Hand [phone] [email or web address] PHYSICIAN RESPONSE: Based on the clinical findings in the record, please respond to the query above on this document as an addendum. Physician Response: Physician Response 1 If you have questions please contact: Motorcycle Assembler: Ext: Thank you for your time and cooperation. Clinical Pleater Hand/Motorcycle Assembler This is a permanent part of the medical record CHRISTIANE HAMILTON Jan 16, 2022 16:37 WESLY HAAS MD Jan 22, 2022 12:53
--- NOTE | 2022-01-16 16:40 | Progress Note - Hospitalist ---
Subjective HPI/CC On Admission Date Seen by Provider: Jan 16, 2022 Time Seen by Provider: 10:30 Patient is a 76-year-old male with a past medical history of coronary artery disease who presented to the emergency department after being found down by family member. He is unable to provide much history and does not recall any falls or being on the ground. His only complaint is that he has a headache. All information is from the chart. Reportedly his son called EMS tonight to bring him to the hospital as he had fallen roughly 3 days ago and had not been able to get up. He had been scooting around his house and was covered in urine. Apparently there is a in the home but I am uncertain whether she was able to help. EMS reported that he had not been given any food or medications in the past 3 days. He was found to have rhabdomyolysis and was COVID-positive admitted for further management. Subjective/Events-last exam He is sitting in his chair. He is feeling ok. He has been up and moving. He shows no signs of confusion, knows where he is at and why he is here. He denies pain. Objective Exam Vital Signs Vital Signs Date Time Temp Pulse Resp B/P (MAP) Pulse Ox O2 Delivery O2 Flow Rate FiO2 01/16/22 15:46 92 Nasal Cannula 1.00 01/16/22 15:25 36.2 52 22 159/79 (105) 01/14/22 02:23 28 Capillary Refill : Less Than 3 Seconds General Appearance: No Apparent Distress, Obese Respiratory: Lungs Clear, No Respiratory Distress Cardiovascular: Regular Rate, Rhythm, No Murmur Gastrointestinal: Normal Bowel Sounds, Soft Extremity: Normal Inspection, No Pedal Edema Neurologic/Psychiatric: Alert, Oriented x3, Normal Mood/Affect Skin: Normal Color, Warm/Dry Results/Procedures Lab Patient resulted labs reviewed. Assessment/Plan Assessment and Plan Assess & Plan/Chief Complaint Rhabdomyolysis SALINA Falls Debility CK trended down Creatinine normalized PT/OT COVID-19 JENN on CPAP Decadron Now on room air CPAP at night MAT Protocol Elevated troponin Cardiology following No evidence of ACS HTN Continue Metoprolol DVT prophylaxis: Lovenox AMS, resolved Diagnosis/Problems Diagnosis/Problems (1) COVID-19 virus infection Status: Acute (2) Acute kidney injury Status: Acute (3) Rhabdomyolysis Status: Acute (4) Morbid obesity Status: Acute (5) Sleep apnea Status: Acute (6) Elevated troponin Status: Acute OKSANA WARE MD Jan 16, 2022 16:40
[2022-01-16] MEDS: TAMSULOSIN 0.4 MG (FLOMAX) CAP PO SCH (17:40)
--- NOTE | 2022-01-16 18:11 | Progress Note - Cardiology ---
Cardiology SOAP Progress Note Subjective: Sleepy Very difficult to awaken Does not report any symptoms Does not communicate verbally Objective: I&O/Vital Signs 01/16/22 01/16/22 01/16/22 01/16/22 06:31 07:36 11:00 11:11 Temp 36.1 36.0 Pulse 49 72 61 Resp 18 20 B/P (MAP) 166/77 (106) 134/72 (92) Pulse Ox 95 92 90 O2 Delivery Nasal Cannula Nasal Cannula Room Air O2 Flow Rate 3.00 1.00 01/16/22 01/16/22 01/16/22 12:35 15:25 15:46 Temp 36.2 Pulse 52 52 Resp 22 B/P (MAP) 159/79 (105) Pulse Ox 94 92 O2 Delivery Room Air Nasal Cannula O2 Flow Rate 1.00 01/16/22 00:00 Intake Total 2520 ml Balance 2520 ml Weight (Pounds): 310 Weight (Ounces): 0.0 Weight (Calculated Kilograms): 140.632233 Constitutional: No AAO x 3, No apparent distress; well-developed, well-nouris hed, other (oriented to self only) Respiratory: No accessory muscle use; other (fair air entry, prolonged exp, diminished bs at bases) Cardiovascular: regular rate-rhythm, S1 and S2, systolic murmur (soft GAURAV at card base) Gastrointestional: No tender; soft, distended; No guarding, No rebound; audible bowel sounds Extremities: other (mod, bilateral, pitting and non-pitting leg edema); No clubbing, No cyanosis Neurologic/Psychiatric: other (able to move all extremities) Skin: warm/dry; No rash on exposed areas, No ulcerations on exposed areas Results/Procedures: Labs Laboratory Tests 01/15/22 06:45 01/15/22 06:46 A/P: Assessment: COVID (+) - management per Medical services Rhabdomyolysis due to prolonged stay on the floor at home (reason unclear) - minimal troponin elevation probably is a part of the marked enzyme release of rhabdomyolysis (no evidence of ACS; see recent cath results below) Confusion / Mental Status Change - etiology unclear, Hospitalist service managing CAD: - CT chest of August 2016 at is reported to have shown marked cor calcification and at least mildaortic valve calcification - Echocardiogram of 07/28/19 showed LVEF 60-65%; mild MR, mild to mod tricuspid regurg; [id number] - MPI 12-12-21: Small to moderate amount of inferolateral ischemia. Normal regional wall motion. Normal global left ventricular systolic function with a calculated ejection fraction of 64%. - Last card cath of 12-26-21: 1. Coronary artery disease primarily consisting of mid vessel occlusion of the right coronary with collateralization of the distal right coronary by the left anterior descending artery. There is diffuse moderate disease of the left coronary system. The first diagonal branch of left anterior descending artery is of a small caliber and has approximately 70% ostial and proximal stenosis. Normal left ventricular end-diastolic pressure. Normal global left ventricular systolic function with ejection fraction approximately 60%. Carotid dz - Mild carotid art disease on carotid u/s of 12/04/18 No evidence of AAA on abd ao screening scan of 11/06/16 Sinus donita - seen on ECG of 04/10/15; beta-blockers were stopped at that time by Dr Palafox Palpitations - Holter study of 04-25-15 showed infrequent isolated and coupled PVC's. 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 Status post VATS assisted left upper lobe lobectomy in August 2015. Followed by Dr Pederson - cT1c [place] 7 (4+3) prostate cancer with initial PSA level of 8.98 diagnosed in late 2016, status-post definitive radiation therapy to 8100 cGy in 45 fractions completed on 08/08/2017 with no ADT. Followedby Henrique Pederson and Dyana Obesity - with BMI approx 42 Obstructive sleep apnea - treated with CPAP CHAUDHARY - prob multifactorial: Partial pneumonectomy, obesity-hypovent Chronic bilat leg swelling - likely related to venous insuff and/or chronic therapy with calcium channel blockers Prostate cancer, - managed by his urologist, Dr Turpin Chronic mild transaminase elevation -likely ABDI, followed by Dr Palafox Plan: * Management of COVID per medical services * ASA and bb because of h/o CAD * Monitor labs * Treat bp - add Norvasc * Further recs to be based on hosp course FELECIA CANCINO MD FACP FAC CCDS Jan 16, 2022 18:11
[2022-01-16 19:49] VITALS: BP 161/82
[2022-01-16] MEDS: OLANZapine 5 MG (ZyPREXA) TAB PO SCH (20:55)
[2022-01-16] MEDS: ACETAMINOPHEN 500 MG TAB (TYLENOL) PO PRN (20:55)
[2022-01-16 23:17] VITALS: BP 129/60
[2022-01-17] MEDS: NITROGLYCERIN 2% OINT 1 GM UNIT DOSE PACKET TOP SCH ×2 (00:31→05:18)
[2022-01-17] MEDS: RT-ALBUTEROL HFA 8.5 GM INHALER IH SCH ×2 (03:05→08:25)
[2022-01-17 03:28] VITALS: BP 139/76
[2022-01-17] MEDS: ENOXAPARIN 40 MG/0.4 ML (LOVENOX) SYR SC SCH (05:18)
[2022-01-17 05:55] LABS: POTASSIUM 4.2 MMOL/L (3.6-5.0)
[2022-01-17 05:57] LABS: CALCIUM 8.7 MG/DL (8.5-10.1)
[2022-01-17 06:01] LABS: CREATININE SERUM 0.79 MG/DL (0.60-1.30)
[2022-01-17 07:43] VITALS: BP 174/87
[2022-01-17] MEDS ORDERED: meTOproloL SUCCINATE 50 MG (TOPROL XL) TAB PO SCH (09:00)
[2022-01-17] MEDS ORDERED: amLODIPine 5 MG (NORVASC) TAB PO SCH (09:00)
[2022-01-17] MEDS ORDERED: amLODIPine 10 MG (NORVASC) TAB PO SCH (09:00)
[2022-01-17] MEDS: dexAMETHasone 6 MG TAB (DECADRON) PO SCH (09:13)
[2022-01-17] MEDS: ASPIRIN 81 MG CHEW (CHILDREN'S ASA) PO SCH (09:14)
--- NOTE | 2022-01-17 10:04 | D/C HH Face to Face Order ---
D/C Face to Face Orders Reconcile Patient Problems Problems Reviewed?: Yes Instructions for Patient Via [employer], Patient Instructions/FollowUp: See instructions Physician to follow Patient: [facility] Discharge Diet for Home: Low Sodium Diet Patient Data-Allergies,Ht & Wt Patient Allergies: Coded Allergies: No Known Drug Allergies (Unverified , 04/10/15) Height (Feet): 5 Height (Inches): 11.00 Weight (Pounds): 310 Weight (Ounces): 0.0 Home Health Need/Face to Face Date of Face to Face: Jan 17, 2022 Clinical Findings: Generalized weakness and fatigue, Instability, Muscle weakness, Unsteady gait I have seen Pt [id number]: Yes Discharged To: Home Diagnosis/Conditions: COVID JENN HTN Morbid obesity Problems/Diagnosis/Condition: (1) COVID-19 (2) Morbid obesity (3) HTN (hypertension) (4) Sleep apnea Patient is Homebound due to: Elle fall risk due to instabilty, Muscle weakness Homebound Status Due to the above stated illness, injury or surgical procedure (medical condition or diagnosis) and associated clinical findings, the patient is homebound because of his/her inability to leave home except with aid of a supportive device and/or person AND leaving the home requires a considerable and taxing effort or is medically contraindicated. Pt req the following assistanc: Aid of another person Home Health Nursing Orders Home Health Services Order: Nursing Services, Curtain Supervisor-Evaluate & Treat, Physical Therapy-Evaluate & Treat Home Health Infusion Therapy Line Start Date: Jan 14, 2022 Therapy Orders Therapy Orders: OT (must have SN or PT order), Physical Therapy Therapy Specific Orders: Eval assistive deivces, Teach enviro modification s/safety, Gait training, Increase strength/endurance Certify Stmt I certify that this patient is under my care and that I, a nurse practitioner or a physician; a surgical first assistant working with me, had a face to face encounter that - meets the physician face to face encounter requirements with this patient as dated. OKSANA WARE MD Jan 17, 2022 10:04
--- NOTE | 2022-01-17 11:30 | Discharge Summary ---
Discharge Summary Hospital Course Problems/Dx: (1) COVID-19 virus infection Status: Acute (2) Acute kidney injury Status: Acute (3) Rhabdomyolysis Status: Acute (4) Morbid obesity Status: Acute (5) Sleep apnea Status: Acute (6) Elevated troponin Status: Acute Hospital Course Date of Admission: Jan 14, 2022 at 01:30 Admission Diagnosis : Rhabdomyolysis, SALINA, COVID Family Physician/Provider: RiriLocal Physician Date of Discharge: 01/17/22 Discharge Diagnosis: Rhabdomyolysis, SALINA, COVID Hospital Course: Toño Shepard is a 76 year old male who presented after a fall and was admitted with rhabdomyolysis. He also had an acute kidney inury. Both responded well to IV fluids and resolved. He was also found to have COVID. He was requiring some supplemental oxygen initially but this resolved. He has JENN and is on CPAP at home. He did use some oxygen at night instead of his CPAP but was not requiring any oxygen during the day. He was discharged home in stable condition. He does not have a primary care physician at this time and he needs to establish with a new PCP. Labs and Pending Lab Test: Laboratory Tests 01/17/22 05:40: Sodium Level 144, Potassium Level 4.2, Chloride Level 110H, Carbon Dioxide Level 23, Anion Gap 11, Blood Urea Nitrogen 19H, Creatinine 0.79, Estimat Glomerular Filtration Rate 91, BUN/Creatinine Ratio 24, Glucose Level 96, Calcium Level 8.7 Home Meds Active Ondansetron Odt (Ondansetron) 4 Mg Tab.rapdis 4 Mg PO Q8H PRN Flomax (Tamsulosin HCl) 0.4 Mg Cap 0.4 Mg PO HS Toprol Xl (Metoprolol Succinate) 100 Mg Tab.er.24h 100 Mg PO DAILY Aspirin 81 Mg Tab.chew 81 Mg PO DAILY Reported Tramadol HCl 50 Mg Tablet 50 Mg PO Q4-6HRS PRN Citalopram HBr (Citalopram Hydrobromide) 20 Mg Tablet 20 Mg PO DAILY Potassium Chloride 10 Meq Capsule.er 5 Meq PO DAILY Aldactone (Spironolactone) 25 Mg Tablet 25 Mg PO DAILY Triamterene-Hctz 37.5-25 mg Cp (Triamterene/Hydrochlorothiazid) 37.5 Mg-25 Mg Capsule 1 Each PO DAILY Famotidine 40 Mg Tablet 40 Mg PO DAILY Gabapentin 100 Mg Capsule 200 Mg PO HS Montelukast Sodium 10 Mg Tablet 10 Mg PO DAILY Oxybutynin Chloride ER (Oxybutynin Chloride) 5 Mg Tab.er.24 5 Mg PO DAILY Flomax (Tamsulosin HCl) 0.4 Mg Cap 0.4 Mg PO DAILY Mirapex (Pramipexole Di-HCl) 1 Mg Tablet 1 Mg PO HS Tylenol Extra Strength (Acetaminophen) 500 Mg Tablet 500 Mg PO Q6H PRN Vitamin D (Cholecalciferol (Vitamin D3)) 1,000 Unit Capsule 1,000 Unit PO DAILY Claritin (Loratadine) 10 Mg Capsule 10 Mg PO DAILY Furosemide 40 Mg Tablet 40 Mg PO DAILY Atorvastatin Calcium 20 Mg Tablet 20 Mg PO HS Assessment/Pt Instructions See instructions Discharge Planning: >30 minutes discharge planning Discharge Instructions Discharge Diet: Low Sodium Diet Activity as Tolerated: Yes Consultations Cardiology Discharge Physical Examination Vital Signs Vital Signs Date Time Temp Pulse Resp B/P (MAP) Pulse Ox O2 Delivery O2 Flow Rate FiO2 01/17/22 08:25 94 Nasal Cannula 1.00 01/17/22 07:43 36.1 52 20 174/87 (116) 01/14/22 02:23 28 General Appearance: No Apparent Distress, Obese Respiratory: Lungs Clear, No Respiratory Distress Cardiovascular: Regular Rate, Rhythm, No Murmur Gastrointestinal: Normal Bowel Sounds, Soft Extremity: Normal Inspection, No Pedal Edema Neurologic/Psychiatric: Alert, Normal Mood/Affect Allergies: Coded Allergies: No Known Drug Allergies (Unverified , 04/10/15) Discharge Summary Date of Admission Jan 14, 2022 at 01:30 Date of Discharge Discharge Date: Jan 17, 2022 Discharge Time: 11:18 Admission Diagnosis Rhabdomyolysis Consults/Procedures Consulations Cardiology Discharge Diagnosis Rhabdomyolysis SALINA Falls Debility COVID-19 JENN on CPAP Elevated troponin (1) COVID-19 virus infection Status: Acute (2) Acute kidney injury Status: Acute (3) Rhabdomyolysis Status: Acute (4) Morbid obesity Status: Acute (5) Sleep apnea Status: Acute (6) Elevated troponin Status: Acute OKSANA WARE MD Jan 17, 2022 11:29
[2022-01-17 12:34] VITALS: BP 174/87
== END 2022-01-17 12:36 | disposition home or self-care (01) | DRG 177 ==
LOC: EDUNIT# 22:52 → ER 22:54 → 4TH 01-14 01:30
PROVIDERS: ADMIT Family Medicine; ATTEND Internal Medicine
DX: U07.1 COVID-19 (principal); J96.01 Acute respiratory failure with hypoxia; M62.82 Rhabdomyolysis; N17.9 Acute kidney failure, unspecified; Z68.41 Body mass index [BMI] 40.0-44.9, adult; I13.0 Hypertensive heart and chronic kidney disease with heart failure and stage 1 through stage 4 chronic kidney disease, or unspecified chronic kidney disease; I50.32 Chronic diastolic (congestive) heart failure; E86.0 Dehydration; E66.01 Morbid (severe) obesity due to excess calories; G47.33 Obstructive sleep apnea (adult) (pediatric); R41.0 Disorientation, unspecified; N18.9 Chronic kidney disease, unspecified; I25.10 Atherosclerotic heart disease of native coronary artery without angina pectoris; E78.00 Pure hypercholesterolemia, unspecified; M79.89 Other specified soft tissue disorders; R74.01 Elevation of levels of liver transaminase levels; K21.9 Gastro-esophageal reflux disease without esophagitis; C61 Malignant neoplasm of prostate; M19.91 Primary osteoarthritis, unspecified site; Z85.118 Personal history of other malignant neoplasm of bronchus and lung; Z79.82 Long term (current) use of aspirin
CPT/HCPCS: 36415; 51702; 70450; 71045; 72125; 72128; 72131; 72170; 80048; 80053; 80306; 80320; 81000; 82550; 82553; 82947; 83735; 83874; 83880; 84484; 85007; 85025; 85027; 85610; 87636; 93005; 94640; 94760

== ENCOUNTER 2022-01-30 14:25 | Inpatient (IN) | payer MEDICARE ==
[~2022-01-30] VITALS: Ht 180.3 cm; Wt 140.2 kg
[~2022-01-30 14:25] MED LIST changes: -MTP100TCR PO
--- NOTE | 2022-01-30 15:29 | ED Integumentary General ---
General Chief Complaint: Skin/Wound Problems Stated Complaint: SORE ON BOTTOM Source: patient Exam Limitations: no limitations History of Present Illness Date Seen by Provider: Jan 30, 2022 Time Seen by Provider: 15:28 Initial Comments Patient is a 76-year-old male with a history of coronary artery disease, CHF who presents ED for potential decubitus ulcer that needs surgical intervention. Wound care contacted us regarding a purulent draining decubitus ulcer to left buttock. Patient reports buttock pain. Patient is not diabetic. Patient denies of any nausea, vomiting, diarrhea. Patient was recently admitted this past month and discharged late last month. Patient states he is not taking all of his medication. He is hypertensive here. Patient denies chest pain, shortness of breath, vomiting, diarrhea, fever Allergies and Home Medications Allergies Coded Allergies: No Known Drug Allergies (Unverified , 04/10/15) Patient Home Medication List Home Medication List Reviewed: Yes Acetaminophen (Tylenol Extra Strength) 500 Mg Tablet, 500 MG PO Q6H PRN for PAIN, (Reported) Entered as Reported by: FATIMAH BEAR on 04/11/15 0940 Aspirin (Aspirin) 81 Mg Tab.chew, 81 MG PO DAILY Prescribed by: FELECIA CANCINO on 12/26/21 1127 Atorvastatin Calcium (Atorvastatin Calcium) 20 Mg Tablet, 20 MG PO HS, (Reported) Entered as Reported by: MARIELENA FERNANDEZ on 04/10/15 1105 Cholecalciferol (Vitamin D3) (Vitamin D) 1,000 Unit Capsule, 1,000 UNIT PO DAILY, (Reported) Entered as Reported by: MARIELENA FERNANDEZ on 04/10/15 1113 Citalopram Hydrobromide (Citalopram HBr) 20 Mg Tablet, 20 MG PO DAILY, (Reported) Entered as Reported by: MATEUSZ BISHOP on 12/26/21 0819 Famotidine (Famotidine) 40 Mg Tablet, 40 MG PO DAILY, (Reported) Entered as Reported by: MATEUSZ BISHOP on 12/26/21 0819 Furosemide (Furosemide) 40 Mg Tablet, 40 MG PO DAILY, (Reported) Entered as Reported by: MARIELENA FERNANDEZ on 04/10/15 1105 Gabapentin (Gabapentin) 100 Mg Capsule, 200 MG PO HS, (Reported) Entered as Reported by: MATEUSZ BISHOP on 12/26/21 0819 Loratadine (Claritin) 10 Mg Capsule, 10 MG PO DAILY, (Reported) Entered as Reported by: MARIELENA FERNANDEZ on 04/10/15 1113 Metoprolol Succinate (Toprol Xl) 100 Mg Tab.er.24h, 100 MG PO DAILY Prescribed by: FELECIA CANCINO on 12/26/21 1127 Montelukast Sodium (Montelukast Sodium) 10 Mg Tablet, 10 MG PO DAILY, (Reported) Entered as Reported by: MATEUSZ BISHOP on 12/26/21818 Ondansetron (Ondansetron Odt) 4 Mg Tab.rapdis, 4 MG PO Q8H PRN for nausea Prescribed by: NANCY CRUZ on 12/30/21 1302 Oxybutynin Chloride (Oxybutynin Chloride ER) 5 Mg Tab.er.24, 5 MG PO DAILY, (Reported) Entered as Reported by: MATEUSZ BISHOP on 12/26/21818 Potassium Chloride (Potassium Chloride) 10 Meq Capsule.er, 5 MEQ PO DAILY, (Reported) Entered as Reported by: MATEUSZ BISHOP on 12/26/21818 Pramipexole Di-HCl (Mirapex) 1 Mg Tablet, 1 MG PO HS, (Reported) Entered as Reported by: MATEUSZ BISHOP on 12/26/21818 Spironolactone (Aldactone) 25 Mg Tablet, 25 MG PO DAILY, (Reported) Entered as Reported by: MATEUSZ BISHOP on 12/26/21818 Tamsulosin HCl (Flomax) 0.4 Mg Cap, 0.4 MG PO DAILY, (Reported) Entered as Reported by: MATEUSZ BISHOP on 12/26/21818 Tamsulosin HCl (Flomax) 0.4 Mg Cap, 0.4 MG PO HS Prescribed by: NANCY CRUZ on 12/30/21 1302 Tramadol HCl (Tramadol HCl) 50 Mg Tablet, 50 MG PO Q4-6HRS PRN for PAIN-MODERATE (5-7), (Reported) Entered as Reported by: MATEUSZ BISHOP on 12/26/21818 Triamterene/Hydrochlorothiazid (Triamterene-Hctz 37.5-25 mg Cp) 37.5 Mg-25 Mg Capsule, 1 EACH PO DAILY, (Reported) Entered as Reported by: MATEUSZ BISHOP on 12/26/21 0819 Review of Systems Review of Systems Constitutional: No chills, No diaphoresis, No malaise, No weakness EENTM: No blurred vision Respiratory: No cough Cardiovascular: No chest pain Gastrointestinal: No abdominal pain, No diarrhea, No nausea, No vomiting Genitourinary: No decreased output, No discharge, No frequency, No hematuria, No hesitancy Musculoskeletal: No back pain, No joint pain Skin: change in color; No change in hair/nails; other (abscess) Psychiatric/Neurological: Denies Anxiety, Denies Depressed All Other Systems Reviewed Negative Unless Noted: Yes Past Mscuznk-Xegdnm-Evqoja Hx Patient Social History Tobacco Use?: No Use of E-Cig and/or Vaping dev: No Substance use?: No Alcohol Use?: Yes Alcohol type: Beer Alcohol Frequency: Rarely Pt feels they are or have been: No Immunizations Up To Date First/Initial COVID19 Vaccinat: 2020 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[employer]: [email or web address] Seasonal Allergies Seasonal Allergies: No Past Medical History Surgery/Hospitalization HX: poor historian HTN, HLD, CAD AMLODIPINE Surgeries: Yes Adenoidectomy, Cardiac, Lobectomy, Orthopedic, Tonsillectomy Respiratory: Yes (CHRONIC DYSPNEA; CARCINOID TUMOR OF LUNG) Sleep Apnea Currently Using CPAP: No Currently Using BIPAP: No Cardiac: Yes (CHF; CAROTID DISEASE) Chronic Edema/Swelling, Coronary Artery Disease, High Cholesterol, Hypertension Neurological: Yes (SUSPECTED DEMENTIA-HAS BEEN PRESCRIBED ARICEPT IN PAST) Reproductive Disorders: No Sexually Transmitted Disease: No HIV/AIDS: No Genitourinary: Yes (PROSTATE CANCERP;CKD) Kidney Stones Gastrointestinal: Yes (POSSIBLE ABDI) Gastroesophageal Reflux, Liver Disease/Jaundice Musculoskeletal: Yes Arthritis Endocrine: Yes (MORBID OBESITY. ) Loss of Vision: Denies Hearing Impairment: Denies Cancer: Yes Prostate, Lung Did You Recieve Any Treatments: Yes What Type of Treatment Did You: Surgical Intervention Psychosocial: No Integumentary: No Blood Disorders: No Family Medical History Arthritis Hypertension SOCIAL HISTORY: -DENIES SMOKING -DENIES DRUG USE -HISTORY OF ETOH, CLAIMS NO RECENT USE, PER PT 01/13/22 PAST SURGICAL HISTORY: -BILATERAL KNEE REPLACEMENT -VATS ASSISTED LEFT UPPER LOBE RESECTION FOR CARCINOID TUMOR 08/2015 -RADIATION SEED IMPLANTS FOR PROSTATE CANCER 2017 -EGD/COLONOSCOPIES -CARDIAC CATH 12/26/[address] CANCINO: CONCLUSIONS: 1. Coronary artery disease primarily consisting of mid vessel occlusion of the right coronary with collateralization of the distal right coronary by the left anterior descending artery. There is diffuse moderate disease of the left coronary system. The first diagonal branch of left anterior descending artery is of a small caliber and has approximately 70% ostial and proximal stenosis. 2. Normal left ventricular end-diastolic pressure. 3. Normal global left ventricular systolic function with ejection fraction approximately 60%. DISCUSSION AND RECOMMENDATIONS: Based on results of the study, it appears appropriate to continue a conservative approach at this time. Continuing outpatient followup is advised. Physical Exam Vital Signs Vital Signs - First Documented 01/30/22 15:10 Temp 36.2 Pulse 99 Resp 22 B/P (MAP) 192/116 (141) Capillary Refill : General Appearance: WD/WN, no apparent distress HEENT: PERRL/EOMI, normal ENT inspection, TMs normal, pharynx normal Neck: non-tender, full range of motion, supple Cardiovascular: regular rate, rhythm, no edema, no gallop, no JVD Respiratory: chest non-tender, lungs clear, normal breath sounds, no respiratory distress, no accessory muscle use Gastrointestinal: normal bowel sounds, non tender, soft, no organomegaly Back: normal inspection, no CVA tenderness Extremities: normal range of motion, non-tender, normal inspection, no pedal edema Neurologic/Psychiatric: sternman II-XII nml as tested, no motor/sensory deficits, alert, normal mood/affect, oriented x 3 Skin: other (Ulcer noted to the left buttock with sloughing and purlent drainage. ) Lymphatic: no adenopathy Progress/Results/Core Measures Results/Orders Lab Results Laboratory Tests Test 01/30/22 15:30 Range/Units White Blood Count 6.0 4.3-11.0 10^3/uL Red Blood Count 4.44 4.30-5.52 10^6/uL Hemoglobin 13.9 13.3-17.7 g/dL Hematocrit 43 40-54 % Mean Corpuscular Volume 96 80-99 fL Mean Corpuscular Hemoglobin 31 25-34 pg Mean Corpuscular Hemoglobin Concent 33 32-36 g/dL Red Cell Distribution Width 14.5 10.0-14.5 % Platelet Count 336 130-400 10^3/uL Mean Platelet Volume 8.7 L 9.0-12.2 fL Immature Granulocyte % (Auto) 1 % Neutrophils (%) (Auto) 72 42-75 % Lymphocytes (%) (Auto) 14 12-44 % Monocytes (%) (Auto) 12 0-12 % Eosinophils (%) (Auto) 1 0-10 % Basophils (%) (Auto) 0 0-10 % Neutrophils # (Auto) 4.3 1.8-7.8 10^3/uL Lymphocytes # (Auto) 0.8 L 1.0-4.0 10^3/uL Monocytes # (Auto) 0.7 0.0-1.0 10^3/uL Eosinophils # (Auto) 0.1 0.0-0.3 10^3/uL Basophils # (Auto) 0.0 0.0-0.1 10^3/uL Immature Granulocyte # (Auto) 0.0 0.0-0.1 10^3/uL Erythrocyte Sedimentation Rate 29 0-30 MM/HR Prothrombin Time 14.1 12.2-14.7 SEC INR Comment 1.1 0.8-1.4 Activated Partial Thromboplast Time 37 H 24-35 SEC Sodium Level 144 135-145 MMOL/L Potassium Level 3.4 L 3.6-5.0 MMOL/L Chloride Level 108 H 98-107 MMOL/L Carbon Dioxide Level 26 21-32 MMOL/L Anion Gap 10 5-14 MMOL/L Blood Urea Nitrogen 10 7-18 MG/DL Creatinine 0.86 0.60-1.30 MG/DL Estimat Glomerular Filtration Rate 89 BUN/Creatinine Ratio 12 Glucose Level 72 70-105 MG/DL Calcium Level 8.9 8.5-10.1 MG/DL Corrected Calcium 9.6 8.5-10.1 MG/DL Total Bilirubin 1.1 H 0.1-1.0 MG/DL Aspartate Amino Transf (AST/SGOT) 53 H 5-34 U/L Alanine Aminotransferase (ALT/SGPT) 52 0-55 U/L Alkaline Phosphatase 149 H 40-136 U/L C-Reactive Protein High Sensitivity 3.46 H 0.00-0.50 MG/DL Total Protein 6.5 6.4-8.2 GM/DL Albumin 3.1 L 3.2-4.5 GM/DL My Orders Orders - MALLOY,DONALDO A PA Cbc With Automated Diff (01/30/22 15:25) Comprehensive Metabolic Panel (01/30/22 15:25) Erythrocyte Sedimentation Rate (01/30/22 15:25) Hs C Reactive Protein (01/30/22 15:25) Ct Pelvis W (01/30/22 15:25) Iv/Invasive Line Insertion .IV start (01/30/22 15:25) Iohexol Injection (Omnipaque 350 Mg/Ml 1 (01/30/22 15:30) Received Contrast (Hold Metformin- Contr (01/30/22 15:30) Ns (Ivpb) (Sodium Chloride 0.9% Ivpb Bag (01/30/22 15:30) Us Venous Lower Ext Lt (01/30/22 16:21) Medications Given in ED Vital Signs/I&O 01/30/22 15:10 Temp 36.2 Pulse 99 Resp 22 B/P (MAP) 192/116 (141) Departure Communication (PCP) Patient presents ED from wound care for evaluation of a decubitus ulcer that will likely need surgical debridement. Dr. Quach was contacted who evaluated patient here in the ED. Lab work was drawn with culture of the wound. Patient was started on vancomycin and Zosyn. CT of the pelvis showed the cubitus ulcer without strong evidence of osteomyelitis. No fluid collection. Dr. Quach recommends n.p.o. after midnight and surgery in the morning. Radiology called concerning for left superficial femoral DVT that was nonocclusive. Recommended ultrasound which was performed which did showed a left superficial femoral nonocclusive DVT. Was started on heparin after talking with Dr. Quach which can be stopped at 5 before surgery. Purulent drainage from the wound concerning for infectious with sloughing of the skin that needs further debridement. Lab work was otherwise unremarkable. Patient was discussed with Dr. Cleary who accepts patient. Heparin protocol drip will be initiated on the floor. Patient denies any chest pain or shortness of breath, cough, fever. Patient is not diabetic. Impression Primary Impression: Decubitus ulcer Additional Impression: DVT (deep venous thrombosis) Disposition: ADMITTED INPATIENT Condition: Stable Admissions Decision to Admit Reason: Admit from ER (General) Decision to Admit/Date: Jan 30, 2022 Time/Decision to Admit Time: 17:00 Departure-Patient Inst. Referrals: NO,LOCAL PHYSICIAN (PCP/Family) Primary Care Physician DONALDO MALLOY Jan 30, 2022 15:29
[2022-01-30] MEDS ORDERED: HOLD METFORMIN - RECEIVED CONTRAST 20 ML VIAL IV SCH (15:30)
[2022-01-30] MEDS ORDERED: IOHEXOL 350 MG/ML 100 ML (OMNIPAQUE 350) VIAL IV ONE (15:30)
[2022-01-30] MEDS ORDERED: NS 100 ML (IVPB) BAG IV ONE (15:30)
[2022-01-30 15:36] LABS: BASOPHILS % (AUTO) 0 % (0-10); EOSINOPHILS # (AUTO) 0.1 10^3/uL (0.0-0.3); EOSINOPHILS % (AUTO) 1 % (0-10); HEMATOCRIT 43 % (40-54); HEMOGLOBIN 13.9 g/dL (13.3-17.7); LYMPHOCYTES # (AUTO) 0.8 10^3/uL (1.0-4.0); LYMPHOCYTES % (AUTO) 14 % (12-44); MEAN CORPUSCULAR HEMOGLOBIN 31 pg (25-34); MEAN CORPUSCULAR HGB CONC 33 g/dL (32-36); MEAN CORPUSCULAR VOLUME 96 fL (80-99); MEAN PLATELET VOLUME 8.7 fL (9.0-12.2); MONOCYTES # (AUTO) 0.7 10^3/uL (0.0-1.0); MONOCYTES % (AUTO) 12 % (0-12); NEUTROPHILS # (AUTO) 4.3 10^3/uL (1.8-7.8); NEUTROPHILS % (AUTO) 72 % (42-75); PLATELET COUNT 336 10^3/uL (130-400)
[2022-01-30 15:54] LABS: ERYTHROCYTE SEDIMENTATION RATE 29 MM/HR (0-30)
[2022-01-30 16:00] LABS: ALBUMIN 3.1 GM/DL (3.2-4.5); BILIRUBIN,TOTAL 1.1 MG/DL (0.1-1.0); CALCIUM 8.9 MG/DL (8.5-10.1); CREATININE SERUM 0.86 MG/DL (0.60-1.30); POTASSIUM 3.4 MMOL/L (3.6-5.0); TOTAL PROTEIN 6.5 GM/DL (6.4-8.2)
--- NOTE | 2022-01-30 16:26 | Diagnostic Imaging Report ---
PROCEDURE: CT pelvis with contrast. TECHNIQUE: Oral and intravenous contrast were administered with pelvic CT performed. Auto Exposure Controls were utilized during the CT exam to meet ALARA standards for radiation dose reduction. INDICATION: Left buttock wound for 2-3 weeks. Rectal abscess, pilonidal cyst. COMPARISON: 12/30/2021. FINDINGS: There is a large soft tissue defect at the left buttock just to the left of the midline. This defect comes within 5 mm of the bony cortex of the posterior left sacrum, but no erosion or periosteal reaction is seen. Please note that MRI is more sensitive for evaluation of osteomyelitis. There is no rim-enhancing fluid collection in the surrounding soft tissues. No free fluid or free air is seen in the pelvis. There is diverticulosis of the sigmoid colon without diverticulitis. There is low density and mild expansion in the region of the left deep femoral vein. There is mild generalized muscular atrophy. There are mild degenerative changes in the bilateral sacroiliac joints. There are mild degenerative changes in the bilateral hip joints. There are advanced degenerative changes at L5-S1. IMPRESSION: 1. Large superficial soft tissue defect at the left buttock just to the left of midline. This comes within 5 mm of the bony cortex, but no direct CT findings of osteomyelitis are seen. 2. No rim-enhancing fluid collection. 3. Findings suspicious for thrombosis in the left deep femoral vein. Consider Doppler ultrasound to further evaluate. Findings discussed with ALFREDITO Forbes, by Dr. Ríos, on 01/30/2022 4:20 p.m. Dictated by: Dictated on workstation # [id number]
[2022-01-30] MEDS ORDERED: LIDOCAINE 2% VISCOUS 15 ML UDC PO ONE (16:45)
[2022-01-30] MEDS ORDERED: ANTACID SUSP 30 ML UDC (MYLANTA) PO ONE (16:45)
[2022-01-30] MEDS ORDERED: PIPERACILLIN SODIUM/TAZOBACTAM 4.5 GM in NS (IVPB) 100 ML IV ONE (17:30)
[2022-01-30] MEDS ORDERED: VANCOMYCIN INJECTION 1,000 MG in NS (IVPB) 250 ML IV ONE (17:30)
--- NOTE | 2022-01-30 17:42 | Diagnostic Imaging Report ---
PROCEDURE: US left lower extremity venous. TECHNIQUE: Multiple real-time grayscale images were obtained over the left lower extremity in various projections. Additional duplex Doppler and color Doppler images were also obtained. INDICATION: Left leg pain. FINDINGS: There is flow and compressibility demonstrated within the common femoral vein. There is however noncompressible thrombus demonstrated within the greater saphenous junction and throughout the superficial femoral vein. This is nonocclusive. The popliteal vein appears patent. The proximal aspect of the posterior tibial vein and distal peroneal vein do demonstrate apparent flow. There is flow within the distal posterior tibial vein though this appears diminished. There is a simple anechoic Ponce's cyst. IMPRESSION: 1. Positive examination for deep venous thrombosis. Nonocclusive thrombus within the superficial femoral vein as well as small degree of thrombus at the greater saphenous junction. 2. Simple-appearing Ponce's cyst within the popliteal fossa. Dictated by: Dictated on workstation # [id number]
--- NOTE | 2022-01-30 18:37 | Consultation - Surgery ---
GWEN STEWARD 01/30/22 1837: History of Present Illness History of Present Illness Patient Consulted On(selena/time) 01/30/22 18:28 Date Seen by Provider: Jan 30, 2022 Time Seen by Provider: 18:29 History of Present Illness 76 year old male with history of coronary artery disease, CHF, hypertension, lung cancer and left lung lobectomy, and hyperlipidemia presents with a sacral decubitus ulcer on left buttock following referral from Wound Care. Pt has been treated by wound care for a pressure ulcer and was referred today due to concerns regarding the sacral ulcer. Per nurse, pt was admitted on 01/14 following a fall in which the patient remained on the floor for 3 days and "scooted around" the home on his bottom. In room, pt is laying on his right side but is in no distress. Pt states that is pain is a 0 when resting off of the ulcer and a 8 or 9 with movement. Pt denies pain radiation. Pt also notes that he has not been taking any of his prescribed medications for the past week. Pt denies chills, sweats, CP, and shortness of breath. Pt had a CT pelvis on 01/30 that was negative for osteomyelitis, but showed a large superficial soft tissue defect with rim-enhancing fluid collection on the left buttock that was left of the midline. CT also indicated a possible thrombosis in the left deep femoral vein. Pt had a doppler ultrasound of the left LE on 01/30 that was positive for a nonocclusive deep venous thrombosis within the superficial femoral vein and small thrombus at the greater saphenous junction. Allergies and Home Medications Allergies Coded Allergies: No Known Drug Allergies (Unverified , 04/10/15) Patient Home Medication List Acetaminophen (Tylenol Extra Strength) 500 Mg Tablet, 500 MG PO Q6H PRN for PAIN, (Reported) Entered as Reported by: FATIMAH BEAR on 04/11/15 0940 Aspirin (Aspirin) 81 Mg Tab.chew, 81 MG PO DAILY Prescribed by: FELECIA CANCINO on 12/26/21 1127 Atorvastatin Calcium (Atorvastatin Calcium) 20 Mg Tablet, 20 MG PO HS, (Reported) Entered as Reported by: MARIELENA FERNANDEZ on 04/10/15 1105 Cholecalciferol (Vitamin D3) (Vitamin D) 1,000 Unit Capsule, 1,000 UNIT PO DAILY, (Reported) Entered as Reported by: MARIELENA FERNANDEZ on 04/10/15 1113 Citalopram Hydrobromide (Citalopram HBr) 20 Mg Tablet, 20 MG PO DAILY, (Reported) Entered as Reported by: MATEUSZ BISHOP on 12/26/21 08 Famotidine (Famotidine) 40 Mg Tablet, 40 MG PO DAILY, (Reported) Entered as Reported by: MATEUSZ BISHOP on 12/26/21818 Furosemide (Furosemide) 40 Mg Tablet, 40 MG PO DAILY, (Reported) Entered as Reported by: MARIELENA FERNANDEZ on 04/10/15 1105 Gabapentin (Gabapentin) 100 Mg Capsule, 200 MG PO HS, (Reported) Entered as Reported by: MATEUSZ BISHOP on 12/26/21818 Loratadine (Claritin) 10 Mg Capsule, 10 MG PO DAILY, (Reported) Entered as Reported by: MARIELENA FERNANDEZ on 04/10/15 1113 Metoprolol Succinate (Toprol Xl) 100 Mg Tab.er.24h, 100 MG PO DAILY Prescribed by: FELECIA CANCINO on 12/26/21 1127 Montelukast Sodium (Montelukast Sodium) 10 Mg Tablet, 10 MG PO DAILY, (Reported) Entered as Reported by: MATEUSZ BISHOP on 12/26/21818 Ondansetron (Ondansetron Odt) 4 Mg Tab.rapdis, 4 MG PO Q8H PRN for nausea Prescribed by: NANCY CRUZ on 12/30/21 1302 Oxybutynin Chloride (Oxybutynin Chloride ER) 5 Mg Tab.er.24, 5 MG PO DAILY, (Reported) Entered as Reported by: MATEUSZ BISHOP on 12/26/21818 Potassium Chloride (Potassium Chloride) 10 Meq Capsule.er, 5 MEQ PO DAILY, (Reported) Entered as Reported by: MATEUSZ BISHOP on 12/26/21818 Pramipexole Di-HCl (Mirapex) 1 Mg Tablet, 1 MG PO HS, (Reported) Entered as Reported by: MATEUSZ BISHOP on 12/26/21818 Spironolactone (Aldactone) 25 Mg Tablet, 25 MG PO DAILY, (Reported) Entered as Reported by: MATEUSZ BISHOP on 12/26/21818 Tamsulosin HCl (Flomax) 0.4 Mg Cap, 0.4 MG PO DAILY, (Reported) Entered as Reported by: MATEUSZ BISHOP on 12/26/21818 Tamsulosin HCl (Flomax) 0.4 Mg Cap, 0.4 MG PO HS Prescribed by: NANCY CRUZ on 12/30/21 1302 Tramadol HCl (Tramadol HCl) 50 Mg Tablet, 50 MG PO Q4-6HRS PRN for PAIN-MODERATE (5-7), (Reported) Entered as Reported by: MATEUSZ BISHOP on 12/26/21818 Triamterene/Hydrochlorothiazid (Triamterene-Hctz 37.5-25 mg Cp) 37.5 Mg-25 Mg Capsule, 1 EACH PO DAILY, (Reported) Entered as Reported by: MATEUSZ BISHOP on 12/26/21818 Past Vpfcqhm-Pofiwv-Bahtll Hx Patient Social History Smoking Status: Never a Smoker Alcohol Use?: Yes Have you traveled recently?: No Immunizations Up To Date Date of Influenza Vaccine: Mar 31, 2015 Seasonal Allergies Seasonal Allergies: No Surgeries History of Surgeries: Yes Surgeries: Adenoidectomy, Cardiac, Lobectomy, Orthopedic, Tonsillectomy Respiratory History of Respiratory Disorde: Yes (CHRONIC DYSPNEA; CARCINOID TUMOR OF LUNG) Respiratory Disorders: Sleep Apnea Cardiovascular History of Cardiac Disorders: Yes (CHF; CAROTID DISEASE) Cardiac Disorders: Chronic Edema/Swelling, Coronary Artery Disease, High Cholesterol, Hypertension Neurological History of Neurological Disord: Yes (SUSPECTED DEMENTIA-HAS BEEN PRESCRIBED ARICEPT IN PAST) Reproductive System Hx Reproductive Disorders: No Sexually Transmitted Disease: No HIV/AIDS: No Genitourinary History of Genitourinary Disor: Yes (PROSTATE CANCERP;CKD) Genitourinary Disorders: Kidney Stones Gastrointestinal History of Gastrointestinal Di: Yes (POSSIBLE ABDI) Gastrointestinal Disorders: Gastroesophageal Reflux, Liver Disease/Jaundice Musculoskeletal History of Musculoskeletal Dis: Yes Musculoskeletal Disorders: Arthritis Endocrine History of Endocrine Disorders: Yes (MORBID OBESITY. ) HEENT Loss of Vision: Denies Hearing Impairment: Denies Cancer History of Cancer: Yes Cancer: Prostate, Lung Psychosocial History of Psychiatric Problem: No Integumentary History of Skin or Integumenta: No Blood Transfusions History of Blood Disorders: No Family Medical History Family Medial History: Arthritis Hypertension Review of Systems-General Constitutional: No chills, No diaphoresis EENTM: No ear pain, No blurred vision Respiratory: No cough, No dyspnea on exertion Cardiovascular: No chest pain; edema (b/l LE); No palpitations Gastrointestinal: No jaundice, No loss of appetite Genitourinary: No decreased output, No discharge Musculoskeletal: No muscle cramps, No neck pain Skin: No change in color, No change in hair/nails; other (decubitus sacral ulcer located) Psychiatric/Neurological: Denies Depressed, Denies Emotional Problems Physical Exam-General Problems Physical Exam Vital Signs Vital Signs - First Documented 01/30/22 15:10 Temp 36.2 Pulse 99 Resp 22 B/P (MAP) 192/116 (141) Capillary Refill : General Appearance: no apparent distress, obese Respiratory: no respiratory distress, no accessory muscle use Cardiovascular: regular rate, rhythm, no JVD, no murmur Gastrointestinal: non tender, soft Rectal: deferred Extremities: swelling (b/l LE ) Skin: No jaundice; other (sacral decubitus ulcer located on left buttock) Data Review Labs Laboratory Tests 01/30/22 15:30: White Blood Count 6.0, Red Blood Count 4.44, Hemoglobin 13.9, Hematocrit 43, Mean Corpuscular Volume 96, Mean Corpuscular Hemoglobin 31, Mean Corpuscular Hemoglobin Concent 33, Red Cell Distribution Width 14.5, Platelet Count 336, Mean Platelet Volume 8.7L, Immature Granulocyte % (Auto) 1, Neutrophils (%) (Auto) 72, Lymphocytes (%) (Auto) 14, Monocytes (%) (Auto) 12, Eosinophils (%) (Auto) 1, Basophils (%) (Auto) 0, Neutrophils # (Auto) 4.3, Lymphocytes # (Auto) 0.8L, Monocytes # (Auto) 0.7, Eosinophils # (Auto) 0.1, Basophils # (Auto) 0.0, Immature Granulocyte # (Auto) 0.0, Erythrocyte Sedimentation Rate 29, Sodium Level 144, Potassium Level 3.4L, Chloride Level 108H, Carbon Dioxide Level 26, Anion Gap 10, Blood Urea Nitrogen 10, Creatinine 0.86, Estimat Glomerular Filtration Rate 89, BUN/Creatinine Ratio 12, Glucose Level 72, Calcium Level 8.9, Corrected Calcium 9.6, Total Bilirubin 1.1H, Aspartate Amino Transf (AST/SGOT) 53H, Alanine Aminotransferase (ALT/SGPT) 52, Alkaline Phosphatase 149H, C-Reactive Protein High Sensitivity 3.46H, Total Protein 6.5, Albumin 3.1L Assessment/Plan Assessment/Plan Assessment/Plan Stage 4 sacral decubitus ulcer on left buttock DVT of left leg Debridment of sacral decubitus ulcer NPO after midnight RIKKI FRAGA DO 01/30/222047: History of Present Illness History of Present Illness History of Present Illness Patient is 76-year-old male with recent fall where he is on the floor for approximately 3 days. He was admitted with rhabdomyolysis. Patient was seen in wound care today and sent to the emergency room for further evaluation. Discussed stage IV sacral decubitus ulcer. Patient states that he has pain with movement. Which is moderate to severe at times. When he is resting and laying off of the wound he does not have any pain. Patient poor historian. Patient at bedside who also provides limited information. Patient has no other complaints at this time denies any nausea vomiting fever sweats chills shortness of breath or chest pain. Allergies and Home Medications Allergies Coded Allergies: No Known Drug Allergies (Unverified , 04/10/15) Patient Home Medication List Home Medication List Reviewed: Yes Acetaminophen (Tylenol Extra Strength) 500 Mg Tablet, 500 MG PO Q6H PRN for PAIN, (Reported) Entered as Reported by: FATIMAH BEAR on 04/11/15 0940 Aspirin (Aspirin) 81 Mg Tab.chew, 81 MG PO DAILY Prescribed by: FELECIA CANCINO on 12/26/21 1127 Atorvastatin Calcium (Atorvastatin Calcium) 20 Mg Tablet, 20 MG PO HS, (Reported) Entered as Reported by: MARIELENA FERNANDEZ on 04/10/15 1105 Cholecalciferol (Vitamin D3) (Vitamin D) 1,000 Unit Capsule, 1,000 UNIT PO DAILY, (Reported) Entered as Reported by: MARIELENA FERNANDEZ on 04/10/15 1113 Citalopram Hydrobromide (Citalopram HBr) 20 Mg Tablet, 20 MG PO DAILY, (Reported) Entered as Reported by: MATEUSZ BISHOP on 12/26/21 0819 Famotidine (Famotidine) 40 Mg Tablet, 40 MG PO DAILY, (Reported) Entered as Reported by: MATEUSZ BISHOP on 6/28/22 0819 Furosemide (Furosemide) 40 Mg Tablet, 40 MG PO DAILY, (Reported) Entered as Reported by: MARIELENA FERNANDEZ on 04/10/15 1105 Gabapentin (Gabapentin) 100 Mg Capsule, 200 MG PO HS, (Reported) Entered as Reported by: MATEUSZ BISHOP on 12/26/21818 Loratadine (Claritin) 10 Mg Capsule, 10 MG PO DAILY, (Reported) Entered as Reported by: MARIELENA FERNANDEZ on 04/10/15 1113 Metoprolol Succinate (Toprol Xl) 100 Mg Tab.er.24h, 100 MG PO DAILY Prescribed by: FELECIA CANCINO on 12/26/21 1127 Montelukast Sodium (Montelukast Sodium) 10 Mg Tablet, 10 MG PO DAILY, (Reported) Entered as Reported by: MATEUSZ BISHOP on 12/26/21818 Ondansetron (Ondansetron Odt) 4 Mg Tab.rapdis, 4 MG PO Q8H PRN for nausea Prescribed by: NANCY CRUZ on 12/30/21 1302 Oxybutynin Chloride (Oxybutynin Chloride ER) 5 Mg Tab.er.24, 5 MG PO DAILY, (Reported) Entered as Reported by: MATEUSZ BISHOP on 12/26/21818 Potassium Chloride (Potassium Chloride) 10 Meq Capsule.er, 5 MEQ PO DAILY, (R eported) Entered as Reported by: MATEUSZ BISHOP on 12/26/21818 Pramipexole Di-HCl (Mirapex) 1 Mg Tablet, 1 MG PO HS, (Reported) Entered as Reported by: MATEUSZ BISHOP on 12/26/21818 Spironolactone (Aldactone) 25 Mg Tablet, 25 MG PO DAILY, (Reported) Entered as Reported by: MATEUSZ BIHSOP on 12/26/21818 Tamsulosin HCl (Flomax) 0.4 Mg Cap, 0.4 MG PO DAILY, (Reported) Entered as Reported by: MATEUSZ BISHOP on 12/26/21818 Tamsulosin HCl (Flomax) 0.4 Mg Cap, 0.4 MG PO HS Prescribed by: NANCY CRUZ on 12/30/21 1302 Tramadol HCl (Tramadol HCl) 50 Mg Tablet, 50 MG PO Q4-6HRS PRN for PAIN-MODERATE (5-7), (Reported) Entered as Reported by: MATEUSZ LEMAVIS on 12/26/21818 Triamterene/Hydrochlorothiazid (Triamterene-Hctz 37.5-25 mg Cp) 37.5 Mg-25 Mg Capsule, 1 EACH PO DAILY, (Reported) Entered as Reported by: MATEUSZ LEMAVIS on 12/26/21818 Past Oczgite-Oroifj-Tenmrr Hx Reviewed Nursing Assessment Reviewed/Agree w Nursing PMH: Yes Family Medical History Significant Family History: No Pertinent Family Hx Family Medial History: Arthritis Hypertension Review of Systems-General Constitutional: No chills, No diaphoresis EENTM: No ear pain, No blurred vision Respiratory: No cough, No dyspnea on exertion Cardiovascular: edema (b/l LE); No palpitations Gastrointestinal: No abdominal pain, No jaundice, No loss of appetite, No nausea, No vomiting Genitourinary: No discharge Musculoskeletal: No joint pain, No muscle cramps, No neck pain Skin: No change in color, No change in hair/nails; other (decubitus sacral ulcer located) Psychiatric/Neurological: Denies Depressed, Denies Emotional Problems All Other Systems Reviewed Negative Unless Noted: Yes (Negative excepted noted.) Physical Exam-General Problems Physical Exam General Appearance: no apparent distress, obese HEENT: PERRL/EOMI, normal ENT inspection Neck: non-tender, full range of motion Respiratory: chest non-tender, no respiratory distress, no accessory muscle use Cardiovascular: regular rate, rhythm, no JVD Gastrointestinal: non tender, soft Rectal: deferred Back: no CVA tenderness, other (Stage IV decubitus ulcer with slight purulent drainage and necrotic tissue) Extremities: swelling (b/l LE ) Neurologic/Psychiatric: alert, normal mood/affect, oriented x 3 Skin: normal color, warm/dry; No jaundice; other (sacral decubitus ulcer ) Lymphatic: no adenopathy Assessment/Plan Assessment/Plan Assessment/Plan Stage 4 sacral decubitus ulcer DVT of left leg Patient needs Debridment of sacral decubitus ulcer NPO after midnight Consent for debridement of sacreal decubitus ulcer Supervisory-Addendum Brief Verification & Attestation Participated in pt care: history, MDM, physical Personally performed: exam, history, MDM, supervision of care Care discussed with: Medical Student Procedures: n/a Results interpretation: Verified all documentation Verification and Attestation of Medical Student E/M Service A medical student performed and documented this service in my presence. I reviewed and verified all information documented by the medical student and made modifications to such information, when appropriate. I personally performed the physical exam and medical decision making. Rikki Fraga, Jan 30, 2022,20:59 GWEN STEWARD Jan 30, 2022 18:37 RIKKI FRAGA DO Jan 30, 2022 20:48
[2022-01-30 19:00] VITALS: BP 165/91
[2022-01-30 19:14] LABS: INR 1.1 (0.8-1.4); PROTHROMBIN TIME PATIENT 14.1 SEC (12.2-14.7)
[2022-01-30 20:00] VITALS: BP 151/103
[2022-01-30] MEDS ORDERED: HEParin DRIP 25000 UNIT/500ML 500 ML IV SCH (20:45)
[2022-01-30] MEDS ORDERED: HEParin 1000 UNIT/ML (10ML VIAL) FOR BOLUS ONE (20:47)
[2022-01-30] MEDS ORDERED: HEParin DRIP 25000 UNIT/500ML 500 ML IV ONE (20:47)
[2022-01-30] MEDS: HEParin 1000 UNIT/ML (10ML VIAL) FOR BOLUS IV SCH (20:55)
[2022-01-30] MEDS ORDERED: NS IV 500 ML 500 ML IV PRN (21:30)
[2022-01-30] MEDS ORDERED: ONDANSETRON 4 MG/2 ML (SDV) Z0FRAN IV PRN (21:45)
[2022-01-30] MEDS ORDERED: ACETAMINOPHEN 500 MG TAB (TYLENOL) PO PRN (21:45)
[2022-01-30 21:50] LABS: BILIRUBIN,URINE NEGATIVE (NEGATIVE); CLARITY,URINE CLEAR; COLOR,URINE YELLOW; GLUCOSE, URINE (UA) NEGATIVE (NEGATIVE); KETONES,URINE NEGATIVE (NEGATIVE); LEUKOCYTE ESTERASE ,URINE NEGATIVE (NEGATIVE); NITRITE,URINE NEGATIVE (NEGATIVE); PH,URINE 6.5 (5-9); PROTEIN,URINE NEGATIVE (NEGATIVE)
[2022-01-30] MEDS: CATHETER FLUSH 10 ML SYR IVP SCH (22:00)
[2022-01-30 22:02] LABS: BACTERIA,URINE NEGATIVE /HPF
[2022-01-30] MEDS: VANCOMYCIN 1 GM/NS 250 ML IVPB IV SCH ×2 (23:07)
[2022-01-31] VITALS (8 sets, daily range): BP systolic 119–138; BP diastolic 62–83
[2022-01-31] MEDS: PIPERACILLIN SODIUM/TAZOBACTAM 4.5 GM in NS (IVPB) 100 ML IV SCH ×4 (00:18→23:58)
[2022-01-31] MEDS: HEParin 1000 UNIT/ML (10ML VIAL) FOR BOLUS IV SCH (01:32)
[2022-01-31 05:36] LABS: BASOPHILS % (AUTO) 1 % (0-10); EOSINOPHILS # (AUTO) 0.1 10^3/uL (0.0-0.3); EOSINOPHILS % (AUTO) 1 % (0-10); HEMATOCRIT 42 % (40-54); HEMOGLOBIN 13.4 g/dL (13.3-17.7); LYMPHOCYTES # (AUTO) 0.7 10^3/uL (1.0-4.0); LYMPHOCYTES % (AUTO) 11 % (12-44); MEAN CORPUSCULAR HEMOGLOBIN 31 pg (25-34); MEAN CORPUSCULAR HGB CONC 32 g/dL (32-36); MEAN CORPUSCULAR VOLUME 97 fL (80-99); MEAN PLATELET VOLUME 8.9 fL (9.0-12.2); MONOCYTES # (AUTO) 0.7 10^3/uL (0.0-1.0); MONOCYTES % (AUTO) 12 % (0-12); NEUTROPHILS # (AUTO) 4.7 10^3/uL (1.8-7.8); NEUTROPHILS % (AUTO) 75 % (42-75); PLATELET COUNT 320 10^3/uL (130-400); WHITE BLOOD COUNT 6.3 10^3/uL (4.3-11.0)
[2022-01-31 05:52] LABS: POTASSIUM 3.3 MMOL/L (3.6-5.0)
[2022-01-31 05:53] LABS: CALCIUM 8.5 MG/DL (8.5-10.1)
[2022-01-31 05:57] LABS: CREATININE SERUM 0.8 MG/DL (0.60-1.30)
[2022-01-31] MEDS: KCL 20 MEQ TAB (K-DUR) PO SCH (06:01)
[2022-01-31] MEDS: POTASSIUM CL 10MEQ/50ML IVPB 50 ML IV SCH ×4 (06:01→09:48)
[2022-01-31] MEDS: CATHETER FLUSH 10 ML SYR IVP SCH ×3 (06:01→20:04)
[2022-01-31] MEDS: MAGNESIUM 1 GM/100 ML IVPB 100 ML IV SCH (06:01)
--- NOTE | 2022-01-31 06:59 | Progress Note - Surgery ---
GWEN STEWARD 01/31/22 0659: Subjective Date Seen by a Provider: Jan 31, 2022 Time Seen by a Provider: 06:54 Subjective/Events-last exam Pt is laying in bed on right side in no distress. States pain to left buttock. Scheduled for debridement of sacral decubitus ulcer on left buttock today. Objective Exam Vital Signs Date Time Temp Pulse Resp B/P (MAP) Pulse Ox O2 Delivery O2 Flow Rate FiO2 01/31/22 06:00 93 20 158/82 94 Room Air 01/31/22 05:00 62 20 171/91 94 Room Air 01/31/22 04:00 95 Room Air 01/31/22 04:00 72 20 179/105 94 Room Air 01/31/22 04:00 36.8 01/31/22 03:00 93 20 110/96 94 Room Air 01/31/22 02:00 94 20 170/115 94 Room Air 01/31/22 01:00 90 01/31/22 01:00 72 20 159/76 94 Room Air 01/31/22 00:00 93 20 175/96 94 Room Air 01/30/22 23:46 95 Room Air 01/30/22 23:00 93 31 134/114 95 Room Air 01/30/22 22:00 105 25 156/99 94 Room Air 01/30/22 21:00 106 14 133/75 96 Room Air 01/30/22 20:00 103 24 151/103 (119) 95 Room Air 01/30/22 20:00 103 24 151/71 95 Room Air 01/30/22 20:00 95 Room Air 01/30/22 19:00 91 01/30/22 19:00 92 39 165/91 (115) 91 Room Air 01/30/22 19:00 92 22 190/112 91 Room Air 01/30/22 19:00 36.5 94 22 163/99 95 Room Air 01/30/22 18:32 36.2 90 22 172/99 01/30/22 15:10 36.2 99 22 192/116 (141) I & O 01/31/22 07:00 Intake Total 825 ml Output Total 1325 ml Balance -500 ml Capillary Refill : General Appearance: No Apparent Distress; No Anxious; Obese HEENT: PERRL/EOMI, Normal ENT Inspection Neck: Non Tender, Supple Respiratory: Chest Non Tender, No Accessory Muscle Use, No Respiratory Distress Cardiovascular: Regular Rate, Rhythm, No JVD Gastrointestinal: non tender, soft Extremity: Non Tender, Swelling Neurologic/Psychiatric: Alert, Oriented x3 Skin: Normal Color, Warm/Dry, Other (ischemic changes to sacral decubitus ulcer on left buttock with purulent drainage and surrounding erythema) Lymphatic: No Adenopathy Results Lab Laboratory Tests 01/30/22 15:30: White Blood Count 6.0, Red Blood Count 4.44, Hemoglobin 13.9, Hematocrit 43, Mean Corpuscular Volume 96, Mean Corpuscular Hemoglobin 31, Mean Corpuscular Hemoglobin Concent 33, Red Cell Distribution Width 14.5, Platelet Count 336, Mean Platelet Volume 8.7L, Immature Granulocyte % (Auto) 1, Neutrophils (%) (Auto) 72, Lymphocytes (%) (Auto) 14, Monocytes (%) (Auto) 12, Eosinophils (%) (Auto) 1, Basophils (%) (Auto) 0, Neutrophils # (Auto) 4.3, Lymphocytes # (Auto) 0.8L, Monocytes # (Auto) 0.7, Eosinophils # (Auto) 0.1, Basophils # (Auto) 0.0, Immature Granulocyte # (Auto) 0.0, Erythrocyte Sedimentation Rate 29, Prothrombin Time 14.1, INR Comment 1.1, Activated Partial Thromboplast Time 37H, Sodium Level 144, Potassium Level 3.4L, Chloride Level 108H, Carbon Dioxide Le arnaldo 26, Anion Gap 10, Blood Urea Nitrogen 10, Creatinine 0.86, Estimat Glomerular Filtration Rate 89, BUN/Creatinine Ratio 12, Glucose Level 72, Calcium Level 8.9, Corrected Calcium 9.6, Total Bilirubin 1.1H, Aspartate Amino Transf (AST/SGOT) 53H, Alanine Aminotransferase (ALT/SGPT) 52, Alkaline Phosphatase 149H, C-Reactive Protein High Sensitivity 3.46H, Total Protein 6.5, Albumin 3.1L 01/30/22 21:06: Urine Color YELLOW, Urine Clarity CLEAR, Urine pH 6.5, Urine Specific [place] <=1.005, Urine Protein NEGATIVE, Urine Glucose (UA) NEGATIVE, Urine Ketones NEGATIVE, Urine Nitrite NEGATIVE, Urine Bilirubin NEGATIVE, Urine Urobilinogen 1.0, Urine Leukocyte Esterase NEGATIVE, Urine RBC (Auto) NEGATIVE, Urine RBC NONE, Urine WBC NONE, Urine Squamous Epithelial Cells NONE, Urine Renal Epit helial Cells NONE, Urine Crystals NONE, Urine Bacteria NEGATIVE, Urine Casts NONE, Urine Mucus NEGATIVE, Urine Culture Indicated NO 01/31/22 01:00: Activated Partial Thromboplast Time 45H 01/31/22 05:15: White Blood Count 6.3, Red Blood Count 4.31, Hemoglobin 13.4, Hematocrit 42, Mean Corpuscular Volume 97, Mean Corpuscular Hemoglobin 31, Mean Corpuscular Hemoglobin Concent 32, Red Cell Distribution Width 14.3, Platelet Count 320, Mean Platelet Volume 8.9L, Immature Granulocyte % (Auto) 0, Neutrophils (%) (Auto) 75, Lymphocytes (%) (Auto) 11L, Monocytes (%) (Auto) 12, Eosinophils (%) (Auto) 1, Basophils (%) (Auto) 1, Neutrophils # (Auto) 4.7, Lymphocytes # (Auto) 0.7L, Monocytes # (Auto) 0.7, Eosinophils # (Auto) 0.1, Basophils # (Auto) 0.0, Immature Granulocyte # (Auto) 0.0, Sodium Level 139, Potassium Level 3.3L, Chloride Level 108H, Carbon Dioxide Level 21, Anion Gap 10, Blood Urea Nitrogen 8, Creatinine 0.80, Estimat Glomerular Filtration Rate 91, BUN/Creatinine Ratio 10, Glucose Level 81, Calcium Level 8.5 Assessment/Plan Assessment/Plan Assessment/Plan Rhabdomyolysis COVID 19 Stage 4 sacral decubitus ulcer of left buttocks DVT of left leg Debridement of sacral decubitus ulcer of left buttocks today NPO Current anticoagulants medication - hold till after surgery JB QUACH DO 01/31/22 0721: Subjective Subjective/Events-last exam Pain in buttock. In ICU on Heparin drip, but stopped this morning for procedure. He has no new complaints. Denies n/v fever sweats chills shortness of breath or chest pain at this time. Objective Exam General Appearance: No Apparent Distress, Obese HEENT: PERRL/EOMI, Normal ENT Inspection Neck: Non Tender, Supple Respiratory: Chest Non Tender, No Accessory Muscle Use, No Respiratory Distress Cardiovascular: Regular Rate, Rhythm, No JVD Gastrointestinal: non tender, soft Extremity: Non Tender, Swelling Neurologic/Psychiatric: Alert, Oriented x3 Skin: Normal Color, Warm/Dry, Other (ischemic changes to sacral decubitus ulcer on buttock with purulent drainage and surrounding erythema) Lymphatic: Axilla Node Tender (L) Assessment/Plan Assessment/Plan Assessment/Plan Stage 4 sacral decubitus ulcer of left buttocks DVT of left leg Recent history of rhabdomyolysis Recent covid 19 Debridement of sacral decubitus ulcer today NPO On heparin which is currently on hold for surgery. Wound care Supervisory-Addendum Brief Verification & Attestation Participated in pt care: history, MDM, physical Personally performed: exam, history, MDM, supervision of care Care discussed with: Medical Student Procedures: n/a Results interpretation: Verified all documentation Verification and Attestation of Medical Student E/M Service A medical student performed and documented this service in my presence. I re viewed and verified all information documented by the medical student and made modifications to such information, when appropriate. I personally performed the physical exam and medical decision making. Jb Quach, Jan 31, 2022,07:21 GWEN STEWARD Jan 31, 2022 06:59 JB QUACH DO Jan 31, 2022 07:21
--- NOTE | 2022-01-31 08:05 | Tele-ICU Progress Note ---
Subjective Date Seen by a Provider: Jan 31, 2022 Time Seen by a Provider: 06:50 Subjective/Events-last exam This virtual visit was conducted using real time audio/video. Thank you for asking us to see this patient for L superficial Femoral thrombosis and stage IV decubitus ulcer PE: appears comfortable. Obese. VSS. O2 sat 94% on RA. HEENT: No obvious masses, adenopathy or JVD. Chest: clear to auscultation. CV: RRR S1 S2 No murmur or added sounds. Abd: Non-tender. Bowel sounds Y. : Unremarkable. [place] . [employer]/psychiatric: Grossly intact. No obvious focal findings. Extremities: No edema. Capillary refill < 3 seconds. Skin: unremarkable. Results: Decreased K 3.3. Available chart/ vitals / labs / images reviewed. Video assessment done using teleICU camera, rest of exam as per RN. A/P: Critical Care: critically ill patient. Cont.IVF, ABX, hep. For debridement today 01/31. Discussed with KAMINI Arnold. Asked RN to reach out to eICU if any questions or concerns later. Time spent with patient/coordination of care with other health professionals (mins):15 Sepsis Event Evaluation Height, Weight, BMI Height: 5'11.00" Weight: 310lbs. 0.0oz. [id number]; 44.14 BMI Method: Exam Exam Patient acknowledged, consented, and participated in this virtual visit which was conducted using real time audio/video Vital Signs Date Time Temp Pulse Resp B/P (MAP) Pulse Ox O2 Delivery O2 Flow Rate FiO2 01/31/22 07:50 36.7 01/31/22 07:11 89 01/31/22 07:00 90 21 161/93 89 Room Air 01/31/22 06:00 93 20 158/82 94 Room Air 01/31/22 05:00 62 20 171/91 94 Room Air 01/31/22 04:00 95 Room Air 01/31/22 04:00 72 20 179/105 94 Room Air 01/31/22 04:00 36.8 01/31/22 03:00 93 20 110/96 94 Room Air 01/31/22 02:00 94 20 170/115 94 Room Air 01/31/22 01:00 90 01/31/22 01:00 72 20 159/76 94 Room Air 01/31/22 00:00 93 20 175/96 94 Room Air 01/30/22 23:46 95 Room Air 01/30/22 23:00 93 31 134/114 95 Room Air 01/30/22 22:00 105 25 156/99 94 Room Air 01/30/22 21:00 106 14 133/75 96 Room Air 01/30/22 20:00 103 24 151/103 (119) 95 Room Air 01/30/22 20:00 103 24 151/71 95 Room Air 01/30/22 20:00 95 Room Air 01/30/22 19:00 91 01/30/22 19:00 92 39 165/91 (115) 91 Room Air 01/30/22 19:00 92 22 190/112 91 Room Air 01/30/22 19:00 36.5 94 22 163/99 95 Room Air 01/30/22 18:32 36.2 90 22 172/99 01/30/22 15:10 36.2 99 22 192/116 (141) I & O 01/31/22 07:00 Intake Total 825 ml Output Total 1325 ml Balance -500 ml Height & Weight Height: 5'11.00" Weight: 310lbs. 0.0oz. [id number]; 44.14 BMI Method: General Appearance: No Apparent Distress, Obese HEENT: PERRL/EOMI, Normal ENT Inspection Neck: Non Tender, Supple Respiratory: Chest Non Tender, No Accessory Muscle Use, No Respiratory Distress Cardiovascular: Regular Rate, Rhythm, No JVD Gastrointestinal: non tender, soft Extremity: Non Tender, Swelling Neurologic/Psychiatric: Alert, Oriented x3 Skin: Normal Color, Warm/Dry, Other (ischemic changes to sacral decubitus ulcer on buttock with purulent drainage and surrounding erythema) Lymphatic: Axilla Node Tender (L) Results Lab Laboratory Tests 01/30/22 15:30 01/31/22 05:15 Assessment/Plan Assessment/Plan See free text Critical Care: Critically Ill Patient AISLINN NELSON MD Jan 31, 2022 08:05
[2022-01-31] MEDS: VANCOMYCIN 1250 MG/NS 250 ML IVPB IV SCH ×4 (10:25→20:04)
[2022-01-31] MEDS ORDERED: fentaNYL INJ 100 MCG/2 ML AMP ONE ×3 (11:39→13:02)
[2022-01-31] MEDS ORDERED: proPOfol 200 MG/20 ML (DIPRIVAN) VIAL IV ONE (11:39)
[2022-01-31] MEDS ORDERED: LIDOCAINE PF 2% 5 ML (XYLOCAINE) VIAL ONE (11:39)
[2022-01-31] MEDS ORDERED: ONDANSETRON 4 MG/2 ML (SDV) Z0FRAN ONE (11:39)
[2022-01-31] MEDS ORDERED: LACTATED RINGERS 1,000 ML IV PRN (12:30)
[2022-01-31] MEDS ORDERED: SEVOFLURANE (ULTANE) 15 ML INHAL SOLN ONE (12:38)
--- NOTE | 2022-01-31 12:55 | Anesthesia-General Post-Op ---
General Patient Condition Mental Status/LOC: Same as Preop Cardiovascular: Satisfactory Nausea/Vomiting: Absent Respiratory: Satisfactory Pain: Controlled Complications: Absent Post Op Complications Complications None Follow Up Care/Instructions Patient Instructions None needed. Anesthesia/Patient Condition Patient Condition Patient is doing well, no complaints, stable vital signs, no apparent adverse anesthesia problems. No complications reported per nursing. DORON HAMILTON CRNA Jan 31, 2022 12:55
[2022-01-31] MEDS ORDERED: ONDANSETRON 4 MG/2 ML (SDV) Z0FRAN IVP PRN (13:00)
[2022-01-31] MEDS ORDERED: fentaNYL INJ 100 MCG/2 ML AMP IVP ONE (13:00)
[2022-01-31] MEDS ORDERED: HEParin DRIP 25000 UNIT/500ML 500 ML IV SCH (14:45)
[2022-01-31] MEDS ORDERED: HEParin 1000 UNIT/ML (10ML VIAL) FOR BOLUS IV SCH (14:45)
[2022-01-31 15:39] LABS: HEMATOCRIT 40 % (40-54); MEAN CORPUSCULAR HEMOGLOBIN 31 pg (25-34); MEAN CORPUSCULAR HGB CONC 32 g/dL (32-36); MEAN CORPUSCULAR VOLUME 97 fL (80-99); MEAN PLATELET VOLUME 8.6 fL (9.0-12.2); PLATELET COUNT 288 10^3/uL (130-400); WHITE BLOOD COUNT 5.7 10^3/uL (4.3-11.0)
[2022-01-31 15:48] LABS: INR 1.1 (0.8-1.4); PROTHROMBIN TIME PATIENT 14.6 SEC (12.2-14.7)
[2022-01-31] MEDS ORDERED: HYPOCHLOROUS ACID/NaCl (VASHE) 250 ML IR SCH (17:15)
--- NOTE | 2022-01-31 17:36 | Wound Care Assessment ---
Wound Care Assessment Date Seen by Provider: Jan 31, 2022 Time Seen by Provider: 17:29 Chief Complaint Stage 4 Pressure ulcer Sacrum HPI Pleasant 76 year old gentleman who presented to my office yesterday with necrotic sacral ulcer with associated abscess. Toño was recently admitted (2 weeks ago) to hospital after falling in home (post-COVID) and was on the floor for 3 days without food. His (possible dementia) and son (inebriated at time of EMS transport) did call for transport to ER. Upon presentation he was found to have rhabdomyalysis and was treated as such. He did not have this ulceration at that time but it is likely that this is the etiology of current ulceration. Neither patient nor are able to give accurate history on chronicity of the ulcer. Toño is on numerous medications but neither he nor his are certain of any of them and it is unclear whether he is taking any of them at home. He does have a h/o CHF, CAD and prostate CA with radiation treatment. He had his ulcer debrided today by Dr. Quach with great improvement on exam. He is on broad spectrum antibiotics appropriately. Plan is to pack today and transition to wound vac tomorrow. I do not think Toño is safe to go home with his current living situation. I do think he requires more care than his can give him at this time. He is agreeable to skilled care while he is under wound care for this wound vac. Past Medical History: Admits Heart Disease, Admits Cancer, Treaments CHF Smoking Status: Never a Smoker Recreational Drug Use: No Alcohol Use: Occasionally Uses Review of Systems General: Other (Obesity) Exam Vital Signs Date Time Temp Pulse Resp B/P (MAP) Pulse Ox O2 Delivery O2 Flow Rate FiO2 01/31/22 17:00 16 145/76 98 Nasal Cannula 2.00 01/31/22 15:42 36.1 01/31/22 10:00 62 Capillary Refill : Less Than 3 Seconds General Appearance: moderate distress (pain with movement and dressing change) HEENT: other (hearing wnl) Neck: full range of motion Cardiovascular: no edema Respiratory: no respiratory distress, no accessory muscle use Extremities: no pedal edema Neurologic/Psychiatric: alert, normal mood/affect, other (Poor historian. Mild dementia suspected) Skin: normal color, warm/dry Skin Problem Location: other (sacrum) Wound assessment: 7x9.2x6.8cm. The epithelialization is none. There is no tunneling or undermining. Drainage is large and sanguinous. Granulation is none. Necrotic is large and slough. The margins show epibole. There is exposed necrotic fascia, fat, and muscle. Results Laboratory Tests 01/30/22 21:06: Urine Color YELLOW, Urine Clarity CLEAR, Urine pH 6.5, Urine Specific [place] <=1.005, Urine Protein NEGATIVE, Urine Glucose (UA) NEGATIVE, Urine Ketones NEGATIVE, Urine Nitrite NEGATIVE, Urine Bilirubin NEGATIVE, Urine Urobilinogen 1.0, Urine Leukocyte Esterase NEGATIVE, Urine RBC (Auto) NEGATIVE, Urine RBC NONE, Urine WBC NONE, Urine Squamous Epithelial Cells NONE, Urine Renal Epithelial Cells NONE, Urine Crystals NONE, Urine Bacteria NEGATIVE, Urine Casts NONE, Urine Mucus NEGATIVE, Urine Culture Indicated NO 01/31/22 01:00: Activated Partial Thromboplast Time 45H 01/31/22 05:15: White Blood Count 6.3, Red Blood Count 4.31, Hemoglobin 13.4, Hematocrit 42, Mean Corpuscular Volume 97, Mean Corpuscular Hemoglobin 31, Mean Corpuscular Hemoglobin Concent 32, Red Cell Distribution Width 14.3, Platelet Count 320, Mean Platelet Volume 8.9L, Immature Granulocyte % (Auto) 0, Neutrophils (%) (Auto) 75, Lymphocytes (%) (Auto) 11L, Monocytes (%) (Auto) 12, Eosinophils (%) (Auto) 1, Basophils (%) (Auto) 1, Neutrophils # (Auto) 4.7, Lymphocytes # (Auto) 0.7L, Monocytes # (Auto) 0.7, Eosinophils # (Auto) 0.1, Basophils # (Auto) 0.0, Immature Granulocyte # (Auto) 0.0, Sodium Level 139, Potassium Level 3.3L, Chloride Level 108H, Carbon Dioxide Level 21, Anion Gap 10, Blood Urea Nitrogen 8, Creatinine 0.80, Estimat Glomerular Filtration Rate 91, BUN/Creatinine Ratio 10, Glucose Level 81, Calcium Level 8.5 01/31/22 15:20: Activated Partial Thromboplast Time 33, White Blood Count 5.7, Red Blood Count 4.15L, Hemoglobin 13.0L, Hematocrit 40, Mean Corpuscular Volume 97, Mean Corpuscular Hemoglobin 31, Mean Corpuscular Hemoglobin Concent 32, Red Cell Distribution Width 14.5, Platelet Count 288, Mean Platelet Volume 8.6L, Prothr ombin Time 14.6, INR Comment 1.1 Microbiology 01/30/22 MRSA Screen - Final, Complete MRSA not isolated Microbiology 01/30/22 MRSA Screen - Final, Complete MRSA not isolated Assessment/Plan/Dx Assessment: 1. Stage 4 sacral pressure ulcer with associated abscess 2. Generalized weakness with immobility 3. Obesity 4. Poor historian/mild dementia 5. Unsafe living environment Plan: 1. Cleanse with Vashe and pack with Vashe dampened Kerlix WTD. Initiate wound vac therapy tomorrow and change dressings Saturday/. White foam to base, granulofoam atop and set to 125 suction. 2. consult for NH placement on d/c home. Patient is agreeable. 3. Agree with targeted antibiotics. ETHEL PENA MD Jan 31, 2022 17:36
--- NOTE | 2022-01-31 19:20 | History & Physical-Hospitalist ---
History of Present Illness HPI/Chief Complaint Toño Shepard is a 76 year old male with PMH HTN, JENN on CPAP, who presented to the ER from wound clinic with stage 4 decubitus ulcer. They recommended evaluation for debridement. Surgery has been consulted and is planning to perform debridement. He has no complaints. He is not having fevers or chills. He is short of breath but this is normal for him. He denies cough. He denies chest pain. He denies abdominal pain, nausea, vomiting. He has had leg swelling. Source: patient Exam Limitations: no limitations Date Seen 01/31/22 Time Seen by a Provider: 10:00 Attending Physician No,Local Physician PCP Admitting Physician: Oksana Ware MD Attending Physician: Oksana Ware MD Referring Physician Date of Admission Jan 30, 2022 at 17:19 Home Medications & Allergies Home Medications Reviewed patient Home Medication Reconciliation performed by pharmacy medication reconciliations lead technician and/or nursing. Patients Allergies have been reviewed. Allergies Allergies Coded Allergies No Known Drug Allergies ([id number]/15) Past Yvjmrbi-Yirhwi-Eiydkj Hx Patient Social History Tobacco Use?: No Smoking Status: Never a Smoker Use of E-Cig and/or Vaping dev: No Substance use?: No Alcohol Use?: Yes Alcohol type: Beer Alcohol Frequency: Rarely Pt feels they are or have been: No Immunizations Up To Date Date of Influenza Vaccine: Mar 31, 2015 First/Initial COVID19 Vaccinat: 2020 Tetanus Booster (TDap): Unknown Seasonal Allergies Seasonal Allergies: No Current Status Communicates: Verbally Primary Language: [place] Preferred Spoken Language: [place] Past Medical History Surgeries: Adenoidectomy, Cardiac, Lobectomy, Orthopedic, Tonsillectomy Sleep Apnea Currently Using CPAP: No Currently Using BIPAP: No Chronic Edema/Swelling, Coronary Artery Disease, High Cholesterol, Hypertension Sexually Transmitted Disease: No HIV/AIDS: No Kidney Stones Gastroesophageal Reflux, Liver Disease/Jaundice Arthritis Loss of Vision: Denies Hearing Impairment: Denies Prostate, Lung Did You Recieve Any Treatments: Yes What Type of Treatment Did You: Surgical Intervention Blood Disorders: No Family Medical History Arthritis Hypertension No Pertinent Family Hx SOCIAL HISTORY: -DENIES SMOKING -DENIES DRUG USE -HISTORY OF ETOH, CLAIMS NO RECENT USE, PER PT 01/13/22 PAST SURGICAL HISTORY: -BILATERAL KNEE REPLACEMENT -VATS ASSISTED LEFT UPPER LOBE RESECTION FOR CARCINOID TUMOR 08/2015 -RADIATION SEED IMPLANTS FOR PROSTATE CANCER 2017 -EGD/COLONOSCOPIES -CARDIAC CATH 12/26/[address] CANCINO: CONCLUSIONS: 1. Coronary artery disease primarily consisting of mid vessel occlusion of the right coronary with collateralization of the distal right coronary by the left anterior descending artery. There is diffuse moderate disease of the left coronary system. The first diagonal branch of left anterior descending artery is of a small caliber and has approximately 70% ostial and proximal stenosis. 2. Normal left ventricular end-diastolic pressure. 3. Normal global left ventricular systolic function with ejection fraction approximately 60%. DISCUSSION AND RECOMMENDATIONS: Based on results of the study, it appears appropriate to continue a conservative approach at this time. Continuing outpatient followup is advised. Review of Systems Constitutional: weakness EENTM: no symptoms reported Respiratory: no symptoms reported Cardiovascular: no symptoms reported Gastrointestinal: no symptoms reported Genitourinary: no symptoms reported Musculoskeletal: no symptoms reported Physical Exam Physical Exam Vital Signs Vital Signs - First Documented 01/30/22 01/31/22 15:10 09:50 Temp 36.2 Pulse 99 Resp 22 B/P (MAP) 192/116 (141) O2 Flow Rate 2.00 Capillary Refill : Less Than 3 Seconds Height, Weight, BMI Height: 5'11.00" Weight: 310lbs. 0.0oz. 140.115274rz; 44.14 BMI Method: General Appearance: No Apparent Distress, Obese HEENT: PERRL/EOMI, Pharynx Normal Neck: Normal Inspection, Supple Respiratory: Lungs Clear, No Respiratory Distress Cardiovascular: Regular Rate, Rhythm, No Murmur Gastrointestinal: Normal Bowel Sounds, Soft Extremity: Pedal Edema, Swelling Neurologic/Psychiatric: Alert, Oriented x3, Motor Weakness Skin: Other (decubitus ulcer) Results Results/Procedures Labs Laboratory Tests 01/30/22 15:30 01/31/22 05:15 01/31/22 15:20 02/01/22 03:13 Patient resulted labs reviewed. Imaging: Reviewed Imaging Report Assessment/Plan Admission Diagnosis Stage IV decubitus ulcer Admission Status: Inpatient Order (span 2 midnights) Reason for Inpatient Admission: Surgical debridement Heparin gtt Assessment and Plan Stage IV decubitus ulcer Surgery consulted Planning for debridement IV antibiotics Obtain surgical cultures Acute DVT of left femoral vein Ultasound with proximal DVT Heparin gtt JENN Supplemental oxygen as needed at night HTN Hold home meds Monitor Diagnosis/Problems Diagnosis/Problems (1) Decubitus ulcer Status: Acute Qualifiers: Pressure injury location: sacral region Pressure injury stage: stage 4 Qualified Codes: L89.154 - Pressure ulcer of sacral region, stage 4 (2) DVT (deep venous thrombosis) Status: Acute Qualifiers: DVT location: lower extremity Affected thrombotic vein of extremity: femoral Chronicity: acute Laterality: left Qualified Codes: I82.412 - Acute embolism and thrombosis of left femoral vein (3) HTN (hypertension) Status: Acute (4) Sleep apnea Status: Acute (5) Morbid obesity Status: Acute OKSANA WARE MD Jan 31, 2022 19:20
--- NOTE | 2022-02-01 02:39 | OPERATIVE REPORT ---
DATE OF SERVICE: 01/31/2022 PREOPERATIVE DIAGNOSIS: Sacral decubitus ulcer, stage IV. POSTOPERATIVE DIAGNOSIS: Sacral decubitus ulcer, stage IV. PROCEDURE: Cautery debridement of sacral decubitus ulcer 7 x 5.5 x 5 cm, removing skin and subcutaneous tissue. SURGEON: Rikki Quach DO. ANESTHESIA: General. ESTIMATED BLOOD LOSS: Minimal. COMPLICATIONS: None. INDICATIONS: The patient is a 76-year-old male who has stage IV sacral decubitus ulcer. He understands risks and benefits of procedure and wishes to proceed. Consent was signed in the chart. DESCRIPTION OF PROCEDURE: The patient was taken to the operating suite, prepped and draped in sterile fashion and left lateral recumbent position. Cautery was used to cut the skin and subcutaneous tissues cleaning all of the ischemic and necrotic-appearing tissues. This was also opened up to help with the tunneling for further wound management. This was all the way down through the skin and subcutaneous tissue and all the way to the presacral space. Overall, dimensions approximately 7 x 5.5 x 5 cm. The wound was then irrigated with copious amounts of irrigation. Hemostasis was achieved. The wound was then packed with Betadine soaked Kerlix and sterile bandage were applied. The patient tolerated procedure well without any complications, taken to recovery room in stable condition. Job ID: [id number] DocumentID: [id number] Dictated Date: 01/31/2022 16:49:02 Ekg/Ecg Technician Date: 02/01/2022 02:38:25 Dictated By: RIKKI QUACH DO
[2022-02-01 03:59] LABS: POTASSIUM 3.6 MMOL/L (3.6-5.0)
[2022-02-01 04:00] LABS: CALCIUM 8.4 MG/DL (8.5-10.1)
[2022-02-01 04:04] LABS: CREATININE SERUM 0.88 MG/DL (0.60-1.30)
[2022-02-01 04:06] LABS: MAGNESIUM 1.9 MG/DL (1.6-2.4)
[2022-02-01] MEDS: KCL 20 MEQ TAB (K-DUR) PO SCH (04:10)
[2022-02-01] MEDS: POTASSIUM CL 10MEQ/50ML IVPB 50 ML IV SCH (04:10)
[2022-02-01] MEDS: MAGNESIUM 1 GM/100 ML IVPB 100 ML IV SCH (04:10)
[2022-02-01] MEDS: CATHETER FLUSH 10 ML SYR IVP SCH ×3 (05:08→19:59)
[2022-02-01] MEDS ORDERED: KCL 20 MEQ TAB (K-DUR) PO ONE (06:00)
--- NOTE | 2022-02-01 07:24 | Progress Note - Surgery ---
Subjective Date Seen by a Provider: Feb 01, 2022 Time Seen by a Provider: 07:23 Objective Exam Vital Signs Date Time Temp Pulse Resp B/P (MAP) Pulse Ox O2 Delivery O2 Flow Rate FiO2 02/01/22 06:00 77 18 150/82 95 Nasal Cannula 2.00 02/01/22 05:00 86 22 149/83 96 Nasal Cannula 2.00 02/01/22 04:00 Room Air 02/01/22 04:00 78 23 142/88 91 Nasal Cannula 2.00 02/01/22 03:00 74 17 154/81 95 Nasal Cannula 2.00 02/01/22 02:00 87 20 146/85 97 Nasal Cannula 2.00 02/01/22 01:00 85 02/01/22 01:00 85 20 139/81 92 Nasal Cannula 2.00 02/01/22 00:00 84 26 155/87 96 Nasal Cannula 2.00 01/31/22 23:10 Room Air 01/31/22 23:00 84 21 148/85 97 Nasal Cannula 2.00 01/31/22 22:35 36.2 01/31/22 22:00 87 21 135/79 96 Nasal Cannula 2.00 01/31/22 21:00 89 22 122/61 96 Nasal Cannula 2.00 01/31/22 20:13 Room Air 01/31/22 20:06 36.2 01/31/22 20:00 85 14 136/89 96 Nasal Cannula 2.00 01/31/22 19:00 102 01/31/22 19:00 102 15 143/80 96 Nasal Cannula 2.00 01/31/22 18:00 19 137/70 97 Nasal Cannula 2.00 01/31/22 17:00 16 145/76 98 Nasal Cannula 2.00 01/31/22 16:00 Room Air 01/31/22 16:00 11 154/70 99 Nasal Cannula 2.00 01/31/22 15:42 36.1 01/31/22 15:00 20 127/63 99 Nasal Cannula 2.00 01/31/22 14:00 20 135/68 96 Nasal Cannula 2.00 01/31/22 13:45 Nasal Cannula 3.00 01/31/22 13:45 36.4 20 123/67 (85) 94 Nasal Cannula 3.00 01/31/22 13:40 20 120/68 (85) 94 Nasal Cannula 3.00 01/31/22 13:30 20 124/68 (86) 95 Nasal Cannula 3.00 01/31/22 13:30 Nasal Cannula 3.00 01/31/22 13:20 20 119/66 (83) 96 Nasal Cannula 4.00 01/31/22 13:15 OxyMask 5.00 01/31/22 13:10 20 131/62 (85) 95 Nasal Cannula 4.00 01/31/22 13:00 20 120/68 (85) 95 OxyMask 4.00 01/31/22 13:00 132/72 Nasal Cannula 2.00 01/31/22 13:00 OxyMask 5.00 01/31/22 12:50 20 119/67 (84) 95 OxyMask 5.00 01/31/22 12:44 36.4 20 138/83 (101) 95 OxyMask 5.00 01/31/22 12:44 OxyMask 5.00 01/31/22 11:42 36.1 01/31/22 11:12 Room Air 01/31/22 10:00 62 24 165/90 96 Nasal Cannula 2.00 01/31/22 09:50 95 Nasal Cannula 2.00 01/31/22 09:00 78 32 91 Room Air 01/31/22 08:39 36.5 01/31/22 08:00 84 18 153/85 94 Room Air 01/31/22 08:00 95 Room Air 01/31/22 07:50 36.7 I & O 02/01/22 07:00 Intake Total 1435 ml Output Total 2925 ml Balance -1490 ml Capillary Refill : Less Than 3 Seconds General Appearance: No Apparent Distress, Obese HEENT: PERRL/EOMI, Normal ENT Inspection Neck: Non Tender, Supple Respiratory: Chest Non Tender, No Accessory Muscle Use, No Respiratory Distress Cardiovascular: Regular Rate, Rhythm, No JVD Gastrointestinal: normal bowel sounds, non tender, soft, no organomegaly Extremity: Non Tender, Swelling Neurologic/Psychiatric: Alert, Oriented x3 Skin: Normal Color, Warm/Dry, Other (ischemic changes to sacral decubitus ulcer on buttock with purulent drainage and surrounding erythema) Lymphatic: Axilla Node Tender (L) Results Lab Laboratory Tests 01/31/22 15:20: White Blood Count 5.7, Red Blood Count 4.15L, Hemoglobin 13.0L, Hematocrit 40, Mean Corpuscular Volume 97, Mean Corpuscular Hemoglobin 31, Mean Corpuscular Hemoglobin Concent 32, Red Cell Distribution Width 14.5, Platelet Count 288, Mean Platelet Volume 8.6L, Prothrombin Time 14.6, INR Comment 1.1, Activated Partial Thromboplast Time 33 01/31/22 20:20: Activated Partial Thromboplast Time 99H 02/01/22 03:13: Platelet Count 301, Activated Partial Thromboplast Time 60H, Sodium Level 139, Potassium Level 3.6, Chloride Level 109H, Carbon Dioxide Level 21, Anion Gap 9, Blood Urea Nitrogen 7, Creatinine 0.88, Estimat Glomerular Filtration Rate 88, BUN/Creatinine Ratio 8, Glucose Level 87, Calcium Level 8.4L, Magnesium Level 1.9 Microbiology 01/30/22 MRSA Screen - Final, Complete MRSA not isolated Assessment/Plan Assessment/Plan Assessment/Plan Stage 4 sacral decubitus ulcer of left buttocks DVT of left leg Recent history of rhabdomyolysis Recent covid 19 Debridement of sacral decubitus ulcer today NPO On heparin which is currently on hold for surgery. Wound care STEPHANIE MCCANN Feb 01, 2022 07:24
[2022-02-01] MEDS ORDERED: TROUGH ORDER-PHARMACY XX NR (07:30)
--- NOTE | 2022-02-01 07:32 | Progress Note - Surgery ---
STEPHANIE MCCANN 02/01/22 0732: Subjective Date Seen by a Provider: Feb 01, 2022 Time Seen by a Provider: 07:28 Subjective/Events-last exam Patient reports some pain over wound area. No other complaints. Denies nausea/vomiting, fever, sweats, chills, SOB or CP at this time. Nurse reports dressing was changed earlier this morning after wound seeped through chucks. Wound vac will be done later today. Objective Exam Vital Signs Date Time Temp Pulse Resp B/P (MAP) Pulse Ox O2 Delivery O2 Flow Rate FiO2 02/01/22 06:00 77 18 150/82 95 Nasal Cannula 2.00 02/01/22 05:00 86 22 149/83 96 Nasal Cannula 2.00 02/01/22 04:00 Room Air 02/01/22 04:00 78 23 142/88 91 Nasal Cannula 2.00 02/01/22 03:00 74 17 154/81 95 Nasal Cannula 2.00 02/01/22 02:00 87 20 146/85 97 Nasal Cannula 2.00 02/01/22 01:00 85 02/01/22 01:00 85 20 139/81 92 Nasal Cannula 2.00 02/01/22 00:00 84 26 155/87 96 Nasal Cannula 2.00 01/31/22 23:10 Room Air 01/31/22 23:00 84 21 148/85 97 Nasal Cannula 2.00 01/31/22 22:35 36.2 01/31/22 22:00 87 21 135/79 96 Nasal Cannula 2.00 01/31/22 21:00 89 22 122/61 96 Nasal Cannula 2.00 01/31/22 20:13 Room Air 01/31/22 20:06 36.2 01/31/22 20:00 85 14 136/89 96 Nasal Cannula 2.00 01/31/22 19:00 102 01/31/22 19:00 102 15 143/80 96 Nasal Cannula 2.00 01/31/22 18:00 19 137/70 97 Nasal Cannula 2.00 01/31/22 17:00 16 145/76 98 Nasal Cannula 2.00 01/31/22 16:00 Room Air 01/31/22 16:00 11 154/70 99 Nasal Cannula 2.00 01/31/22 15:42 36.1 01/31/22 15:00 20 127/63 99 Nasal Cannula 2.00 01/31/22 14:00 20 135/68 96 Nasal Cannula 2.00 01/31/22 13:45 Nasal Cannula 3.00 01/31/22 13:45 36.4 20 123/67 (85) 94 Nasal Cannula 3.00 01/31/22 13:40 20 120/68 (85) 94 Nasal Cannula 3.00 01/31/22 13:30 20 124/68 (86) 95 Nasal Cannula 3.00 01/31/22 13:30 Nasal Cannula 3.00 01/31/22 13:20 20 119/66 (83) 96 Nasal Cannula 4.00 01/31/22 13:15 OxyMask 5.00 01/31/22 13:10 20 131/62 (85) 95 Nasal Cannula 4.00 01/31/22 13:00 20 120/68 (85) 95 OxyMask 4.00 01/31/22 13:00 132/72 Nasal Cannula 2.00 01/31/22 13:00 OxyMask 5.00 01/31/22 12:50 20 119/67 (84) 95 OxyMask 5.00 01/31/22 12:44 36.4 20 138/83 (101) 95 OxyMask 5.00 01/31/22 12:44 OxyMask 5.00 01/31/22 11:42 36.1 01/31/22 11:12 Room Air 01/31/22 10:00 62 24 165/90 96 Nasal Cannula 2.00 01/31/22 09:50 95 Nasal Cannula 2.00 01/31/22 09:00 78 32 91 Room Air 01/31/22 08:39 36.5 01/31/22 08:00 84 18 153/85 94 Room Air 01/31/22 08:00 95 Room Air 01/31/22 07:50 36.7 I & O 02/01/22 07:00 Intake Total 1435 ml Output Total 2925 ml Balance -1490 ml Capillary Refill : Less Than 3 Seconds General Appearance: No Apparent Distress, Obese HEENT: PERRL/EOMI, Normal ENT Inspection Neck: Non Tender, Supple Respiratory: Chest Non Tender, No Accessory Muscle Use, No Respiratory Distress Cardiovascular: Regular Rate, Rhythm, No JVD Gastrointestinal: normal bowel sounds, non tender, soft, no organomegaly Extremity: Non Tender, Swelling Neurologic/Psychiatric: Alert, Oriented x3 Skin: Normal Color, Warm/Dry, Other (sacral decubitus ulcer wound on buttock with drainage and surrounding erythema) Lymphatic: Axilla Node Tender (L) Results Lab Laboratory Tests 01/31/22 15:20: White Blood Count 5.7, Red Blood Count 4.15L, Hemoglobin 13.0L, Hematocrit 40, Mean Corpuscular Volume 97, Mean Corpuscular Hemoglobin 31, Mean Corpuscular Hemoglobin Concent 32, Red Cell Distribution Width 14.5, Platelet Count 288, Mean Platelet Volume 8.6L, Prothrombin Time 14.6, INR Comment 1.1, Activated Partial Thromboplast Time 33 01/31/22 20:20: Activated Partial Thromboplast Time 99H 02/01/22 03:13: Platelet Count 301, Activated Partial Thromboplast Time 60H, Sodium Level 139, Potassium Level 3.6, Chloride Level 109H, Carbon Dioxide Level 21, Anion Gap 9, Blood Urea Nitrogen 7, Creatinine 0.88, Estimat Glomerular Filtration Rate 88, BUN/Creatinine Ratio 8, Glucose Level 87, Calcium Level 8.4L, Magnesium Level 1.9 Microbiology 01/30/22 MRSA Screen - Final, Complete MRSA not isolated Assessment/Plan Assessment/Plan Assessment/Plan Stage 4 sacral decubitus ulcer of left buttocks DVT of left leg Recent history of rhabdomyolysis Recent covid 19 S/P Debridement of sacral decubitus ulcer yesterday Restart Heparin Continue wound care RIKKI QUACH DO 02/01/22 1702: Subjective Subjective/Events-last exam Patient doing okay. He had a wound VAC applied. Patient no other problems with his bottom. He denies any nausea vomiting fever sweats chills shortness of breath or chest pain. Objective Exam General Appearance: No Apparent Distress, Obese HEENT: PERRL/EOMI, Normal ENT Inspection Neck: Non Tender, Supple Respiratory: Chest Non Tender, No Accessory Muscle Use, No Respiratory Distress Cardiovascular: Regular Rate, Rhythm, No JVD Gastrointestinal: non tender, soft Extremity: Non Tender, Swelling Neurologic/Psychiatric: Alert, Oriented x3 Skin: Normal Color, Warm/Dry, Other (Sacral decubitus ulcer status postdebridement wound VAC in place) Assessment/Plan Assessment/Plan Assessment/Plan Stage 4 sacral decubitus ulcer DVT of left leg Recent history of rhabdomyolysis Recent covid 19 S/P Debridement of sacral decubitus ulcer yesterday anticoagulated for dvt Continue wound care-wound vac in place Supervisory-Addendum Brief Verification & Attestation Participated in pt care: history, MDM, physical Personally performed: exam, history, MDM, supervision of care Care discussed with: Medical Student Procedures: n/a Results interpretation: Verified all documentation Verification and Attestation of Medical Student E/M Service A medical student performed and documented this service in my presence. I reviewed and verified all information documented by the medical student and made modifications to such information, when appropriate. I personally performed the physical exam and medical decision making. Rikki Quach, Feb 01, 2022,17:02 STEPHANIE MCCANN Feb 01, 2022 07:32 RIKKI QUACH DO Feb 01, 2022 17:02
[2022-02-01] MEDS: PIPERACILLIN SODIUM/TAZOBACTAM 4.5 GM in NS (IVPB) 100 ML IV SCH ×3 (09:08→23:34)
--- NOTE | 2022-02-01 09:32 | Tele-ICU Progress Note ---
Subjective Date Seen by a Provider: Feb 01, 2022 Time Seen by a Provider: 08:50 Subjective/Events-last exam This virtual visit was conducted using real time audio/video. Thank you for asking us to see this patient for L superficial Femoral thrombosis and stage IV decubitus ulcer. Debridement 01/31/22. PE: appears comfortable. Obese. VSS. O2 sat 94% on RA. HEENT: No obvious masses, adenopathy or JVD. Chest: clear to auscultation. CV: RRR S1 S2 No murmur or added sounds. Abd: Non-tender. Bowel sounds Y. : Unremarkable. Diggs . GYMNASTICS INSTRUCTOR/psychiatric: Grossly intact. No obvious focal findings. Extremities: No edema. Capillary refill < 3 seconds. Skin: unremarkable. Results: Decreased K 3.3. Available chart/ vitals / labs / images reviewed. Video assessment done using teleICU camera, rest of exam as per RN. A/P: Critical Care: critically ill patient. Cont.IVF, ABX, hep. S/P debridement 01/31/22. OK to transfer from Critical Care viewpoint. Discussed with KAMINI Robins. Asked RN to reach out to eICU if any questions or concerns later. Time spent with patient/coordination of care with other health professionals (mins):15 Sepsis Event Evaluation Height, Weight, BMI Height: 5'11.00" Weight: 310lbs. 0.0oz. [id number]; 43.52 BMI Method: Exam Exam Patient acknowledged, consented, and participated in this virtual visit which was conducted using real time audio/video Vital Signs Date Time Temp Pulse Resp B/P (MAP) Pulse Ox O2 Delivery O2 Flow Rate FiO2 02/01/22 09:00 89 31 179/66 94 Nasal Cannula 2.00 02/01/22 08:00 66 20 170/79 96 Nasal Cannula 2.00 02/01/22 08:00 36.3 02/01/22 07:00 73 02/01/22 07:00 73 18 156/84 95 Nasal Cannula 2.00 02/01/22 06:00 77 18 150/82 95 Nasal Cannula 2.00 02/01/22 05:00 86 22 149/83 96 Nasal Cannula 2.00 02/01/22 04:00 Room Air 02/01/22 04:00 78 23 142/88 91 Nasal Cannula 2.00 02/01/22 03:00 74 17 154/81 95 Nasal Cannula 2.00 02/01/22 02:00 87 20 146/85 97 Nasal Cannula 2.00 02/01/22 01:00 85 02/01/22 01:00 85 20 139/81 92 Nasal Cannula 2.00 02/01/22 00:00 84 26 155/87 96 Nasal Cannula 2.00 01/31/22 23:10 Room Air 01/31/22 23:00 84 21 148/85 97 Nasal Cannula 2.00 01/31/22 22:35 36.2 01/31/22 22:00 87 21 135/79 96 Nasal Cannula 2.00 01/31/22 21:00 89 22 122/61 96 Nasal Cannula 2.00 01/31/22 20:13 Room Air 01/31/22 20:06 36.2 01/31/22 20:00 85 14 136/89 96 Nasal Cannula 2.00 01/31/22 19:00 102 01/31/22 19:00 102 15 143/80 96 Nasal Cannula 2.00 01/31/22 18:00 19 137/70 97 Nasal Cannula 2.00 01/31/22 17:00 16 145/76 98 Nasal Cannula 2.00 01/31/22 16:00 Room Air 01/31/22 16:00 11 154/70 99 Nasal Cannula 2.00 01/31/22 15:42 36.1 01/31/22 15:00 20 127/63 99 Nasal Cannula 2.00 01/31/22 14:00 20 135/68 96 Nasal Cannula 2.00 01/31/22 13:45 Nasal Cannula 3.00 01/31/22 13:45 36.4 20 123/67 (85) 94 Nasal Cannula 3.00 01/31/22 13:40 20 120/68 (85) 94 Nasal Cannula 3.00 01/31/22 13:30 20 124/68 (86) 95 Nasal Cannula 3.00 01/31/22 13:30 Nasal Cannula 3.00 01/31/22 13:20 20 119/66 (83) 96 Nasal Cannula 4.00 01/31/22 13:15 OxyMask 5.00 01/31/22 13:10 20 131/62 (85) 95 Nasal Cannula 4.00 01/31/22 13:00 20 120/68 (85) 95 OxyMask 4.00 01/31/22 13:00 132/72 Nasal Cannula 2.00 01/31/22 13:00 OxyMask 5.00 01/31/22 12:50 20 119/67 (84) 95 OxyMask 5.00 01/31/22 12:44 36.4 20 138/83 (101) 95 OxyMask 5.00 01/31/22 12:44 OxyMask 5.00 01/31/22 11:42 36.1 01/31/22 11:12 Room Air 01/31/22 10:00 62 24 165/90 96 Nasal Cannula 2.00 01/31/22 09:50 95 Nasal Cannula 2.00 I & O 02/01/22 07:00 Intake Total 1935 ml Output Total 2925 ml Balance -990 ml Height & Weight Height: 5'11.00" Weight: 310lbs. 0.0oz. [id number]; 43.52 BMI Method: General Appearance: No Apparent Distress, Obese HEENT: PERRL/EOMI, Pharynx Normal Neck: Normal Inspection, Supple Respiratory: Lungs Clear, No Respiratory Distress Cardiovascular: Regular Rate, Rhythm, No Murmur Gastrointestinal: normal bowel sounds, non tender, soft, no organomegaly Extremity: Pedal Edema, Swelling Neurologic/Psychiatric: Alert, Oriented x3, Motor Weakness Skin: Other (decubitus ulcer) Lymphatic: Axilla Node Tender (L) Results Lab Laboratory Tests 01/30/22 15:30 01/31/22 05:15 01/31/22 15:20 02/01/22 03:13 Assessment/Plan Assessment/Plan See free text. Critical Care: Critically Ill Patient AISLINN NELSNO MD Feb 01, 2022 09:32
[2022-02-01] MEDS: VANCOMYCIN 1250 MG/NS 250 ML IVPB IV SCH ×4 (09:51→19:56)
[2022-02-01] MEDS ORDERED: MTP100TCR PO (09:57)
[2022-02-01] MEDS: fentaNYL INJ 100 MCG/2 ML AMP IV PRN (09:59)
[2022-02-01] MEDS: ENOXAPARIN 300 MG/3 ML (LOVENOX) MULTI-DOSE VIAL SQ SCH (14:08)
[2022-02-01] MEDS ORDERED: NS IV 500 ML 500 ML IV PRN (18:30)
--- NOTE | 2022-02-01 18:39 | Progress Note - Hospitalist ---
Subjective HPI/CC On Admission Date Seen by Provider: Feb 01, 2022 Time Seen by Provider: 10:25 Toño Shepard is a 76 year old male with PMH HTN, JENN on CPAP, who presented to the ER from wound clinic with stage 4 decubitus ulcer. They recommended evaluation for debridement. Surgery has been consulted and is planning to perform debride ment. He has no complaints. He is not having fevers or chills. He is short of breath but this is normal for him. He denies cough. He denies chest pain. He denies abdominal pain, nausea, vomiting. He has had leg swelling. Subjective/Events-last exam He is not having any pain. Wound care is completing a dressing change. He is not short of breath. He has no complaints. Objective Exam Vital Signs Vital Signs Date Time Temp Pulse Resp B/P (MAP) Pulse Ox O2 Delivery O2 Flow Rate FiO2 02/01/22 15:56 36.2 91 20 169/83 96 Nasal Cannula 2.00 Capillary Refill : Less Than 3 Seconds General Appearance: No Apparent Distress, Obese Respiratory: Lungs Clear, No Respiratory Distress Cardiovascular: Regular Rate, Rhythm, No Murmur Gastrointestinal: Normal Bowel Sounds, Non Tender, Soft Back: Other (sacral decubitus ulcer stage IV) Extremity: Normal Inspection, No Pedal Edema Neurologic/Psychiatric: Alert, Normal Mood/Affect Results/Procedures Lab Laboratory Tests 02/01/22 03:13 Patient resulted labs reviewed. Imaging: Reviewed Imaging Report Assessment/Plan Assessment and Plan Assess & Plan/Chief Complaint Stage IV decubitus ulcer Surgery consulted s/p debridement 01/31 Wound care consulted Planning for wound vac IV antibiotics Social work consulted [facility] Transition to Lovenox JENN Supplemental oxygen as needed at night HTN Hold home meds Monitor Diagnosis/Problems Diagnosis/Problems (1) Decubitus ulcer Status: Acute Qualifiers: Pressure injury location: sacral region Pressure injury stage: stage 4 Qualified Codes: L89.154 - Pressure ulcer of sacral region, stage 4 (2) DVT (deep venous thrombosis) Status: Acute Qualifiers: DVT location: lower extremity Affected thrombotic vein of extremity: femoral Chronicity: acute Laterality: left Qualified Codes: I82.412 - Acute embolism and thrombosis of left femoral vein (3) HTN (hypertension) Status: Acute (4) Sleep apnea Status: Acute (5) Morbid obesity Status: Acute OKSANA WARE MD Feb 01, 2022 18:39
[2022-02-01] MEDS ORDERED: LORazepam 0.5 MG (ATIVAN) TABLET PO PRN (19:15)
[2022-02-01] MEDS ORDERED: LORazepam 0.5 MG (ATIVAN) TABLET ONE (19:39)
[2022-02-01] MEDS ORDERED: WATER (STERILE) FOR INJ 10 ML BTL INJ SCH (20:30)
[2022-02-01] MEDS ORDERED: ZIPRASIDONE 20 MG INJ (GEODON) VIAL IM ONE (20:34)
[2022-02-01] MEDS ORDERED: WATER (STERILE) FOR INJECTION 20 ML ONE (20:34)
[2022-02-01] MEDS: ZIPRASIDONE 20 MG INJ (GEODON) VIAL IM PRN (20:48)
[2022-02-01] MEDS: GABAPENTIN 100 MG (NEURONTIN) CAP PO SCH (22:06)
[2022-02-01] MEDS: PRAMIPEXOLE 0.5 MG TAB (MIRAPEX) PO SCH (22:06)
[2022-02-01] MEDS: OXYBUTYNIN (DITROPAN) 5 MG TAB PO SCH (22:06)
[2022-02-02] MEDS: ENOXAPARIN 300 MG/3 ML (LOVENOX) MULTI-DOSE VIAL SQ SCH ×2 (01:08→13:51)
[2022-02-02] MEDS: CATHETER FLUSH 10 ML SYR IVP SCH ×3 (06:30→20:55)
[2022-02-02 07:37] LABS: POTASSIUM 4.1 MMOL/L (3.6-5.0)
[2022-02-02 07:38] LABS: CALCIUM 8.7 MG/DL (8.5-10.1)
[2022-02-02 07:45] LABS: MAGNESIUM 2.1 MG/DL (1.6-2.4)
[2022-02-02] MEDS: POTASSIUM CL 10MEQ/50ML IVPB 50 ML IV SCH (07:51)
[2022-02-02] MEDS: MAGNESIUM 1 GM/100 ML IVPB 100 ML IV SCH (07:52)
[2022-02-02] MEDS: KCL 20 MEQ TAB (K-DUR) PO SCH (07:52)
[2022-02-02] MEDS: PIPERACILLIN SODIUM/TAZOBACTAM 4.5 GM in NS (IVPB) 100 ML IV SCH ×2 (09:11→14:39)
[2022-02-02] MEDS: VANCOMYCIN 1250 MG/NS 250 ML IVPB IV SCH ×4 (09:11→20:54)
[2022-02-02] MEDS: TAMSULOSIN 0.4 MG (FLOMAX) CAP PO SCH (09:13)
[2022-02-02] MEDS: FAMOTIDINE 20 MG (PEPCID) TABLET PO SCH (09:13)
[2022-02-02] MEDS: LORazepam 1 MG (ATIVAN) TAB PO PRN ×2 (09:13→20:54)
[2022-02-02] MEDS: meTOprolol SUCCINATE 100 MG (TOPROL XL) TAB PO SCH (09:13)
[2022-02-02] MEDS: OXYBUTYNIN (DITROPAN) 5 MG TAB PO SCH ×2 (09:13→20:54)
[2022-02-02] MEDS: MONTELUKAST 10 MG (SINGULAIR) TAB PO SCH (09:13)
--- NOTE | 2022-02-02 10:35 | Progress Note - Surgery ---
STEPHANIE MCCANN 02/02/22 1035: Subjective Date Seen by a Provider: Feb 02, 2022 Time Seen by a Provider: 10:31 Subjective/Events-last exam Patient resting comfortably. Reports mild pain when moving, but otherwise has no complaints. Denies CP, SOB, N/V. Reports dressing was changed last night. Dee alvarez had 1 BM since yesterday. Objective Exam Vital Signs Date Time Temp Pulse Resp B/P (MAP) Pulse Ox O2 Delivery O2 Flow Rate FiO2 02/02/22 08:22 36.5 79 18 161/83 93 Nasal Cannula 2.00 02/02/22 08:00 Nasal Cannula 2.00 02/02/22 06:31 99 Nasal Cannula 2.00 02/02/22 04:51 36.2 83 20 179/92 98 Nasal Cannula 2.00 02/02/22 00:55 36.2 99 20 152/85 95 Nasal Cannula 2.00 02/01/22 20:00 Nasal Cannula 2.00 02/01/22 19:56 36.3 107 20 149/75 96 Nasal Cannula 2.00 02/01/22 15:56 36.2 91 20 169/83 96 Nasal Cannula 2.00 02/01/22 14:25 Nasal Cannula 2.00 02/01/22 12:00 36.4 02/01/22 11:00 86 24 144/73 94 Nasal Cannula 2.00 I & O 02/02/22 07:00 Intake Total 2092.5 ml Output Total 3725 ml Balance -1632.5 ml Capillary Refill : Less Than 3 Seconds General Appearance: No Apparent Distress, Obese HEENT: PERRL/EOMI, Normal ENT Inspection Neck: Non Tender, Supple Respiratory: Lungs Clear, No Respiratory Distress Cardiovascular: Regular Rate, Rhythm, No Murmur Gastrointestinal: non tender, soft Extremity: Normal Inspection, No Pedal Edema Neurologic/Psychiatric: Alert, Normal Mood/Affect Skin: Normal Color, Warm/Dry, Other (Sacral decubitus ulcer status postdebridement wound VAC in place) Lymphatic: Axilla Node Tender (L) Results Lab Laboratory Tests 02/02/22 06:20: Sodium Level 145, Potassium Level 4.1, Chloride Level 110H, Carbon Dioxide Level 27, Anion Gap 8, Blood Urea Nitrogen 8, Creatinine 1.00, Estimat Glomerular Filtration Rate 77, BUN/Creatinine Ratio 8, Glucose Level 69L, Calcium Level 8.7, Magnesium Level 2.1 Microbiology 01/31/22 Blood Culture - Preliminary, Resulted No growth 01/30/22 MRSA Screen - Final, Complete MRSA not isolated Assessment/Plan Assessment/Plan Assessment/Plan Stage 4 sacral decubitus ulcer DVT of left leg Recent history of rhabdomyolysis Recent covid 19 S/P Debridement of sacral decubitus ulcer yesterday anticoagulated for dvt Continue wound care-wound vac in place RIKKI QUACH DO 02/02/22 2001: Subjective Subjective/Events-last exam No issues at this time. wound vac in place. Pain controlled. Denies n/v fever sweats chills shortness of breath or chest pain. Objective Exam General Appearance: No Apparent Distress, Obese HEENT: PERRL/EOMI, Normal ENT Inspection Neck: Non Tender, Supple Respiratory: Chest Non Tender, Lungs Clear, No Respiratory Distress Cardiovascular: Regular Rate, Rhythm, No JVD Gastrointestinal: non tender, soft Extremity: Normal Inspection, No Pedal Edema Neurologic/Psychiatric: Alert, Normal Mood/Affect Skin: Normal Color, Other (Sacral decubitus ulcer status postdebridement wound VAC in place) Assessment/Plan Assessment/Plan Assessment/Plan Stage 4 sacral decubitus ulcer DVT of left leg Recent history of rhabdomyolysis Recent covid 19 S/P Debridement of sacral decubitus ulcer yesterday anticoagulated for dvt Continue wound care-wound vac in place Supervisory-Addendum Brief Verification & Attestation Participated in pt care: history, MDM, physical Personally performed: exam, history, MDM, supervision of care Care discussed with: Medical Student Procedures: n/a Results interpretation: Verified all documentation Verification and Attestation of Medical Student E/M Service A medical student performed and documented this service in my presence. I reviewed and verified all information documented by the medical student and made modifications to such information, when appropriate. I personally performed the physical exam and medical decision making. Rikki Quach, Feb 02, 2022,20:01 STEPHANIE MCCANN Feb 02, 2022 10:35 RIKKI QUACH DO Feb 02, 2022 20:01
--- NOTE | 2022-02-02 11:42 | Occupational Therapy Eval ---
OT Evaluation-General/PLF Medical Diagnosis Admission Date Jan 30, 2022 at 17:19 Medical Diagnosis: decubitus ulcer Onset Date: Jan 30, 2022 Therapy Diagnosis Therapy Diagnosis: decreased ADL status, weakness Height/Weight Height (Feet): 5 Height (Inches): 11.00 Weight (Pounds): 310 Weight (Ounces): 0.0 Precautions Precautions/Isolations: Fall Prevention, Standard Precautions Referral Physician: Martha Referral Reason: Evaluation/Treatment Medical History Pertinent Medical History: CAD, Heart Failure, HTN Additional Medical History ED from wound clinic with sacral stage IV decubitus ulcer, s/p debridement 02/01/22 Current History HTN, JENN, GERD, arthritis, prostate cancer, lung cancer Social History Home: Single Level Current Living Status: Spouse Entry Into Home: Stairs With Railing Steps Into Home: 2 ADL-Prior Level of Function SCALE: Activities may be completed with or without assistive devices. 5-Jprhgtxnny-blllroi completes the activity by him/herself with no assistance from a helper. 5-Set-up or Clean-up Assistance-helper sets up or cleans up; patient completes activity. [place]it assists only prior to or following the activity. 4-Supervision or Touching Assistance-helper provides verbal cues and/or touching/steadying and/or contact guard assistance as patient completes activity. Assistance may be provided throughout the activity or intermittently. 3-Partial/Moderate Assistance-helper does LESS THAN HALF the effort. Ne[place]it lifts, holds or supports trunk or limbs, but provides less than half the effort. 2-Substantial/Maximal Assistance-helper does MORE THAN HALF the effort. Ne[place]it lifts or holds trunk or limbs and provides more than half the effort. 8-Wpfkvetxv-jnwmwj does ALL the effort. Patient does none of the effort to complete the activity. Or, the assistance of 2 or more helpers is required for the patient to complete the activity. If activity was not attempted, code reason: 7-Patient Refused. 9-Not Applicable-not attempted and the patient did not perform the activity before the current illness, exacerbation or injury. 10-Not Attempted due to Environmental Limitations-(lack of equipment, weather restraints, etc.). 88-Not Attempted due to Medical Conditions or Safety Concerns. ADL PLOF Comments Pt reports being fairly independent with ADLs at baseline. He uses a cane for mobility. He has a jacuzzi tub, no difficulties getting in/out. He has a SC in his shower, but afraid he is going to slide off so he doesn't like to use it. He is able to put a shirt, cargo shorts, and slip on shoes without trouble, uses a sock aide as needed but still has some difficulty. Accuracy of information unknown due to confusion at time of evaluation. Self Care: Needed Some Help Functional Cognition: Independent OT Current Status Subjective Pt in bed, agreeable to OT evaluation. Mental Status/Objective Patient Orientation: Person, Confused Current Hand Dominance: Left Upper Extremity ROM WFL BUES, able to reach behind head, shoulder flexion to approx 160 degrees, and WFL internal rotation as if he were to tuck in the back of his shirt. Upper Extremity Strength 4/5 BUEs ADL-Treatment Eating (QC): 5 On/Off Footwear (QC): 4 (CGA at EOB.) Other Treatments Pt in bed, agreeable to OT evaluation and tx. Pt transferred supine to sit EOB, SBA with increased time. Pt completed footwear at EOB, CGA with increased time. Pt stood from EOB, Mod A then took a couple side steps towards HOB, mod A no AD. Pt sat back EOB, doffed socks SBA. Pt transferred supine, SBA. Post tx, pt in bed, call light in reach and all needs met. Aide present taking vitals. Education OT Patient Education: Correct positioning, Energy conservation, Modified ADL techniques, Progress toward Goal/Update tx plan, Purpose of tx/functional activ ities, Rehab process Teaching Recipient: Patient Teaching Methods: Discussion Response to Teaching: Verbalize Understanding OT Line Server Goals Line Server Goals Time Frame: Feb 16, 2022 Eating (QC): 6 Oral Hygiene (QC): 6 Toileting Hygiene (QC): 4 Shower/Bathe Self (QC): 4 Upper Body Dressing (QC): 5 Lower Body Dressing (QC): 4 Additional Goals: 1-Demonstrate ADL Tasks, 2-Verbalize Understanding, 3- ImproveStrength/Prasanna 1=Demonstrate adherence to instructed precautions during ADL tasks. 2=Patient will verbalize/demonstrate understanding of assistive devices/modifications for ADL. 3=Patient will improve strength/tolerance for activity to enable patient to perform ADL's. OT Education/Plan Problem List/Assessment Assessment: Decreased Activ Tolerance, Decreased UE Strength, Impaired Funct Balance, Impaired I ADL's, Impaired Self-Care Skills Discharge Recommendations Plan/Recommendations: Continue POC Treatment Plan/Plan of Care Patient would benefit from OT for education, treatment and training to promote independence in ADL's, mobility, safety and/or upper extremity function for ADL's. Plan of Care: ADL Retraining, Functional Mobility, UE Funct Exercise/Act Treatment Duration: Feb 16, 2022 Frequency: 3 times per week (3-5 times per week) Time/GCodes Start Time: 11:35 Stop Time: 11:53 Total Time Billed (hr/min): 18 Billed Treatment Time 1, MARIBEL GREENBERG OT Feb 02, 2022 11:42
[2022-02-02] MEDS: ZIPRASIDONE 20 MG INJ (GEODON) VIAL IM PRN (14:15)
[2022-02-02] MEDS: fentaNYL INJ 100 MCG/2 ML AMP IV PRN ×2 (14:15→23:55)
--- NOTE | 2022-02-02 15:07 | Physical Therapy Evaluation ---
PT Evaluation-General Medical Diagnosis Admission Date Jan 30, 2022 at 17:19 Medical Diagnosis: decubitus ulcer Onset Date: Jan 30, 2022 Therapy Diagnosis Therapy Diagnosis: Gait deficit, strength deficit Height/Weight Height (Feet): 5 Height (Inches): 11.00 Weight (Pounds): 310 Weight (Ounces): 0.0 Precautions Precautions/Isolations: Fall Prevention, Standard Precautions Weight Bear Status Right Lower Extremity: Right Full Weight Bearing Left Lower Extremity: Left Full Weight Bearing Referral Physician: Martha Reason for Referral: Evaluation/Treatment Medical History Pertinent Medical History: CAD, Heart Failure, HTN Reviewed History: Yes Social History Home: Single Level Current Living Status: Spouse Entry Into Home: Stairs With Railing PT Steps Into Home: 2 Prior Prior Level of Function SCALE: Activities may be completed with or without assistive devices. 1-Bytpmvirbr-vjhkpsb completes the activity by him/herself with no assistance from a helper. 5-Set-up or Clean-up Assistance-helper sets up or cleans up; patient completes activity. Wendel assists only prior to or following the activity. 4-Supervision or Touching Assistance-helper provides verbal cues and/or touching/steadying and/or contact guard assistance as patient completes activity. Assistance may be provided throughout the activity or intermittently. 3-Partial/Moderate Assistance-helper does LESS THAN HALF the effort. Wendel lifts, holds or supports trunk or limbs, but provides less than half the effort. 2-Substantial/Maximal Assistance-helper does MORE THAN HALF the effort. Wendel lifts or holds trunk or limbs and provides more than half the effort. 1-Hbrswelhg-xuxqrb does ALL the effort. Patient does none of the effort to complete the activity. Or, the assistance of 2 or more helpers is required for the patient to complete the activity. If activity was not attempted, code reason: 7-Patient Refused. 9-Not Applicable-not attempted and the patient did not perform the activity bef ore the current illness, exacerbation or injury. 10-Not Attempted due to Environmental Limitations-(lack of equipment, weather r estraints, etc.). 88-Not Attempted due to Medical Conditions or Safety Concerns. Bed Mobility: 6 Transfers (B,C,W/C): 6 Gait: 6 Stairs: 6 Indoor Mobility (Ambulation): Independent Stairs: Independent PT Evaluation-Current Subjective Patient lying supine in bed upon PT arrival, agreeable to treatment. Patient reports 0/10 pain currently. Objective Patient Orientation: Person, Place, Time, Situation Attachments: Oxygen, Diggs Catheter, IV wound vac ROM/Strength ROM Lower Extremities WFLs bilaterally Strength Lower Extremities 3+/5 all planes bilaterally Sensory Vision: Functional Hearing: Functional Hand Dominance: Left Sensation Right Lower Extremit: Intact Sensation Left Lower Extremity: Intact Transfers Roll Left to Right (QC): 3 Sit to Lying (QC): 3 Lying to Sitting/Side of Bed(Q: 3 Sit to Stand (QC): 2 Chair/Tus-om-Pmerx Xfer(QC): 3 Gait Does the Patient Walk?: Yes Mode of Locomotion: Walk Anticipated Mode of Locomotion: Walk Walk 10 feet (QC): 3 Distance: 20 Gait Assistive Device: FWW Balance Sitting Static: Good Sitting Dynamic: Good Standing Static: Fair Standing Dynamic: Fair Assessment/Needs Patient tolerated treatment fair. He demonstrates min A with all bed mobility and min/mod A. Patient ambulates 20 feet in room with FWW, with min A and verbal cues for safety, progression, balance and progression of the FWW. Patient ambulates with wide SHALONDA, forward trunk and head posture, and tends to let the FWW get too far from his body at times. Patient in chair post treatment with all needs met, nurse notified, call light in reach and chair alarm activated. Rehab Potential: Fair PT Chcf Goals Chcf Goals PT Senior Internet Sales Consultant Goals Time Frame: Feb 24, 2022 Roll Left & Right (QC): 6 Sit to Lying (QC): 6 Lying-Sitting on Side/Bed(QC): 6 Sit to Stand (QC): 6 Chair/Dvq-dm-Cmdnl Xfer(QC): 6 Does the Patient Walk: Yes Walk 10 feet (QC): 5 Walk 50ft with 2 Turns (QC): 5 Walk 150 ft (QC): 4 1 Step (curb) (QC): 4 4 Steps (QC): 4 PT Plan Problem List Problem List: Activity Tolerance, Functional Strength, Safety, Balance, Gait, Transfer, Bed Mobility, ROM Treatment/Plan Treatment Plan: Continue Plan of Care Treatment Plan: Bed Mobility, Education, Functional Activity Prasanna, Functional Strength, Group Therapy, Gait, Safety, Therapeutic Exercise, Transfers Treatment Duration: Feb 24, 2022 Frequency: 6 times per week Estimated Hrs Per Day: .25 hour per day Patient and/or Family Agrees t: Yes Safety Risks/Education Patient Education: Gait Training Teaching Recipient: Patient Teaching Methods: Demonstration, Discussion Response to Teaching: Reinforcement Needed Time/GCodes Time In: 1400 Time Out: 1415 Total Billed Treatment Time: 15 Total Billed Treatment Visit, EVENS COSTELLO PT Feb 02, 2022 15:07
--- NOTE | 2022-02-02 15:25 | Progress Note - Hospitalist ---
Subjective HPI/CC On Admission Date Seen by Provider: Feb 02, 2022 Time Seen by Provider: 11:20 Toño Shepard is a 76 year old male with PMH HTN, JENN on CPAP, who presented to the ER from wound clinic with stage 4 decubitus ulcer. They recommended evaluation for debridement. Surgery has been consulted and is planning to perform debride ment. He has no complaints. He is not having fevers or chills. He is short of breath but this is normal for him. He denies cough. He denies chest pain. He denies abdominal pain, nausea, vomiting. He has had leg swelling. Subjective/Events-last exam He is doing well. He has no complaints. When asked about his night, he says that he wanted to go home because his is home and can't care for their animals. He understands that he needs to go to a nursing facility to heal his wound. Objective Exam Vital Signs Vital Signs Date Time Temp Pulse Resp B/P (MAP) Pulse Ox O2 Delivery O2 Flow Rate FiO2 02/02/22 12:11 36.5 82 19 140/78 95 Nasal Cannula 2.00 Capillary Refill : Less Than 3 Seconds General Appearance: No Apparent Distress, Obese Respiratory: Lungs Clear, No Respiratory Distress Cardiovascular: Regular Rate, Rhythm, No Murmur Gastrointestinal: Normal Bowel Sounds, Soft Extremity: Normal Inspection, Pedal Edema Neurologic/Psychiatric: Alert, med aide II-XII Norm as Tested Skin: Normal Color, Warm/Dry Results/Procedures Lab Laboratory Tests 02/02/22 06:20 Patient resulted labs reviewed. Imaging: Reviewed Imaging Report Assessment/Plan Assessment and Plan Assess & Plan/Chief Complaint Stage IV decubitus ulcer Surgery following s/p debridement 01/31 Wound care consulted Wound vac IV antibiotics Social work following Referral sent to [facility], planning for discharge Saturday Acute DVT of left femoral vein [facility]as[facility] with proximal DVT Continue Lovenox JENN Supplemental oxygen as needed at night HTN Hold home meds Monitor Delirium Reorient as needed Diagnosis/Problems Diagnosis/Problems (1) Decubitus ulcer Status: Acute Qualifiers: Pressure injury location: sacral region Pressure injury stage: stage 4 Qualified Codes: L89.154 - Pressure ulcer of sacral region, stage 4 (2) DVT (deep venous thrombosis) Status: Acute Qualifiers: DVT location: lower extremity Affected thrombotic vein of extremity: femoral Chronicity: acute Laterality: left Qualified Codes: I82.412 - Acute embolism and thrombosis of left femoral vein (3) HTN (hypertension) Status: Acute (4) Sleep apnea Status: Acute (5) Morbid obesity Status: Acute OKSANA WARE MD Feb 02, 2022 15:25
[2022-02-02] MEDS: GABAPENTIN 100 MG (NEURONTIN) CAP PO SCH (20:54)
[2022-02-02] MEDS: PRAMIPEXOLE 0.5 MG TAB (MIRAPEX) PO SCH (20:54)
[2022-02-03] MEDS: ENOXAPARIN 300 MG/3 ML (LOVENOX) MULTI-DOSE VIAL SQ SCH ×2 (01:05→13:08)
[2022-02-03] MEDS: ZIPRASIDONE 20 MG INJ (GEODON) VIAL IM PRN ×3 (02:27→14:24)
[2022-02-03] MEDS: LORazepam 1 MG (ATIVAN) TAB PO PRN ×4 (02:43→19:44)
[2022-02-03] MEDS: fentaNYL INJ 100 MCG/2 ML AMP IV PRN ×4 (04:09→23:41)
[2022-02-03] MEDS: CATHETER FLUSH 10 ML SYR IVP SCH ×3 (04:36→23:30)
[2022-02-03] MEDS: POTASSIUM CL 10MEQ/50ML IVPB 50 ML IV SCH (06:00)
[2022-02-03] MEDS: MAGNESIUM 1 GM/100 ML IVPB 100 ML IV SCH (06:00)
[2022-02-03] MEDS: KCL 20 MEQ TAB (K-DUR) PO SCH (06:00)
[2022-02-03 06:03] LABS: POTASSIUM 3.8 MMOL/L (3.6-5.0)
[2022-02-03 06:05] LABS: CALCIUM 9.3 MG/DL (8.5-10.1)
[2022-02-03 06:09] LABS: CREATININE SERUM 1.34 MG/DL (0.60-1.30)
[2022-02-03 07:40] VITALS: BP 170/80
[2022-02-03] MEDS: MONTELUKAST 10 MG (SINGULAIR) TAB PO SCH (09:34)
[2022-02-03] MEDS: TAMSULOSIN 0.4 MG (FLOMAX) CAP PO SCH (09:34)
[2022-02-03] MEDS: OXYBUTYNIN (DITROPAN) 5 MG TAB PO SCH ×2 (09:34→19:45)
[2022-02-03] MEDS: FAMOTIDINE 20 MG (PEPCID) TABLET PO SCH (09:34)
[2022-02-03] MEDS: meTOprolol SUCCINATE 100 MG (TOPROL XL) TAB PO SCH (09:35)
--- NOTE | 2022-02-03 10:10 | Progress Note - Surgery ---
Subjective Date Seen by a Provider: Feb 03, 2022 Time Seen by a Provider: 10:07 Subjective/Events-last exam Patient having some confusion. Pulled out wound vac, conti and IV. Now settled back in. Fatigued. Bloody output from conti. No complaints. Family not at bedside. Objective Exam Vital Signs Date Time Temp Pulse Resp B/P (MAP) Pulse Ox O2 Delivery O2 Flow Rate FiO2 02/03/22 08:00 36.9 75 18 170/93 90 Room Air 02/03/22 07:40 36.3 64 23 170/80 (110) 94 Nasal Cannula 2.00 02/03/22 04:35 36.2 74 20 156/84 98 Nasal Cannula 2.00 02/03/22 00:04 36.3 70 20 145/82 93 Nasal Cannula 2.00 02/02/22 20:30 Nasal Cannula 2.00 02/02/22 19:23 35.8 58 18 140/74 93 Nasal Cannula 2.00 02/02/22 15:20 36.4 56 16 144/66 96 Nasal Cannula 2.00 02/02/22 12:11 36.5 82 19 140/78 95 Nasal Cannula 2.00 I & O 02/03/22 07:00 Intake Total 3245.0 ml Output Total 2200 ml Balance 1045.0 ml Capillary Refill : Less Than 3 Seconds General Appearance: No Apparent Distress, Obese HEENT: PERRL/EOMI, Normal ENT Inspection Neck: Non Tender, Supple Respiratory: Chest Non Tender, No Accessory Muscle Use, No Respiratory Distress Cardiovascular: Regular Rate, Rhythm, No JVD Gastrointestinal: non tender, soft Extremity: Normal Inspection, No Pedal Edema Neurologic/Psychiatric: Alert, Other (fatigued) Skin: Normal Color, Other (Sacral decubitus ulcer status postdebridement packed currently) Lymphatic: Axilla Node Tender (L) Other comments bloody urine output. Results Lab Laboratory Tests 02/03/22 04:55: Sodium Level 143, Potassium Level 3.8, Chloride Level 108H, Carbon Dioxide Level 25, Anion Gap 10, Blood Urea Nitrogen 11, Creatinine 1.34H, Estimat Glomerular Filtration Rate 54, BUN/Creatinine Ratio 8, Glucose Level 87, Calcium Level 9.3, Magnesium Level 2.0 Microbiology 01/31/22 Blood Culture - Preliminary, Resulted No growth 01/30/22 MRSA Screen - Final, Complete MRSA not isolated Assessment/Plan Assessment/Plan Assessment/Plan Stage 4 sacral decubitus ulcer DVT of left leg Recent history of rhabdomyolysis Recent covid 19 Hematuria from pulling conti S/P Debridement of sacral decubitus ulcer yesterday anticoagulated for dvt Continue wound care-wound vac to be re-placed currently wet to dry. monitor labs RIKKI FRAGA DO Feb 03, 2022 10:10
[2022-02-03] MEDS: PIPERACILLIN SODIUM/TAZOBACTAM 4.5 GM in NS (IVPB) 100 ML IV SCH ×5 (10:57→23:41)
[2022-02-03] MEDS: VANCOMYCIN 1250 MG/NS 250 ML IVPB IV SCH ×4 (10:57→20:31)
--- NOTE | 2022-02-03 11:41 | Physical Therapy Progress Note ---
Therapy Progress Note Patient is on hold right now. Nurse states patient is too sedated to participate and he has a procedure in a bit. Will try back Saturday. AMBER QUINTERO PT Feb 03, 2022 11:41
[2022-02-03 11:42] VITALS: BP 144/89
--- NOTE | 2022-02-03 13:52 | Progress Note - Hospitalist ---
Subjective HPI/CC On Admission Date Seen by Provider: Feb 03, 2022 Time Seen by Provider: 11:45 Toño Shepard is a 76 year old male with PMH HTN, JENN on CPAP, who presented to the ER from wound clinic with stage 4 decubitus ulcer. They recommended evaluation for debridement. Surgery has been consulted and is planning to perform debride ment. He has no complaints. He is not having fevers or chills. He is short of breath but this is normal for him. He denies cough. He denies chest pain. He denies abdominal pain, nausea, vomiting. He has had leg swelling. Subjective/Events-last exam He is sleeping. He recently received Geodon. Objective Exam Vital Signs Vital Signs Date Time Temp Pulse Resp B/P (MAP) Pulse Ox O2 Delivery O2 Flow Rate FiO2 02/03/22 11:44 37.0 67 20 144/69 96 Nasal Cannula 3.00 Capillary Refill : Less Than 3 Seconds General Appearance: No Apparent Distress, Obese Respiratory: Lungs Clear, No Respiratory Distress Cardiovascular: Regular Rate, Rhythm, No Murmur Gastrointestinal: Normal Bowel Sounds, Soft Extremity: Normal Inspection, No Pedal Edema Neurologic/Psychiatric: Other (sleeping) Results/Procedures Lab Laboratory Tests 02/03/22 04:55 Patient resulted labs reviewed. Imaging: Reviewed Imaging Report Assessment/Plan Assessment and Plan Assess & Plan/Chief Complaint Stage IV decubitus ulcer Surgery following s/p debridement 01/31 Wound care following Replace wound vac IV antibiotics Social work following Referral sent to [facility], planning for discharge Saturday Acute DVT of left femoral vein Ultasound with proximal DVT Continue Lovenox JENN Supplemental oxygen as needed at night HTN Hold home meds Monitor Delirium Pulled conti and wound vac Reorient as needed Sitter at bedside Geodon as needed Begin Risperdal Hematuria Traumatic conti removal CBI Diagnosis/Problems Diagnosis/Problems (1) Decubitus ulcer Status: Acute Qualifiers: Pressure injury location: sacral region Pressure injury stage: stage 4 Qualified Codes: L89.154 - Pressure ulcer of sacral region, stage 4 (2) DVT (deep venous thrombosis) Status: Acute Qualifiers: DVT location: lower extremity Affected thrombotic vein of extremity: femoral Chronicity: acute Laterality: left Qualified Codes: I82.412 - Acute embolism and thrombosis of left femoral vein (3) HTN (hypertension) Status: Acute (4) Sleep apnea Status: Acute (5) Morbid obesity Status: Acute (6) Hematuria Status: Acute (7) Delirium Status: Acute OKSANA AWRE MD Feb 03, 2022 13:52
[2022-02-03 15:06] VITALS: BP 155/90
[2022-02-03] MEDS: GABAPENTIN 100 MG (NEURONTIN) CAP PO SCH (19:45)
[2022-02-03 20:08] VITALS: BP 152/89
[2022-02-03] MEDS: PRAMIPEXOLE 0.5 MG TAB (MIRAPEX) PO SCH (23:29)
[2022-02-03] MEDS: risperiDONE 0.25 MG (RisperDAL) TAB PO SCH (23:29)
[2022-02-03 23:35] VITALS: BP 159/92
[2022-02-04] VITALS (7 sets, daily range): BP systolic 130–180; BP diastolic 68–90
[2022-02-04] MEDS: ENOXAPARIN 300 MG/3 ML (LOVENOX) MULTI-DOSE VIAL SQ SCH ×2 (02:04→12:40)
[2022-02-04] MEDS: fentaNYL INJ 100 MCG/2 ML AMP IV PRN ×3 (02:51→13:23)
[2022-02-04] MEDS: MAGNESIUM 1 GM/100 ML IVPB 100 ML IV SCH (06:00)
[2022-02-04] MEDS: KCL 20 MEQ TAB (K-DUR) PO SCH (06:00)
[2022-02-04] MEDS: POTASSIUM CL 10MEQ/50ML IVPB 50 ML IV SCH (06:00)
[2022-02-04 06:06] LABS: POTASSIUM 3.9 MMOL/L (3.6-5.0)
[2022-02-04 06:12] LABS: CREATININE SERUM 1.74 MG/DL (0.60-1.30)
[2022-02-04 06:14] LABS: MAGNESIUM 2.2 MG/DL (1.6-2.4)
[2022-02-04] MEDS: CATHETER FLUSH 10 ML SYR IVP SCH ×3 (06:22→20:06)
[2022-02-04] MEDS: VANCOMYCIN 1250 MG/NS 250 ML IVPB IV SCH ×4 (09:26→20:57)
[2022-02-04] MEDS: MONTELUKAST 10 MG (SINGULAIR) TAB PO SCH (09:28)
[2022-02-04] MEDS: meTOprolol SUCCINATE 100 MG (TOPROL XL) TAB PO SCH (09:28)
[2022-02-04] MEDS: FAMOTIDINE 20 MG (PEPCID) TABLET PO SCH (09:28)
[2022-02-04] MEDS: risperiDONE 0.25 MG (RisperDAL) TAB PO SCH (09:28)
[2022-02-04] MEDS: TAMSULOSIN 0.4 MG (FLOMAX) CAP PO SCH (09:28)
[2022-02-04] MEDS: OXYBUTYNIN (DITROPAN) 5 MG TAB PO SCH ×2 (09:28→20:06)
[2022-02-04 10:16] LABS: BASOPHILS % (AUTO) 1 % (0-10); EOSINOPHILS # (AUTO) 0.2 10^3/uL (0.0-0.3); EOSINOPHILS % (AUTO) 3 % (0-10); LYMPHOCYTES # (AUTO) 0.7 10^3/uL (1.0-4.0); LYMPHOCYTES % (AUTO) 12 % (12-44); MEAN CORPUSCULAR HGB CONC 32 g/dL (32-36); MEAN CORPUSCULAR VOLUME 100 fL (80-99); MEAN PLATELET VOLUME 8.8 fL (9.0-12.2); MONOCYTES # (AUTO) 0.6 10^3/uL (0.0-1.0); MONOCYTES % (AUTO) 11 % (0-12); NEUTROPHILS # (AUTO) 4.3 10^3/uL (1.8-7.8); NEUTROPHILS % (AUTO) 73 % (42-75)
[2022-02-04 10:20] LABS: HEMOGLOBIN 13.1 g/dL (13.3-17.7); MEAN CORPUSCULAR HEMOGLOBIN 32 pg (25-34); WHITE BLOOD COUNT 6.5 10^3/uL (4.3-11.0)
[2022-02-04 10:21] LABS: HEMATOCRIT 41 % (40-54); PLATELET COUNT 194 10^3/uL (130-400)
[2022-02-04] MEDS: NS IV 1000 ML 1,000 ML IV SCH ×2 (10:30→20:11)
[2022-02-04] MEDS: LORazepam 1 MG (ATIVAN) TAB PO PRN ×2 (10:41→12:39)
[2022-02-04] MEDS: ZIPRASIDONE 20 MG INJ (GEODON) VIAL IM PRN (13:22)
--- NOTE | 2022-02-04 18:47 | Progress Note - Hospitalist ---
Subjective HPI/CC On Admission Date Seen by Provider: Feb 04, 2022 Time Seen by Provider: 11:35 Toño Shepard is a 76 year old male with PMH HTN, JENN on CPAP, who presented to the ER from wound clinic with stage 4 decubitus ulcer. They recommended evaluation for debridement. Surgery has been consulted and is planning to perform debride ment. He has no complaints. He is not having fevers or chills. He is short of breath but this is normal for him. He denies cough. He denies chest pain. He denies abdominal pain, nausea, vomiting. He has had leg swelling. Subjective/Events-last exam He is doing well this morning. He has no complaints. He is having some hematuria. Objective Exam Vital Signs Vital Signs Date Time Temp Pulse Resp B/P (MAP) Pulse Ox O2 Delivery O2 Flow Rate FiO2 02/04/22 17:17 35.8 59 20 130/68 (88) 96 Nasal Cannula 3.00 Capillary Refill : Less Than 3 SecondsLess Than 3 Seconds General Appearance: No Apparent Distress, Obese Respiratory: Lungs Clear, No Respiratory Distress Cardiovascular: Regular Rate, Rhythm, No Murmur Gastrointestinal: Normal Bowel Sounds, Soft Extremity: Normal Inspection, No Pedal Edema Neurologic/Psychiatric: Alert, Disoriented Results/Procedures Lab Laboratory Tests 02/04/22 05:21 02/04/22 05:32 Patient resulted labs reviewed. Imaging: Reviewed Imaging Report Assessment/Plan Assessment and Plan Assess & Plan/Chief Complaint Stage IV decubitus ulcer Surgery following s/p debridement 01/31 Wound care following Replace wound vac IV antibiotics Social work following Referral sent to [facility], planning for discharge Saturday Acute DVT of left femoral vein Ultasound with proximal DVT Continue Lovenox JENN Supplemental oxygen as needed at night HTN Hold home meds Monitor Delirium Reorient as needed Sitter at bedside Geodon as needed Continue Risperdal Hematuria Traumatic conti removal CBI Diagnosis/Problems Diagnosis/Problems (1) Decubitus ulcer Status: Acute Qualifiers: Pressure injury location: sacral region Pressure injury stage: stage 4 Qualified Codes: L89.154 - Pressure ulcer of sacral region, stage 4 (2) DVT (deep venous thrombosis) Status: Acute Qualifiers: DVT location: lower extremity Affected thrombotic vein of extremity: femoral Chronicity: acute Laterality: left Qualified Codes: I82.412 - Acute embolism and thrombosis of left femoral vein (3) HTN (hypertension) Status: Acute (4) Sleep apnea Status: Acute (5) Morbid obesity Status: Acute (6) Hematuria Status: Acute (7) Delirium Status: Acute OKSANA WARE MD Feb 04, 2022 18:47
[2022-02-04] MEDS ORDERED: PIPERACILLIN/TAZO 4.5 GM VIAL (ZOSYN) IV ONE (18:57)
[2022-02-04] MEDS ORDERED: NS (IVPB) 100 ML ONE (18:58)
--- NOTE | 2022-02-04 18:58 | Progress Note - Surgery ---
Subjective Date Seen by a Provider: Feb 04, 2022 Time Seen by a Provider: 17:38 Subjective/Events-last exam Patient resting comfortably. Was agitated earlier. Conti less bloody. Wound vac in place. No family at bedside. Objective Exam Vital Signs Date Time Temp Pulse Resp B/P (MAP) Pulse Ox O2 Delivery O2 Flow Rate FiO2 02/04/22 17:17 35.8 59 20 130/68 (88) 96 Nasal Cannula 3.00 02/04/22 11:48 36.4 57 20 170/85 (113) 97 Nasal Cannula 3.00 02/04/22 09:08 95 Nasal Cannula 2.00 02/04/22 08:54 95 Nasal Cannula 2.00 02/04/22 07:25 36.5 68 24 165/89 (114) 95 Nasal Cannula 3.00 02/04/22 04:58 36.5 72 22 157/88 (111) 96 Nasal Cannula 2.00 02/04/22 02:27 36.7 68 22 161/90 (113) 95 Nasal Cannula 2.00 02/03/22 23:35 36.0 73 22 159/92 (114) 97 Nasal Cannula 2.00 02/03/22 20:09 96 Nasal Cannula 2.00 02/03/22 20:08 36.2 75 20 152/89 (110) 96 Nasal Cannula 2.00 I & O 02/04/22 07:00 Intake Total 1282.5 ml Output Total 7625 ml Balance -6342.5 ml Capillary Refill : Less Than 3 SecondsLess Than 3 Seconds General Appearance: No Apparent Distress, Obese HEENT: PERRL/EOMI, Normal ENT Inspection Neck: Non Tender, Supple Respiratory: Chest Non Tender, No Accessory Muscle Use, No Respiratory Distress Cardiovascular: Regular Rate, Rhythm, No JVD Gastrointestinal: non tender, soft Extremity: Normal Inspection, No Pedal Edema Neurologic/Psychiatric: Alert, Disoriented Skin: Normal Color, Warm/Dry, Other (Sacral decubitus ulcer wound vac) Lymphatic: Axilla Node Tender (L) Results Lab Laboratory Tests 02/04/22 05:21: White Blood Count 6.5, Red Blood Count 4.12L, Hemoglobin 13.1L, Hematocrit 41, Mean Corpuscular Volume 100H, Mean Corpuscular Hemoglobin 32, Mean Corpuscular Hemoglobin Concent 32, Red Cell Distribution Width 14.8H, Platelet Count 194, Mean Platelet Volume 8.8L, Immature Granulocyte % (Auto) 1, Neutrophils (%) (Auto) 73, Lymphocytes (%) (Auto) 12, Monocytes (%) (Auto) 11, Eosinophils (%) (Auto) 3, Basophils (%) (Auto) 1, Neutrophils # (Auto) 4.3, Lymphocytes # (Auto) 0.7L, Monocytes # (Auto) 0.6, Eosinophils # (Auto) 0.2, Basophils # (Auto) 0.0, Immature Granulocyte # (Auto) 0.1 02/04/22 05:32: Sodium Level 146H, Potassium Level 3.9, Chloride Level 111H, Carbon Dioxide Level 26, Anion Gap 9, Blood Urea Nitrogen 12, Creatinine 1.74H, Estimat Glomerular Filtration Rate 40, BUN/Creatinine Ratio 7, Glucose Level 85, Calcium Level 9.0, Magnesium Level 2.2 Microbiology 01/31/22 Blood Culture - Preliminary, Resulted No growth 01/30/22 MRSA Screen - Final, Complete MRSA not isolated Assessment/Plan Assessment/Plan Assessment/Plan Stage 4 sacral decubitus ulcer DVT of left leg Recent history of rhabdomyolysis Recent covid 19 Hematuria from pulling conti S/P Debridement of sacral decubitus ulcer anticoagulated for dvt Continue wound care-wound vac monitor labs RIKKI FRAGA DO Feb 04, 2022 18:58
[2022-02-04] MEDS: PIPERACILLIN SODIUM/TAZOBACTAM 4.5 GM in NS (IVPB) 100 ML IV SCH (19:00)
[2022-02-04] MEDS ORDERED: risperiDONE 0.25 MG (RisperDAL) TAB ONE (20:00)
[2022-02-04] MEDS: PRAMIPEXOLE 0.5 MG TAB (MIRAPEX) PO SCH (20:06)
[2022-02-04] MEDS: GABAPENTIN 100 MG (NEURONTIN) CAP PO SCH (20:06)
[2022-02-04] MEDS: risperiDONE 0.5 MG (RisperDAL) TABLET PO SCH (20:34)
[2022-02-04] MEDS ORDERED: risperiDONE 0.5 MG (RisperDAL) TABLET PO SCH ×2 (21:00)
[2022-02-04] MEDS ORDERED: risperiDONE 0.25 MG (RisperDAL) TAB PO SCH (21:00)
[2022-02-05] MEDS: ENOXAPARIN 300 MG/3 ML (LOVENOX) MULTI-DOSE VIAL SQ SCH ×2 (01:27→12:45)
[2022-02-05] MEDS: LORazepam 1 MG (ATIVAN) TAB PO PRN (01:41)
[2022-02-05] MEDS: fentaNYL INJ 100 MCG/2 ML AMP IV PRN (03:14)
[2022-02-05] MEDS: PIPERACILLIN SODIUM/TAZOBACTAM 4.5 GM in NS (IVPB) 100 ML IV SCH ×3 (03:14→17:35)
[2022-02-05 03:17] VITALS: BP 159/77
[2022-02-05 06:26] LABS: POTASSIUM 3.7 MMOL/L (3.6-5.0)
[2022-02-05 06:28] LABS: CALCIUM 8.8 MG/DL (8.5-10.1)
[2022-02-05] MEDS: NS IV 1000 ML 1,000 ML IV SCH ×2 (06:29→17:35)
[2022-02-05] MEDS: CATHETER FLUSH 10 ML SYR IVP SCH ×3 (06:29→19:53)
[2022-02-05] MEDS: KCL 20 MEQ TAB (K-DUR) PO SCH (06:30)
[2022-02-05] MEDS: POTASSIUM CL 10MEQ/50ML IVPB 50 ML IV SCH (06:30)
[2022-02-05 06:32] LABS: CREATININE SERUM 1.84 MG/DL (0.60-1.30)
[2022-02-05 06:34] LABS: MAGNESIUM 2.1 MG/DL (1.6-2.4)
[2022-02-05] MEDS: MAGNESIUM 1 GM/100 ML IVPB 100 ML IV SCH (06:41)
--- NOTE | 2022-02-05 07:26 | Progress Note - Surgery ---
STEPHANIE MCCANN 02/05/22 0726: Subjective Date Seen by a Provider: Feb 05, 2022 Time Seen by a Provider: 07:25 Subjective/Events-last exam Patient is sleeping upon entry into room. Wound Vac is in place. Hb is stable. Objective Exam Vital Signs Date Time Temp Pulse Resp B/P (MAP) Pulse Ox O2 Delivery O2 Flow Rate FiO2 02/05/22 03:17 36.4 62 20 159/77 (104) 97 Nasal Cannula 2.50 02/04/22 23:43 36.3 64 22 179/79 (112) 95 Nasal Cannula 2.50 02/04/22 20:00 36.3 62 22 180/73 (108) 97 Nasal Cannula 2.50 02/04/22 20:00 Nasal Cannula 2.00 02/04/22 17:17 35.8 59 20 130/68 (88) 96 Nasal Cannula 3.00 02/04/22 11:48 36.4 57 20 170/85 (113) 97 Nasal Cannula 3.00 02/04/22 09:08 95 Nasal Cannula 2.00 02/04/22 08:54 95 Nasal Cannula 2.00 02/04/22 07:25 36.5 68 24 165/89 (114) 95 Nasal Cannula 3.00 I & O 02/05/22 07:00 Intake Total 2935.0 ml Output Total 4100 ml Balance -1165.0 ml Capillary Refill : Less Than 3 SecondsLess Than 3 Seconds General Appearance: No Apparent Distress, Obese HEENT: PERRL/EOMI, Normal ENT Inspection Neck: Non Tender, Supple Respiratory: Chest Non Tender, No Accessory Muscle Use, No Respiratory Distress Cardiovascular: Regular Rate, Rhythm, No JVD Gastrointestinal: non tender, soft Extremity: Normal Inspection, No Pedal Edema Neurologic/Psychiatric: Alert, Disoriented Skin: Normal Color, Warm/Dry, Other (Sacral decubitus ulcer wound vac) Lymphatic: Axilla Node Tender (L) Results Lab Laboratory Tests 02/05/22 05:29: Sodium Level 145, Potassium Level 3.7, Chloride Level 111H, Carbon Dioxide Level 24, Anion Gap 10, Blood Urea Nitrogen 13, Creatinine 1.84H, Estimat Glomerular Filtration Rate 37, BUN/Creatinine Ratio 7, Glucose Level 86, Calcium Level 8.8, Magnesium Level 2.1 Microbiology 01/31/22 Blood Culture - Preliminary, Resulted No growth 01/30/22 MRSA Screen - Final, Complete MRSA not isolated Assessment/Plan Assessment/Plan Assessment/Plan Stage 4 sacral decubitus ulcer DVT of left leg Recent history of rhabdomyolysis Recent covid 19 Hematuria from pulling conti S/P Debridement of sacral decubitus ulcer anticoagulated for dvt Continue wound care-wound vac monitor labs RIKKI FRAGA DO 02/05/22 0926: Subjective Subjective/Events-last exam Patient fatigued. Not having any pain or any discomfort. No new complaints. Wound vac in place. Denies n/v fever sweats chills shortness of breath or chest pain. Objective Exam General Appearance: No Apparent Distress, Obese HEENT: PERRL/EOMI, Normal ENT Inspection Neck: Non Tender, Supple Respiratory: Chest Non Tender, No Accessory Muscle Use, No Respiratory Distress Cardiovascular: Regular Rate, Rhythm, No JVD Gastrointestinal: non tender, soft Extremity: Normal Inspection, No Pedal Edema Neurologic/Psychiatric: Alert, Disoriented Skin: Normal Color, Warm/Dry, Other (Sacral decubitus ulcer wound vac) Lymphatic: Axilla Node Tender (L) Other comments urine clear Assessment/Plan Assessment/Plan Assessment/Plan Stage 4 sacral decubitus ulcer DVT of left leg Recent history of rhabdomyolysis Recent covid 19 Hematuria from pulling conti S/P Debridement of sacral decubitus ulcer anticoagulated for dvt Continue wound care-wound vac monitor labs Conti for monitoring-urine clear now Supervisory-Addendum Brief Verification & Attestation Participated in pt care: history, MDM, physical Personally performed: exam, history, MDM, supervision of care Care discussed with: Medical Student Procedures: n/a Results interpretation: Verified all documentation Verification and Attestation of Medical Student E/M Service A medical student performed and documented this service in my presence. I reviewed and verified all information documented by the medical student and made modifications to such information, when appropriate. I personally performed the physical exam and medical decision making. Rikki Fraga, Feb 05, 2022,09:26 STEPHANIE MCCANN Feb 05, 2022 07:26 RIKKI FRAGA DO Feb 05, 2022 09:26
[2022-02-05 07:52] VITALS: BP 157/84
[2022-02-05] MEDS: FAMOTIDINE 20 MG (PEPCID) TABLET PO SCH (09:56)
[2022-02-05] MEDS: OXYBUTYNIN (DITROPAN) 5 MG TAB PO SCH ×2 (09:56→19:52)
[2022-02-05] MEDS: TAMSULOSIN 0.4 MG (FLOMAX) CAP PO SCH (09:56)
[2022-02-05] MEDS: MONTELUKAST 10 MG (SINGULAIR) TAB PO SCH (09:56)
[2022-02-05] MEDS: risperiDONE 0.5 MG (RisperDAL) TABLET PO SCH ×2 (09:56→19:52)
[2022-02-05] MEDS: meTOprolol SUCCINATE 100 MG (TOPROL XL) TAB PO SCH (09:57)
--- NOTE | 2022-02-05 11:38 | Physical Therapy Progress Note ---
Therapy Progress Note Due to patient's currently cognitive status and lethargy, patient is not safe for OOB activity and is not able to follow simple direction. RN confirms. KATHIE PALOMINO PT Feb 05, 2022 11:38
[2022-02-05 12:00] VITALS: BP 179/87
--- NOTE | 2022-02-05 12:01 | Progress Note - Hospitalist ---
Subjective HPI/CC On Admission Date Seen by Provider: Feb 05, 2022 Toño Shepard is a 76 year old male with PMH HTN, JENN on CPAP, who presented to the ER from wound clinic with stage 4 decubitus ulcer. They recommended evaluation for debridement. Surgery has been consulted and is planning to perform debridement. He has no complaints. He is not having fevers or chills. He is short of breath but this is normal for him. He denies cough. He denies chest pain. He denies abdominal pain, nausea, vomiting. He has had leg swelling. Subjective/Events-last exam Pt reports doing well today. No complaints. Did ask for his rails to be lowered on his bed but RN reports patient unsafe when down so left in place. Objective Exam Vital Signs Vital Signs Date Time Temp Pulse Resp B/P (MAP) Pulse Ox O2 Delivery O2 Flow Rate FiO2 02/05/22 11:08 95 Nasal Cannula 2.50 02/05/22 07:52 36.0 59 22 157/84 (108) Capillary Refill : Less Than 3 SecondsLess Than 3 Seconds General Appearance: No Apparent Distress, Chronically ill, Obese Respiratory: Lungs Clear, No Respiratory Distress Cardiovascular: Regular Rate, Rhythm, No Murmur Results/Procedures Lab Laboratory Tests 02/05/22 05:29 Patient resulted labs reviewed. Imaging: Reviewed Imaging Report Assessment/Plan Assessment and Plan Assess & Plan/Chief Complaint Stage IV decubitus ulcer Surgery following s/p debridement 01/31 Wound care following Continue wound vac Continue antibiotics Social work following Referral sent to [facility], planning for discharge tomorrow Acute DVT of left femoral vein Ultasound with proximal DVT Switch Lovenox to oral anticoagulation JENN Supplemental oxygen as needed at night HTN Hold home meds Monitor Delirium- improving Reorient as needed Penelope quintanan Continue Risperdal Hematuria Traumatic conti removal CBI to stop today now that urine clear WESLY HAAS MD Feb 05, 2022 12:01
--- NOTE | 2022-02-05 13:27 | Occupational Ther Daily Note ---
OT Current Status-Daily Note Subjective Pt alert, lying in bed. Nrsg in room. Pt confused x3. Mental Status/Objective Patient Orientation: Person ADL-Treatment Nrsg stated that pt able to hold onto eating utensils and attempt to eat. Pt unable to distinguish between paper/small containers on tray and food, nrsg assisted with eating. Pt dependent for toileting and bed mobility. After therapy, pt lying in bed with call light in reach. Safety measures in place. All needs met. Therapy Code Descriptions/Definitions Functional Gregory Measure: 0=Not Assessed/NA 4=Minimal Assistance 1=Total Assistance 5=Supervision or Setup 2=Maximal Assistance 6=Modified Gregory 3=Moderate Assistance 7=Complete IndependenceSCALE: Activities may be completed with or without assistive devices. 8-Dxguiajbkd-hdehubf completes the activity by him/herself with no assistance from a helper. 5-Set-up or Clean-up Assistance-helper sets up or cleans up; patient completes activity. Volin assists only prior to or following the activity. 4-Supervision or Touching Assistance-helper provides verbal cues and/or touching/steadying and/or contact guard assistance as patient completes activity. Assistance may be provided throughout the activity or intermittently. 3-Partial/Moderate Assistance-helper does LESS THAN HALF the effort. Volin lifts, holds or supports trunk or limbs, but provides less than half the effort. 2-Substantial/Maximal Assistance-helper does MORE THAN HALF the effort. Volin lifts or holds trunk or limbs and provides more than half the effort. 3-Rysdwzvoi-keisza does ALL the effort. Patient does none of the effort to complete the activity. Or, the assistance of 2 or more helpers is required for the patient to complete the activity. If activity was not attempted, code reason: 7-Patient Refused. 9-Not Applicable-not attempted and the patient did not perform the activity before the current illness, exacerbation or injury. 10-Not Attempted due to Environmental Limitations-(lack of equipment, weather restraints, etc.). 88-Not Attempted due to Medical Conditions or Safety Concerns. OT Software Quality Manager Goals Software Quality Manager Goals Time Frame: Feb 16, 2022 Eating (QC): 6 Oral Hygiene (QC): 6 Toileting Hygiene (QC): 4 Shower/Bathe Self (QC): 4 Upper Body Dressing (QC): 5 Lower Body Dressing (QC): 4 Additional Goals: 1-Demonstrate ADL Tasks, 2-Verbalize Understanding, 3- ImproveStrength/Prasanna 1=Demonstrate adherence to instructed precautions during ADL tasks. 2=Patient will verbalize/demonstrate understanding of assistive devices/modifications for ADL. 3=Patient will improve strength/tolerance for activity to enable patient to perform ADL's. OT Education/Plan Problem List/Assessment Assessment: Decreased Activ Tolerance, Decreased Safety Aware, Decreased UE Strength, Dependent Transfers, Impaired Bed Mobility, Impaired Cognition, Impaired Coordination, Impaired Funct Balance, Impaired Self-Care Skills, Restricted Funct UE ROM Discharge Recommendations Plan/Recommendations: Continue POC Treatment Plan/Plan of Care Patient would benefit from OT for education, treatment and training to promote independence in ADL's, mobility, safety and/or upper extremity function for ADL's. Plan of Care: ADL Retraining, Functional Mobility, UE Funct Exercise/Act Treatment Duration: Feb 16, 2022 Frequency: 3 times per week (3-5 times per week) Rehab Potential: Fair Time/GCodes Start Time: 13:15 Stop Time: 13:23 Total Time Billed (hr/min): 8 Billed Treatment Time 1 visit-FA 1 (8 min) WALLY ABDUL Feb 05, 2022 13:27
[2022-02-05 15:38] VITALS: BP 163/77
[2022-02-05 19:14] VITALS: BP 185/78
[2022-02-05] MEDS: PRAMIPEXOLE 0.5 MG TAB (MIRAPEX) PO SCH (19:52)
[2022-02-05] MEDS: hydrALAZINE (APESOLINE) 20 MG/ML VIAL IV PRN (19:52)
[2022-02-05] MEDS: GABAPENTIN 100 MG (NEURONTIN) CAP PO SCH (19:52)
[2022-02-05 23:16] VITALS: BP 138/77
[2022-02-06] MEDS: ENOXAPARIN 300 MG/3 ML (LOVENOX) MULTI-DOSE VIAL SQ SCH (00:54)
[2022-02-06] MEDS: PIPERACILLIN SODIUM/TAZOBACTAM 4.5 GM in NS (IVPB) 100 ML IV SCH ×3 (00:54→18:42)
[2022-02-06] MEDS: NS IV 1000 ML 1,000 ML IV SCH ×3 (00:57→23:10)
[2022-02-06] MEDS: LORazepam 1 MG (ATIVAN) TAB PO PRN (01:29)
[2022-02-06] MEDS: hydrALAZINE (APESOLINE) 20 MG/ML VIAL IV PRN (03:48)
[2022-02-06 03:54] VITALS: BP 188/80
[2022-02-06 06:17] LABS: POTASSIUM 3.4 MMOL/L (3.6-5.0)
[2022-02-06 06:18] LABS: CALCIUM 9.1 MG/DL (8.5-10.1)
[2022-02-06 06:23] LABS: CREATININE SERUM 1.9 MG/DL (0.60-1.30)
[2022-02-06] MEDS: MAGNESIUM 1 GM/100 ML IVPB 100 ML IV SCH (06:30)
[2022-02-06] MEDS: POTASSIUM CL 10MEQ/50ML IVPB 50 ML IV SCH (06:30)
[2022-02-06] MEDS: KCL 20 MEQ TAB (K-DUR) PO SCH (06:31)
[2022-02-06] MEDS: CATHETER FLUSH 10 ML SYR IVP SCH ×3 (06:31→20:31)
[2022-02-06] MEDS ORDERED: KCL 20 MEQ TAB (K-DUR) PO ONE (07:00)
--- NOTE | 2022-02-06 07:14 | Progress Note - Surgery ---
STEPHANIE MCCANN 02/06/22 0714: Subjective Date Seen by a Provider: Feb 06, 2022 Time Seen by a Provider: 07:13 Subjective/Events-last exam Patient resting comfortably. Not having any pain or any discomfort. No new complaints. Wound vac in place. Denies n/v fever sweats chills shortness of breath or chest pain. Objective Exam Vital Signs Date Time Temp Pulse Resp B/P (MAP) Pulse Ox O2 Delivery O2 Flow Rate FiO2 02/06/22 03:54 36.2 71 20 188/80 (116) 96 Nasal Cannula 2.50 02/05/22 23:16 36.6 74 20 138/77 (97) 98 Nasal Cannula 2.50 02/05/22 20:00 Nasal Cannula 2.00 02/05/22 19:14 36.2 66 20 185/78 (113) 97 Nasal Cannula 2.50 02/05/22 15:38 36.5 67 20 163/77 (105) 94 Nasal Cannula 2.50 02/05/22 12:00 36.6 70 21 179/87 (117) 96 Nasal Cannula 2.50 02/05/22 11:08 95 Nasal Cannula 2.50 02/05/22 07:52 36.0 59 22 157/84 (108) 95 Nasal Cannula 2.50 I & O 02/06/22 07:00 Intake Total 2250 ml Output Total 4100 ml Balance -1850 ml Capillary Refill : Less Than 3 SecondsLess Than 3 Seconds General Appearance: No Apparent Distress, Chronically ill, Obese HEENT: PERRL/EOMI, Normal ENT Inspection Neck: Non Tender, Supple Respiratory: Lungs Clear, No Respiratory Distress Cardiovascular: Regular Rate, Rhythm, No Murmur Gastrointestinal: non tender, soft Extremity: Normal Inspection, No Pedal Edema Neurologic/Psychiatric: Alert, Disoriented Skin: Normal Color, Warm/Dry, Other (Sacral decubitus ulcer wound vac) Lymphatic: Axilla Node Tender (L) Results Lab Laboratory Tests 02/06/22 05:51: Sodium Level 142, Potassium Level 3.4L, Chloride Level 111H, Carbon Dioxide Level 22, Anion Gap 9, Blood Urea Nitrogen 13, Creatinine 1.90H, Estimat Gl omerular Filtration Rate 36, BUN/Creatinine Ratio 7, Glucose Level 80, Calcium Level 9.1, Magnesium Level 2.0 Microbiology 01/31/22 Blood Culture - Final, Complete No growth 01/30/22 MRSA Screen - Final, Complete MRSA not isolated Assessment/Plan Assessment/Plan Assessment/Plan Stage 4 sacral decubitus ulcer DVT of left leg Recent history of rhabdomyolysis Recent covid 19 Hematuria from pulling conti S/P Debridement of sacral decubitus ulcer anticoagulated for dvt Continue wound care-wound vac monitor labs Conti for monitoring-urine clear now RIKKI FRAGA DO 02/06/222028: Subjective Subjective/Events-last exam Comfortable. No complaints of pain. Wound vac in place. Denies n/v fever sweats chills shortness of breath or chest pain. Objective Exam General Appearance: No Apparent Distress, Chronically ill, Obese HEENT: PERRL/EOMI, Normal ENT Inspection Neck: Non Tender, Supple Respiratory: Chest Non Tender, No Accessory Muscle Use, No Respiratory Distress Cardiovascular: Regular Rate, Rhythm, No JVD Gastrointestinal: non tender, soft Extremity: Normal Inspection, Non Tender Neurologic/Psychiatric: Alert, Disoriented Skin: Normal Color, Warm/Dry, Other (Sacral decubitus ulcer wound vac) Lymphatic: No Adenopathy Assessment/Plan Assessment/Plan Assessment/Plan Stage 4 sacral decubitus ulcer DVT of left leg Recent history of rhabdomyolysis Recent covid 19 Hematuria from pulling conti S/P Debridement of sacral decubitus ulcer anticoagulated for dvt Continue wound care-wound vac monitor labs Placement Supervisory-Addendum Brief Verification & Attestation Participated in pt care: history, MDM, physical Personally performed: exam, history, MDM, supervision of care Care discussed with: Medical Student Procedures: n/a Results interpretation: Verified all documentation Verification and Attestation of Medical Student E/M Service A medical student performed and documented this service in my presence. I reviewed and verified all information documented by the medical student and made modifications to such information, when appropriate. I personally performed the physical exam and medical decision making. Rikki Fraga, Feb 06, 2022,20:29 STEPHANIE MCCANN Feb 06, 2022 07:14 RIKKI FRAGA DO Feb 06, 2022 20:29
[2022-02-06 07:33] VITALS: BP 172/92
[2022-02-06] MEDS: risperiDONE 0.5 MG (RisperDAL) TABLET PO SCH ×2 (08:35→20:30)
[2022-02-06] MEDS: MONTELUKAST 10 MG (SINGULAIR) TAB PO SCH (08:35)
[2022-02-06] MEDS: OXYBUTYNIN (DITROPAN) 5 MG TAB PO SCH ×2 (08:35→20:30)
[2022-02-06] MEDS: FAMOTIDINE 20 MG (PEPCID) TABLET PO SCH (08:35)
[2022-02-06] MEDS: TAMSULOSIN 0.4 MG (FLOMAX) CAP PO SCH (08:35)
[2022-02-06] MEDS: meTOprolol SUCCINATE 100 MG (TOPROL XL) TAB PO SCH (08:35)
--- NOTE | 2022-02-06 09:54 | Physical Therapy Daily Note ---
PT Daily Note-Current Subjective Patient is more alert and responsive on this date. Mental Status Attachments: Oxygen, Diggs Catheter, IV wound vac Transfers SCALE: Activities may be completed with or without assistive devices. 9-Sczokkajkd-qdzdypi completes the activity by him/herself with no assistance from a helper. 5-Set-up or Clean-up Assistance-helper sets up or cleans up; patient completes activity. [place] assists only prior to or following the activity. 4-Supervision or Touching Assistance-helper provides verbal cues and/or touching/steadying and/or contact guard assistance as patient completes activity. Assistance may be provided throughout the activity or intermittently. 3-Partial/Moderate Assistance-helper does LESS THAN HALF the effort. [place] lifts, holds or supports trunk or limbs, but provides less than half the effort. 2-Substantial/Maximal Assistance-helper does MORE THAN HALF the effort. [place] lifts or holds trunk or limbs and provides more than half the effort. 8-Aqeaudsoa-uxxazw does ALL the effort. Patient does none of the effort to complete the activity. Or, the assistance of 2 or more helpers is required for the patient to complete the activity. If activity was not attempted, code reason: 7-Patient Refused. 9-Not Applicable-not attempted and the patient did not perform the activity before the current illness, exacerbation or injury. 10-Not Attempted due to Environmental Limitations-(lack of equipment, weather restraints, etc.). 88-Not Attempted due to Medical Conditions or Safety Concerns. Lying to Sitting/Side of Bed(Q: 2 Sit to Stand (QC): 3 Chair/Wdo-te-Vfepk Xfer(QC): 3 Weight Bearing Right Lower Extremity: Right Full Weight Bearing Left Lower Extremity: Left Full Weight Bearing Gait Training Distance: 15' Walk 10 feet (QC): 3 Gait Assistive Device: FWW trunk flexed posture in stand and with ambulation Exercises Seated Therapy Exercises: Ankle pumps, Long arc quads Seated Reps: 15 Assessment Patient up in recliner with coffee and tray in situ. PT to continue to increase activity as tolerated by patient. PT Shelter Goals Set Off Blocker Goals PT Set Off Blocker Goals Time Frame: Feb 24, 2022 Roll Left & Right (QC): 6 Sit to Lying (QC): 6 Lying-Sitting on Side/Bed(QC): 6 Sit to Stand (QC): 6 Chair/Wyy-lx-Ahtzn Xfer(QC): 6 Does the Patient Walk: Yes Walk 10 feet (QC): 5 Walk 50ft with 2 Turns (QC): 5 Walk 150 ft (QC): 4 1 Step (curb) (QC): 4 4 Steps (QC): 4 PT Plan Treatment/Plan Treatment Plan: Continue Plan of Care Treatment Plan: Bed Mobility, Education, Functional Activity Prasanna, Functional Strength, Group Therapy, Gait, Safety, Therapeutic Exercise, Transfers Treatment Duration: Feb 24, 2022 Frequency: 6 times per week Estimated Hrs Per Day: .25 hour per day Patient and/or Family Agrees t: Yes Time/GCodes Time In: 925 Time Out: 937 Total Billed Treatment Time: 12 Total Billed Treatment 1 visit FA 12 min KATHIE PALOMINO PT Feb 06, 2022 09:53
--- NOTE | 2022-02-06 10:50 | Discharge Inst-Skilled Nursing ---
Discharge Inst-Skilled NF Chief Complaint Toño Shepard is a 76 year old male with PMH HTN, JENN on CPAP, who presented to the ER from wound clinic with stage 4 decubitus ulcer. They recommended evaluation for debridement. Surgery has been consulted and is planning to perform debridement. He has no complaints. He is not having fevers or chills. He is sh ort of breath but this is normal for him. He denies cough. He denies chest pain. He denies abdominal pain, nausea, vomiting. He has had leg swelling. Patient Instructions Patient Problems: Please continue to take your medications as written. Please follow up with your primary care doctor to follow up this hospital stay. Patient Instructions: Please seek evaluation for weakness, chest pain, shortness of breath, fever, confusion, if you feel you are getting worse. Consult/Follow Up/Orders Follow Up Appt.: With your Primary Care Doctor in 1 week. Skilled NF Admit to: [facility] Certification (SNF) I certify that SNF services are required to be given on an inpatient basis because of the above named patient's need for retirement care on a continuing basis for the conditions(s) for which he/she was receiving inpatient hospital services prior to his/her transfer to the SNF. Shelter Facility Order: Nursing Services, Barrel Cap Setter-Evaluate & Treat, Physical Therapy-Evaluate & Treat, Wound Care-Eval/Treat Oxygen Delivery Method: Nasal Cannula Oxygen Flow Rate L/min (Range): 2 Discharge Diet: Cardiac Diet Daily Activity as Tolerated: Yes Resuscitation Status: Full Code New & Resume Previous Orders Wesly Dejesus Feb 06, 2022 10:48 WESLY DEJESUS MD Feb 06, 2022 10:50
--- NOTE | 2022-02-06 10:55 | Discharge Summary ---
Diagnosis/Chief Complaint Date of Admission Jan 30, 2022 at 17:19 Date of Discharge Discharge Date: Feb 06, 2022 Admission Diagnosis Stage IV decubitus ulcer Primary Care No,Local Physician Discharge Diagnosis (1) Decubitus ulcer Status: Acute (2) DVT (deep venous thrombosis) Status: Acute (3) HTN (hypertension) Status: Acute (4) Sleep apnea Status: Acute (5) Morbid obesity Status: Acute (6) Hematuria Status: Acute (7) Delirium Status: Acute Discharge Summary Discharge Physical Exam Allergies: Coded Allergies: No Known Drug Allergies (Unverified , 04/10/15) Vitals & I&Os Vital Signs Date Time Temp Pulse Resp B/P (MAP) Pulse Ox O2 Delivery O2 Flow Rate FiO2 02/06/22 08:00 Nasal Cannula 2.00 02/06/22 07:33 36.2 89 22 172/92 (118) 97 Hospital Course Labs (last 24 hrs) Laboratory Tests 02/06/22 05:51: Sodium Level 142, Potassium Level 3.4L, Chloride Level 111H, Carbon Dioxide Level 22, Anion Gap 9, Blood Urea Nitrogen 13, Creatinine 1.90H, Estimat Glomerular Filtration Rate 36, BUN/Creatinine Ratio 7, Glucose Level 80, Calcium Level 9.1, Magnesium Level 2.0 Microbiology 01/31/22 Blood Culture - Final, Complete No growth 01/30/22 MRSA Screen - Final, Complete MRSA not isolated Patient resulted labs reviewed. Pending Labs Laboratory Tests 02/06/22 05:51: Sodium Level 142, Potassium Level 3.4, Chloride Level 111, Carbon Dioxide Level 22, Anion Gap 9, Blood Urea Nitrogen 13, Creatinine 1.90, Estimat Glomerular Filtration Rate 36, BUN/Creatinine Ratio 7, Glucose Level 80, Calcium Level 9.1, Magnesium Level 2.0 Imaging: Reviewed Imaging Report Discharge Home Medications: Active Scripts Active Reported Metoprolol Succinate 100 Mg Tab.er.24h 100 Mg PO DAILY Triamterene-Hctz 37.5-25 mg Cp (Triamterene/Hydrochlorothiazid) 37.5 Mg-25 Mg Capsule 1 Each PO DAILY LAST FILLED 11-30-2021 #30/30 DAY SUPPLY Famotidine 40 Mg Tablet 40 Mg PO DAILY LAST FILLED 06-26-2021 #90/90 DAY SUPPLY Gabapentin 100 Mg Capsule 200 Mg PO HS TAKES 2 (100MG) CAPS LAST FILLED 06-26-2021 #90/90 DAY SUPPLY Montelukast Sodium 10 Mg Tablet 10 Mg PO DAILY LAST FILLED 08-31-2021 #90/ DAY SUPPLY Oxybutynin Chloride ER (Oxybutynin Chloride) 5 Mg Tab.er.24 5 Mg PO DAILY LAST FILLED 08-31-2021 #90/90 DAY SUPPLY Flomax (Tamsulosin HCl) 0.4 Mg Cap 0.4 Mg PO DAILY LAST FILLED 08-31-2021 #90/ DAY SUPPLY Mirapex (Pramipexole Di-HCl) 1 Mg Tablet 1 Mg PO HS LAST FILLED 06-26-2021 #90/90 DAY SUPPLY Furosemide 40 Mg Tablet 40 Mg PO DAILY LAST FILLED 11-30-2021 #30/ DAY SUPPLY Atorvastatin Calcium 20 Mg Tablet 20 Mg PO HS LAST FILLED 06-26-2021 #90/ DAY SUPPLY Instructions to patient/family Please see electronic discharge instructions given to patient. Problem Qualifiers (1) Decubitus ulcer: Pressure injury location: sacral region Pressure injury stage: stage 4 Qualified Codes: L89.154 - Pressure ulcer of sacral region, stage 4 (2) DVT (deep venous thrombosis): DVT location: lower extremity Affected thrombotic vein of extremity: femoral Chronicity: acute Laterality: left Qualified Codes: I82.412 - Acute embolism and thrombosis of left femoral vein WESLY HAAS MD Feb 06, 2022 10:55
[2022-02-06] MEDS ORDERED: RISP0.5T65 PO (11:03)
[2022-02-06] MEDS ORDERED: RIVA1TAB PO (11:03)
[2022-02-06] MEDS ORDERED: SODI475I IR (11:03)
[2022-02-06 11:22] VITALS: BP 160/93
[2022-02-06] MEDS: RIVAROXABAN 15 MG TABLET (XARELTO) PO SCH ×2 (12:20→18:42)
--- NOTE | 2022-02-06 14:04 | Occ Therapy Progress Note ---
Therapy Progress Note Nrsg states that pt is doing better today. PT notes states that pt is progressing with mobility. SPENCER attempted to rouse pt to participate in session, pt would mumble to answer questions but would not open eyes then lifted B UE's and cross over eyes, did not respond to any further questions. Attempted to engage pt in B UE exercises during this time and pt mumbled no and cross his arms over his eyes. SPENCER left room, bed alarm activated and call light in reach. 1 visit-decline ([id number]) WALLY ABDUL Feb 06, 2022 14:04
[2022-02-06 15:28] VITALS: BP 154/77
[2022-02-06 20:00] VITALS: BP 176/67
[2022-02-06] MEDS: PRAMIPEXOLE 0.5 MG TAB (MIRAPEX) PO SCH (20:30)
[2022-02-06] MEDS: GABAPENTIN 100 MG (NEURONTIN) CAP PO SCH (20:30)
[2022-02-06] MEDS: fentaNYL INJ 100 MCG/2 ML AMP IV PRN (23:10)
[2022-02-06 23:15] VITALS: BP 155/74
[2022-02-07] MEDS: fentaNYL INJ 100 MCG/2 ML AMP IV PRN (01:43)
[2022-02-07] MEDS: PIPERACILLIN SODIUM/TAZOBACTAM 4.5 GM in NS (IVPB) 100 ML IV SCH ×2 (02:50→10:07)
[2022-02-07 04:00] VITALS: BP 179/88
[2022-02-07] MEDS: RIVAROXABAN 15 MG TABLET (XARELTO) PO SCH (06:04)
[2022-02-07] MEDS: CATHETER FLUSH 10 ML SYR IVP SCH (06:54)
[2022-02-07 07:55] VITALS: BP 159/83
[2022-02-07 08:01] LABS: POTASSIUM 3.8 MMOL/L (3.6-5.0)
[2022-02-07 08:06] LABS: CREATININE SERUM 1.98 MG/DL (0.60-1.30)
[2022-02-07] MEDS: POTASSIUM CL 10MEQ/50ML IVPB 50 ML IV SCH (08:07)
[2022-02-07] MEDS: KCL 20 MEQ TAB (K-DUR) PO SCH (08:08)
[2022-02-07] MEDS: MAGNESIUM 1 GM/100 ML IVPB 100 ML IV SCH (08:38)
[2022-02-07] MEDS: TAMSULOSIN 0.4 MG (FLOMAX) CAP PO SCH (08:53)
[2022-02-07] MEDS: OXYBUTYNIN (DITROPAN) 5 MG TAB PO SCH (08:53)
[2022-02-07] MEDS: MONTELUKAST 10 MG (SINGULAIR) TAB PO SCH (08:53)
[2022-02-07] MEDS: risperiDONE 0.5 MG (RisperDAL) TABLET PO SCH (08:53)
[2022-02-07] MEDS: FAMOTIDINE 20 MG (PEPCID) TABLET PO SCH (08:53)
[2022-02-07] MEDS: meTOprolol SUCCINATE 100 MG (TOPROL XL) TAB PO SCH (08:53)
[2022-02-07] MEDS: NS IV 1000 ML 1,000 ML IV SCH (09:00)
[2022-02-07 12:00] VITALS: BP 171/91
[2022-02-07 12:46] VITALS: BP 171/91
--- NOTE | 2022-02-07 13:03 | Progress Note - Hospitalist ---
Subjective HPI/CC On Admission Date Seen by Provider: Feb 07, 2022 Toño Shepard is a 76 year old male with PMH HTN, JENN on CPAP, who presented to the ER from wound clinic with stage 4 decubitus ulcer. They recommended evaluation for debridement. Surgery has been consulted and is planning to perform debridement. He has no complaints. He is not having fevers or chills. He is short of breath but this is normal for him. He denies cough. He denies chest pain. He denies abdominal pain, nausea, vomiting. He has had leg swelling. Subjective/Events-last exam pt reports doing well. No complaints. Planning for DC today to [place]. Was unable to go yesterday as was unable to present to do care assessment. Objective Exam Vital Signs Vital Signs Date Time Temp Pulse Resp B/P (MAP) Pulse Ox O2 Delivery O2 Flow Rate FiO2 02/07/22 12:00 35.9 51 21 171/91 (117) 97 Nasal Cannula 2.50 Capillary Refill : Less Than 3 SecondsLess Than 3 Seconds General Appearance: No Apparent Distress, Chronically ill Respiratory: Lungs Clear, No Respiratory Distress Cardiovascular: Regular Rate, Rhythm, No Murmur Neurologic/Psychiatric: Alert, Oriented x3 Results/Procedures Lab Laboratory Tests 02/07/22 07:34 Patient resulted labs reviewed. Imaging: Reviewed Imaging Report Assessment/Plan Assessment and Plan Assess & Plan/Chief Complaint Stage IV decubitus ulcer Surgery following s/p debridement 01/31 Wound care following Continue wound vac- needs to follow up with wound care as an outpatient for wound vac care DC to [facility] today Acute DVT of left femoral vein Ultasound with proximal DVT Xarelto at discharge JENN Supplemental oxygen as needed at night HTN Hold home meds Monitor Delirium- improving Reorient as needed Geodon prn Continue Risperdal Hematuria Resolved with CBI Diagnosis/Problems Diagnosis/Problems (1) Decubitus ulcer Status: Acute Qualifiers: Pressure injury location: sacral region Pressure injury stage: stage 4 Qualified Codes: L89.154 - Pressure ulcer of sacral region, stage 4 (2) DVT (deep venous thrombosis) Status: Acute Qualifiers: DVT location: lower extremity Affected thrombotic vein of extremity: femoral Chronicity: acute Laterality: left Qualified Codes: I82.412 - Acute embolism and thrombosis of left femoral vein (3) HTN (hypertension) Status: Acute (4) Sleep apnea Status: Acute (5) Morbid obesity Status: Acute (6) Hematuria Status: Acute (7) Delirium Status: Acute WESLY HAAS MD Feb 07, 2022 13:03
[2022-02-27] MEDS ORDERED: RIVAROXABAN 20 MG TABLET (XARELTO) PO SCH (07:00)
== END 2022-02-07 12:46 | DRG 571 ==
LOC: EDUNIT# 14:25 → ER 14:26 → ICU 17:19 → 4TH 02-01 14:03
PROVIDERS: ADMIT Internal Medicine; ATTEND Family Medicine
PROC: 0JB70ZZ Excision of Back Subcutaneous Tissue and Fascia, Open Approach (ICD-10-PCS; principal; 2022-01-31 11:49)
DX: L89.154 Pressure ulcer of sacral region, stage 4 (principal); I82.412 Acute embolism and thrombosis of left femoral vein; I82.492 Acute embolism and thrombosis of other specified deep vein of left lower extremity; S37.39XA Other injury of urethra, initial encounter; Z68.41 Body mass index [BMI] 40.0-44.9, adult; R45.88 Nonsuicidal self-harm; R31.9 Hematuria, unspecified; E66.01 Morbid (severe) obesity due to excess calories; I11.0 Hypertensive heart disease with heart failure; I50.9 Heart failure, unspecified; I25.10 Atherosclerotic heart disease of native coronary artery without angina pectoris; E78.00 Pure hypercholesterolemia, unspecified; G47.33 Obstructive sleep apnea (adult) (pediatric); K21.9 Gastro-esophageal reflux disease without esophagitis; M19.91 Primary osteoarthritis, unspecified site; R41.0 Disorientation, unspecified; Z86.16 Personal history of COVID-19; Z79.82 Long term (current) use of aspirin; Z85.46 Personal history of malignant neoplasm of prostate; Z85.118 Personal history of other malignant neoplasm of bronchus and lung; Z90.2 Acquired absence of lung [part of]
CPT/HCPCS: 36415; 72193; 80048; 80053; 80202; 81000; 83735; 85025; 85027; 85049; 85610; 85652; 85730; 86141; 87040; 87081; 94760; 96365; 96375

== ENCOUNTER → 2022-01-30 | Outpatient (CLI) | payer MEDICARE ==
[~2022-01-30] MED LIST changes: +MTP100TCR PO
== END ==
LOC: WOUNDCARE 13:06
PROVIDERS: ATTEND Family Medicine
DX: L89.154 Pressure ulcer of sacral region, stage 4 (principal); L02.212 Cutaneous abscess of back [any part, except buttock and flank]; E66.01 Morbid (severe) obesity due to excess calories; M62.3 Immobility syndrome (paraplegic); U09.9 Post COVID-19 condition, unspecified; R29.6 Repeated falls
CPT/HCPCS: 87070; 87205; 97597; G0463

== ENCOUNTER → 2022-02-08 | Outpatient (CLI) | payer MEDICARE ==
[~2022-02-08] MED LIST changes: +MTP100TCR PO; +RISP0.5T65 PO; +RIVA1TAB PO; +SODI475I IR
== END ==
LOC: WOUNDCARE 09:30
PROVIDERS: ATTEND Family Medicine
DX: L89.154 Pressure ulcer of sacral region, stage 4 (principal); L02.212 Cutaneous abscess of back [any part, except buttock and flank]; E66.01 Morbid (severe) obesity due to excess calories; M62.3 Immobility syndrome (paraplegic); U09.9 Post COVID-19 condition, unspecified; T45.515A Adverse effect of anticoagulants, initial encounter; E11.622 Type 2 diabetes mellitus with other skin ulcer; I82.409 Acute embolism and thrombosis of unspecified deep veins of unspecified lower extremity; E11.52 Type 2 diabetes mellitus with diabetic peripheral angiopathy with gangrene; R31.0 Gross hematuria; R29.6 Repeated falls
CPT/HCPCS: 11042; 11045; A6260; G0463

== ENCOUNTER → 2022-02-15 | Outpatient (CLI) | payer MEDICARE | LOC: WOUNDCARE 10:01 | PROVIDERS: ATTEND Family Medicine | DX: L89.154 Pressure ulcer of sacral region, stage 4 (principal); E66.01 Morbid (severe) obesity due to excess calories; M62.3 Immobility syndrome (paraplegic); U09.9 Post COVID-19 condition, unspecified; R29.6 Repeated falls; T45.515A Adverse effect of anticoagulants, initial encounter; R31.0 Gross hematuria; E11.622 Type 2 diabetes mellitus with other skin ulcer; I82.409 Acute embolism and thrombosis of unspecified deep veins of unspecified lower extremity; F03.91 Unspecified dementia, unspecified severity, with behavioral disturbance; Z91.19 Patient's noncompliance with other medical treatment and regimen; I96 Gangrene, not elsewhere classified | CPT/HCPCS: 11042; 11045; G0463 ==

== ENCOUNTER → 2022-03-12 | Outpatient (CLI) | payer MEDICARE | LOC: WOUNDCARE 11:05 | PROVIDERS: ATTEND Family Medicine | DX: L89.154 Pressure ulcer of sacral region, stage 4 (principal); E66.01 Morbid (severe) obesity due to excess calories; M62.3 Immobility syndrome (paraplegic); U09.9 Post COVID-19 condition, unspecified; E11.622 Type 2 diabetes mellitus with other skin ulcer; I82.409 Acute embolism and thrombosis of unspecified deep veins of unspecified lower extremity; F03.90 Unspecified dementia, unspecified severity, without behavioral disturbance, psychotic disturbance, mood disturbance, and anxiety; E11.52 Type 2 diabetes mellitus with diabetic peripheral angiopathy with gangrene; R29.6 Repeated falls; Z91.19 Patient's noncompliance with other medical treatment and regimen | CPT/HCPCS: 11042; 87070; 87205; G0463; 87077 ==

== ENCOUNTER → 2022-03-19 | Outpatient (CLI) | payer MEDICARE | LOC: WOUNDCARE 09:59 | PROVIDERS: ATTEND Family Medicine | DX: L89.154 Pressure ulcer of sacral region, stage 4 (principal); E66.01 Morbid (severe) obesity due to excess calories; M62.3 Immobility syndrome (paraplegic); U09.9 Post COVID-19 condition, unspecified; E11.622 Type 2 diabetes mellitus with other skin ulcer; I82.409 Acute embolism and thrombosis of unspecified deep veins of unspecified lower extremity; F03.90 Unspecified dementia, unspecified severity, without behavioral disturbance, psychotic disturbance, mood disturbance, and anxiety; E11.52 Type 2 diabetes mellitus with diabetic peripheral angiopathy with gangrene; R29.6 Repeated falls; Z91.19 Patient's noncompliance with other medical treatment and regimen | CPT/HCPCS: 11042; A6212; G0463 ==

== ENCOUNTER → 2022-03-21 | Outpatient (CLI) | payer MEDICARE ==
[~2022-03-21] MED LIST changes: +GADOTERATE 0.5 MMOL/ML (CLARISCAN) 20 ML VIAL IV ONE
--- NOTE | 2022-03-21 12:05 | Diagnostic Imaging Report ---
PROCEDURE: MRI pelvis without contrast. TECHNIQUE: Multiplanar, multisequence MRI of the pelvis was performed without contrast. Date: March 21, 2022. Indication: 76-year-old male, ulcer in the region of the sacrum and coccyx. Evaluation for osteomyelitis. Pain. Comparison: CT pelvis 01/30/2022. Findings: The patient refused contrast administration and was not able to complete the entire exam protocol. There is a skin defect posteriorly to the left of midline at the level of the sacrum. There is abnormal low signal in the underlying subcutaneous tissues likely reflecting ulcer in the areas of gas. There is adjacent abnormal signal in the soft tissues. There is no discretely identified focal fluid collection or abscess on noncontrast imaging. There is no T1 marrow signal loss or bone destruction specifically in the region of the soft tissue ulcer. There is some low T1 signal and edema in the second coccygeal segment without identified adjacent soft tissue abnormality. There is no clearly identified fracture line. There is nonspecific edema in the presacral space. There is a Diggs catheter in the urinary bladder. There is edema in the bilateral iliacus muscles. There are degenerative changes of the lumbar spine. Impression: 1. Skin defect posteriorly and to the left of midline at the level of the sacrum without identified underlying focal fluid collection or abscess on noncontrast evaluation. 2. No evidence of osteomyelitis at the level of the soft tissue ulcer. 3. Abnormal signal at the level of the second coccygeal segment which is nonspecific. This potentially could reflect a bone contusion. Osteomyelitis is difficult to exclude but there is no adjacent identified soft tissue abnormality. 4. Nonspecific fluid in the presacral space. Dictated by: Dictated on workstation # [id number]
== END ==
LOC: RAD 09:18
PROVIDERS: ATTEND Family Medicine
DX: L89.154 Pressure ulcer of sacral region, stage 4 (principal); E66.01 Morbid (severe) obesity due to excess calories; M62.3 Immobility syndrome (paraplegic); U09.9 Post COVID-19 condition, unspecified; E11.622 Type 2 diabetes mellitus with other skin ulcer; I82.409 Acute embolism and thrombosis of unspecified deep veins of unspecified lower extremity; F03.91 Unspecified dementia, unspecified severity, with behavioral disturbance; E44.0 Moderate protein-calorie malnutrition; R29.6 Repeated falls; Z91.19 Patient's noncompliance with other medical treatment and regimen
CPT/HCPCS: 72195

== ENCOUNTER → 2022-03-26 | Outpatient (CLI) | payer MEDICARE ==
[~2022-03-26] MED LIST changes: -GADOTERATE 0.5 MMOL/ML (CLARISCAN) 20 ML VIAL IV ONE
== END ==
LOC: WOUNDCARE 09:56
PROVIDERS: ATTEND Family Medicine
DX: L89.154 Pressure ulcer of sacral region, stage 4 (principal); E66.01 Morbid (severe) obesity due to excess calories; E11.622 Type 2 diabetes mellitus with other skin ulcer; M62.3 Immobility syndrome (paraplegic); U09.9 Post COVID-19 condition, unspecified; R29.6 Repeated falls; I82.409 Acute embolism and thrombosis of unspecified deep veins of unspecified lower extremity; F03.90 Unspecified dementia, unspecified severity, without behavioral disturbance, psychotic disturbance, mood disturbance, and anxiety; Z91.19 Patient's noncompliance with other medical treatment and regimen; E44.0 Moderate protein-calorie malnutrition; E11.52 Type 2 diabetes mellitus with diabetic peripheral angiopathy with gangrene; I96 Gangrene, not elsewhere classified
CPT/HCPCS: 11042; A6212; G0463

== ENCOUNTER → 2022-04-02 | Outpatient (CLI) | payer MEDICARE | LOC: WOUNDCARE 09:55 | PROVIDERS: ATTEND Family Medicine | DX: L89.154 Pressure ulcer of sacral region, stage 4 (principal); E66.01 Morbid (severe) obesity due to excess calories; M62.3 Immobility syndrome (paraplegic); U09.9 Post COVID-19 condition, unspecified; R29.6 Repeated falls; E11.622 Type 2 diabetes mellitus with other skin ulcer; I82.409 Acute embolism and thrombosis of unspecified deep veins of unspecified lower extremity; F03.918 Unspecified dementia, unspecified severity, with other behavioral disturbance; Z91.198 Patient's noncompliance with other medical treatment and regimen for other reason; E44.0 Moderate protein-calorie malnutrition; E11.52 Type 2 diabetes mellitus with diabetic peripheral angiopathy with gangrene | CPT/HCPCS: 11042 ==

== ENCOUNTER → 2022-04-09 | Outpatient (CLI) | payer MEDICARE | LOC: WOUNDCARE 09:55 | PROVIDERS: ATTEND Family Medicine | DX: I96 Gangrene, not elsewhere classified (principal); L89.154 Pressure ulcer of sacral region, stage 4; E66.01 Morbid (severe) obesity due to excess calories; M62.3 Immobility syndrome (paraplegic); E11.622 Type 2 diabetes mellitus with other skin ulcer; E11.52 Type 2 diabetes mellitus with diabetic peripheral angiopathy with gangrene; I82.409 Acute embolism and thrombosis of unspecified deep veins of unspecified lower extremity; F03.918 Unspecified dementia, unspecified severity, with other behavioral disturbance; E44.0 Moderate protein-calorie malnutrition; U09.9 Post COVID-19 condition, unspecified; R29.6 Repeated falls; Z68.42 Body mass index [BMI] 45.0-49.9, adult; Z91.199 Patient's noncompliance with other medical treatment and regimen due to unspecified reason | CPT/HCPCS: 11042; A6212; G0463 ==

== ENCOUNTER → 2022-04-18 | Outpatient (CLI) | payer MEDICARE | LOC: WOUNDCARE 10:03 | PROVIDERS: ATTEND Family Medicine | DX: I96 Gangrene, not elsewhere classified (principal); L89.154 Pressure ulcer of sacral region, stage 4; M62.3 Immobility syndrome (paraplegic); E66.01 Morbid (severe) obesity due to excess calories; E11.622 Type 2 diabetes mellitus with other skin ulcer; E11.52 Type 2 diabetes mellitus with diabetic peripheral angiopathy with gangrene; I82.409 Acute embolism and thrombosis of unspecified deep veins of unspecified lower extremity; F03.918 Unspecified dementia, unspecified severity, with other behavioral disturbance; Z91.199 Patient's noncompliance with other medical treatment and regimen due to unspecified reason; E44.0 Moderate protein-calorie malnutrition; U09.9 Post COVID-19 condition, unspecified; R29.6 Repeated falls; Z68.42 Body mass index [BMI] 45.0-49.9, adult | CPT/HCPCS: 11042; A6212; G0463 ==

== ENCOUNTER → 2022-04-24 | Outpatient (CLI) | payer MEDICARE | LOC: WOUNDCARE 09:29 | PROVIDERS: ATTEND Family Medicine | DX: I96 Gangrene, not elsewhere classified (principal); L89.154 Pressure ulcer of sacral region, stage 4; E66.01 Morbid (severe) obesity due to excess calories; M62.3 Immobility syndrome (paraplegic); E11.622 Type 2 diabetes mellitus with other skin ulcer; E11.52 Type 2 diabetes mellitus with diabetic peripheral angiopathy with gangrene; F03.918 Unspecified dementia, unspecified severity, with other behavioral disturbance; E44.0 Moderate protein-calorie malnutrition; U09.9 Post COVID-19 condition, unspecified; R29.6 Repeated falls; Z68.42 Body mass index [BMI] 45.0-49.9, adult; Z91.199 Patient's noncompliance with other medical treatment and regimen due to unspecified reason | CPT/HCPCS: 11042; A6212; G0463 ==

== ENCOUNTER → 2022-04-30 | Outpatient (CLI) | payer MEDICARE | LOC: WOUNDCARE 09:55 | PROVIDERS: ATTEND Family Medicine | DX: L89.154 Pressure ulcer of sacral region, stage 4 (principal); E66.01 Morbid (severe) obesity due to excess calories; U09.9 Post COVID-19 condition, unspecified; M62.3 Immobility syndrome (paraplegic); E11.622 Type 2 diabetes mellitus with other skin ulcer; R29.6 Repeated falls; F03.911 Unspecified dementia, unspecified severity, with agitation; E44.0 Moderate protein-calorie malnutrition; E11.52 Type 2 diabetes mellitus with diabetic peripheral angiopathy with gangrene; I96 Gangrene, not elsewhere classified | CPT/HCPCS: 11042; G0463 ==

== ENCOUNTER → 2022-05-07 | Outpatient (CLI) | payer MEDICARE | LOC: WOUNDCARE 09:58 | PROVIDERS: ATTEND Family Medicine | DX: L89.154 Pressure ulcer of sacral region, stage 4 (principal); E66.01 Morbid (severe) obesity due to excess calories; M62.3 Immobility syndrome (paraplegic); U09.9 Post COVID-19 condition, unspecified; E11.622 Type 2 diabetes mellitus with other skin ulcer; F03.90 Unspecified dementia, unspecified severity, without behavioral disturbance, psychotic disturbance, mood disturbance, and anxiety; E44.0 Moderate protein-calorie malnutrition; E11.52 Type 2 diabetes mellitus with diabetic peripheral angiopathy with gangrene; R29.6 Repeated falls; Z91.199 Patient's noncompliance with other medical treatment and regimen due to unspecified reason | CPT/HCPCS: 11042; 87070; 87077; 87205; A6212; G0463 ==

== ENCOUNTER → 2022-05-15 | Outpatient (CLI) | payer MEDICARE | LOC: WOUNDCARE 09:30 | PROVIDERS: ATTEND Family Medicine | DX: I96 Gangrene, not elsewhere classified (principal); L89.146 Pressure-induced deep tissue damage of left lower back; M62.3 Immobility syndrome (paraplegic); E66.01 Morbid (severe) obesity due to excess calories; U09.9 Post COVID-19 condition, unspecified; R29.6 Repeated falls; E11.622 Type 2 diabetes mellitus with other skin ulcer; F03.918 Unspecified dementia, unspecified severity, with other behavioral disturbance; E44.0 Moderate protein-calorie malnutrition; Z91.14 Patient's other noncompliance with medication regimen; Z68.42 Body mass index [BMI] 45.0-49.9, adult | CPT/HCPCS: A6212; G0463; 99213 ==

== ENCOUNTER 2022-05-31 16:06 | Emergency (ER) | payer MEDICARE ==
[~2022-05-31] VITALS: Ht 180.3 cm; Wt 142.8 kg
--- NOTE | 2022-05-31 16:23 | ED Neurological Problem ---
General Chief Complaint: Neurological Problems Stated Complaint: WEAKNESS Nursing Triage Note: PT BROUGHT IN BY [facility] FROM HOME WITH COMPLAINT OF INCREASING CONFUSION AND WEAKNESS. STATES HAS HAD THESE SYMPTOMS SINCE HAVING COVID IN DECEMBER. PT DENIES COMPLAINTS. Source: patient, other (ED nurse who got report from EMS) History of Present Illness Date Seen by Provider: May 31, 2022 Time Seen by Provider: 16:18 Initial Comments Patient is a 76-year-old male who arrives to the emergency department by ambulance from home with a chief complaint of feeling dizzy. Patient states he has periods where he gets a little bit dizzy, he cannot really describe what causes the dizziness. He is not currently dizzy. He is alert to self and location. He lives at home with his . He states that he is ambulatory at home with a walker. He denies any complaints of chest pain or shortness of breath. No abdominal pain, nausea. No problems with urination, he does wear depends. No abnormal swelling in his legs. He states his appetite is okay. No current headache, no unilateral weakness numbness or tingling. He denies earache runny nose sore throat. He states that with his who decided he needed to come to the hospital. Patient is a morbidly obese gentleman, no diabetes. On arrival vital signs are stable, oxygen on room air is 96%. Timing/Duration: other (unknown) Associated Symptoms: other (Dizziness) Allergies and Home Medications Allergies Coded Allergies: No Known Drug Allergies (Unverified , 04/10/15) Patient Home Medication List Home Medication List Reviewed: Yes Atorvastatin Calcium (Atorvastatin Calcium) 20 Mg Tablet, 20 MG PO HS, (Reported) Entered as Reported by: MARIELENA FERNANDEZ on 04/10/15 1105 Famotidine (Famotidine) 40 Mg Tablet, 40 MG PO DAILY, (Reported) Entered as Reported by: MATEUSZ BISHOP on 12/26/21 0819 Gabapentin (Gabapentin) 100 Mg Capsule, 200 MG PO HS, (Reported) Entered as Reported by: MATEUSZ BISHOP on 12/26/21 0819 Metoprolol Succinate (Metoprolol Succinate) 100 Mg Tab.er.24h, 100 MG PO DAILY, (Reported) Entered as Reported by: JHONY HOWELL on 02/01/22 0957 Montelukast Sodium (Montelukast Sodium) 10 Mg Tablet, 10 MG PO DAILY, (Reported) Entered as Reported by: MATEUSZ BISHOP on 12/26/21818 Oxybutynin Chloride (Oxybutynin Chloride ER) 5 Mg Tab.er.24, 5 MG PO DAILY, (Reported) Entered as Reported by: MATEUSZ BISHOP on 12/26/21818 Pramipexole Di-HCl (Mirapex) 1 Mg Tablet, 1 MG PO HS, (Reported) Entered as Reported by: MATEUSZ BISHOP on 12/26/21818 Risperidone (Risperidone) 0.5 Mg Tablet, 0.5 MG PO BID Prescribed by: WESLY HAAS on 02/06/22 110 Rivaroxaban (Xarelto Starter Pack) 15 Mg (42)- 20 Mg (9) Tab.ds.pk, 1 EACH PO UD Prescribed by: WESLY HAAS on 02/06/221102 Sodium Chlor/Hypochlorous Acid (Vashe Wound Therapy Solution) 0.033 % Irrig.soln, 1 ML IR UD Prescribed by: WESLY HAAS on 02/06/221102 Tamsulosin HCl (Flomax) 0.4 Mg Cap, 0.4 MG PO DAILY, (Reported) Entered as Reported by: MATEUSZ BISHOP on 12/26/21818 Review of Systems Review of Systems Constitutional: see HPI, dizziness Ears, Nose, Mouth, Throat: no symptoms reported Respiratory: no symptoms reported Cardiovascular: no symptoms reported Gastrointestinal: no symptoms reported Genitourinary: no symptoms reported Musculoskeletal: no symptoms reported Skin: no symptoms reported Psychiatric/Neurological: Other (Dizziness) All Other Systems Reviewed Negative Unless Noted: Yes Past Cdvwbeg-Qrotxs-Qtcsyx Hx Patient Social History Tobacco Use?: No Use of E-Cig and/or Vaping dev: No Substance use?: No Alcohol Use?: No Pt feels they are or have been: No Immunizations Up To Date First/Initial COVID19 Vaccinat: 2019 Second COVID19 Vaccination Reymundo: 2019 Third COVID19 Vaccination Date: 2019 Seasonal Allergies Seasonal Allergies: No Past Medical History Surgery/Hospitalization HX: poor historian HTN, HLD, CAD AMLODIPINE Surgeries: Yes Adenoidectomy, Cardiac, Lobectomy, Orthopedic, Tonsillectomy Respiratory: Yes (CHRONIC DYSPNEA; CARCINOID TUMOR OF LUNG) Sleep Apnea Currently Using CPAP: No Currently Using BIPAP: No Cardiac: Yes (CHF; CAROTID DISEASE) Chronic Edema/Swelling, Coronary Artery Disease, High Cholesterol, Hypertension Neurological: Yes (SUSPECTED DEMENTIA-HAS BEEN PRESCRIBED ARICEPT IN PAST) Reproductive Disorders: No Sexually Transmitted Disease: No HIV/AIDS: No Genitourinary: Yes (PROSTATE CANCERP;CKD) Kidney Stones Gastrointestinal: Yes (POSSIBLE ABDI) Gastroesophageal Reflux, Liver Disease/Jaundice Musculoskeletal: Yes Arthritis Endocrine: Yes (MORBID OBESITY. ) Loss of Vision: Denies Hearing Impairment: Denies Cancer: Yes Prostate, Lung Did You Recieve Any Treatments: Yes What Type of Treatment Did You: Surgical Intervention Psychosocial: No Integumentary: No Blood Disorders: No Family Medical History Arthritis Hypertension No Pertinent Family Hx SOCIAL HISTORY: -DENIES SMOKING -DENIES DRUG USE -HISTORY OF ETOH, CLAIMS NO RECENT USE, PER PT 01/13/22 PAST SURGICAL HISTORY: -BILATERAL KNEE REPLACEMENT -VATS ASSISTED LEFT UPPER LOBE RESECTION FOR CARCINOID TUMOR 08/2015 -RADIATION SEED IMPLANTS FOR PROSTATE CANCER 2016 -EGD/COLONOSCOPIES -CARDIAC CATH 12/26/[address] CANCINO: CONCLUSIONS: 1. Coronary artery disease primarily consisting of mid vessel occlusion of the right coronary with collateralization of the distal right coronary by the left anterior descending artery. There is diffuse moderate disease of the left coronary system. The first diagonal branch of left anterior descending artery is of a small caliber and has approximately 70% ostial and proximal stenosis. 2. Normal left ventricular end-diastolic pressure. 3. Normal global left ventricular systolic function with ejection fraction approximately 60%. DISCUSSION AND RECOMMENDATIONS: Based on results of the study, it appears appropriate to continue a conservative approach at this time. Continuing outpatient followup is advised. Physical Exam Vital Signs Vital Signs - First Documented 05/31/22 16:07 Temp 35.3 Pulse 66 Resp 17 B/P (MAP) 148/85 (106) Pulse Ox 96 O2 Delivery Room Air Capillary Refill : Less Than 3 Seconds Height, Weight, BMI Height: 5'11.00" Weight: 310lbs. 0.0oz. 140.036153kr; 43.00 BMI Method: General Appearance: WD/WN, no apparent distress HEENT: PERRL/EOMI (2mm bilaterally equal) Neck: normal inspection Respiratory: lungs clear, normal breath sounds, no respiratory distress, no accessory muscle use, other (96% on RA) Cardiovascular: regular rate, rhythm Peripheral Pulses: 1+ Radial Pulses (R), 1+ Radial Pulses (L) Gastrointestinal: normal bowel sounds, non tender, soft, other (morbid obesity) Genital/Rectal: other (large amount of soft brown stool in Depends. ) Extremities: normal inspection, no pedal edema Neurologic/Psychiatric: no motor/sensory deficits, alert, normal mood/affect Crainal Nerves: normal hearing, normal speech, PERRL Motor/Sensory: no motor deficit, no sensory deficit Skin: normal color, warm/dry, other (healed decubitus ulcer at sacrum; ulcers (small 1-2cm) noted on scrotum (right side); superficial ulceration with scab around rectum. no bleeding or suggestion of cellulitic change) Progress/Results/Core Measures Results/Orders Lab Results Laboratory Tests Test 05/31/22 16:11 Range/Units White Blood Count 8.9 4.3-11.0 10^3/uL Red Blood Count 4.91 4.30-5.52 10^6/uL Hemoglobin 15.1 13.3-17.7 g/dL Hematocrit 46 40-54 % Mean Corpuscular Volume 93 80-99 fL Mean Corpuscular Hemoglobin 31 25-34 pg Mean Corpuscular Hemoglobin Concent 33 32-36 g/dL Red Cell Distribution Width 13.6 10.0-14.5 % Platelet Count 315 130-400 10^3/uL Mean Platelet Volume 9.5 9.0-12.2 fL Immature Granulocyte % (Auto) 0 % Neutrophils (%) (Auto) 75 42-75 % Lymphocytes (%) (Auto) 12 12-44 % Monocytes (%) (Auto) 10 0-12 % Eosinophils (%) (Auto) 2 0-10 % Basophils (%) (Auto) 1 0-10 % Neutrophils # (Auto) 6.7 1.8-7.8 10^3/uL Lymphocytes # (Auto) 1.1 1.0-4.0 10^3/uL Monocytes # (Auto) 0.9 0.0-1.0 10^3/uL Eosinophils # (Auto) 0.2 0.0-0.3 10^3/uL Basophils # (Auto) 0.0 0.0-0.1 10^3/uL Immature Granulocyte # (Auto) 0.0 0.0-0.1 10^3/uL Sodium Level 141 135-145 MMOL/L Potassium Level 3.6 3.6-5.0 MMOL/L Chloride Level 108 H 98-107 MMOL/L Carbon Dioxide Level 24 21-32 MMOL/L Anion Gap 9 5-14 MMOL/L Blood Urea Nitrogen 16 7-18 MG/DL Creatinine 1.12 0.60-1.30 MG/DL Estimat Glomerular Filtration Rate 67 BUN/Creatinine Ratio 14 Glucose Level 85 70-105 MG/DL Calcium Level 9.5 8.5-10.1 MG/DL My Orders Orders - NANCY CRUZ MD Ed Iv/Invasive Line Start (05/31/22 16:33) Cbc With Automated Diff (05/31/22 16:33) Basic Metabolic Panel (05/31/22 16:33) Vital Signs/I&O 05/31/22 16:07 Temp 35.3 Pulse 66 Resp 17 B/P (MAP) 148/85 (106) Pulse Ox 96 O2 Delivery Room Air Blood Pressure Mean: 106 Progress Progress Note : Time: 17:03 Progress Note Patient seen and examined, 76-year-old with a history of "dizziness". He cannot really elaborate or describe the dizziness what precipitates or worsens it. Neurologic exam shows no focal deficits. He has no nystagmus. He is not currently dizzy. Chronically ill with poor mobility. Stable vital signs. Basic laboratory studies, CBC and chemistry obtained, reviewed and all within normal limits. Patient has no criteria that meets inpatient admission. He has really no other focal complaints and is alert and oriented to self and situation. The rest of his physical exam is benign. He looks well-hydrated. His abdomen is soft, his lungs are clear. He has met medical screening criteria and is safe to be discharged home. Departure Impression Primary Impression: History of dizziness Additional Impression: General medical exam Disposition: 01 HOME, SELF-CARE Condition: Stable Departure-Patient Inst. Decision time for Depature: 17:06 Referrals: NO,LOCAL PHYSICIAN (PCP/Family) Primary Care Physician Patient Instructions: Dizziness, Adult ED Add. Discharge Instructions: Drink plenty of fluids to stay well-hydrated. Continue your daily medications prescribed by your primary care provider. Please call your primary care provider's office in the morning for a follow-up appointment next week. If you develop any new, concerning or emergent complaints please come back to the emergency room for reevaluation. NANCY CRUZ MD May 31, 2022 16:23
[2022-05-31 16:44] LABS: BASOPHILS % (AUTO) 1 % (0-10); EOSINOPHILS # (AUTO) 0.2 10^3/uL (0.0-0.3); EOSINOPHILS % (AUTO) 2 % (0-10); HEMATOCRIT 46 % (40-54); HEMOGLOBIN 15.1 g/dL (13.3-17.7); LYMPHOCYTES # (AUTO) 1.1 10^3/uL (1.0-4.0); LYMPHOCYTES % (AUTO) 12 % (12-44); MEAN CORPUSCULAR HEMOGLOBIN 31 pg (25-34); MEAN CORPUSCULAR HGB CONC 33 g/dL (32-36); MEAN CORPUSCULAR VOLUME 93 fL (80-99); MEAN PLATELET VOLUME 9.5 fL (9.0-12.2); MONOCYTES # (AUTO) 0.9 10^3/uL (0.0-1.0); MONOCYTES % (AUTO) 10 % (0-12); NEUTROPHILS # (AUTO) 6.7 10^3/uL (1.8-7.8); NEUTROPHILS % (AUTO) 75 % (42-75); PLATELET COUNT 315 10^3/uL (130-400); WHITE BLOOD COUNT 8.9 10^3/uL (4.3-11.0)
[2022-05-31 16:49] LABS: POTASSIUM 3.6 MMOL/L (3.6-5.0)
[2022-05-31 16:50] LABS: CALCIUM 9.5 MG/DL (8.5-10.1)
[2022-05-31 16:55] LABS: CREATININE SERUM 1.12 MG/DL (0.60-1.30)
[2022-05-31 19:16] VITALS: BP 138/73
== END 2022-05-31 19:16 | disposition home or self-care (01) ==
LOC: EDUNIT# 16:06 → ER 16:07
DX: Z86.69 Personal history of other diseases of the nervous system and sense organs (principal); Z00.8 Encounter for other general examination
CPT/HCPCS: 36415; 80048; 85025; 99283

== ENCOUNTER 2022-10-07 22:36 | Inpatient (IN) | payer MEDICARE ==
[~2022-10-07] VITALS: Ht 180 cm; Wt 116.0 kg
[~2022-10-07 22:36] MED LIST changes: -POTA10CA43 PO; +POTA10CA44 PO
--- NOTE | 2022-10-07 22:55 | ED Neurological Problem ---
General Chief Complaint: Neurological Problems Stated Complaint: AMS/WEAKNESS Nursing Triage Note: pt brought in by EMS. family called EMS when pt became letharigic, AMS, weak, and began throwing up coffee-ground emesis this evening. per EMS, pt has bed sores on back. pt reports abdominal pain and tenderness. Source: EMS, RN notes reviewed Exam Limitations: clinical condition History of Present Illness Date Seen by Provider: Oct 07, 2022 Time Seen by Provider: 23:00 Initial Comments Patient is a 77-year-old male brought by EMS from home reportedly with altered m ental status generalized weakness and reportedly throwing up "black". Family is not immediately available for further history. Patient cannot really give an accurate HPI, review of systems or any further history due to clinical condition. Patient complains of pain at his buttocks. He appears significantly dehydrated with very dry oral mucosa, quite tachycardic in the 130s, normal systolic blood pressure 118. Oxygen supplementation at 2 L 98%. No increased work of breathing or respiratory distress. Abdomen is soft mildly tender to palpation. Is alert to location and his name. 0533 further history from a son who does not live in the home, he came to visit and was helping his mother change his father's "depends" this evening, noted the large necrotic wound and called EMS. Son states that his father has been generally declining over the last few months and has not been at all ambulatory in the last 2 weeks. is the one who "takes care" of him. Has been complaining at home that his legs "don't work". Unsure when he was at the doctor last. Per review of [facility] history last had wound care visit with Dr Sears in May for sacral decubitus ulcer. Timing/Duration: unknown Severity: severe Associated Symptoms: other (abdominal pain) Allergies and Home Medications Allergies Coded Allergies: No Known Drug Allergies (Unverified , 04/10/15) Patient Home Medication List Home Medication List Reviewed: Yes Atorvastatin Calcium (Atorvastatin Calcium) 20 Mg Tablet, 20 MG PO HS, (Reported) Entered as Reported by: MARIELENA FERNANDEZ on 04/10/15 1105 Famotidine (Famotidine) 40 Mg Tablet, 40 MG PO DAILY, (Reported) Entered as Reported by: MATEUSZ BISHOP on 12/26/21 0819 Gabapentin (Gabapentin) 100 Mg Capsule, 200 MG PO HS, (Reported) Entered as Reported by: MATEUSZ BISHOP on 12/26/21818 Metoprolol Succinate (Metoprolol Succinate) 100 Mg Tab.er.24h, 100 MG PO DAILY, (Reported) Entered as Reported by: JHONY HOWELL on 02/01/22956 Montelukast Sodium (Montelukast Sodium) 10 Mg Tablet, 10 MG PO DAILY, (Reported) Entered as Reported by: MATEUSZ BISHOP on 12/26/21818 Oxybutynin Chloride (Oxybutynin Chloride ER) 5 Mg Tab.er.24, 5 MG PO DAILY, (Reported) Entered as Reported by: MATEUSZ BISHOP on 12/26/21818 Pramipexole Di-HCl (Mirapex) 1 Mg Tablet, 1 MG PO HS, (Reported) Entered as Reported by: MATEUSZ BISHOP on 12/26/21818 Risperidone (Risperidone) 0.5 Mg Tablet, 0.5 MG PO BID Prescribed by: WESLY HAAS on 02/06/22 110 Rivaroxaban (Xarelto Starter Pack) 15 Mg (42)- 20 Mg (9) Tab.ds.pk, 1 EACH PO UD Prescribed by: WESLY HAAS on 02/06/22 110 Sodium Chlor/Hypochlorous Acid (Vashe Wound Therapy Solution) 0.033 % Irrig.soln, 1 ML IR UD Prescribed by: WESLY HAAS on 02/06/22 110 Tamsulosin HCl (Flomax) 0.4 Mg Cap, 0.4 MG PO DAILY, (Reported) Entered as Reported by: MATEUSZ BISHOP on 12/26/21818 Review of Systems Review of Systems Constitutional: see HPI Unable to obtain secondary to patient's clinical condition Past Dqvoldt-Unipgf-Fvslzn Hx Patient Social History Tobacco Use?: No Substance use?: No Alcohol Use?: No Pt feels they are or have been: No Immunizations Up To Date Influenza Vaccine Up-to-Date: Yes; Up-to-Date First/Initial COVID19 Vaccinat: 2019 Second COVID19 Vaccination Reymundo: 2019 Third COVID19 Vaccination Date: 2019 Seasonal Allergies Seasonal Allergies: No Past Medical History Surgery/Hospitalization HX: poor historian HTN, HLD, CAD AMLODIPINE Surgeries: Yes Adenoidectomy, Cardiac, Lobectomy, Orthopedic, Tonsillectomy Respiratory: Yes (CHRONIC DYSPNEA; CARCINOID TUMOR OF LUNG) Sleep Apnea Currently Using CPAP: No Currently Using BIPAP: No Cardiac: Yes (CHF; CAROTID DISEASE) Chronic Edema/Swelling, Coronary Artery Disease, High Cholesterol, Hypertension Neurological: Yes (SUSPECTED DEMENTIA-HAS BEEN PRESCRIBED ARICEPT IN PAST) Reproductive Disorders: No Sexually Transmitted Disease: No HIV/AIDS: No Genitourinary: Yes (PROSTATE CANCERP;CKD) Kidney Stones Gastrointestinal: Yes (POSSIBLE ABDI) Gastroesophageal Reflux, Liver Disease/Jaundice Musculoskeletal: Yes Arthritis Endocrine: Yes (MORBID OBESITY. ) Loss of Vision: Denies Hearing Impairment: Denies Cancer: Yes Prostate, Lung Did You Recieve Any Treatments: Yes What Type of Treatment Did You: Surgical Intervention Psychosocial: No Integumentary: No Blood Disorders: No Family Medical History Arthritis Hypertension No Pertinent Family Hx SOCIAL HISTORY: -DENIES SMOKING -DENIES DRUG USE -HISTORY OF ETOH, CLAIMS NO RECENT USE, PER PT 01/13/22 PAST SURGICAL HISTORY: -BILATERAL KNEE REPLACEMENT -VATS ASSISTED LEFT UPPER LOBE RESECTION FOR CARCINOID TUMOR 08/2015 -RADIATION SEED IMPLANTS FOR PROSTATE CANCER 2016 -EGD/COLONOSCOPIES -CARDIAC CATH 12/26/[address] CANCINO: CONCLUSIONS: 1. Coronary artery disease primarily consisting of mid vessel occlusion of the right coronary with collateralization of the distal right coronary by the left anterior descending artery. There is diffuse moderate disease of the left coronary system. The first diagonal branch of left anterior descending artery is of a small caliber and has approximately 70% ostial and proximal stenosis. 2. Normal left ventricular end-diastolic pressure. 3. Normal global left ventricular systolic function with ejection fraction approximately 60%. DISCUSSION AND RECOMMENDATIONS: Based on results of the study, it appears appropriate to continue a conservative approach at this time. Continuing outpatient followup is advised. Physical Exam Vital Signs Vital Signs - First Documented 10/07/22 22:43 Temp 35.9 Pulse 137 Resp 24 B/P (MAP) 119/83 (95) Pulse Ox 98 O2 Delivery Nasal Cannula O2 Flow Rate 2.00 Capillary Refill : Less Than 3 Seconds Height, Weight, BMI Height: 5'11.00" Weight: 310lbs. 0.0oz. [id number]; 41.00 BMI Method: General Appearance: WD/WN, no apparent distress HEENT: pale conjunctivae (R), pale conjunctivae (L), other (VERY dry oral mucosa; what appears to be scant dried blood around right lateral lower lip - no intraoral lesions or blood.) Neck: full range of motion, supple Respiratory: lungs clear, normal breath sounds, no respiratory distress, no accessory muscle use Cardiovascular: regular rate, rhythm, tachycardia (125) Peripheral Pulses: 1+ Radial Pulses (R), 1+ Radial Pulses (L) Gastrointestinal: soft, tenderness (diffuse mild tenderness without rebound) Back: other (diffuse excoriation to back with denuded skin righ tshoulder blade) Extremities: normal capillary refill (2-3 sec), pedal edema, swelling (left greater than right lower leg) Neurologic/Psychiatric: alert, other (oriented to self and location) Crainal Nerves: normal hearing, PERRL Skin: warm/dry, jaundice (slight jaundiced tint to the skin), pallor, other (large eschar at sacrum with significant surrounding erythema. fould smell from wound. Wound is also cavitary. no active drainage.) Focused Exam Lactate Level 10/08/22 01:02: Lactic Acid Level 4.16*H 10/08/22 03:15: Lactic Acid Level 2.23*H 10/08/22 06:25: Lactic Acid Level 1.51 Lactic Acid Level Laboratory Tests Test 10/07/22 22:45 10/08/22 01:02 10/08/22 03:15 10/08/22 06:25 Lactic Acid Level 4.59 MMOL/L (0.50-2.00) *H 4.16 MMOL/L (0.50-2.00) *H 2.23 MMOL/L (0.50-2.00) *H 1.51 MMOL/L (0.50-2.00) Progress/Results/Core Measures Results/Orders Lab Results Laboratory Tests Test 10/07/22 22:45 10/07/22 23:21 10/07/22 23:38 10/08/22 00:00 Range/Units White Blood Count 14.6 H 4.3-11.0 10^3/uL Red Blood Count 3.90 L 4.30-5.52 10^6/uL Hemoglobin 12.2 L 13.3-17.7 g/dL Hematocrit 36 L 40-54 % Mean Corpuscular Volume 91 80-99 fL Mean Corpuscular Hemoglobin 31 25-34 pg Mean Corpuscular Hemoglobin Concent 34 32-36 g/dL Red Cell Distribution Width 13.2 10.0-14.5 % Platelet Count 401 H 130-400 10^3/uL Mean Platelet Volume 9.5 9.0-12.2 fL Immature Granulocyte % (Auto) 2 % Neutrophils (%) (Auto) 87 H 42-75 % Lymphocytes (%) (Auto) 5 L 12-44 % Monocytes (%) (Auto) 6 0-12 % Eosinophils (%) (Auto) 0 0-10 % Basophils (%) (Auto) 0 0-10 % Neutrophils # (Auto) 12.8 H 1.8-7.8 10^3/uL Lymphocytes # (Auto) 0.7 L 1.0-4.0 10^3/uL Monocytes # (Auto) 0.9 0.0-1.0 10^3/uL Eosinophils # (Auto) 0.0 0.0-0.3 10^3/uL Basophils # (Auto) 0.0 0.0-0.1 10^3/uL Immature Granulocyte # (Auto) 0.2 H 0.0-0.1 10^3/uL Neutrophils % (Manual) 86 % Lymphocytes % (Manual) 5 % Monocytes % (Manual) 5 % Band Neutrophils 4 % Blood Morphology Comment NORMAL Erythrocyte Sedimentation Rate 46 H 0-30 MM/HR Prothrombin Time 24.9 H 12.2-14.7 SEC INR Comment 2.2 H 0.8-1.4 Activated Partial Thromboplast Time 49 H 24-35 SEC Sodium Level 134 L 135-145 MMOL/L Potassium Level 3.5 L 3.6-5.0 MMOL/L Chloride Level 101 98-107 MMOL/L Carbon Dioxide Level 19 L 21-32 MMOL/L Anion Gap 14 5-14 MMOL/L Blood Urea Nitrogen 73 H 7-18 MG/DL Creatinine 1.57 H 0.60-1.30 MG/DL Estimat Glomerular Filtration Rate 45 BUN/Creatinine Ratio 46 Glucose Level 92 70-105 MG/DL Lactic Acid Level 4.59 *H 0.50-2.00 MMOL/L Calcium Level 9.3 8.5-10.1 MG/DL Corrected Calcium 10.6 H 8.5-10.1 MG/DL Total Bilirubin 1.1 H 0.1-1.0 MG/DL Aspartate Amino Transf (AST/SGOT) 56 H 5-34 U/L Alanine Aminotransferase (ALT/SGPT) 46 0-55 U/L Alkaline Phosphatase 163 H 40-136 U/L Total Creatine Kinase 261 H 30-200 U/L C-Reactive Protein High Sensitivity 21.97 H 0.00-0.50 MG/DL Total Protein 5.6 L 6.4-8.2 GM/DL Albumin 2.4 L 3.2-4.5 GM/DL Urine Color YELLOW Urine Clarity CLEAR Urine pH 6.0 5-9 Urine Specific [place] 1.015 L 1.016-1.022 Urine Protein NEGATIVE NEGATIVE Urine Glucose (UA) NEGATIVE NEGATIVE Urine Ketones NEGATIVE NEGATIVE Urine Nitrite NEGATIVE NEGATIVE Urine Bilirubin NEGATIVE NEGATIVE Urine Urobilinogen 2.0 < = 1.0 MG/DL Urine Leukocyte Esterase TRACE H NEGATIVE Urine RBC (Auto) 3+ H NEGATIVE Urine RBC 10-25 H /HPF Urine WBC 0-2 /HPF Urine Crystals PRESENT H /LPF Urine Amorphous Sediment FEW STACIE URATES H /LPF Urine Bacteria TRACE /HPF Urine Casts PRESENT /LPF Urine Hyaline Casts 0-2 H /LPF Urine Mucus NEGATIVE /LPF Urine Other SPERM PRESENT /HPF Urine Culture Indicated NO Influenza Type A (RT-PCR) Not Detected Not Detecte Influenza Type B (RT-PCR) Not Detected Not Detecte SARS-CoV-2 RNA (RT-PCR) Not Detected Not Detecte Blood Gas Puncture Site LEFT RADIAL Blood Gas Patient Temperature 36.0 Arterial Blood pH 7.42 7.37-7.43 Arterial Blood Partial Pressure CO2 35 35-45 MMHG Arterial Blood Partial Pressure O2 54 L 79-93 MMHG Arterial Blood HCO3 23 23-27 MMOL/L Arterial Blood Total CO2 23.6 21.0-31.0 MMOL/L Arterial Blood Oxygen Saturation 89 L 94-100 % Arterial Blood Base Excess -1.4 -2.5-2.5 MMOL/L Jakob Test YES-POS Blood Gas Ventilator Setting NO Blood Gas Inspired Oxygen ROOM AIR Test 10/08/22 01:02 10/08/22 03:15 10/08/22 06:25 Range/Units Lactic Acid Level 4.16 *H 2.23 *H 1.51 0.50-2.00 MMOL/L Total Creatine Kinase 271 H 30-200 U/L Micro Results Microbiology 10/07/22 Gram Stain, Resulted Pending 10/07/22 Wound Culture - Preliminary, Resulted Mixed Bacterial Shania 10/07/22 Blood Culture - Preliminary, Resulted No growth 10/07/22 Blood Culture - Preliminary, Resulted No growth My Orders Orders - NANCY CRUZ MD Lidocaine 2% (Urojet) (Xylocaine Urojet) (10/07/22 23:17) Cbc With Automated Diff (10/07/22 23:22) Comprehensive Metabolic Panel (10/07/22 23:22) Blood Culture (10/07/22 23:22) Sputum Culture (10/07/22 23:22) Urinalysis (10/07/22 23:22) Urine Culture (10/07/22 23:22) Protime With Inr (10/07/22 23:22) Partial Thromboplastin Time (10/07/22 23:22) Chest 1 View, Ap/Pa Only (10/07/22 23:22) Ed Iv/Invasive Line Start (10/07/22 23:22) Ed Iv/Invasive Line Start (10/07/22 23:22) Vital Signs Adult Sepsis Patie Q15M (10/07/22 23:22) O2 (10/07/22 23:22) Remove Rings In Anticipation O (10/07/22 23:22) Lactic Acid Analyzer (10/07/22 23:22) Creatine Kinase (10/07/22 23:22) Catheter(Urinary) Insert & Ass 03,15 (10/07/22 23:22) Wound Culture (10/07/22 23:22) Lidocaine 2% (Urojet) (Xylocaine Urojet) (10/07/22 23:30) Erythrocyte Sedimentation Rate (10/07/22 23:22) Hs C Reactive Protein (10/07/22 23:22) Covid 19 Inhouse Test (10/07/22 23:22) Influenza A And B By Pcr (10/07/22 23:22) Isolation Central Supply Req (10/07/22 23:22) Type And Screen (10/07/22 23:22) Ns Iv 1000 Ml (Sodium Chloride 0.9%) (10/07/22 23:30) Manual Differential (10/07/22 22:45) Vancomycin Injection (Vancomycin Injecti (10/08/22 00:30) Piperacillin Sodium/Tazobactam (Zosyn Vi (10/08/22 00:45) Ns Iv 1000 Ml (Sodium Chloride 0.9%) (10/08/22 01:55) Creatine Kinase (10/08/22 02:06) Pantoprazole Injection (Protonix Injecti (10/08/22 02:30) Ns (Ivpb) (Sodium C... W/Pantoprazole In (10/08/22 02:30) Medications Given in ED Vital Signs/I&O 10/07/22 10/07/22 22:43 22:43 Temp 35.9 Pulse 137 Resp 24 B/P (MAP) 119/83 (95) Pulse Ox 98 94 O2 Delivery Nasal Cannula Room Air O2 Flow Rate 2.00 Blood Pressure Mean: 95 Progress Progress Note : Time: 02:30 Progress Note Patient seen and evaluated by me. Evaluation today includes physical exam and "septic" work-up. CBC, blood cultures, Chem-12, coags, urinalysis, chest x-ray. He also had lactic acid, sed rate, CRP, wound culture. Physical exam pertinent for well-developed well-nourished elderly male in no acute distress. Tachycardic, normotensive. Not hypoxic. Afebrile. Lungs are clear, abdomen is soft mildly tender. Edema 2-3+ in the lower extremities. Left leg appears more edematous than the right. Significant skin findings across the entire back of the torso. Denuded skin over the right shoulder blade approximately 4 x 5 cm, diffuse erythema with large eschar/sacral wound approximately 10 x 14 cm foul smell. No active drainage. Extremely tender to palpation. Differential diagnosis based on history and physical exam, severe sepsis secondary to cellulitis, osteomyelitis of the pelvis, pneumonia, pulmonary embolism. Patient is noted to have active prescriptions for Xarelto and per review of the medical record history of clot in the past. Last visit at this facility in May with relatively normal labs. I documented on my visit with him in May that he is normally conversant and interactive. Labs reviewed, positive leukocytosis on CBC. Chemistry reveals increased renal function consistent with acute kidney injury. Lactic acid greater than 4. Coags consistent with anticoagulation. Hematuria noted on urinalysis without signs of infection. Chest x-ray no obvious infiltrate on independent interpretation by me. Sed rate in the 50s. CRP quite elevated in the 20s. Patient is treated with 30 mils per kilogram IV fluid bolus which calculates out to 4080 mL per patient's body weight. He is also treated with IV vancomycin and Zosyn as well as started on Protonix after an 80 mg bolus. I discussed the case with eICU who recommended surgical consultation regarding reports of hematemesis. Patient remains at this time tachycardic at 125; blood pressure 136/83. Respiratory ra te 31, satting 98% on 2 L. No ICU beds available this morning, will anticipate placement in the ICU around 8:00 in the morning. Diagnostic Imaging Diagonstic Imaging: Xray Plain Films/CT/US/NM/MRI: chest Comments no effusion/infiltrate;? Lymph node prominence left hilum? Departure Communication (Admissions) Time/Spoke to Admitting Phy: 02:[address] Melendez ([facility] Hospitalist) Time/Spoke to Consulting Phy: 02:[address] Dewey Angelo Impression Primary Impression: Severe sepsis Additional Impressions: Cellulitis Qualified Codes: L03.312 - Cellulitis of back [any part except buttock] Sacral decubitus ulcer, stage IV Disposition: ADMITTED INPATIENT Condition: Critical Admissions Decision to Admit Reason: Admit from ER (General) Decision to Admit/Date: Oct 08, 2022 Time/Decision to Admit Time: 02:29 Departure-Patient Inst. Referrals: NO,LOCAL PHYSICIAN (PCP/Family) Primary Care Physician NANCY CRUZ MD Oct 07, 2022 22:55
[2022-10-07] MEDS ORDERED: LIDOCAINE UROJET 2% GEL 10 ML PKG ONE (23:17)
[2022-10-07] MEDS ORDERED: LIDOCAINE UROJET 2% GEL 10 ML PKG TOP ONE (23:30)
[2022-10-07 23:35] LABS: ALBUMIN 2.4 GM/DL (3.2-4.5); BASOPHILS % (AUTO) 0 % (0-10); EOSINOPHILS % (AUTO) 0 % (0-10); HEMATOCRIT 36 % (40-54); HEMOGLOBIN 12.2 g/dL (13.3-17.7); LYMPHOCYTES # (AUTO) 0.7 10^3/uL (1.0-4.0); LYMPHOCYTES % (AUTO) 5 % (12-44); MEAN CORPUSCULAR HEMOGLOBIN 31 pg (25-34); MEAN CORPUSCULAR HGB CONC 34 g/dL (32-36); MEAN CORPUSCULAR VOLUME 91 fL (80-99); MEAN PLATELET VOLUME 9.5 fL (9.0-12.2); MONOCYTES # (AUTO) 0.9 10^3/uL (0.0-1.0); MONOCYTES % (AUTO) 6 % (0-12); NEUTROPHILS # (AUTO) 12.8 10^3/uL (1.8-7.8); NEUTROPHILS % (AUTO) 87 % (42-75); PLATELET COUNT 401 10^3/uL (130-400); WHITE BLOOD COUNT 14.6 10^3/uL (4.3-11.0)
[2022-10-07 23:35] LABS: BILIRUBIN,URINE NEGATIVE (NEGATIVE); CLARITY,URINE CLEAR; COLOR,URINE YELLOW; GLUCOSE, URINE (UA) NEGATIVE (NEGATIVE); KETONES,URINE NEGATIVE (NEGATIVE); LEUKOCYTE ESTERASE ,URINE TRACE (NEGATIVE); NITRITE,URINE NEGATIVE (NEGATIVE); PROTEIN,URINE NEGATIVE (NEGATIVE)
[2022-10-07 23:36] LABS: POTASSIUM 3.5 MMOL/L (3.6-5.0)
[2022-10-07 23:37] LABS: CALCIUM 9.3 MG/DL (8.5-10.1)
[2022-10-07 23:38] LABS: TOTAL PROTEIN 5.6 GM/DL (6.4-8.2)
[2022-10-07] MEDS: NS IV 1000 ML 1,000 ML IV SCH (23:39)
[2022-10-07 23:40] LABS: BILIRUBIN,TOTAL 1.1 MG/DL (0.1-1.0)
[2022-10-07 23:42] LABS: CREATININE SERUM 1.57 MG/DL (0.60-1.30)
[2022-10-07 23:47] LABS: AMORPHOUS SEDIMENT,UR FEW AMOR URATES /LPF; BACTERIA,URINE TRACE /HPF; HYALINE CASTS, URINE 0-2 /LPF; URINE OTHER SPERM PRESENT /HPF; WBC,URINE 0-2 /HPF
[2022-10-07 23:47] LABS: INR 2.2 (0.8-1.4); PROTHROMBIN TIME PATIENT 24.9 SEC (12.2-14.7)
[2022-10-08 00:10] LABS: ERYTHROCYTE SEDIMENTATION RATE 46 MM/HR (0-30)
[2022-10-08 00:25] LABS: BAND NEUTROPHILS 4 %; LYMPHOCYTES % (MANUAL) 5 %; MONOCYTES % (MANUAL) 5 %; NEUTROPHILS % (MANUAL) 86 %; RBC MORPH NORMAL
[2022-10-08] MEDS ORDERED: VANCOMYCIN INJECTION 1,000 MG in NS (IVPB) 250 ML IV ONE (00:30)
[2022-10-08] MEDS ORDERED: PIPERACILLIN SODIUM/TAZOBACTAM 4.5 GM in NS (IVPB) 100 ML IV ONE (00:45)
[2022-10-08] MEDS: NS IV 1000 ML 1,000 ML IV SCH ×4 (00:46→23:43)
[2022-10-08] MEDS ORDERED: NS IV 1000 ML 1,000 ML IV STA (01:55)
[2022-10-08] MEDS ORDERED: PANTOPRAZOLE 40 MG (PROTONIX) VIAL IV ONE (02:30)
[2022-10-08] MEDS ORDERED: PANTOPRAZOLE INJECTION 200 MG in NS (IVPB) 100 ML IV SCH (02:30)
--- NOTE | 2022-10-08 08:15 | Diagnostic Imaging Report ---
INDICATION: Sepsis Portable chest 11:25 PM There are some faint right perihilar infiltrate and/or atelectasis. There is a nodular opacity lateral to the aortic knob that is likely vascular shadow. This is present on previous exam from 10/16/2021. IMPRESSION: Questionable right perihilar infiltrate and/or atelectasis. Dictated by: Dictated on workstation # [id number]
[2022-10-08] MEDS ORDERED: EPINEPHrine 1 MG INJECTION 4 MG in NS (IVPB) 248 ML IV SCH (09:45)
[2022-10-08] MEDS: PIPERACILLIN SODIUM/TAZOBACTAM 4.5 GM in NS (IVPB) 100 ML IV SCH ×2 (09:52→17:34)
[2022-10-08 10:09] VITALS: BP 130/79
[2022-10-08] MEDS: NOREPINEPHRINE 8 MG/250 ML 250 ML IV SCH ×2 (10:21→19:57)
[2022-10-08] MEDS: VASOPRESSIN INJECTION 20 UNIT in NS (IVPB) 100 ML IV SCH ×2 (10:21→21:19)
[2022-10-08] MEDS ORDERED: RT-ALBUTEROL HFA 8.5 GM INHALER IH PRN (10:30)
--- NOTE | 2022-10-08 11:21 | Consultation - Surgery ---
[facility] 10/08/22 1121: History of Present Illness History of Present Illness Patient Consulted On(selena/time) 10/08/22 11:15 Date Seen by Provider: Oct 08, 2022 Time Seen by Provider: 11:15 History of Present Illness This is a 77y M who presented to the ED via EMS from home on 10/07 with AMS, generalized weakness and coffee-ground emesis. EMS noted patient also had sores on his back. At that time patient reported abdominal pain and pain at buttocks. He appeared dehydrated and tachycardic but was alert at that time. Next morning pt's son came to visit and noted pt to be generally declining over the last 2 months, non-ambulatory for 2 weeks. reportedly takes care of pt. Per review, he had debridement of sacral decubitus ulcer with Dr. Fraga 01/2022 and last wound care visit with Dr. Sears in May 2022 for sacral decubitus ulcer. Today pt presents sleeping and does not wake up to provide history, no family is present. Seen by wound care nurse, will be followed by Dr. Sears. Allergies and Home Medications Allergies Coded Allergies: No Known Drug Allergies (Unverified , 04/10/15) Patient Home Medication List Home Medication List Reviewed: Yes Atorvastatin Calcium (Atorvastatin Calcium) 20 Mg Tablet, 20 MG PO HS, (Reported) Entered as Reported by: MARIELENA FERNANDEZ on 04/10/15 1105 Famotidine (Famotidine) 40 Mg Tablet, 40 MG PO DAILY, (Reported) Entered as Reported by: MATEUSZ BISHOP on 12/26/21818 Gabapentin (Gabapentin) 100 Mg Capsule, 200 MG PO HS, (Reported) Entered as Reported by: MATEUSZ BISHOP on 12/26/21818 Metoprolol Succinate (Metoprolol Succinate) 100 Mg Tab.er.24h, 100 MG PO DAILY, (Reported) Entered as Reported by: JHONY HOWELL on 02/01/22 0957 Montelukast Sodium (Montelukast Sodium) 10 Mg Tablet, 10 MG PO DAILY, (Reported) Entered as Reported by: MATEUSZ BISHOP on 12/26/21818 Oxybutynin Chloride (Oxybutynin Chloride ER) 5 Mg Tab.er.24, 5 MG PO DAILY, (Reported) Entered as Reported by: MATEUSZ BISHOP on 12/26/21818 Pramipexole Di-HCl (Mirapex) 1 Mg Tablet, 1 MG PO HS, (Reported) Entered as Reported by: MATEUSZ BISHOP on 12/26/21818 Risperidone (Risperidone) 0.5 Mg Tablet, 0.5 MG PO BID Prescribed by: WESLY HAAS on 02/06/221102 Rivaroxaban (Xarelto Starter Pack) 15 Mg (42)- 20 Mg (9) Tab.ds.pk, 1 EACH PO UD Prescribed by: WESLY HAAS on 02/06/221102 Sodium Chlor/Hypochlorous Acid (Vashe Wound Therapy Solution) 0.033 % Irrig.soln, 1 ML IR UD Prescribed by: WESLY HAAS on 02/06/221102 Tamsulosin HCl (Flomax) 0.4 Mg Cap, 0.4 MG PO DAILY, (Reported) Entered as Reported by: MATEUSZ BISHOP on 12/26/21818 Past Ttjlfjm-Fahveb-Pzlqay Hx Patient Social History Smoking Status: Unknown if Ever Smoked Alcohol Use?: No Have you traveled recently?: No Immunizations Up To Date Date of Influenza Vaccine: Mar 31, 2015 Seasonal Allergies Seasonal Allergies: No Surgeries History of Surgeries: Yes Surgeries: Adenoidectomy, Cardiac, Lobectomy, Orthopedic, Tonsillectomy Respiratory History of Respiratory Disorde: Yes (CHRONIC DYSPNEA; CARCINOID TUMOR OF LUNG) Respiratory Disorders: Sleep Apnea Cardiovascular History of Cardiac Disorders: Yes (CHF; CAROTID DISEASE) Cardiac Disorders: Chronic Edema/Swelling, Coronary Artery Disease, High Cholesterol, Hypertension Neurological History of Neurological Disord: Yes (SUSPECTED DEMENTIA-HAS BEEN PRESCRIBED ARICEPT IN PAST) Reproductive System Hx Reproductive Disorders: No Sexually Transmitted Disease: No HIV/AIDS: No Genitourinary History of Genitourinary Disor: Yes (PROSTATE CANCERP;CKD) Genitourinary Disorders: Kidney Stones Gastrointestinal History of Gastrointestinal Di: Yes (POSSIBLE ABDI) Gastrointestinal Disorders: Gastroesophageal Reflux, Liver Disease/Jaundice Musculoskeletal History of Musculoskeletal Dis: Yes Musculoskeletal Disorders: Arthritis Endocrine History of Endocrine Disorders: Yes (MORBID OBESITY. ) HEENT Loss of Vision: Denies Hearing Impairment: Denies Cancer History of Cancer: Yes Cancer: Prostate, Lung Psychosocial History of Psychiatric Problem: No Integumentary History of Skin or Integumenta: No Blood Transfusions History of Blood Disorders: No Family Medical History Significant Family History: No Pertinent Family Hx Family Medial History: Arthritis Hypertension Review of Systems-General ROS-Unable to Obtain: Unable to obtain 2/2 pt condition Physical Exam-General Problems Physical Exam Vital Signs Vital Signs - First Documented 10/07/22 22:43 Temp 35.9 Pulse 137 Resp 24 B/P (MAP) 119/83 (95) Pulse Ox 98 O2 Delivery Nasal Cannula O2 Flow Rate 2.00 Capillary Refill : Greater Than 3 Seconds General Appearance: WD/WN, no apparent distress HEENT: other (dry mucous membranes, evidence of prior emesis on teeth) Neck: supple, normal inspection Respiratory: chest non-tender, no respiratory distress, no accessory muscle use Cardiovascular: normal peripheral pulses, tachycardia Peripheral Pulses: 2+ Radial Pulses (R), 2+ Radial Pulses (L) Gastrointestinal: non tender, soft Back: other (dressed wounds on upper back, stage 4 sacral deccubitus ulcer 5cm x 5 cm palpated to coccyx) Extremities: normal capillary refill, swelling Neurologic/Psychiatric: other (pt sleeping, not waking to examination) Skin: jaundice, other (see back exam), pallor Lymphatic: no adenopathy Data Review Labs Laboratory Tests 10/07/22 22:45: White Blood Count 14.6H, Red Blood Count 3.90L, Hemoglobin 12.2L, Hematocrit 36L , Mean Corpuscular Volume 91, Mean Corpuscular Hemoglobin 31, Mean Corpuscular Hemoglobin Concent 34, Red Cell Distribution Width 13.2, Platelet Count 401H, Mean Platelet Volume 9.5, Immature Granulocyte % (Auto) 2, Neutrophils (%) (Auto) 87H, Lymphocytes (%) (Auto) 5L, Monocytes (%) (Auto) 6, Eosinophils (%) (Auto) 0, Basophils (%) (Auto) 0, Neutrophils # (Auto) 12.8H, Lymphocytes # (Auto) 0.7L, Monocytes # (Auto) 0.9, Eosinophils # (Auto) 0.0, Basophils # (Auto) 0.0, Immature Granulocyte # (Auto) 0.2H, Neutrophils % (Manual) 86, Lymphocytes % (Manual) 5, Monocytes % (Manual) 5, Band Neutrophils 4, Blood Morphology Comment NORMAL, Erythrocyte Sedimentation Rate 46H, Prothrombin Time 24.9H, INR Comment 2.2H, Activated Partial Thromboplast Time 49H, Sodium Level 134L, Potassium Level 3.5L, Chloride Level 101, Carbon Dioxide Level 19L, Anion Gap 14, Blood Urea Nitrogen 73H, Creatinine 1.57H, Estimat Glomerular Filtration Rate 45, BUN/Creatinine Ratio 46, Glucose Level 92, Lactic Acid Level 4.59*H, Calcium Level 9.3, Corrected Calcium 10.6H, Total Bilirubin 1.1H, Aspartate Amino Transf (AST/SGOT) 56H, Alanine Aminotransferase (ALT/SGPT) 46, Alkaline Phosphatase 163H, Total Creatine Kinase 261H, C-Reactive Protein High Sensitivity 21.97H, Total Protein 5.6L, Albumin 2.4L 10/07/22 23:21: Urine Color YELLOW, Urine Clarity CLEAR, Urine pH 6.0, Urine Specific Sharps 1.015L, Urine Protein NEGATIVE, Urine Glucose (UA) NEGATIVE, Urine Ketones NEGATIVE, Urine Nitrite NEGATIVE, Urine Bilirubin NEGATIVE, Urine Urobilinogen 2.0, Urine Leukocyte Esterase TRACEH, Urine RBC (Auto) 3+H, Urine RBC 10-25H, Urine WBC 0-2, Urine Crystals PRESENTH, Urine Amorphous Sediment FEW STACIE URATESH, Urine Bacteria TRACE, Urine Casts PRESENT, Urine Hyaline Casts 0-2H, Urine Mucus NEGATIVE, Urine Other SPERM PRESENT, Urine Culture Indicated NO 10/07/22 23:38: Influenza Type A (RT-PCR) Not Detected, Influenza Type B (RT-PCR) Not Detected, SARS-CoV-2 RNA (RT-PCR) Not Detected 10/08/22 01:02: Lactic Acid Level 4.16*H 10/08/22 03:15: Lactic Acid Level 2.23*H, Total Creatine Kinase 271H 10/08/22 06:25: Lactic Acid Level 1.51 Assessment/Plan Assessment/Plan Assessment/Plan ?GI bleed - upper Sacral decubitus ulcer - grade 4 Sepsis Cellulitis Unable to obtain history and no family present at this time, per review he has experienced coffee-ground emesis and has had scopes in the past Continue IV abx and ppi Dr. Sears, wound care, will see patient this afternoon Plan sacral debridement in [place] tomorrow pending repeat INR JB FRAGA DO 10/08/22 9179: History of Present Illness History of Present Illness History of Present Illness 77 year old male with generalized weakness and episode of coffee ground emesis. Patient with decubitus ulcer which he had debrided in 02/[address] Sears in wound care. She reports it was almost healed and then he didn't follow up. Patient currently unable to answer any of my questions. Allergies and Home Medications Allergies Coded Allergies: No Known Drug Allergies (Unverified , 04/10/15) Patient Home Medication List Home Medication List Reviewed: Yes Atorvastatin Calcium (Atorvastatin Calcium) 20 Mg Tablet, 20 MG PO HS, (Reported) Entered as Reported by: MARIELENA FERNANDEZ on 04/10/15 110 Famotidine (Famotidine) 40 Mg Tablet, 40 MG PO DAILY, (Reported) Entered as Reported by: MATEUSZ BISHOP on 12/26/21 08 Gabapentin (Gabapentin) 100 Mg Capsule, 200 MG PO HS, (Reported) Entered as Reported by: MATEUSZ BISHOP on 12/26/21 08 Metoprolol Succinate (Metoprolol Succinate) 100 Mg Tab.er.24h, 100 MG PO DAILY, (Reported) Entered as Reported by: JHONY HOWELL on 02/01/22 0957 Montelukast Sodium (Montelukast Sodium) 10 Mg Tablet, 10 MG PO DAILY, (Reported) Entered as Reported by: MATEUSZ BISHOP on 12/26/21 08 Oxybutynin Chloride (Oxybutynin Chloride ER) 5 Mg Tab.er.24, 5 MG PO DAILY, (Reported) Entered as Reported by: MATEUSZ BISHOP on 12/26/21 0819 Pramipexole Di-HCl (Mirapex) 1 Mg Tablet, 1 MG PO HS, (Reported) Entered as Reported by: MATEUSZ BISHOP on 12/26/21 08 Risperidone (Risperidone) 0.5 Mg Tablet, 0.5 MG PO BID Prescribed by: WESLY HAAS on 02/06/22 110 Rivaroxaban (Xarelto Starter Pack) 15 Mg (42)- 20 Mg (9) Tab.ds.pk, 1 EACH PO UD Prescribed by: WESLY HAAS on 02/06/22 1103 Sodium Chlor/Hypochlorous Acid (Vashe Wound Therapy Solution) 0.033 % Ir rig.soln, 1 ML IR UD Prescribed by: WESLY HAAS on 02/06/22 1103 Tamsulosin HCl (Flomax) 0.4 Mg Cap, 0.4 MG PO DAILY, (Reported) Entered as Reported by: MATEUSZ BISHOP on 12/26/21 0819 Past Rmcmztz-Kldwsz-Vqygbj Hx Reviewed Nursing Assessment Reviewed/Agree w Nursing PMH: Yes Family Medical History Significant Family History: No Pertinent Family Hx Family Medial History: Arthritis Hypertension Review of Systems-General ROS-Unable to Obtain: unable to answer due to condition Physical Exam-General Problems Physical Exam General Appearance: no apparent distress, other (does not answer questions) HEENT: PERRL/EOMI, other (dry mucous membranes, evidence of prior emesis on teeth) Neck: non-tender, supple Respiratory: chest non-tender, no respiratory distress, no accessory muscle use Cardiovascular: no JVD, tachycardia Gastrointestinal: non tender, soft Rectal: deferred Back: no CVA tenderness, other ( stage 4 sacral deccubitus ulcer 5cm x 5 cm palpated to coccyx (necrotic tissue)) Extremities: normal capillary refill, swelling Neurologic/Psychiatric: other (pt sleeping, not waking to examination) Skin: warm/dry, other (see back exam), pallor Lymphatic: no adenopathy Assessment/Plan Assessment/Plan Assessment/Plan ?GI bleed - upper Sacral decubitus ulcer - grade 4 (necrotic) Sepsis Cellulitis Unable to obtain history and no family present at this time, per review he has experienced coffee-ground emesis and has had scopes in the past Continue IV abx and ppi Dr. Sears, wound care, will see patient this afternoon Plan sacral debridement in [place] tomorrow pending repeat INR may need FFP Obtain consent for debridement of sacral decubitus ulcer and will need fdc wound care. Supervisory-Addendum Brief Verification & Attestation Participated in pt care: history, MDM, physical Personally performed: exam, history, MDM, supervision of care Care discussed with: Medical Student Procedures: n/a Results interpretation: Verified all documentation Verification and Attestation of Medical Student E/M Service A medical student performed and documented this service in my presence. I reviewed and verified all information documented by the medical student and made modifications to such information, when appropriate. I personally performed the physical exam and medical decision making. Jb Fraga, Oct 08, 2022,18:47 MICHA ROMO Oct 08, 2022 11:21 JB FRAGA DO Oct 08, 2022 18:44
[2022-10-08 12:14] LABS: ABG BASE EXCESS -1.4 MMOL/L (-2.5-2.5); ABG OXYGEN SATURATION 89 % (94-100); ABG PCO2 35 MMHG (35-45); ABG PH 7.42 (7.37-7.43); ABG PO2 54 MMHG (79-93); ABG TCO2 23.6 MMOL/L (21.0-31.0)
[2022-10-08 12:15] LABS: ALLENS TEST YES-POS; INSPIRED O2 ROOM AIR; VENTILATOR NO
[2022-10-08 12:19] LABS: HEMATOCRIT 34 % (40-54); HEMOGLOBIN 11.5 g/dL (13.3-17.7); MEAN CORPUSCULAR HEMOGLOBIN 31 pg (25-34); MEAN CORPUSCULAR HGB CONC 34 g/dL (32-36); MEAN CORPUSCULAR VOLUME 91 fL (80-99); MEAN PLATELET VOLUME 9.3 fL (9.0-12.2); PLATELET COUNT 351 10^3/uL (130-400); WHITE BLOOD COUNT 13.1 10^3/uL (4.3-11.0)
[2022-10-08 12:27] LABS: POTASSIUM 3.4 MMOL/L (3.6-5.0)
--- NOTE | 2022-10-08 12:27 | Tele-ICU Consult ---
History of Present Illness History of Present Illness Date Seen by Provider: Oct 08, 2022 Time Seen by Provider: 10:35 Date of Admission (Tele-ICU Physician , consultation as per request of PCP Service provided via interactive audio and video telecommunications E-CARE system to a patient admitted to ICU bed in [facility]. Available chart/ vitals / labs / Images reviewed H&P is from ER notes Patient's information available about PMH, Shx, Fhx allergy reviewed inEMR. ROS as per chart and RN report Now in ICU, hemodynamically stable Video assessment done using teleICU camera, rest of exam as per RN Discussed with RN. Hospital course: (10/08) 77m admitted for Septic shock cellulitis, osteomyelitis of the pelvis for large sacral wound. A/P Acute mental status change - ?TME - nonfocal as per RN , follow commands , but somnolent - will checlk abg Sepsis, shock ( by lactate ) - wound infection and possible UTI ( flu . covid NEG ) - received 30ml/lg IVF - lactate normalized after 2 L - recheck BMP now - IV vancomycin and Zosyn Coffee grounds emesis, possible UGIB ( ? on xarelto ) - PPI IV gtt - presumed on Xarelto - hold now - follow HB ( type and screen Decub wound infection - IV vancomycin and Zosyn - ? sx consult vs additional images SALINA - mildly elev CPK 260 - received agressive hydration as per sepsis protocol Coagulopathy - INR 2.2 and presumed on xarelto, ? due to liver dz? - follow HB , of active bleed will give FFP Hypoxia - mild 2 L NS Mildly elev LFT h/o DVT RLE 01/2022 -? on AC - Xarlto listed - GRISELDA now- will recheck US LE - to decide about need for AC ( if actively bleeding JENN - ? compliant with CPAP lines periph , (Central Line Necessity Reviewed) Diggs: 10/08 OG: Nutrition: Analgesia: Anxiety/ delirium VTE Prophylaxis: on hold with possible GIB xarelto [employer] ? Stress Ulcer Prophylaxis: ppi gtt Glycemic Control: Plans in collaboration with bedside consultants and IM MDs. Discussed with RN to reach out if any questions or concerns A total of 40 minutes of critical care time was devoted to this patient today, required to treat and/or prevent further deterioration of critical care c ondition ( as above ) . I am remotely monitoring this patient from another state. I am unable to do the bedside exam, and history/physical and pertinent information is taken from other notes in the computer and bedside staff. . Allergies and Home Medications Allergies Coded Allergies: No Known Drug Allergies (Unverified , 04/10/15) Home Medications Atorvastatin Calcium 20 Mg Tablet, 20 MG PO HS, (Reported) LAST FILLED 06-26-2021 #90/ DAY SUPPLY Famotidine 40 Mg Tablet, 40 MG PO DAILY, (Reported) LAST FILLED 06-26-2021 # DAY SUPPLY Gabapentin 100 Mg Capsule, 200 MG PO HS, (Reported) TAKES 2 (100MG) CAPS LAST FILLED 06-26-2021 # DAY SUPPLY Metoprolol Succinate 100 Mg Tab.er.24h, 100 MG PO DAILY, (Reported) Montelukast Sodium 10 Mg Tablet, 10 MG PO DAILY, (Reported) LAST FILLED 08-31-2021 #90/ DAY SUPPLY Oxybutynin Chloride 5 Mg Tab.er.24, 5 MG PO DAILY, (Reported) LAST FILLED 08-31-2021 #90 DAY SUPPLY Pramipexole Di-HCl 1 Mg Tablet, 1 MG PO HS, (Reported) LAST FILLED 06-26-2021 #90 DAY SUPPLY Risperidone 0.5 Mg Tablet, 0.5 MG PO BID Prescribed by: WESLY HAAS on 02/06/221102 Rivaroxaban 15 Mg (42)- 20 Mg (9) Tab.ds.pk, 1 EACH PO UD 15mg by mouth twice daily x 21 days then 20mg by mouth daily Prescribed by: WESLY HAAS on 02/06/221102 Sodium Chlor/Hypochlorous Acid 0.033 % Irrig.soln, 1 ML IR UD Prescribed by: WESLY HAAS on 02/06/221102 Tamsulosin HCl 0.4 Mg Cap, 0.4 MG PO DAILY, (Reported) LAST FILLED 08-31-2021 #90/ DAY SUPPLY Past Medical/Social/Family Hx Patient Social History Tobacco Use?: No Smoking Status: Unknown if Ever Smoked Substance use?: No Alcohol Use?: No Pt stated abuse/neglect: No Immunizations Up To Date Influenza Vaccine Up-to-Date: Yes; Up-to-Date First/Initial COVID19 Vaccinat: 2020 Second COVID19 Vaccination Reymundo: 2020 Tetanus Booster (TDap): Unknown Current Status Advance Directives: No Communicates: Verbally Primary Language: [place] Preferred Spoken Language: [place] Family Medical History Family Hx: SOCIAL HISTORY: -DENIES SMOKING -DENIES DRUG USE -HISTORY OF ETOH, CLAIMS NO RECENT USE, PER PT 01/13/22 PAST SURGICAL HISTORY: -BILATERAL KNEE REPLACEMENT -VATS ASSISTED LEFT UPPER LOBE RESECTION FOR CARCINOID TUMOR 08/2015 -RADIATION SEED IMPLANTS FOR PROSTATE CANCER 2016 -EGD/COLONOSCOPIES -CARDIAC CATH 12/26/[address] CANCINO: CONCLUSIONS: 1. Coronary artery disease primarily consisting of mid vessel occlusion of the right coronary with collateralization of the distal right coronary by the left anterior descending artery. There is diffuse moderate disease of the left coronary system. The first diagonal branch of left anterior descending artery is of a small caliber and has approximately 70% ostial and proximal stenosis. 2. Normal left ventricular end-diastolic pressure. 3. Normal global left ventricular systolic function with ejection fraction approximately 60%. DISCUSSION AND RECOMMENDATIONS: Based on results of the study, it appears appropriate to continue a conservative approach at this time. Continuing outpatient followup is advised. Review of Systems Constitutional: see HPI Focused Exam Lactate Level 10/08/22 01:02: Lactic Acid Level 4.16*H 10/08/22 03:15: Lactic Acid Level 2.23*H 10/08/22 06:25: Lactic Acid Level 1.51 Height, Weight, BMI Height: 5'11.00" Weight: 310lbs. 0.0oz. 140.285313ys; 41.97 BMI Method: Within 3hrs of presentation: Admin fluids, Admin ABX, Blood cultures prior to ABX's, Focus exam, Lactate level Exam Exam Patient acknowledged, consented, and participated in this virtual visit which was conducted using real time audio/video Vital Signs Date Time Temp Pulse Resp B/P (MAP) Pulse Ox O2 Delivery O2 Flow Rate FiO2 10/08/22 11:46 35.9 10/08/22 11:00 111 22 101/63 (76) 97 Nasal Cannula 2.00 10/08/22 10:09 35.7 113 97 10/08/22 10:00 116 25 110/72 (85) 95 Nasal Cannula 2.00 10/08/22 09:45 113 27 130/79 (96) 97 Nasal Cannula 2.00 10/08/22 09:30 118 13 132/117 (122) 95 Nasal Cannula 2.00 10/08/22 09:29 35.7 10/08/22 09:25 124 22 125/88 (100) 98 Nasal Cannula 2.00 10/08/22 09:22 119 10/07/22 22:43 35.9 137 24 119/83 (95) 94 Room Air 10/07/22 22:43 98 Nasal Cannula 2.00 I & O 10/08/22 07:00 Intake Total 3350 ml Balance 3350 ml Height & Weight Height: 5'11.00" Weight: 310lbs. 0.0oz. 140.930271dw; 41.97 BMI Method: General Appearance: Other Capillary Refill: Greater Than 3 Seconds Peripheral Pulses: 2+ Radial Pulses (R), 2+ Radial Pulses (L) Gastrointestinal: non tender, soft Results Lab Laboratory Tests 10/07/22 22:45 10/08/22 12:04 Assessment/Plan Assessment/Plan 1 DARREL OH MD Oct 08, 2022 12:27
[2022-10-08 12:29] LABS: CALCIUM 8.6 MG/DL (8.5-10.1)
[2022-10-08 12:33] LABS: CREATININE SERUM 1.38 MG/DL (0.60-1.30)
--- NOTE | 2022-10-08 12:33 | History & Physical ---
HPI History of Present Illness: 77 yo M who is a very poor historian and not sure why he is in the hospital but states that his bottom hurts. States that he was up walking this week but upon review of chart son states that it has been over 2 weeks. Patient states that he has had a sacral wound previously but it was healed when he was done with wound care in May. Patient does not recall vomiting but there was report in ER that he was having black vomit. Previous to hospitalization patient was living at home with who was his primary caregiver. Son comes over occassionaly to help his mother. Source: patient, RN/MD Exam Limitations: clinical condition Date seen by provider: Oct 08, 2022 Time Seen by Provider: 09:45 Attending Physician No,Local Physician PCP Admitting Physician: Nohelia Melendez DO Attending Physician: Nohelia Melendez DO Consult Date of Admission Oct 08, 2022 at 09:00 Home Medications Home Medications Reviewed patient Home Medication Reconciliation performed by pharmacy medication reconciliations facility environmental technician and/or nursing. Patients Allergies have been reviewed. Allergies Coded Allergies: No Known Drug Allergies (Unverified , 04/10/15) PXC-Oempoz-Ejxfim Hx Patient Social History Living Status: Lives at home with Smoking Status: Unknown if Ever Smoked Alcohol Use?: No Have you traveled recently?: No Immunizations Up To Date Influenza Vaccine Up-to-Date: Yes; Up-to-Date First/Initial COVID19 Vaccinat: 2019 Second COVID19 Vaccination Reymundo: 2019 Third COVID19 Vaccination Date: 2019 Past Medical History CAD h/o blood clot h/o sacral wound Family Medical History Significant Family History: No Pertinent Family Hx Other Significan Family Hx: SOCIAL HISTORY: -DENIES SMOKING -DENIES DRUG USE -HISTORY OF ETOH, CLAIMS NO RECENT USE, PER PT 01/13/22 PAST SURGICAL HISTORY: -BILATERAL KNEE REPLACEMENT -VATS ASSISTED LEFT UPPER LOBE RESECTION FOR CARCINOID TUMOR 08/2015 -RADIATION SEED IMPLANTS FOR PROSTATE CANCER 2017 -EGD/COLONOSCOPIES -CARDIAC CATH 12/26/[address] CANCINO: CONCLUSIONS: 1. Coronary artery disease primarily consisting of mid vessel occlusion of the right coronary with collateralization of the distal right coronary by the left anterior descending artery. There is diffuse moderate disease of the left coronary system. The first diagonal branch of left anterior descending artery is of a small caliber and has approximately 70% ostial and proximal stenosis. 2. Normal left ventricular end-diastolic pressure. 3. Normal global left ventricular systolic function with ejection fraction approximately 60%. DISCUSSION AND RECOMMENDATIONS: Based on results of the study, it appears appropriate to continue a conservative approach at this time. Continuing outpatient followup is advised. Family History: Arthritis Hypertension Review of Systems ([facility]) Constitutional: No chills, No fever; malaise, weakness EENTM: no symptoms reported Respiratory: no symptoms reported; No cough, No short of breath Cardiovascular: edema, palpitations Gastrointestinal: No abdominal pain; hematemesis, loss of appetite Genitourinary: incontinence Musculoskeletal: back pain Skin: other (wound to sacrum to bone, foul smelling) Psychiatric/Neurological: Numbness, Weakness Reviewed Test Results Reviewed Test Results Lab Laboratory Tests Test 10/07/22 22:45 10/07/22 23:21 10/07/22 23:38 10/08/22 00:00 Range/Units White Blood Count 14.6 H 4.3-11.0 10^3/uL Red Blood Count 3.90 L 4.30-5.52 10^6/uL Hemoglobin 12.2 L 13.3-17.7 g/dL Hematocrit 36 L 40-54 % Mean Corpuscular Volume 91 80-99 fL Mean Corpuscular Hemoglobin 31 25-34 pg Mean Corpuscular Hemoglobin Concent 34 32-36 g/dL Red Cell Distribution Width 13.2 10.0-14.5 % Platelet Count 401 H 130-400 10^3/uL Mean Platelet Volume 9.5 9.0-12.2 fL Immature Granulocyte % (Auto) 2 % Neutrophils (%) (Auto) 87 H 42-75 % Lymphocytes (%) (Auto) 5 L 12-44 % Monocytes (%) (Auto) 6 0-12 % Eosinophils (%) (Auto) 0 0-10 % Basophils (%) (Auto) 0 0-10 % Neutrophils # (Auto) 12.8 H 1.8-7.8 10^3/uL Lymphocytes # (Auto) 0.7 L 1.0-4.0 10^3/uL Monocytes # (Auto) 0.9 0.0-1.0 10^3/uL Eosinophils # (Auto) 0.0 0.0-0.3 10^3/uL Basophils # (Auto) 0.0 0.0-0.1 10^3/uL Immature Granulocyte # (Auto) 0.2 H 0.0-0.1 10^3/uL Neutrophils % (Manual) 86 % Lymphocytes % (Manual) 5 % Monocytes % (Manual) 5 % Band Neutrophils 4 % Blood Morphology Comment NORMAL Erythrocyte Sedimentation Rate 46 H 0-30 MM/HR Prothrombin Time 24.9 H 12.2-14.7 SEC INR Comment 2.2 H 0.8-1.4 Activated Partial Thromboplast Time 49 H 24-35 SEC Sodium Level 134 L 135-145 MMOL/L Potassium Level 3.5 L 3.6-5.0 MMOL/L Chloride Level 101 98-107 MMOL/L Carbon Dioxide Level 19 L 21-32 MMOL/L Anion Gap 14 5-14 MMOL/L Blood Urea Nitrogen 73 H 7-18 MG/DL Creatinine 1.57 H 0.60-1.30 MG/DL Estimat Glomerular Filtration Rate 45 BUN/Creatinine Ratio 46 Glucose Level 92 70-105 MG/DL Lactic Acid Level 4.59 *H 0.50-2.00 MMOL/L Calcium Level 9.3 8.5-10.1 MG/DL Corrected Calcium 10.6 H 8.5-10.1 MG/DL Total Bilirubin 1.1 H 0.1-1.0 MG/DL Aspartate Amino Transf (AST/SGOT) 56 H 5-34 U/L Alanine Aminotransferase (ALT/SGPT) 46 0-55 U/L Alkaline Phosphatase 163 H 40-136 U/L Total Creatine Kinase 261 H 30-200 U/L C-Reactive Protein High Sensitivity 21.97 H 0.00-0.50 MG/DL Total Protein 5.6 L 6.4-8.2 GM/DL Albumin 2.4 L 3.2-4.5 GM/DL Urine Color YELLOW Urine Clarity CLEAR Urine pH 6.0 5-9 Urine Specific [place] 1.015 L 1.016-1.022 Urine Protein NEGATIVE NEGATIVE Urine Glucose (UA) NEGATIVE NEGATIVE Urine Ketones NEGATIVE NEGATIVE Urine Nitrite NEGATIVE NEGATIVE Urine Bilirubin NEGATIVE NEGATIVE Urine Urobilinogen 2.0 < = 1.0 MG/DL Urine Leukocyte Esterase TRACE H NEGATIVE Urine RBC (Auto) 3+ H NEGATIVE Urine RBC 10-25 H /HPF Urine WBC 0-2 /HPF Urine Crystals PRESENT H /LPF Urine Amorphous Sediment FEW STACIE URATES H /LPF Urine Bacteria TRACE /HPF Urine Casts PRESENT /LPF Urine Hyaline Casts 0-2 H /LPF Urine Mucus NEGATIVE /LPF Urine Other SPERM PRESENT /HPF Urine Culture Indicated NO Influenza Type A (RT-PCR) Not Detected Not Detecte Influenza Type B (RT-PCR) Not Detected Not Detecte SARS-CoV-2 RNA (RT-PCR) Not Detected Not Detecte Blood Gas Puncture Site LEFT RADIAL Blood Gas Patient Temperature 36.0 Arterial Blood pH 7.42 7.37-7.43 Arterial Blood Partial Pressure CO2 35 35-45 MMHG Arterial Blood Partial Pressure O2 54 L 79-93 MMHG Arterial Blood HCO3 23 23-27 MMOL/L Arterial Blood Total CO2 23.6 21.0-31.0 MMOL/L Arterial Blood Oxygen Saturation 89 L 94-100 % Arterial Blood Base Excess -1.4 -2.5-2.5 MMOL/L Jakob Test YES-POS Blood Gas Ventilator Setting NO Blood Gas Inspired Oxygen ROOM AIR Test 10/08/22 01:02 10/08/22 03:15 10/08/22 06:25 10/08/22 12:04 Range/Units Lactic Acid Level 4.16 *H 2.23 *H 1.51 0.50-2.00 MMOL/L Total Creatine Kinase 271 H 30-200 U/L White Blood Count 13.1 H 4.3-11.0 10^3/uL Red Blood Count 3.74 L 4.30-5.52 10^6/uL Hemoglobin 11.5 L 13.3-17.7 g/dL Hematocrit 34 L 40-54 % Mean Corpuscular Volume 91 80-99 fL Mean Corpuscular Hemoglobin 31 25-34 pg Mean Corpuscular Hemoglobin Concent 34 32-36 g/dL Red Cell Distribution Width 13.2 10.0-14.5 % Platelet Count 351 130-400 10^3/uL Mean Platelet Volume 9.3 9.0-12.2 fL Sodium Level 136 135-145 MMOL/L Potassium Level 3.4 L 3.6-5.0 MMOL/L Chloride Level 105 98-107 MMOL/L Carbon Dioxide Level 22 21-32 MMOL/L Anion Gap 9 5-14 MMOL/L Blood Urea Nitrogen 66 H 7-18 MG/DL Creatinine 1.38 H 0.60-1.30 MG/DL Estimat Glomerular Filtration Rate 52 BUN/Creatinine Ratio 48 Glucose Level 84 70-105 MG/DL Calcium Level 8.6 8.5-10.1 MG/DL Physical Exam-([facility]) Physical Exam Vital Signs VS - Last 72 Hours, by Label 10/07/22 10/07/22 10/08/22 10/08/22 22:43 22:43 09:22 09:25 Temp 35.9 Pulse 137 119 124 Resp 24 22 B/P (MAP) 119/83 (95) 125/88 (100) Pulse Ox 98 94 98 O2 Delivery Nasal Cannula Room Air Nasal Cannula O2 Flow Rate 2.00 2.00 10/08/22 10/08/22 10/08/22 10/08/22 09:29 09:30 09:45 10:00 Temp 35.7 Pulse 118 113 116 Resp 13 27 25 B/P (MAP) 132/117 (122) 130/79 (96) 110/72 (85) Pulse Ox 95 97 95 O2 Delivery Nasal Cannula Nasal Cannula Nasal Cannula O2 Flow Rate 2.00 2.00 2.00 10/08/22 10/08/22 10/08/22 10:09 11:00 11:46 Temp 35.7 35.9 Pulse 113 111 Resp 22 B/P (MAP) 101/63 (76) Pulse Ox 97 97 O2 Delivery Nasal Cannula O2 Flow Rate 2.00 Capillary Refill : Greater Than 3 Seconds General Appearance: no apparent distress, obese HEENT: PERRL/EOMI Neck: non-tender, supple Respiratory: chest non-tender, lungs clear, normal breath sounds, no respiratory distress, no accessory muscle use Cardiovascular: no murmur, tachycardia Gastrointestinal: normal bowel sounds, non tender, soft; No guarding, No rebound, No tenderness Back: no CVA tenderness Extremities: other (LLE with swelling 3+ and erythema to mid thigh, RLE 1+ pitting edema) Neurologic/Psychiatric: alert (to person and place only) Skin: other (Right shoulder abrasion, large necrotic sacral wound, foul smelling, palpate to bone, minimal drainage, large brusing on L thigh, DTI to right food) Lymphatic: no adenopathy Assessment/Plan Assessment/Plan Admission Status: Inpatient Order (span 2 midnights) Reason for Inpatient Admission: High risk of decompensation, requiring ICU care (1) Severe sepsis Status: Acute Assessment & Plan: - Continue IVF and IV antibiotics, LA resolved, HDS, Admit to ICU (2) Acute kidney injury Status: Acute Assessment & Plan: - IVFs, continue to monitor (3) Altered mental status Status: Acute Assessment & Plan: - Likely 2/2 to sepsis and acute illness on top of mild dementia Qualifiers: Qualified Codes: R41.0 - Disorientation, unspecified (4) Hematemesis Status: Acute Assessment & Plan: - General surgery consulted, Hgb stable Qualifiers: Qualified Codes: K92.0 - Hematemesis (5) Sacral decubitus ulcer, stage IV Status: Acute Assessment & Plan: - Will need debridment, Dr Quach consulted, Dr Sears and wound care consulted, patient will need NH placement (6) Left leg cellulitis Status: Acute Assessment & Plan: - US pending (7) CAD (coronary artery disease) Status: Chronic KENNETH PORTER MD Oct 08, 2022 12:33
[2022-10-08 12:35] LABS: MAGNESIUM 1.7 MG/DL (1.6-2.4)
[2022-10-08] MEDS ORDERED: NS IV 500 ML 500 ML IV PRN (13:00)
[2022-10-08] MEDS: HYPOCHLOROUS ACID/NaCl (VASHE) 250 ML IR PRN (13:54)
[2022-10-08] MEDS: POTASSIUM CL 10MEQ/50ML IVPB 50 ML IV SCH ×2 (14:03→14:56)
--- NOTE | 2022-10-08 14:20 | Wound Care Assessment ---
Wound Care Assessment Date Seen by Provider: Oct 08, 2022 Time Seen by Provider: 14:13 Chief Complaint Stage 4 pressure ulcer Sacrum HPI This 77 year old gentleman is well known to my service. He was initially seen in January of 2022. He was found down at home by EMS for an undetermined period of time (3-4 days) and was given only water (not food). He lived with his at the time and son was present during initial EMS transport (under the influence per past reports). At that time was found to have stage 4 pressure ulcer with abscess which was initially debrided by Dr. Quach (01-31-22). He was subsequently treated in outpatient setting (at care home facility). We did attempt wound vac but with his underlying dementia he was too confused to leave in place. He did also require [facility] visit due to violent outburst at one point. With chronic wound care between early January and late May 2022 we were able to nearly heal his ulcer (initially measurements 7.8x5.8x7.2 in January and 0.3x0.2x1.5 on 05-15-22). He was then discharged from care home home to the care of his and never followed up again. His care was transferred to Home Health at that time. He returns to the hospital today with evidence of prolonged pressure injuries again. Evidence of osteomyelitis of sacrum yet again with associated severe sepsis requiring antibiotics and pressor support. He also has pressure changes to a variety of other pressure points and a large bruise to his upper thigh with linear abrasions (of unknown etiology). His mental status remains altered. His albumin is again low. ESR and CRP are elevated. His ulcer is foul smelling with wet gangrene and exposed bone. He is currently on Vanc and Zosyn. Surgery has been consulted and is planned for tomorrow. We will follow and make dressing advisements accordingly. 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 Smoking Status: Unknown if Ever Smoked Review of Systems Other systems Unable to obtain due to mental status Exam Vital Signs Date Time Temp Pulse Resp B/P (MAP) Pulse Ox O2 Delivery O2 Flow Rate FiO2 10/08/22 14:00 111 10 142/84 (103) 95 Nasal Cannula 2.00 10/08/22 11:46 35.9 Capillary Refill : Greater Than 3 Seconds General Appearance: no apparent distress, obese, other (Snoring heavily. Moans with movement only) Extremities: other (Bruising to left inner thigh) Neurologic/Psychiatric: other (moans with movement, not oriented) Wound assessment: 17x10.5x2.5cm. The epithelialization is none. There is t unneling which is not fully appreciated due to patient comfort, Drainage is large, purulent and foul smelling. Granulation is none. Necrotic is large and slough/eschar/gangrenous. The margins show epibole. Results Laboratory Tests 10/07/22 22:45: White Blood Count 14.6H, Red Blood Count 3.90L, Hemoglobin 12.2L, Hematocrit 36L , Mean Corpuscular Volume 91, Mean Corpuscular Hemoglobin 31, Mean Corpuscular Hemoglobin Concent 34, Red Cell Distribution Width 13.2, Platelet Count 401H, Mean Platelet Volume 9.5, Immature Granulocyte % (Auto) 2, Neutrophils (%) (Auto) 87H, Lymphocytes (%) (Auto) 5L, Monocytes (%) (Auto) 6, Eosinophils (%) (Auto) 0, Basophils (%) (Auto) 0, Neutrophils # (Auto) 12.8H, Lymphocytes # (Auto) 0.7L, Monocytes # (Auto) 0.9, Eosinophils # (Auto) 0.0, Basophils # (Auto) 0.0, Immature Granulocyte # (Auto) 0.2H, Neutrophils % (Manual) 86, Lymphocytes % (Manual) 5, Monocytes % (Manual) 5, Band Neutrophils 4, Blood Morphology Comment NORMAL, Erythrocyte Sedimentation Rate 46H, Prothrombin Time 24.9H, INR Comment 2.2H, Activated Partial Thromboplast Time 49H, Sodium Level 134L, Potassium Level 3.5L, Chloride Level 101, Carbon Dioxide Level 19L, Anion Gap 14, Blood Urea Nitrogen 73H, Creatinine 1.57H, Estimat Glomerular Filtration Rate 45, BUN/Creatinine Ratio 46, Glucose Level 92, Lactic Acid Level 4.59*H, Calcium Level 9.3, Corrected Calcium 10.6H, Total Bilirubin 1.1H, Aspartate Amino Transf (AST/SGOT) 56H, Alanine Aminotransferase (ALT/SGPT) 46, Alkaline Phosphatase 163H, Total Creatine Kinase 261H, C-Reactive Protein High Sensitivity 21.97H, Total Protein 5.6L, Albumin 2.4L 10/07/22 23:21: Urine Color YELLOW, Urine Clarity CLEAR, Urine pH 6.0, Urine Specific [place] 1.015L, Urine Protein NEGATIVE, Urine Glucose (UA) NEGATIVE, Urine Ketones NEGATIVE, Urine Nitrite NEGATIVE, Urine Bilirubin NEGATIVE, Urine Urobilinogen 2.0, Urine Leukocyte Esterase TRACEH, Urine RBC (Auto) 3+H, Urine RBC 10-25H, Urine WBC 0-2, Urine Crystals PRESENTH, Urine Amorphous Sediment FEW STACIE URATESH, Urine Bacteria TRACE, Urine Casts PRESENT, Urine Hyaline Casts 0-2H, Urine Mucus NEGATIVE, Urine Other SPERM PRESENT, Urine Culture Indicated NO 10/07/22 23:38: Influenza Type A (RT-PCR) Not Detected, Influenza Type B (RT-PCR) Not Detected, SARS-CoV-2 RNA (RT-PCR) Not Detected 10/08/22 00:00: Blood Gas Puncture Site LEFT RADIAL, Blood Gas Patient Temperature 36.0, Arterial Blood pH 7.42, Arterial Blood Partial Pressure CO2 35, Arterial Blood Partial Pressure O2 54L, Arterial Blood HCO3 23, Arterial Blood Total CO2 23.6, Arterial Blood Oxygen Saturation 89L, Arterial Blood Base Excess -1.4, Jakob T est YES-POS, Blood Gas Ventilator Setting NO, Blood Gas Inspired Oxygen ROOM AIR 10/08/22 01:02: Lactic Acid Level 4.16*H 10/08/22 03:15: Lactic Acid Level 2.23*H, Total Creatine Kinase 271H 10/08/22 06:25: Lactic Acid Level 1.51 10/08/22 12:04: White Blood Count 13.1H, Red Blood Count 3.74L, Hemoglobin 11.5L, Hematocrit 34L , Mean Corpuscular Volume 91, Mean Corpuscular Hemoglobin 31, Mean Corpuscular Hemoglobin Concent 34, Red Cell Distribution Width 13.2, Platelet Count 351, Mean Platelet Volume 9.3, Sodium Level 136, Potassium Level 3.4L, Chloride Level 105, Carbon Dioxide Level 22, Anion Gap 9, Blood Urea Nitrogen 66H, Creatinine 1.38H, Estimat Glomerular Filtration Rate 52, BUN/Creatinine Ratio 48, Glucose Level 84, Calcium Level 8.6, Magnesium Level 1.7 Assessment/Plan/Dx Assessment: 1. Stage 4 pressure ulcer with associated gangrene 2. Severe Sepsis (probable acute on chronic osteomyelitis) 3. PEM 4. Immobility 5. Obesity 6. h/o radiation (prostate CA) 7. Altered mental status with underlying dementia 8. Acute kidney injury 9. Hypotension Plan: 1. Debridement planned per Dr. Quach. Agree with broad spectrum antibiotics. Currently will do Vashe packing dressings. Likely will continue these following debridement 2. Defer to primary team's capable hands 3. NPO currently 4. Frequent positional changes 5. NPO currently 6. May play role in poor wound healing process. Not candidate for HBOT due to mentation 7. Defer to primary team. Unlikely to be wound vac candidate due to mental status 8. Defer to primary team 9. Defer to primary team 10. Likely needs social group worker consult. This patient needs permanent placement in nursing facility for his medical care. ETHEL PENA MD Oct 08, 2022 14:20
--- NOTE | 2022-10-08 15:48 | Diagnostic Imaging Report ---
PROCEDURE: US Venous Lower Ext Ming. TECHNIQUE: Multiple real-time grayscale images were obtained over the lower extremities in various projections, bilaterally. Additional duplex Doppler and color Doppler images were also obtained. INDICATION: Follow-up deep vein thrombosis. FINDINGS: The veins in the right leg have good color filling and compressibility. There is phasic flow and a normal response to augmentation. In the left leg, there is some nonocclusive thrombus in the popliteal segment. The other veins have good color filling and compressibility. IMPRESSION: Nonoccluding thrombus in the left popliteal vein. Dictated by: Dictated on workstation # [id number]
[2022-10-08] MEDS ORDERED: VANCOMYCIN 2000 MG/NS 500 ML IVPB IV SCH ×2 (16:00)
[2022-10-08] MEDS ORDERED: PIPERACILLIN/TAZO 4.5 GM VIAL (ZOSYN) IV ONE (17:23)
[2022-10-08] MEDS ORDERED: ACETAMINOPHEN 650 MG SUPP (TYLENOL) PR PRN (19:45)
[2022-10-08] MEDS: PANTOPRAZOLE DRIP 200 MG/NS 100 ML IV SCH ×2 (23:40)
[2022-10-09] MEDS: PIPERACILLIN SODIUM/TAZOBACTAM 4.5 GM in NS (IVPB) 100 ML IV SCH ×3 (01:08→18:19)
[2022-10-09 04:20] LABS: BASOPHILS % (AUTO) 0 % (0-10); EOSINOPHILS # (AUTO) 0.1 10^3/uL (0.0-0.3); EOSINOPHILS % (AUTO) 1 % (0-10); HEMATOCRIT 30 % (40-54); HEMOGLOBIN 10.1 g/dL (13.3-17.7); LYMPHOCYTES # (AUTO) 0.5 10^3/uL (1.0-4.0); LYMPHOCYTES % (AUTO) 4 % (12-44); MEAN CORPUSCULAR HEMOGLOBIN 31 pg (25-34); MEAN CORPUSCULAR HGB CONC 34 g/dL (32-36); MEAN CORPUSCULAR VOLUME 92 fL (80-99); MEAN PLATELET VOLUME 9.3 fL (9.0-12.2); MONOCYTES # (AUTO) 0.5 10^3/uL (0.0-1.0); MONOCYTES % (AUTO) 4 % (0-12); NEUTROPHILS # (AUTO) 10.5 10^3/uL (1.8-7.8); NEUTROPHILS % (AUTO) 86 % (42-75); PLATELET COUNT 344 10^3/uL (130-400); WHITE BLOOD COUNT 12.2 10^3/uL (4.3-11.0)
[2022-10-09 04:30] LABS: INR 1.5 (0.8-1.4); PROTHROMBIN TIME PATIENT 18.5 SEC (12.2-14.7)
[2022-10-09 04:42] LABS: BILIRUBIN,TOTAL 0.9 MG/DL (0.1-1.0); CALCIUM 8.1 MG/DL (8.5-10.1); CREATININE SERUM 1.29 MG/DL (0.60-1.30); MAGNESIUM 1.6 MG/DL (1.6-2.4); PHOSPHORUS 2.3 MG/DL (2.3-4.7); POTASSIUM 3.2 MMOL/L (3.6-5.0); TOTAL PROTEIN 4.8 GM/DL (6.4-8.2)
[2022-10-09] MEDS: NOREPINEPHRINE 8 MG/250 ML 250 ML IV SCH ×2 (04:57→15:30)
[2022-10-09] MEDS ORDERED: MAGNESIUM 1 GM/100 ML IVPB 400 ML IV ONE (04:59)
[2022-10-09] MEDS ORDERED: POTASSIUM CL 10MEQ/50ML IVPB 400 ML IV ONE (04:59)
[2022-10-09] MEDS: POTASSIUM CL 10MEQ/50ML IVPB 50 ML IV SCH ×6 (05:11→11:55)
[2022-10-09] MEDS: MAGNESIUM 1 GM/100 ML IVPB 100 ML IV SCH ×3 (05:11→07:13)
[2022-10-09] MEDS: NS IV 1000 ML 1,000 ML IV SCH ×4 (05:28→20:43)
[2022-10-09] MEDS: KCL 20 MEQ TAB (K-DUR) PO SCH (05:38)
--- NOTE | 2022-10-09 07:10 | Progress Note - Surgery ---
ROMOMICHA 10/09/22 0710: Subjective Date Seen by a Provider: Oct 09, 2022 Time Seen by a Provider: 07:05 Subjective/Events-last exam Today pt is sleeping and does not wake to examination. Status mostly unchanged since yesterday. INR down to 1.5 today from 2.2 yesterday. Review of Systems Unable to obtain 2/2 patient condition Focused Exam Lactate Level 10/08/22 01:02: Lactic Acid Level 4.16*H 10/08/22 03:15: Lactic Acid Level 2.23*H 10/08/22 06:25: Lactic Acid Level 1.51 Objective Exam Vital Signs Date Time Temp Pulse Resp B/P (MAP) Pulse Ox O2 Delivery O2 Flow Rate FiO2 10/09/22 06:00 113 23 130/82 (98) 96 Nasal Cannula 2.00 10/09/22 05:00 101 23 141/71 (94) 95 Nasal Cannula 2.00 10/09/22 04:00 114 19 147/89 (108) 92 Nasal Cannula 2.00 10/09/22 04:00 95 Nasal Cannula 2.00 10/09/22 03:00 114 20 139/71 (93) 96 Nasal Cannula 2.00 10/09/22 02:00 112 21 151/80 (103) 97 Nasal Cannula 2.00 10/09/22 01:00 111 10/09/22 01:00 109 21 150/78 (102) 97 Nasal Cannula 2.00 10/09/22 00:00 112 16 144/77 (99) 95 Nasal Cannula 2.00 10/08/22 23:55 95 Nasal Cannula 2.00 10/08/22 23:00 117 20 130/73 (92) 95 Nasal Cannula 2.00 10/08/22 22:00 114 20 144/73 (96) 94 Nasal Cannula 2.00 10/08/22 21:00 111 25 142/74 (96) 96 Nasal Cannula 2.00 10/08/22 20:00 108 22 134/79 (97) 100 Nasal Cannula 2.00 10/08/22 20:00 96 Nasal Cannula 2.00 10/08/22 19:37 35.9 10/08/22 19:00 108 22 132/72 (92) 97 Nasal Cannula 2.00 10/08/22 19:00 116 10/08/22 18:00 112 25 135/73 (93) 90 Nasal Cannula 2.00 10/08/22 17:00 114 17 120/76 (91) 95 Nasal Cannula 2.00 10/08/22 16:11 36.0 10/08/22 16:00 113 26 131/76 (94) 95 Nasal Cannula 2.00 10/08/22 16:00 96 Nasal Cannula 2.00 10/08/22 15:00 105 26 138/69 (92) 96 Nasal Cannula 2.00 10/08/22 14:00 111 10 142/84 (103) 95 Nasal Cannula 2.00 10/08/22 13:00 113 15 146/72 (96) 95 Nasal Cannula 2.00 10/08/22 12:35 111 10/08/22 12:00 94 Nasal Cannula 2.00 10/08/22 12:00 109 20 135/81 (99) 95 Nasal Cannula 2.00 10/08/22 11:46 35.9 10/08/22 11:00 111 22 101/63 (76) 97 Nasal Cannula 2.00 10/08/22 10:09 35.7 113 97 10/08/22 10:00 116 25 110/72 (85) 95 Nasal Cannula 2.00 10/08/22 09:45 113 27 130/79 (96) 97 Nasal Cannula 2.00 10/08/22 09:30 118 13 132/117 (122) 95 Nasal Cannula 2.00 10/08/22 09:29 35.7 10/08/22 09:25 124 22 125/88 (100) 98 Nasal Cannula 2.00 10/08/22 09:22 119 10/08/22 09:10 95 Nasal Cannula 2.00 I & O 10/09/22 07:00 Intake Total 2720 ml Output Total 2550 ml Balance 170 ml Capillary Refill : Greater Than 3 Seconds General Appearance: No Apparent Distress, Other (does not wake to examination or answer questions) HEENT: Other (dry mucous membranes improving from yesterday, evidence of prior emesis on teeth) Neck: Non Tender, Supple Respiratory: Chest Non Tender, No Accessory Muscle Use, No Respiratory Distress Cardiovascular: No JVD, Normal Peripheral Pulses, Tachycardia Peripheral Pulses: 2+ Radial Pulses (R), 2+ Radial Pulses (L) Gastrointestinal: non tender, soft Extremity: Normal Capillary Refill, Swelling Neurologic/Psychiatric: Other (pt sleeping, not waking to examination) Skin: Warm/Dry, Pallor Lymphatic: No Adenopathy Results Lab Laboratory Tests 10/08/22 12:04: White Blood Count 13.1H, Red Blood Count 3.74L, Hemoglobin 11.5L, Hematocrit 34L , Mean Corpuscular Volume 91, Mean Corpuscular Hemoglobin 31, Mean Corpuscular Hemoglobin Concent 34, Red Cell Distribution Width 13.2, Platelet Count 351, Mean Platelet Volume 9.3, Sodium Level 136, Potassium Level 3.4L, Chloride Level 105, Carbon Dioxide Level 22, Anion Gap 9, Blood Urea Nitrogen 66H, Creatinine 1.38H, Estimat Glomerular Filtration Rate 52, BUN/Creatinine Ratio 48, Glucose Level 84, Calcium Level 8.6, Magnesium Level 1.7 10/08/22 17:38: Glucometer 79 10/09/22 04:07: White Blood Count 12.2H, Red Blood Count 3.26L, Hemoglobin 10.1L, Hematocrit 30L , Mean Corpuscular Volume 92, Mean Corpuscular Hemoglobin 31, Mean Corpuscular Hemoglobin Concent 34, Red Cell Distribution Width 13.5, Platelet Count 344, Mean Platelet Volume 9.3, Sodium Level 140, Potassium Level 3.2L, Chloride Level 113H, Carbon Dioxide Level 18L, Anion Gap 9, Blood Urea Nitrogen 52H, Creatinine 1.29, Estimat Glomerular Filtration Rate 56, BUN/Creatinine Ratio 40, Glucose Level 71, Calcium Level 8.1L, Magnesium Level 1.6, Immature Granulocyte % (Auto) 5, Neutrophils (%) (Auto) 86H, Lymphocytes (%) (Auto) 4L, Monocytes (%) (Auto) 4, Eosinophils (%) (Auto) 1, Basophils (%) (Auto) 0, Neutrophils # (Auto) 10.5H, Lymphocytes # (Auto) 0.5L, Monocytes # (Auto) 0.5, Eosinophils # (Auto) 0.1, Basophils # (Auto) 0.0, Immature Granulocyte # (Auto) 0.6H, Prothrombin Time 18.5H, INR Comment 1.5H, Corrected Calcium 9.7, Phosphorus Level 2.3, Total Bilirubin 0.9, Aspartate Amino Transf (AST/SGOT) 60H, Alanine Aminotransferase (ALT/SGPT) 42, Alkaline Phosphatase 161H, Total Protein 4.8L, Albumin 2.0L Microbiology 10/07/22 Gram Stain, Resulted Pending 10/07/22 Wound Culture - Preliminary, Resulted Mixed Bacterial Shania 10/07/22 Blood Culture - Preliminary, Resulted No growth Assessment/Plan Assessment/Plan Assessment/Plan ?GI bleed - upper Sacral decubitus ulcer - grade 4 (necrotic) Sepsis Cellulitis Unable to obtain history and no family present at this time, per review he has experienced coffee-ground emesis and has had scopes in the past Continue IV abx and ppi Dr. Sears, wound care, saw patient yesterday Plan sacral debridement in OR today, repeat INR 1.5 today down from 2.2 yesterday Obtain consent for debridement of sacral decubitus ulcer and will need [facility] wound care. RIKKI QUACH DO 10/09/22 1410: Subjective Subjective/Events-last exam Patient still with confusion. Doesn't answer any questions. No change in overall status. Objective Exam General Appearance: No Apparent Distress, Other (does not wake to examination or answer questions) HEENT: PERRL/EOMI, Normal ENT Inspection, Other (dry mucous membranes improving from yesterday, evidence of prior emesis on teeth) Neck: Non Tender, Supple Respiratory: Chest Non Tender, No Accessory Muscle Use, No Respiratory Distress Cardiovascular: No JVD, Tachycardia Gastrointestinal: non tender, soft Extremity: Normal Capillary Refill, Swelling Neurologic/Psychiatric: No Alert; Other (pt sleeping, not waking to examinat ion) Skin: Warm/Dry, Pallor Lymphatic: No Adenopathy Other comments sacral decubitus ulcer with necrotic tissue. Assessment/Plan Assessment/Plan Assessment/Plan ?GI bleed - upper Sacral decubitus ulcer - grade 4 (necrotic) Sepsis Cellulitis Unable to obtain history and no family present at this time, per review he has experienced coffee-ground emesis and has had scopes in the past Continue IV abx and ppi Plan sacral debridement in OR today, repeat INR 1.5 today down from 2.2 yesterday Obtain consent for debridement of sacral decubitus ulcer and will need [facility] wound care. Supervisory-Addendum Brief Verification & Attestation Participated in pt care: history, MDM, physical Personally performed: exam, history, MDM, supervision of care Care discussed with: Medical Student Procedures: n/a Results interpretation: Verified all documentation Verification and Attestation of Medical Student E/M Service A medical student performed and documented this service in my presence. I reviewed and verified all information documented by the medical student and made modifications to such information, when appropriate. I personally performed the physical exam and medical decision making. Rikki Quach, Oct 09, 2022,14:10 MICHA ROMO Oct 09, 2022 07:10 RIKKI QUACH DO Oct 09, 2022 14:10
[2022-10-09] MEDS: VASOPRESSIN INJECTION 20 UNIT in NS (IVPB) 100 ML IV SCH ×2 (08:42→19:39)
[2022-10-09] MEDS: morphine INJ 10 MG/ML 1ML (SYR OR VIAL) IVP PRN ×3 (08:43→20:33)
[2022-10-09] MEDS ORDERED: LACTATED RINGERS 1,000 ML IV PRN (09:45)
--- NOTE | 2022-10-09 10:54 | Tele-ICU Progress Note ---
Subjective Date Seen by a Provider: Oct 09, 2022 Time Seen by a Provider: 10:52 Subjective/Events-last exam (Tele-ICU Physician , Progress Note ) Service provided via interactive audio and video telecommunications E-CARE system to a patient admitted to ICU bed in [facility]. Patient is seen today due to persistent need of ICU care Available chart/ vitals / labs / Images reviewed Video assessment done using teleICU camera, rest of exam as per RN He is a 77-year-old male with a past medical history of sacral decubitus lives in a prison and he was brought to the emergency room because of generalized weakness, and he was also throwing up dark emesis. He was unable to give any further history. He is found to have a significant of dehydration with lactic acidosis and signs of cellulitis on the left leg and urine analysis consistent with a urinary tract infection. Sepsis is suspected and he is given IV fluids for sepsis protocol and now he is feeling somewhat better but he is a disoriented and complains of back pain at the decubitus ulcer and it is found to be stage IV unable to see the Roman apparently. A surgical consultation has been obtained and he is supposed to go to surgery for debridement. Impression 1. Possible severe sepsis which is clinically improving 2. Urinary tract infection 3. Cellulitis of the left leg 4. Infected stage IV sacral decubitus ulcer with significant pain. 5. Altered mental status probably due to sepsis. 6. Possible upper GI bleed. Surgical consultation has been requested. 7. Questionable history of DVT. Recommendations 1. Continue hydration monitor BUN and creatinine 2. Broad-spectrum antibiotics per primary care physician 3. Surgical consultation has been obtained and he is supposed to go to debridement today 4. History of for paroxysmal atrial fibrillation and he was on Xarelto. Now it is on hold due to suspicion of GI bleed 5. Protonix intravenously. 6. DVT prophylaxis once the surgical procedures are done and if no active GI bleed present. Coordination of care with primary care physician and bedside consultants. Critical care time spent on this patient today is approximately 25 minutes. I am remotely monitoring this patient from Tele icu station in [place]. I am unable to do the bedside exam, and history/physical and pertinent information is taken from other notes in the computer and bedside staff. Certain portions of this document may have been dictated utilizing voice recognition technology such as [email or web address]. Inherent to this technology, typographical and grammatical errors may exist. As much as I am diligent to identify and correct to these mistakes, some errors may remain in the document.- Sepsis Event Evaluation Height, Weight, BMI Height: 5'11.00" Weight: 310lbs. 0.0oz. 140.120059ru; 41.97 BMI Method: Focused Exam Lactate Level 10/08/22 01:02: Lactic Acid Level 4.16*H 10/08/22 03:15: Lactic Acid Level 2.23*H 10/08/22 06:25: Lactic Acid Level 1.51 Exam Exam Patient acknowledged, consented, and participated in this virtual visit which was conducted using real time audio/video Vital Signs Date Time Temp Pulse Resp B/P (MAP) Pulse Ox O2 Delivery O2 Flow Rate FiO2 10/09/22 10:00 109 20 148/83 (104) 95 Nasal Cannula 2.00 10/09/22 09:00 101 22 151/82 (105) 96 Nasal Cannula 2.00 10/09/22 08:42 105 146/84 10/09/22 08:00 105 17 142/85 (104) 95 Nasal Cannula 2.00 10/09/22 07:48 96 Nasal Cannula 2.00 10/09/22 07:46 36.2 105 28 146/84 (104) 94 Nasal Cannula 2.00 10/09/22 07:32 105 10/09/22 07:00 107 17 146/84 (104) 96 Nasal Cannula 2.00 10/09/22 06:00 113 23 130/82 (98) 96 Nasal Cannula 2.00 10/09/22 05:00 101 23 141/71 (94) 95 Nasal Cannula 2.00 10/09/22 04:00 114 19 147/89 (108) 92 Nasal Cannula 2.00 10/09/22 04:00 95 Nasal Cannula 2.00 10/09/22 03:00 114 20 139/71 (93) 96 Nasal Cannula 2.00 10/09/22 02:00 112 21 151/80 (103) 97 Nasal Cannula 2.00 10/09/22 01:00 111 10/09/22 01:00 109 21 150/78 (102) 97 Nasal Cannula 2.00 10/09/22 00:00 112 16 144/77 (99) 95 Nasal Cannula 2.00 10/08/22 23:55 95 Nasal Cannula 2.00 10/08/22 23:00 117 20 130/73 (92) 95 Nasal Cannula 2.00 10/08/22 22:00 114 20 144/73 (96) 94 Nasal Cannula 2.00 10/08/22 21:00 111 25 142/74 (96) 96 Nasal Cannula 2.00 10/08/22 20:00 108 22 134/79 (97) 100 Nasal Cannula 2.00 10/08/22 20:00 96 Nasal Cannula 2.00 10/08/22 19:37 35.9 10/08/22 19:00 108 22 132/72 (92) 97 Nasal Cannula 2.00 10/08/22 19:00 116 10/08/22 18:00 112 25 135/73 (93) 90 Nasal Cannula 2.00 10/08/22 17:00 114 17 120/76 (91) 95 Nasal Cannula 2.00 10/08/22 16:11 36.0 10/08/22 16:00 113 26 131/76 (94) 95 Nasal Cannula 2.00 10/08/22 16:00 96 Nasal Cannula 2.00 10/08/22 15:00 105 26 138/69 (92) 96 Nasal Cannula 2.00 10/08/22 14:00 111 10 142/84 (103) 95 Nasal Cannula 2.00 10/08/22 13:00 113 15 146/72 (96) 95 Nasal Cannula 2.00 10/08/22 12:35 111 10/08/22 12:00 94 Nasal Cannula 2.00 10/08/22 12:00 109 20 135/81 (99) 95 Nasal Cannula 2.00 10/08/22 11:46 35.9 10/08/22 11:00 111 22 101/63 (76) 97 Nasal Cannula 2.00 I & O 10/09/22 07:00 Intake Total 2720 ml Output Total 2550 ml Balance 170 ml Height & Weight Height: 5'11.00" Weight: 310lbs. 0.0oz. 140.535844gq; 41.97 BMI Method: General Appearance: No Apparent Distress, Other (does not wake to examination or answer questions) HEENT: Other (dry mucous membranes improving from yesterday, evidence of prior emesis on teeth) Neck: Non Tender, Supple Respiratory: Chest Non Tender, No Accessory Muscle Use, No Respiratory Distress Cardiovascular: No JVD, Normal Peripheral Pulses, Tachycardia Capillary Refill: Greater Than 3 Seconds Peripheral Pulses: 2+ Radial Pulses (R), 2+ Radial Pulses (L) Gastrointestinal: non tender, soft Extremity: Normal Capillary Refill, Swelling Neurologic/Psychiatric: Other (pt sleeping, not waking to examination) Skin: Warm/Dry, Pallor Lymphatic: No Adenopathy Results Lab Laboratory Tests 10/07/22 22:45 10/08/22 12:04 10/09/22 04:07 Assessment/Plan Assessment/Plan as above Critical Care: Critically Ill Patient Time spent with patient (mins): 25 JOSE G BENJAMIN MD Oct 09, 2022 10:54
[2022-10-09] MEDS ORDERED: ETOMIDATE IV SOLN 20 MG/10 ML VIAL ONE (13:59)
[2022-10-09] MEDS ORDERED: fentaNYL INJ 100 MCG/2 ML AMP ONE (14:00)
[2022-10-09] MEDS ORDERED: KETAMINE HCL 100 MG/ML 5 ML VIAL ONE (14:16)
--- NOTE | 2022-10-09 14:54 | Progress Note-Post Operative ---
Post-Operative Progess Note Surgeon (s)/Assisted Sales Representative (s) Surgeon RIKKI FRAGA DO Assisted Sales Representative: n/a Pre-Operative Diagnosis sacral decubitus ulcer Post-Operative Diagnosis same Procedure & Operative Findings Date of Procedure 10/09/22 Procedure Performed/Findings debridement of sacral decubitus ulcer Anesthesia Type MAC Estimated Blood Loss Estimated blood loss (mL): minimal Specimens/Packing Specimens Removed culture of wound and decubitus ulcer RIKKI FRAGA DO Oct 09, 2022 14:54
[2022-10-09 14:56] VITALS: BP 149/99
--- NOTE | 2022-10-09 15:03 | Anesthesia-General Post-Op ---
MAC Patient Condition Mental Status/LOC: Same as Preop Cardiovascular: Satisfactory Nausea/Vomiting: Absent Respiratory: Satisfactory Pain: Controlled Complications: Absent Post Op Complications Complications None Follow Up Care/Instructions Patient Instructions None needed. Anesthesiology Discharge Order Discharge Order Patient is doing well, no complaints, stable vital signs, no apparent adverse anesthesia problems. No complications reported per nursing. AXEL PACHECO CRNA Oct 09, 2022 15:03
[2022-10-09 15:05] VITALS: BP 147/96
[2022-10-09 15:15] VITALS: BP 123/95
[2022-10-09] MEDS ORDERED: ONDANSETRON 4 MG/2 ML (SDV) Z0FRAN IVP PRN (15:15)
[2022-10-09] MEDS ORDERED: MEPERIDINE (DEMEROL) INJ 50 MG/ML IVP ONE (15:15)
[2022-10-09] MEDS ORDERED: morphine INJ 10 MG/ML 1ML (SYR OR VIAL) IVP ONE (15:15)
[2022-10-09 15:25] VITALS: BP 141/88
--- NOTE | 2022-10-09 16:23 | Progress Note ---
Subjective Subjective/Events-last exam Patient sleepy. States that he is having pain in his back side. Bed bound. No ON events Review of Systems General: Fatigue, Malaise Pulmonary: Dyspnea; No Cough Cardiovascular: No: Chest Pain, Palpitations, Edema Gastrointestinal: No: Nausea, Vomiting, Abdominal Pain, Diarrhea, Constipation Musculoskeletal: back pain Neurological: Weakness, Incoordination, Confusion Focused Exam Lactate Level 10/08/22 01:02: Lactic Acid Level 4.16*H 10/08/22 03:15: Lactic Acid Level 2.23*H 10/08/22 06:25: Lactic Acid Level 1.51 Objective Exam Last Set of Vital Signs Vital Signs Date Time Temp Pulse Resp B/P (MAP) Pulse Ox O2 Delivery O2 Flow Rate FiO2 10/09/22 16:00 106 22 118/74 (89) 99 Nasal Cannula 2.00 10/09/22 15:25 36.2 Capillary Refill : Greater Than 3 Seconds I&O Intake and Output 10/09/22 00:00 Intake Total 5570 ml Output Total 2025 ml Balance 3545 ml Intake Oral 0 ml IV Total 5570 ml Output Urine Total 2025 ml Daily Weight Change No General: Alert, No Acute Distress Lungs: Clear to Auscultation, Normal Air Movement Heart: Regular Rate, No Murmurs Abdomen: Normal Bowel Sounds, Soft, No Tenderness, No Masses Extremities: Other (2+ pitting edema L>R,) Skin: Other (Open sacral stage IV decub) Results/Procedures Lab Laboratory Tests 10/08/22 17:38: Glucometer 79 10/09/22 04:07: White Blood Count 12.2H, Red Blood Count 3.26L, Hemoglobin 10.1L, Hematocrit 30L , Mean Corpuscular Volume 92, Mean Corpuscular Hemoglobin 31, Mean Corpuscular Hemoglobin Concent 34, Red Cell Distribution Width 13.5, Platelet Count 344, Mean Platelet Volume 9.3, Immature Granulocyte % (Auto) 5, Neutrophils (%) (Auto) 86H, Lymphocytes (%) (Auto) 4L, Monocytes (%) (Auto) 4, Eosinophils (%) (Auto) 1, Basophils (%) (Auto) 0, Neutrophils # (Auto) 10.5H, Lymphocytes # (Auto) 0.5L, Monocytes # (Auto) 0.5, Eosinophils # (Auto) 0.1, Basophils # (Auto ) 0.0, Immature Granulocyte # (Auto) 0.6H, Prothrombin Time 18.5H, INR Comment 1.5H, Sodium Level 140, Potassium Level 3.2L, Chloride Level 113H, Carbon Dioxide Level 18L, Anion Gap 9, Blood Urea Nitrogen 52H, Creatinine 1.29, Estimat Glomerular Filtration Rate 56, BUN/Creatinine Ratio 40, Glucose Level 71, Calcium Level 8.1L, Corrected Calcium 9.7, Phosphorus Level 2.3, Magnesium Level 1.6, Total Bilirubin 0.9, Aspartate Amino Transf (AST/SGOT) 60H, Alanine Aminotransferase (ALT/SGPT) 42, Alkaline Phosphatase 161H, Total Protein 4.8L, Albumin 2.0L Microbiology 10/08/22 MRSA Screen - Final, Complete MRSA not isolated 10/07/22 Gram Stain - Final, Resulted 10/07/22 Wound Culture - Preliminary, Resulted Probable Mixed Bacterial Shania 10/07/22 Urine Culture - Final, Complete NO GROWTH 10/07/22 Blood Culture - Preliminary, Resulted Gram Negative Bacillus 1 Assessment/Plan Assessment/Plan (1) Severe sepsis Status: Acute Assessment & Plan: - Continue IVF and IV antibiotics, LA resolved, HDS, Admit to ICU 10/09: d/c Vanco, culture Gram neg rods, continue IVFs and IV antibiotics (2) Acute kidney injury Status: Acute Assessment & Plan: - IVFs, continue to monitor 10/09: Cr improving, will continue to monitor (3) Altered mental status Status: Acute Assessment & Plan: - Likely 2/2 to sepsis and acute illness on top of mild dementia Qualifiers: Qualified Codes: R41.0 - Disorientation, unspecified (4) Hematemesis Status: Acute Assessment & Plan: - General surgery consulted, Hgb stable Qualifiers: Qualified Codes: K92.0 - Hematemesis (5) Sacral decubitus ulcer, stage IV Status: Acute Assessment & Plan: - Will need debridment, Dr Quach consulted, Dr Sears and wound care consulted, patient will need NH placement 10/09: To OR for debridment today (6) Left leg cellulitis Status: Acute Assessment & Plan: - US pending 10/09: + thrombus, continue treatment dosing of lovenox (7) Deep vein thrombosis (DVT) of left lower extremity Status: Acute Assessment & Plan: 10/09: Lovenox Qualifiers: Qualified Codes: I82.432 - Acute embolism and thrombosis of left popliteal vein (8) CAD (coronary artery disease) Status: Chronic KENNETH PORTER MD Oct 09, 2022 16:23
--- NOTE | 2022-10-09 23:23 | OPERATIVE REPORT ---
DATE OF SERVICE: 10/09/2022 PREOPERATIVE DIAGNOSIS: Sacral decubitus ulcer. POSTOPERATIVE DIAGNOSIS: Sacral decubitus ulcer. PROCEDURE: Debridement of sacral decubitus ulcer, skin, subcutaneous tissue and muscle, 12.5 x 9 x 4 cm, and sharp and cautery debridement. SURGEON: Rikki Quach DO ANESTHESIA: MAC. ESTIMATED BLOOD LOSS: Minimal. COMPLICATIONS: None. INDICATIONS: The patient is a 77-year-old male with sacral decubitus ulcer, stage IV, needing debridement for further treatment. He has had this previously debrided and almost had it healed, but this has returned. Consent was obtained for procedure. DESCRIPTION OF PROCEDURE: The patient was taken to the operating suite. He was placed in the right lateral recumbent position. Timeout was performed. Cautery and 15 blade scalpel was used to excise the skin. Cautery was used to dissect down through the subcutaneous tissues and also sharp debridement of necrotic tissue, which consisted of skin, subcutaneous tissue and muscle. This was all continued to be debrided to a good healthy appearing tissue, which once removed, hemostasis was achieved. Copious amount of irrigation was used to irrigate the wound. Overall, dimensions were 12.5 x 9 x 4 cm. The wound was then packed with Betadine-soaked Kerlix and sterile bandage was applied. The patient tolerated the procedure well, no complications, taken to recovery room in stable condition. Job ID: [id number] DocumentID: [id number] Dictated Date: 10/09/2022 20:42:10 Metal Furniture Polisher Date: 10/09/2022 23:22:00 Dictated By: RIKKI QUACH DO
[2022-10-10] MEDS: morphine INJ 10 MG/ML 1ML (SYR OR VIAL) IVP PRN ×3 (01:56→10:13)
[2022-10-10] MEDS: PIPERACILLIN SODIUM/TAZOBACTAM 4.5 GM in NS (IVPB) 100 ML IV SCH ×3 (01:58→18:13)
[2022-10-10] MEDS: NOREPINEPHRINE 8 MG/250 ML 250 ML IV SCH ×3 (02:11→18:13)
[2022-10-10] MEDS: NS IV 1000 ML 1,000 ML IV SCH ×3 (03:32→18:13)
[2022-10-10] MEDS: PANTOPRAZOLE DRIP 200 MG/NS 100 ML IV SCH ×2 (03:52)
[2022-10-10 04:03] LABS: BASOPHILS # (AUTO) 0.1 10^3/uL (0.0-0.1); BASOPHILS % (AUTO) 0 % (0-10); EOSINOPHILS # (AUTO) 0.2 10^3/uL (0.0-0.3); EOSINOPHILS % (AUTO) 2 % (0-10); HEMATOCRIT 30 % (40-54); HEMOGLOBIN 9.7 g/dL (13.3-17.7); LYMPHOCYTES # (AUTO) 0.8 10^3/uL (1.0-4.0); LYMPHOCYTES % (AUTO) 6 % (12-44); MEAN CORPUSCULAR HEMOGLOBIN 31 pg (25-34); MEAN CORPUSCULAR HGB CONC 32 g/dL (32-36); MEAN CORPUSCULAR VOLUME 95 fL (80-99); MONOCYTES # (AUTO) 0.6 10^3/uL (0.0-1.0); MONOCYTES % (AUTO) 5 % (0-12); NEUTROPHILS # (AUTO) 10.2 10^3/uL (1.8-7.8); NEUTROPHILS % (AUTO) 81 % (42-75); PLATELET COUNT 389 10^3/uL (130-400); WHITE BLOOD COUNT 12.5 10^3/uL (4.3-11.0)
[2022-10-10 04:22] LABS: ALBUMIN 2.1 GM/DL (3.2-4.5); POTASSIUM 4.1 MMOL/L (3.6-5.0)
[2022-10-10 04:25] LABS: TOTAL PROTEIN 4.8 GM/DL (6.4-8.2)
[2022-10-10 04:27] LABS: BILIRUBIN,TOTAL 0.9 MG/DL (0.1-1.0)
[2022-10-10 04:28] LABS: PHOSPHORUS 2.5 MG/DL (2.3-4.7)
[2022-10-10 04:29] LABS: CREATININE SERUM 1.12 MG/DL (0.60-1.30)
[2022-10-10 04:31] LABS: MAGNESIUM 2.1 MG/DL (1.6-2.4)
[2022-10-10] MEDS: POTASSIUM CL 10MEQ/50ML IVPB 50 ML IV SCH (04:32)
[2022-10-10] MEDS: MAGNESIUM 1 GM/100 ML IVPB 100 ML IV SCH (04:32)
[2022-10-10] MEDS: KCL 20 MEQ TAB (K-DUR) PO SCH (04:33)
[2022-10-10] MEDS: VASOPRESSIN INJECTION 20 UNIT in NS (IVPB) 100 ML IV SCH ×2 (06:25→10:06)
--- NOTE | 2022-10-10 07:32 | Progress Note - Surgery ---
CLARISSAMICHA 10/10/22 0732: Subjective Date Seen by a Provider: Oct 10, 2022 Time Seen by a Provider: 07:28 Subjective/Events-last exam Patient sleeping and does not wake to examination or answer questions. Nurse reports he is doing well post op, she has given morphine when he becomes tachyc ardic and appears uncomfortable which resolves these issues. Review of Systems Unable to obtain 2/2 patient condition Focused Exam Lactate Level 10/08/22 01:02: Lactic Acid Level 4.16*H 10/08/22 03:15: Lactic Acid Level 2.23*H 10/08/22 06:25: Lactic Acid Level 1.51 Objective Exam Vital Signs Date Time Temp Pulse Resp B/P (MAP) Pulse Ox O2 Delivery O2 Flow Rate FiO2 10/10/22 07:16 115 10/10/22 07:00 117 18 155/89 (111) 98 OxyMask 2.00 10/10/22 06:00 114 18 138/93 (108) 99 OxyMask 2.00 10/10/22 05:00 114 26 147/84 (105) 98 OxyMask 2.00 10/10/22 04:00 115 21 153/82 (105) 98 OxyMask 2.00 10/10/22 04:00 99 OxyMask 2.00 10/10/22 03:00 111 21 133/76 (95) 97 OxyMask 2.00 10/10/22 02:00 111 20 142/76 (98) 97 OxyMask 2.00 10/10/22 01:00 111 10/10/22 01:00 112 19 138/80 (99) 99 OxyMask 2.00 10/10/22 00:00 36.5 10/10/22 00:00 109 22 146/78 (100) 97 OxyMask 2.00 10/09/22 23:59 99 OxyMask 2.00 10/09/22 23:00 112 22 144/79 (100) 99 OxyMask 2.00 10/09/22 22:00 112 22 138/75 (96) 98 OxyMask 2.00 10/09/22 21:00 111 21 150/71 (97) 97 OxyMask 2.00 10/09/22 20:00 110 23 146/83 (104) 99 OxyMask 2.00 10/09/22 20:00 99 OxyMask 2.00 10/09/22 19:27 36.1 OxyMask 2.00 10/09/22 19:00 110 10/09/22 19:00 110 22 144/77 (99) 100 Nasal Cannula 2.00 10/09/22 18:00 108 21 151/83 (105) 100 Nasal Cannula 2.00 10/09/22 17:00 108 9 137/73 (94) 99 Nasal Cannula 2.00 10/09/22 16:00 106 22 118/74 (89) 99 Nasal Cannula 2.00 10/09/22 15:45 95 Nasal Cannula 5.00 10/09/22 15:25 OxyMask 5 10/09/22 15:25 36.2 20 141/88 (105) 100 OxyMask 4.00 10/09/22 15:15 16 123/95 (104) 100 OxyMask 5 10/09/22 15:10 OxyMask 5 10/09/22 15:05 20 147/96 (113) 100 OxyMask 5 10/09/22 15:00 103 17 142/97 (112) 99 Nasal Cannula 2.00 10/09/22 14:56 36.2 16 149/99 (116) 99 OxyMask 5 10/09/22 14:56 OxyMask 5 10/09/22 13:00 104 17 137/73 (94) 98 Nasal Cannula 2.00 10/09/22 12:38 101 10/09/22 12:15 95 Nasal Cannula 2.00 10/09/22 12:00 105 28 140/80 (100) 97 Nasal Cannula 2.00 10/09/22 11:00 110 22 137/84 (101) 99 Nasal Cannula 2.00 10/09/22 10:00 109 20 148/83 (104) 95 Nasal Cannula 2.00 10/09/22 09:00 101 22 151/82 (105) 96 Nasal Cannula 2.00 10/09/22 08:42 105 146/84 10/09/22 08:00 105 17 142/85 (104) 95 Nasal Cannula 2.00 10/09/22 07:48 96 Nasal Cannula 2.00 10/09/22 07:46 36.2 105 28 146/84 (104) 94 Nasal Cannula 2.00 10/09/22 07:32 105 I & O 10/10/22 07:00 Intake Total 1900 ml Output Total 1450 ml Balance 450 ml Capillary Refill : Greater Than 3 Seconds General Appearance: No Apparent Distress, Other (does not wake to examination or answer questions) HEENT: Normal ENT Inspection, Other (dry mucous membranes improving from yesterday, evidence of prior emesis on teeth) Neck: Non Tender, Supple Respiratory: Chest Non Tender, No Accessory Muscle Use, No Respiratory Distress Cardiovascular: No JVD, Tachycardia Peripheral Pulses: 2+ Radial Pulses (R), 2+ Radial Pulses (L) Gastrointestinal: non tender, soft Extremity: Normal Capillary Refill, Swelling Neurologic/Psychiatric: No Alert; Other (pt sleeping, not waking to examination) Skin: Warm/Dry, Pallor Lymphatic: No Adenopathy Results Lab Laboratory Tests 10/10/22 03:26: White Blood Count 12.5H, Red Blood Count 3.16L, Hemoglobin 9.7L, Hematocrit 30L, Mean Corpuscular Volume 95, Mean Corpuscular Hemoglobin 31, Mean Corpuscular He moglobin Concent 32, Red Cell Distribution Width 14.1, Platelet Count 389, Mean Platelet Volume 9.0, Immature Granulocyte % (Auto) 6, Neutrophils (%) (Auto) 81H , Lymphocytes (%) (Auto) 6L, Monocytes (%) (Auto) 5, Eosinophils (%) (Auto) 2, Basophils (%) (Auto) 0, Neutrophils # (Auto) 10.2H, Lymphocytes # (Auto) 0.8L, Monocytes # (Auto) 0.6, Eosinophils # (Auto) 0.2, Basophils # (Auto) 0.1, Immature Granulocyte # (Auto) 0.8H, Sodium Level 142, Potassium Level 4.1, Chloride Level 116H, Carbon Dioxide Level 16L, Anion Gap 10, Blood Urea Nitrogen 34H, Creatinine 1.12, Estimat Glomerular Filtration Rate 67, BUN/Creatinine Ratio 30, Glucose Level 76, Calcium Level 8.0L, Corrected Calcium 9.5, Phosphorus Level 2.5, Magnesium Level 2.1, Total Bilirubin 0.9, Aspartate Amino Transf (AST/SGOT) 62H, Alanine Aminotransferase (ALT/SGPT) 43, Alkaline Phosphatase 165H, Total Protein 4.8L, Albumin 2.1L Microbiology 10/08/22 MRSA Screen - Final, Complete MRSA not isolated 10/07/22 Gram Stain - Final, Resulted 10/07/22 Wound Culture - Preliminary, Resulted Probable Mixed Bacterial Shania 10/07/22 Urine Culture - Final, Complete NO GROWTH 10/07/22 Blood Culture - Preliminary, Resulted Gram Negative Bacillus 1 Assessment/Plan Assessment/Plan Assessment/Plan POD #1 s/p sacral decubitus ulcer debridement ?GI bleed - upper Sacral decubitus ulcer - grade 4 (necrotic) Sepsis Cellulitis Unable to obtain history and no family present at this time, per review he has experienced coffee-ground emesis and has had scopes in the past Continue IV abx and ppi Continue pain control Will need usp wound care RIKKI QUACH DO 10/10/222122: Subjective Subjective/Events-last exam Patient sleeping. Not wanting to wake up to be examined. Patient will open eyes. No family at bedside. Has not had any further emesis. No change in condition. Objective Exam General Appearance: No Apparent Distress, Other (does not wake to examination or answer questions) HEENT: PERRL/EOMI, Normal ENT Inspection, Other (dry mucous membranes ) Neck: Non Tender, Supple Respiratory: Chest Non Tender, No Accessory Muscle Use, No Respiratory Distress Cardiovascular: No JVD, Tachycardia Gastrointestinal: non tender, soft Extremity: Normal Capillary Refill, Swelling Neurologic/Psychiatric: Other (pt sleeping, not waking to examination, but will open eyes occasionally) Skin: Warm/Dry, Pallor Lymphatic: No Adenopathy Assessment/Plan Assessment/Plan Assessment/Plan POD #1 s/p sacral decubitus ulcer debridement ?GI bleed - upper Sacral decubitus ulcer - grade 4 (necrotic) Sepsis Cellulitis Unable to obtain history and no family present at this time, per review he has experienced coffee-ground emesis and has had scopes in the past Continue IV abx and ppi not had any further bloody emesis Continue pain control Will need usp wound care Dressing change tomorrow earlier if needed. Supervisory-Addendum Brief Verification & Attestation Participated in pt care: history, MDM, physical Personally performed: exam, history, MDM, supervision of care Care discussed with: Medical Student Procedures: n/a Results interpretation: Verified all documentation Verification and Attestation of Medical Student E/M Service A medical student performed and documented this service in my presence. I reviewed and verified all information documented by the medical student and made modifications to such information, when appropriate. I personally performed the physical exam and medical decision making. Rikki Quach, Oct 10, 2022,21:23 MICHA ROMO Oct 10, 2022 07:32 RIKKI QUACH DO Oct 10, 2022 21:23
--- NOTE | 2022-10-10 09:58 | Tele-ICU Progress Note ---
Subjective Date Seen by a Provider: Oct 10, 2022 Time Seen by a Provider: 09:48 Subjective/Events-last exam Tele-ICU Physician , Progress Note ) Service provided via interactive audio and video telecommunications [facility] to a patient admitted to ICU bed in [facility]. Patient is seen today due to persistent need of ICU care Available chart/ vitals / labs / Images reviewed Video assessment done using tele ICU camera, rest of exam as per RN He is a 77-year-old male with a past medical history of sacral decubitus lives in at home and he was brought to the emergency room because of generalized weakness, and he was also throwing up dark emesis. He was unable to give any further history. He is found to have a significant of dehydration with lactic acidosis and signs of cellulitis on the left leg and urine analysis consistent with a urinary tract infection. Sepsis is suspected and he is given IV fluids for sepsis protocol and now he is feeling somewhat better but he is a disoriented and complains of back pain at the decubitus ulcer and it is found to be stage IV unable to see the Roman apparently. A surgical consultation has been obtained and he is supposed to go to surgery for debridement. 10/10/22 he underwent decubitus ulcer debridement yesterday. He is tachycardic. Blood cultures are growing prob. anerobic bacilli but final ID pending. wound culture growing proteaus species. he is on vanc and zosyn. Aparently he is not well cared at home by family. They apparently refused NH placement during previous admission. services clerk are working with family to place him in NH Impression 1. Anaerobic sepsis 2. Urinary tract infection 3. Cellulitis of the left leg 4. Infected stage IV sacral decubitus ulcer with significant pain. 5. Altered mental status probably due to sepsis. 6. Possible upper GI bleed. Surgical consultation has been requested. 7. Questionable history of DVT. Recommendations 1. Continue hydration monitor BUN and creatinine 2. Broad-spectrum antibiotics per primary care physician and await for final ID of organisms. 3. Surgical input appreciated. He underwent debridement on 10/09/22 4. History of for paroxysmal atrial fibrillation and he was on Xarelto. Now it is on hold due to suspicion of GI bleed 5. Protonix intravenously. 6. DVT prophylaxis once the surgical procedures are done and if no active GI bleed present. Coordination of care with primary care physician and bedside consultants. Critical care time spent on this patient today is approximately 30 minutes. I am remotely monitoring this patient from Tele icu station in [place]. I am unable to do the bedside exam, and history/physical and pertinent information is taken from other notes in the computer and bedside FUNCTIONAL MANAGER Certain portions of this document may have been dictated utilizing voice recognition technology such as [employer]. Inherent to this technology, typographical and grammatical errors may exist. As much as I am diligent to identify and correct to these mistakes, some errors may remain in the document.- Sepsis Event Evaluation Height, Weight, BMI Height: 5'11.00" Weight: 310lbs. 0.0oz. [id number]; 41.97 BMI Method: Focused Exam Lactate Level 10/08/22 01:02: Lactic Acid Level 4.16*H 10/08/22 03:15: Lactic Acid Level 2.23*H 10/08/22 06:25: Lactic Acid Level 1.51 Exam Exam Patient acknowledged, consented, and participated in this virtual visit which was conducted using real time audio/video Vital Signs Date Time Temp Pulse Resp B/P (MAP) Pulse Ox O2 Delivery O2 Flow Rate FiO2 10/10/22 09:00 116 31 162/86 (111) 97 OxyMask 2.00 10/10/22 08:00 95 OxyMask 2.00 10/10/22 08:00 120 19 156/89 (111) 97 OxyMask 2.00 10/10/22 07:16 115 10/10/22 07:00 117 18 155/89 (111) 98 OxyMask 2.00 10/10/22 06:00 114 18 138/93 (108) 99 OxyMask 2.00 10/10/22 05:00 114 26 147/84 (105) 98 OxyMask 2.00 10/10/22 04:00 115 21 153/82 (105) 98 OxyMask 2.00 10/10/22 04:00 99 OxyMask 2.00 10/10/22 03:00 111 21 133/76 (95) 97 OxyMask 2.00 10/10/22 02:00 111 20 142/76 (98) 97 OxyMask 2.00 10/10/22 01:00 111 10/10/22 01:00 112 19 138/80 (99) 99 OxyMask 2.00 10/10/22 00:00 36.5 10/10/22 00:00 109 22 146/78 (100) 97 OxyMask 2.00 10/09/22 23:59 99 OxyMask 2.00 10/09/22 23:00 112 22 144/79 (100) 99 OxyMask 2.00 10/09/22 22:00 112 22 138/75 (96) 98 OxyMask 2.00 10/09/22 21:00 111 21 150/71 (97) 97 OxyMask 2.00 10/09/22 20:00 110 23 146/83 (104) 99 OxyMask 2.00 10/09/22 20:00 99 OxyMask 2.00 10/09/22 19:27 36.1 OxyMask 2.00 10/09/22 19:00 110 10/09/22 19:00 110 22 144/77 (99) 100 Nasal Cannula 2.00 10/09/22 18:00 108 21 151/83 (105) 100 Nasal Cannula 2.00 10/09/22 17:00 108 9 137/73 (94) 99 Nasal Cannula 2.00 10/09/22 16:00 106 22 118/74 (89) 99 Nasal Cannula 2.00 10/09/22 15:45 95 Nasal Cannula 5.00 10/09/22 15:25 OxyMask 5 10/09/22 15:25 36.2 20 141/88 (105) 100 OxyMask 4.00 10/09/22 15:15 16 123/95 (104) 100 OxyMask 5 10/09/22 15:10 OxyMask 5 10/09/22 15:05 20 147/96 (113) 100 OxyMask 5 10/09/22 15:00 103 17 142/97 (112) 99 Nasal Cannula 2.00 10/09/22 14:56 36.2 16 149/99 (116) 99 OxyMask 5 10/09/22 14:56 OxyMask 5 10/09/22 13:00 104 17 137/73 (94) 98 Nasal Cannula 2.00 10/09/22 12:38 101 10/09/22 12:15 95 Nasal Cannula 2.00 10/09/22 12:00 105 28 140/80 (100) 97 Nasal Cannula 2.00 10/09/22 11:00 110 22 137/84 (101) 99 Nasal Cannula 2.00 10/09/22 10:00 109 20 148/83 (104) 95 Nasal Cannula 2.00 I & O 10/10/22 07:00 Intake Total 1900 ml Output Total 1450 ml Balance 450 ml Height & Weight Height: 5'11.00" Weight: 310lbs. 0.0oz. [id number]; 41.97 BMI Method: General Appearance: No Apparent Distress, Other (does not wake to examination or answer questions) HEENT: Normal ENT Inspection, Other (dry mucous membranes improving from yesterday, evidence of prior emesis on teeth) Neck: Non Tender, Supple Respiratory: Chest Non Tender, No Accessory Muscle Use, No Respiratory Distress Cardiovascular: No JVD, Tachycardia Capillary Refill: Greater Than 3 Seconds Peripheral Pulses: 2+ Radial Pulses (R), 2+ Radial Pulses (L) Gastrointestinal: non tender, soft Extremity: Normal Capillary Refill, Swelling Neurologic/Psychiatric: No Alert; Other (pt sleeping, not waking to examination) Skin: Warm/Dry, Pallor Lymphatic: No Adenopathy Results Lab Laboratory Tests 10/08/22 12:04 10/09/22 04:07 10/10/22 03:26 Assessment/Plan Assessment/Plan as above Critical Care: Critically Ill Patient Time spent with patient (mins): 30 JOSE G BENJAMIN MD Oct 10, 2022 09:58
[2022-10-10] MEDS: HYPOCHLOROUS ACID/NaCl (VASHE) 250 ML IR PRN (13:50)
[2022-10-10] MEDS ORDERED: PRAM1TAB5 PO (16:06)
[2022-10-10] MEDS ORDERED: CNC1KV IM (16:06)
[2022-10-10] MEDS ORDERED: RIVA20TA PO (16:06)
[2022-10-10] MEDS ORDERED: POTA-179 PO (16:06)
[2022-10-10] MEDS ORDERED: SERT-412 PO (16:06)
[2022-10-10] MEDS ORDERED: HALO1TAB PO (16:06)
[2022-10-10] MEDS ORDERED: QUET100T33 PO (16:06)
[2022-10-10] MEDS ORDERED: OXYB5TAB13 PO (16:06)
[2022-10-10] MEDS ORDERED: PANT40TA52 PO (16:06)
--- NOTE | 2022-10-10 16:24 | Progress Note ---
Subjective Subjective/Events-last exam Lethargic and will open eyes to name. Unable to make needs known, NPO due to aspiration risk. Review of Systems Unable to evaluate due to severe illness Focused Exam Lactate Level 10/08/22 01:02: Lactic Acid Level 4.16*H 10/08/22 03:15: Lactic Acid Level 2.23*H 10/08/22 06:25: Lactic Acid Level 1.51 Objective Exam Last Set of Vital Signs Vital Signs Date Time Temp Pulse Resp B/P (MAP) Pulse Ox O2 Delivery O2 Flow Rate FiO2 10/10/22 15:37 35.9 10/10/22 15:34 96 OxyMask 2.00 10/10/22 14:00 118 19 130/83 (99) Capillary Refill : Greater Than 3 Seconds I&O Intake and Output 10/10/22 00:00 Intake Total 900 ml Output Total 1550 ml Balance -650 ml Intake Oral 0 ml IV Total 900 ml Output Urine Total 1550 ml General: Other (Opens eyes to name,, unable to answer questions) Lungs: Other (diffuse crackles, normal work of breathing) Heart: Regular Rate, No Murmurs Abdomen: Soft Extremities: Other (2-3+ pitting edema bilaterally) Results/Procedures Lab Laboratory Tests 10/10/22 03:26: White Blood Count 12.5H, Red Blood Count 3.16L, Hemoglobin 9.7L, Hematocrit 30L, Mean Corpuscular Volume 95, Mean Corpuscular Hemoglobin 31, Mean Corpuscular Hemoglobin Concent 32, Red Cell Distribution Width 14.1, Platelet Count 389, Mean Platelet Volume 9.0, Immature Granulocyte % (Auto) 6, Neutrophils (%) (Auto) 81H, Lymphocytes (%) (Auto) 6L, Monocytes (%) (Auto) 5, Eosinophils (%) (Auto) 2, Basophils (%) (Auto) 0, Neutrophils # (Auto) 10.2H, Lymphocytes # (Auto) 0.8L, Monocytes # (Auto) 0.6, Eosinophils # (Auto) 0.2, Basophils # (Auto) 0.1, Immature Granulocyte # (Auto) 0.8H, Sodium Level 142, Potassium Level 4.1, Chloride Level 116H, Carbon Dioxide Level 16L, Anion Gap 10, Blood Urea Nitrogen 34H, Creatinine 1.12, Estimat Glomerular Filtration Rate 67, BUN/Creatinine Ratio 30, Glucose Level 76, Calcium Level 8.0L, Corrected Calcium 9.5, Phosphorus Level 2.5, Magnesium Level 2.1, Total Bilirubin 0.9, Aspartate Amino Transf (AST/SGOT) 62H, Alanine Aminotransferase (ALT/SGPT) 43, Alkaline Phosphatase 165H, Total Protein 4.8L, Albumin 2.1L Microbiology 10/09/22 Gram Stain - Final, Resulted 10/09/22 Anaerobic Culture, Resulted Pending 10/09/22 Surgical Culture - Preliminary, Resulted Mixed Bacterial Shania Proteus mirabilis 10/08/22 MRSA Screen - Final, Complete MRSA not isolated 10/07/22 Urine Culture - Final, Complete NO GROWTH 10/07/22 Blood Culture - Preliminary, Resulted Bacteroides fragilis Assessment/Plan Assessment/Plan (1) Severe sepsis Status: Acute Assessment & Plan: - Continue IVF and IV antibiotics, LA resolved, HDS, Admit to ICU 10/09: d/c Vanco, culture Gram neg rods, continue IVFs and IV antibiotics 10/10: Cultures pending, continue broad spectrum antibiotics, labile VS (2) Acute kidney injury Status: Acute Assessment & Plan: - IVFs, continue to monitor 10/09: Cr improving, will continue to monitor 10/10: Cr improving (3) Altered mental status Status: Acute Assessment & Plan: - Likely 2/2 to sepsis and acute illness on top of mild dementia Qualifiers: Qualified Codes: R41.0 - Disorientation, unspecified (4) Hematemesis Status: Acute Assessment & Plan: - General surgery consulted, Hgb stable Qualifiers: Qualified Codes: K92.0 - Hematemesis (5) Sacral decubitus ulcer, stage IV Status: Acute Assessment & Plan: - Will need debridment, Dr Quach consulted, Dr Sears and wound care consulted, patient will need NH placement 10/09: To OR for debridment today (6) Left leg cellulitis Status: Acute Assessment & Plan: - US pending 10/09: + thrombus, continue treatment dosing of lovenox (7) Deep vein thrombosis (DVT) of left lower extremity Status: Acute Assessment & Plan: 10/09: Lovenox Qualifiers: Qualified Codes: I82.432 - Acute embolism and thrombosis of left popliteal vein (8) CAD (coronary artery disease) Status: Chronic (9) Discharge planning issues Assessment & Plan: 10/10: Called several times throughout the day to discuss care with and was unable to reach her. Nurse stated that reinieriy plans to come to hospital this evening KENNETH PORTER MD Oct 10, 2022 16:24
[2022-10-11] MEDS: NS IV 1000 ML 1,000 ML IV SCH (01:30)
[2022-10-11] MEDS: PIPERACILLIN SODIUM/TAZOBACTAM 4.5 GM in NS (IVPB) 100 ML IV SCH ×3 (02:08→18:08)
[2022-10-11] MEDS: PANTOPRAZOLE DRIP 200 MG/NS 100 ML IV SCH ×4 (03:20→05:09)
[2022-10-11 04:26] LABS: BASOPHILS # (AUTO) 0.1 10^3/uL (0.0-0.1); BASOPHILS % (AUTO) 0 % (0-10); EOSINOPHILS # (AUTO) 0.2 10^3/uL (0.0-0.3); EOSINOPHILS % (AUTO) 1 % (0-10); HEMATOCRIT 29 % (40-54); HEMOGLOBIN 9.6 g/dL (13.3-17.7); LYMPHOCYTES # (AUTO) 0.7 10^3/uL (1.0-4.0); LYMPHOCYTES % (AUTO) 6 % (12-44); MEAN CORPUSCULAR HEMOGLOBIN 31 pg (25-34); MEAN CORPUSCULAR HGB CONC 33 g/dL (32-36); MEAN CORPUSCULAR VOLUME 94 fL (80-99); MEAN PLATELET VOLUME 8.9 fL (9.0-12.2); MONOCYTES # (AUTO) 0.7 10^3/uL (0.0-1.0); MONOCYTES % (AUTO) 5 % (0-12); NEUTROPHILS # (AUTO) 10.2 10^3/uL (1.8-7.8); NEUTROPHILS % (AUTO) 82 % (42-75); PLATELET COUNT 392 10^3/uL (130-400); WHITE BLOOD COUNT 12.5 10^3/uL (4.3-11.0)
[2022-10-11 04:41] LABS: POTASSIUM 3.9 MMOL/L (3.6-5.0)
[2022-10-11 04:43] LABS: CALCIUM 8.1 MG/DL (8.5-10.1)
[2022-10-11 04:44] LABS: TOTAL PROTEIN 4.7 GM/DL (6.4-8.2)
[2022-10-11 04:48] LABS: CREATININE SERUM 1.13 MG/DL (0.60-1.30)
[2022-10-11 04:50] LABS: MAGNESIUM 1.9 MG/DL (1.6-2.4)
[2022-10-11] MEDS: KCL 20 MEQ TAB (K-DUR) PO SCH (04:59)
[2022-10-11] MEDS: VASOPRESSIN INJECTION 20 UNIT in NS (IVPB) 100 ML IV SCH (04:59)
[2022-10-11] MEDS: POTASSIUM CL 10MEQ/50ML IVPB 50 ML IV SCH ×3 (04:59→06:14)
[2022-10-11] MEDS: MAGNESIUM 1 GM/100 ML IVPB 100 ML IV SCH ×3 (05:01→07:38)
[2022-10-11] MEDS: NOREPINEPHRINE 8 MG/250 ML 250 ML IV SCH (06:22)
[2022-10-11] MEDS: D5 NS 1000 ML IV SOLUTION 1,000 ML IV SCH ×2 (07:38→16:47)
--- NOTE | 2022-10-11 08:24 | Progress Note - Surgery ---
MICHA ROMO 10/11/22 0824: Subjective Date Seen by a Provider: Oct 11, 2022 Time Seen by a Provider: 07:45 Subjective/Events-last exam Pt is awake today, oriented to person (says name) and follows commands. Denies pain. He has continued to have drainage from the sacral wound as reported by nurses. Review of Systems Pt is unreliable historian Objective Exam Vital Signs Date Time Temp Pulse Resp B/P (MAP) Pulse Ox O2 Delivery O2 Flow Rate FiO2 10/11/22 07:44 36.3 10/11/22 07:00 112 10/11/22 06:00 112 13 125/81 (96) 96 Room Air 10/11/22 05:00 111 138/90 (106) Room Air 10/11/22 04:00 107 146/90 (108) Room Air 10/11/22 04:00 92 Room Air 10/11/22 04:00 36.0 10/11/22 03:00 113 14 141/103 (116) 91 Room Air 10/11/22 02:00 114 14 132/92 (105) 95 Room Air 10/11/22 01:00 111 10/11/22 01:00 112 14 151/82 (105) 95 Room Air 10/11/22 00:00 36.1 10/11/22 00:00 114 15 146/102 (117) 94 Room Air 10/10/22 23:59 93 Room Air 10/10/22 23:00 112 16 95 Room Air 10/10/22 22:00 112 25 160/79 (106) 95 Room Air 10/10/22 21:00 113 26 153/85 (107) 94 Room Air 10/10/22 20:46 Room Air 10/10/22 20:00 36.0 10/10/22 20:00 112 23 155/83 (107) 94 Room Air 10/10/22 19:00 Room Air 10/10/22 19:00 112 22 147/73 (97) 94 Room Air 10/10/22 19:00 113 10/10/22 18:00 112 22 146/80 (102) 98 OxyMask 2.00 10/10/22 17:00 117 22 137/85 (102) 98 OxyMask 2.00 10/10/22 16:00 116 21 142/87 (105) 98 OxyMask 2.00 10/10/22 15:37 35.9 10/10/22 15:34 96 OxyMask 2.00 10/10/22 15:00 116 19 166/87 (113) 98 OxyMask 2.00 10/10/22 14:00 118 19 130/83 (99) 98 OxyMask 2.00 10/10/22 13:00 107 15 127/71 (89) 99 OxyMask 2.00 10/10/22 12:00 112 16 143/91 (108) 98 OxyMask 2.00 10/10/22 12:00 96 OxyMask 2.00 10/10/22 11:00 113 18 149/83 (105) 98 OxyMask 2.00 10/10/22 10:00 121 22 151/85 (107) 97 OxyMask 2.00 10/10/22 09:00 116 31 162/86 (111) 97 OxyMask 2.00 I & O 10/11/22 07:00 Intake Total 1100 ml Output Total 1675 ml Balance -575 ml Capillary Refill : Greater Than 3 Seconds General Appearance: No Apparent Distress, WD/WN HEENT: PERRL/EOMI, Normal ENT Inspection, Other (dry mucous membranes ) Neck: Non Tender, Supple Respiratory: Chest Non Tender, No Accessory Muscle Use, No Respiratory Distress Cardiovascular: No JVD, Tachycardia Peripheral Pulses: 2+ Radial Pulses (R), 2+ Radial Pulses (L) Gastrointestinal: non tender, soft Extremity: Normal Capillary Refill, Swelling Neurologic/Psychiatric: Alert, Disoriented (oriented to person and follows simple command) Skin: Warm/Dry, Pallor, Other (Sacral ulcer grade 4 with granulation tissue and minimal surrounding erythema) Lymphatic: No Adenopathy Results Lab Laboratory Tests 10/11/22 04:07: White Blood Count 12.5H, Red Blood Count 3.12L, Hemoglobin 9.6L, Hematocrit 29L, Mean Corpuscular Volume 94, Mean Corpuscular Hemoglobin 31, Mean Corpuscular Hemoglobin Concent 33, Red Cell Distribution Width 14.6H, Platelet Count 392, Mean Platelet Volume 8.9L, Immature Granulocyte % (Auto) 6, Neutrophils (%) (Auto) 82H, Lymphocytes (%) (Auto) 6L, Monocytes (%) (Auto) 5, Eosinophils (%) ( Auto) 1, Basophils (%) (Auto) 0, Neutrophils # (Auto) 10.2H, Lymphocytes # (Auto) 0.7L, Monocytes # (Auto) 0.7, Eosinophils # (Auto) 0.2, Basophils # (Auto) 0.1, Immature Granulocyte # (Auto) 0.7H, Sodium Level 145, Potassium Level 3.9, Chloride Level 118H, Carbon Dioxide Level 16L, Anion Gap 11, Blood Urea Nitrogen 24H, Creatinine 1.13, Estimat Glomerular Filtration Rate 66, BUN/Creatinine Ratio 21, Glucose Level 66L, Calcium Level 8.1L, Corrected Calcium 9.7, Phosphorus Level 2.0L, Magnesium Level 1.9, Total Bilirubin 1.0, Aspartate Amino Transf (AST/SGOT) 59H, Alanine Aminotransferase (ALT/SGPT) 37, Alkaline Phosphatase 180H, Total Protein 4.7L, Albumin 2.0L Microbiology 10/09/22 Gram Stain - Final, Resulted 10/09/22 Anaerobic Culture, Resulted Pending 10/09/22 Surgical Culture - Preliminary, Resulted Mixed Bacterial Shania Proteus mirabilis 10/08/22 MRSA Screen - Final, Complete MRSA not isolated 10/07/22 Urine Culture - Final, Complete NO GROWTH 10/07/22 Blood Culture - Preliminary, Resulted Bacteroides fragilis Assessment/Plan Assessment/Plan Assessment/Plan POD #2 s/p sacral decubitus ulcer debridement ?GI bleed - upper Sacral decubitus ulcer - grade 4 (necrotic) Sepsis Cellulitis Unable to obtain history and no family present at this time, per review he has experienced coffee-ground emesis and has had scopes in the past Continue IV abx and ppi not had any further bloody emesis Continue pain control Will need fpc wound care Dressing change today Speech therapy ordered RIKKI QUACH DO 10/11/22 1305: Subjective Subjective/Events-last exam Alert and answers questions. Not reporting any pain. Denies n/v fever sweats chills shortness of breath or chest pain. Objective Exam General Appearance: No Apparent Distress, WD/WN, Obese HEENT: PERRL/EOMI, Other (dry mucous membranes ) Neck: Non Tender, Supple Respiratory: Chest Non Tender, No Accessory Muscle Use, No Respiratory Distress Cardiovascular: Regular Rate, Rhythm, No JVD Gastrointestinal: non tender, soft Extremity: Normal Capillary Refill, Non Tender, Swelling Neurologic/Psychiatric: Alert, Oriented x3, Disoriented (oriented to person and follows simple command) Skin: Normal Color, Warm/Dry, Pallor, Other (Sacral ulcer grade 4 with granulation tissue and minimal surrounding erythema) Lymphatic: No Adenopathy Assessment/Plan Assessment/Plan Assessment/Plan POD #2 s/p sacral decubitus ulcer debridement ?GI bleed - upper Sacral decubitus ulcer - grade 4 (necrotic) Sepsis Cellulitis Unable to obtain history and no family present at this time, per review he has experienced coffee-ground emesis and has had scopes in the past Continue IV abx and ppi not had any further bloody emesis Continue pain control Will need fpc wound care Dressing change today Speech therapy ordered for swallow eval Supervisory-Addendum Brief Verification & Attestation Participated in pt care: history, MDM, physical Personally performed: exam, history, MDM, supervision of care Care discussed with: Medical Student Procedures: n/a Results interpretation: Verified all documentation Verification and Attestation of Medical Student E/M Service A medical student performed and documented this service in my presence. I reviewed and verified all information documented by the medical student and made modifications to such information, when appropriate. I personally performed the physical exam and medical decision making. Rikki Quach, Oct 11, 2022,13:05 MICHA ROMO Oct 11, 2022 08:24 RIKKI QUACH DO Oct 11, 2022 13:05
--- NOTE | 2022-10-11 09:07 | Consultation-Cardiology ---
HPI-Cardiology Cardiology Consultation: Date of Consultation 10/11/22 Time Seen by a Provider: 08:50 Date of Admission Attending Physician Riri,Local Physician Admitting Physician Admitting Physician: Nohelia Melendez DO Attending Physician: Arlene Fall MD Consulting Physician FELECIA CANCINO MD, MA, FACP, FACC, FSCAI, CCDS Physician requesting consult: Dr Fall HPI: Chief Complaint: Reason for Card consult: CAD 77 you man admitted to Dr Fall on 10-07-22 whom who we have been asked to see today because of a h/o CAD. He is confused and unable to provide any reliable history. He does not report cp or palp or shortness of breath or syncope or pain. Review of Systems-Cardiology Review of Systems Constitutional: other (He is confused and unable to provide any reliable history. He does not report cp or palp or shortness of breath or syncope or pain.) AVY-Fvfroh-Dihiaq Hx Patient Social History Living Status: Lives at home with Smoking Status: Unknown if Ever Smoked Have you traveled recently?: No Alcohol Use?: No Pt feels they are or have been: No Immunizations Up To Date Date of Influenza Vaccine: Mar 31, 2015 Past Medical History PMH As described under Assessment. Family Medical History Family History: Arthritis Hypertension Allergies and Home Medications Allergies Coded Allergies: No Known Drug Allergies (Unverified , 04/10/15) Patient Home Medication List Home Medication List Reviewed: Yes Atorvastatin Calcium (Atorvastatin Calcium) 20 Mg Tablet, 20 MG PO HS, (Reported) Entered as Reported by: MARIELENA FERNANDEZ on 04/10/15 1105 Last Action: Reviewed Cyanocobalamin (Cyanocobalamin Injection) 1,000 Mcg/Ml Inj, 1,000 MCG IM MONTHLY, (Reported) Entered as Reported by: JHONY HOWELL on 10/10/22 1606 Last Action: Reviewed Famotidine (Famotidine) 40 Mg Tablet, 40 MG PO HS, (Reported) Entered as Reported by: MATEUSZ BISHOP on 12/26/21818 Last Action: Reviewed Gabapentin (Gabapentin) 100 Mg Capsule, 200 MG PO HS, (Reported) Entered as Reported by: MATEUSZ BISHOP on 12/26/21818 Last Action: Reviewed Haloperidol (Haloperidol) 1 Mg Tablet, 1 MG PO BID, (Reported) Entered as Reported by: JHONY HOWELL on 10/10/221605 Last Action: Reviewed Metoprolol Succinate (Metoprolol Succinate) 100 Mg Tab.er.24h, 100 MG PO DAILY, (Reported) Entered as Reported by: JHONY HOWELL on 02/01/22956 Last Action: Reviewed Montelukast Sodium (Montelukast Sodium) 10 Mg Tablet, 10 MG PO HS, (Reported) Entered as Reported by: MATEUSZ BISHOP on 12/26/21818 Last Action: Reviewed Oxybutynin Chloride (Oxybutynin Chloride) 5 Mg Tablet, 5 MG PO DAILY, (Reported) Entered as Reported by: JHONY HOWELL on 10/10/221605 Last Action: Reviewed Pantoprazole Sodium (Pantoprazole Sodium) 40 Mg Tablet.dr, 40 MG PO DAILY, (Reported) Entered as Reported by: JHONY HOWELL on 10/10/221605 Last Action: Reviewed Potassium Chloride (Potassium Chloride) 20 Meq Tab.er.prt, 20 MEQ PO DAILY, (Reported) Entered as Reported by: JHONY HOWELL on 10/10/221605 Last Action: Reviewed Pramipexole Di-HCl (Pramipexole Dihydrochloride) 1 Mg Tablet, 1 MG PO HS, (Reported) Entered as Reported by: JHONY HOWELL on 10/10/221605 Last Action: Reviewed Quetiapine Fumarate (Quetiapine Fumarate) 100 Mg Tablet, 100 MG PO TID, (Reported) Entered as Reported by: JHONY HOWELL on 10/10/221605 Last Action: Reviewed Rivaroxaban (Xarelto) 20 Mg Tablet, 20 MG PO DAILY, (Reported) Entered as Reported by: JHONY HOWELL on 10/10/221605 Last Action: Reviewed Sertraline HCl (Sertraline HCl) 25 Mg Tablet, 25 MG PO DAILY, (Reported) Entered as Reported by: JHONY HOWELL on 10/10/221605 Last Action: Reviewed Tamsulosin HCl (Flomax) 0.4 Mg Cap, 0.4 MG PO DAILY, (Reported) Entered as Reported by: MATEUSZ BISHOP on 12/26/21818 Last Action: Reviewed Discontinued Medications Oxybutynin Chloride (Oxybutynin Chloride ER) 5 Mg Tab.er.24, 5 MG PO DAILY, (Reported) Discontinued Reason: No Longer Taking Entered as Reported by: MATEUSZ BISHOP on 12/26/21818 Last Action: Discontinued Pramipexole Di-HCl (Mirapex) 1 Mg Tablet, 1 MG PO HS, (Reported) Discontinued Reason: No Longer Taking Entered as Reported by: MATEUSZ BISHOP on 12/26/21818 Last Action: Discontinued Risperidone (Risperidone) 0.5 Mg Tablet, 0.5 MG PO BID Discontinued Reason: No Longer Taking Prescribed by: WESLY HAAS on 02/06/221102 Last Action: Discontinued Rivaroxaban (Xarelto Starter Pack) 15 Mg (42)- 20 Mg (9) Tab.ds.pk, 1 EACH PO UD Discontinued Reason: No Longer Taking Prescribed by: WESLY HAAS on 02/06/221102 Last Action: Discontinued Sodium Chlor/Hypochlorous Acid (Vashe Wound Therapy Solution) 0.033 % Irrig.soln, 1 ML IR UD Discontinued Reason: No Longer Taking Prescribed by: WESLY HAAS on 02/06/221102 Last Action: Discontinued Physical Exam-Cardiology Physical Exam Vital Signs/I&O 10/10/22 10/10/22 10/10/22 10/11/22 22:00 23:00 23:59 00:00 Pulse 112 112 114 Resp 25 16 15 B/P (MAP) 160/79 (106) 146/102 (117) Pulse Ox 95 95 93 94 O2 Delivery Room Air Room Air Room Air Room Air 10/11/22 10/11/22 10/11/22 10/11/22 00:00 01:00 01:00 02:00 Temp 36.1 Pulse 112 111 114 Resp 14 14 B/P (MAP) 151/82 (105) 132/92 (105) Pulse Ox 95 95 O2 Delivery Room Air Room Air 10/11/22 10/11/22 10/11/22 10/11/22 03:00 04:00 04:00 04:00 Temp 36.0 Pulse 113 107 Resp 14 B/P (MAP) 141/103 (116) 146/90 (108) Pulse Ox 91 92 O2 Delivery Room Air Room Air Room Air 10/11/22 10/11/22 10/11/22 10/11/22 05:00 06:00 07:00 07:44 Temp 36.3 Pulse 111 112 112 Resp 13 B/P (MAP) 138/90 (106) 125/81 (96) Pulse Ox 96 O2 Delivery Room Air Room Air 10/11/22 00:00 Intake Total 0 ml Output Total 925 ml Balance -925 ml Capillary Refill : Greater Than 3 Seconds Constitutional: No AAO x 3; well-developed, well-nourished HEENT: EOMI, hearing is well preserved; No xanthelasmas are seen Neck: carotid pulses are 2 + bilaterally, with good upstrokes Respiratory: No accessory muscle use; chest expansion is symmetric, chest is bilaterally symmetric, other (fair, bilat air entry) Cardiovascular: regular rate-rhythm, S1 and S2, systolic murmur (soft GAURAV at card base) Gastrointestinal: No tender; soft; No guarding, No rebound; audible bowel sounds Extremities: No clubbing, No cyanosis; significant edema (bilat leg swelling, mod, more on L) Neurologic/Psychiatric: No oriented x 3; other (moves all limbs) Skin: normal color; No cool, No diaphoresis; other (sacral ulcer under dressing) Data Review Labs Laboratory Tests 10/11/22 04:07: White Blood Count 12.5H, Red Blood Count 3.12L, Hemoglobin 9.6L, Hematocrit 29L, Mean Corpuscular Volume 94, Mean Corpuscular Hemoglobin 31, Mean Corpuscular Hemoglobin Concent 33, Red Cell Distribution Width 14.6H, Platelet Count 392, Mean Platelet Volume 8.9L, Immature Granulocyte % (Auto) 6, Neutrophils (%) (Auto) 82H, Lymphocytes (%) (Auto) 6L, Monocytes (%) (Auto) 5, Eosinophils (%) (Auto) 1, Basophils (%) (Auto) 0, Neutrophils # (Auto) 10.2H, Lymphocytes # (Auto) 0.7L, Monocytes # (Auto) 0.7, Eosinophils # (Auto) 0.2, Basophils # (Auto) 0.1, Immature Granulocyte # (Auto) 0.7H, Sodium Level 145, Potassium Level 3.9, Chloride Level 118H, Carbon Dioxide Level 16L, Anion Gap 11, Blood Urea Nitrogen 24H, Creatinine 1.13, Estimat Glomerular Filtration Rate 66, BUN/Creatinine Ratio 21, Glucose Level 66L, Calcium Level 8.1L, Corrected Calcium 9.7, Phosphorus Level 2.0L, Magnesium Level 1.9, Total Bilirubin 1.0, Aspartate Amino Transf (AST/SGOT) 59H, Alanine Aminotransferase (ALT/SGPT) 37, Alkaline Phosphatase 180H, Total Protein 4.7L, Albumin 2.0L Microbiology 10/09/22 Gram Stain - Final, Resulted 10/09/22 Anaerobic Culture, Resulted Pending 10/09/22 Surgical Culture - Preliminary, Resulted Mixed Bacterial Shania Proteus mirabilis 10/08/22 MRSA Screen - Final, Complete MRSA not isolated 10/07/22 Urine Culture - Final, Complete NO GROWTH 10/07/22 Blood Culture - Preliminary, Resulted Bacteroides fragilis A/P-Cardiology Assessment/Admission Diagnosis Severe sepsis Confusion / Mental Status Change Large sacral decubitus - s/p debridement on 10-10-22 DVT - Nonoccluding thrombus in the left popliteal vein on leg venous Doppler of 10-08-22 Poor care and self-care at home - Rhabdomyolysis due to prolonged stay on the floor at home in mid 2021 CAD: - CT chest of August 2016 at is reported to have shown marked cor calc ification and at least mildaortic valve calcification - Echocardiogram of 07/28/19 showed LVEF 60-65%; mild MR, mild to mod tricuspid regurg; [id number] - MPI 12-12-21: Small to moderate amount of inferolateral ischemia. Normal regional wall motion. Normal global left ventricular systolic function with a calculated ejection fraction of 64%. - Last card cath of 12-26-21: 1. Coronary artery disease primarily consisting of mid vessel occlusion of the right coronary with collateralization of the distal right coronary by the left anterior descending artery. There is diffuse moderate disease of the left coronary system. The first diagonal branch of left anterior descending artery is of a small caliber and has approximately 70% ostial and proximal stenosis. Normal left ventricular end-diastolic pressure. Normal global left ventricular systolic function with ejection fraction approximately 60%. Carotid dz - Mild carotid art disease on carotid u/s of 12/04/18 No evidence of AAA on abd ao screening scan of 11/06/16 H/o palpitations - Holter study of 04-25-15 showed infrequent isolated and coupled PVC's. 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 Status post VATS assisted left upper lobe lobectomy in August 2015. Followed by Dr Pederson - cT1c [place] 7 (4+3) prostate cancer with initial PSA level of 8.98 diagnosed in late 2016, status-post definitive radiation therapy to 8100 cGy in 45 fractions completed on 08/08/2017 with no ADT. Followedby Henrique Pederson and Dyana Obstructive sleep apnea - treated with CPAP Chronic bilat leg swelling - likely related to venous insuff and/or chronic therapy with calcium channel blockers Prostate cancer, - managed by his urologist, Dr Turpin Chronic mild transaminase elevation -likely ABDI, followed by Dr Palafox Discussion and Recomendations * Complex management due to multiple comorbidities * Low-dose ASA for CAD * Treatment dose enoxaparin for DVT if allowed by the Med and Surg svce * Monitor labs closely FELECIA CANCINO MD FACP [facility] CCDS Oct 11, 2022 09:07
--- NOTE | 2022-10-11 09:20 | ST Dysphagia Evaluation ---
Speech Evaluation-General Medical Diagnosis Altered Mental Status Onset Date: Oct 11, 2022 Therapy Diagnosis Therapy Diagnosis: Impaired Cognition Precautions Precautions: Fall, Pressure Ulcer, Aspiration Precautions/Isolations: Aspiration, Fall Prevention, Standard Precautions Referral Referring Physician: Dr. Quach Reason for Referral: Evaluation/Treatment Medical History Pertinent Medical History: CAD, Heart Failure, HTN Reviewed History: Yes Speech PLF/Current-Dysphagia Prior Level of Function Information regarding prior level of P.O. intake or consistency was not located in the patient's medical chart. At this time, the patient is unable to provide information regarding prior level of function due to heightened confusion. Subjective The patient was lying in bed, awake and alert, upon entrance to his room by the clinician. The patient is receiving care from his RN, who is attempting to place an IV. Unfortunately, the patient is not following simple, one-step commands consistently and the IV is unable to be placed at this time. The patient is seated upright for safe swallowing. The patient is receiving room air with SpO2% at 97% prior to and following oral trials. Cognitive Status Patient Orientation: Confused The patient does not provide responses to orientation questions (verbally or non-verbally). Oral Motor Skills Dentition: Natural Ability to Follow Directions: Poor Oral Expression Ability: Moderate Impairment Voice Voice Phonatory-Based Quality: Normal Voice Pitch: Normal Voice Loudness: Normal Face Facial Symmetry: Symmetrical Oral-Facial Assessment Oral-Facial Dentition: Normal Labial Seal Description: Normal Lingual ROM: Normal Lingual Strength: Normal Volitional Dry Swallow: No Voluntary Cough: No Can Clear Throat Volitionally: No Dysphagia Evaluation Consistencies Presented: Thin Liquid (Ice chips, straw sip.) The patient orally accepts items from a teaspoon appropriately. The patient bites at and on the straw, only drawing one trial from the straw throughout the evaluation. Additional attempts at straw drinks resulted in the biting behavior. Phasic mastication of ice chips was present. Anterior bolus loss was not present. Laryngeal elevation was present to palpation. Thorough oral care was provided by the clinician prior to P.O. trials to clean debris from the dentition, labial, and lingual surfaces. Continued, frequent oral care is highly recommended. Following phasic mastication of ice chips, the patient expectorated (spit out) all oral contents. The clinician continued to provide verbal cueing and prompting to complete the swallow, however, the patient continued to expectorate oral contents on himself and areas surrounding his bed. The clinician was able to elicit one straw sip swallow. With the straw sip, the patient did not display s/s of suspected aspiration. The patient was unable to draw additional straw drinks as he continued to bite the straw. Following the straw sip, the patient provided additional ice chips, requesting the patient to stop spitting and swallow. The patient continued to masticate the ice chips at expectorate contents from the oral cavity. Dietary Recommendations: NPO Liquid Recommendations: NPO Unfortunately, due to the patient's behavior with his current altered mental status, the patient is unable to provide recommendations towards an appropriate or safe P.O. diet consistency. The patient continued to expectorate masticated ice chips on himself and his surroundings regardless of maximum verbal cueing. The patient did not display s/s of suspected aspiration with the one straw sip the clinician was able to elicit. If the patient's mentation improves, the p atient may be appropriate for RN Dysphagia Screenings at shift changes if deemed appropriate by the physician. At this time, excellent oral care should be provided for patient comfort and safety. Speech Short Term Goals Short Term Goals Short Term Goals 1. The patient will complete trials of the least restrictive consistency without s/s of suspected aspiration with mild clinician verbal cueing. Time Frame-STG: Two Days. Speech Regrinder Operator Goals Regrinder Operator Goals 1. The patient will tolerate the least restrictive diet without s/s of suspected aspiration. Time Frame: Five Days. Speech-Plan Treatment Plan Speech Therapy Treatment Plan: Continue Plan of Care Treatment Duration: Oct 11, 2022 Frequency: 4 times per week Estimated Hrs Per Day: .25 hour per day Rehab Potential: Guarded Pt/Family Agrees to Plan: Yes Safety Risks/Education Teaching Recipient: Patient Teaching Methods: Discussion Response to Teaching: Unable to Comprehend Education Topics Provided: Results, Recommendations, Plan of Care Time Speech Therapy Time In: 08:50 Speech Therapy Time Out: 09:15 DATE: Oct 11, 2022 Total Billed Time: 25 Billed Treatment Time 1PERICO DYST LOY, ELIZABETH ST Oct 11, 2022 09:20
[2022-10-11] MEDS: ENOXAPARIN 100 MG/1 ML (LOVENOX) SYR SC SCH ×2 (10:20→20:24)
--- NOTE | 2022-10-11 10:42 | Progress Note ---
Subjective Subjective/Events-last exam Patient alert to name and place. Unable to make needs known. NPO due to aspiration risk and bed bound Review of Systems Unable to evaluate due to severe illness Objective Exam Last Set of Vital Signs Vital Signs Date Time Temp Pulse Resp B/P (MAP) Pulse Ox O2 Delivery O2 Flow Rate FiO2 10/11/22 10:00 114 138/79 (98) Room Air 10/11/22 09:00 96 10/11/22 07:44 36.3 10/11/22 07:00 12 10/10/22 18:00 2.00 Capillary Refill : Greater Than 3 Seconds I&O Intake and Output 10/10/22 23:59 Intake Total 1000 ml Output Total 1550 ml Balance -550 ml Intake Oral 0 ml IV Total 1000 ml Output Urine Total 1550 ml General: Alert, No Acute Distress Lungs: Other (Diminished breath sounds, normal work of breathing) Heart: No Murmurs, Other (tachycardic rate) Abdomen: Normal Bowel Sounds, Soft Extremities: Other (Swelling bilateral LE L>R, LLE with erythema and thigh with brusing) Skin: Other (Large Debub wound, see wound care notes) Results/Procedures Lab Laboratory Tests 10/11/22 04:07: White Blood Count 12.5H, Red Blood Count 3.12L, Hemoglobin 9.6L, Hematocrit 29L, Mean Corpuscular Volume 94, Mean Corpuscular Hemoglobin 31, Mean Corpuscular Hemoglobin Concent 33, Red Cell Distribution Width 14.6H, Platelet Count 392, Mean Platelet Volume 8.9L, Immature Granulocyte % (Auto) 6, Neutrophils (%) (Auto) 82H, Lymphocytes (%) (Auto) 6L, Monocytes (%) (Auto) 5, Eosinophils (%) (Auto) 1, Basophils (%) (Auto) 0, Neutrophils # (Auto) 10.2H, Lymphocytes # (Auto) 0.7L, Monocytes # (Auto) 0.7, Eosinophils # (Auto) 0.2, Basophils # (Auto) 0.1, Immature Granulocyte # (Auto) 0.7H, Sodium Level 145, Potassium Level 3.9, Chloride Level 118H, Carbon Dioxide Level 16L, Anion Gap 11, Blood Urea Nitrogen 24H, Creatinine 1.13, Estimat Glomerular Filtration Rate 66, BUN/Creatinine Ratio 21, Glucose Level 66L, Calcium Level 8.1L, Corrected Calcium 9.7, Phosphorus Level 2.0L, Magnesium Level 1.9, Total Bilirubin 1.0, Aspartate Amino Transf (AST/SGOT) 59H, Alanine Aminotransferase (ALT/SGPT) 37, Alkaline Phosphatase 180H, Total Protein 4.7L, Albumin 2.0L Microbiology 10/09/22 Gram Stain - Final, Resulted 10/09/22 Anaerobic Culture, Resulted Pending 10/09/22 Surgical Culture - Preliminary, Resulted Mixed Bacterial Shania Proteus mirabilis 10/08/22 MRSA Screen - Final, Complete MRSA not isolated 10/07/22 Urine Culture - Final, Complete NO GROWTH 10/07/22 Blood Culture - Preliminary, Resulted Bacteroides fragilis Assessment/Plan Assessment/Plan (1) Severe sepsis Status: Acute Assessment & Plan: - Continue IVF and IV antibiotics, LA resolved, HDS, Admit to ICU 10/09: d/c Vanco, culture Gram neg rods, continue IVFs and IV antibiotics 10/10: Cultures pending, continue broad spectrum antibiotics, labile VS 10/11: HDS, Continue IV antibiotics, will transfer to med/surg as he is not longer needing ICU care (2) Acute kidney injury Status: Acute Assessment & Plan: - IVFs, continue to monitor 10/09: Cr improving, will continue to monitor 10/10: Cr improving (3) Altered mental status Status: Acute Assessment & Plan: - Likely 2/2 to sepsis and acute illness on top of mild dementia Qualifiers: Qualified Codes: R41.0 - Disorientation, unspecified (4) Hematemesis Status: Acute Assessment & Plan: - General surgery consulted, Hgb stable 10/11: Stop PPX drip, continue IV BID Qualifiers: Qualified Codes: K92.0 - Hematemesis (5) Sacral decubitus ulcer, stage IV Status: Acute Assessment & Plan: - Will need debridment, Dr Quach consulted, Dr Sears and wound care consulted, patient will need NH placement 10/09: To OR for debridment today (6) Left leg cellulitis Status: Acute Assessment & Plan: - US pending 10/09: + thrombus, continue treatment dosing of lovenox (7) Deep vein thrombosis (DVT) of left lower extremity Status: Acute Assessment & Plan: 10/09: Lovenox Qualifiers: Qualified Codes: I82.432 - Acute embolism and thrombosis of left popliteal vein (8) CAD (coronary artery disease) Status: Chronic (9) Discharge planning issues Assessment & Plan: 10/10: Called several times throughout the day to discuss care with and was unable to reach her. Nurse stated that danial plans to come to hospital this evening KENNETH PORTER MD Oct 11, 2022 10:42
--- NOTE | 2022-10-11 11:15 | Tele-ICU Progress Note ---
Subjective Date Seen by a Provider: Oct 11, 2022 Time Seen by a Provider: 10:26 Subjective/Events-last exam Tele-ICU Physician , Progress Note ) Service provided via interactive audio and video telecommunications [facility] maci to a patient admitted to ICU bed in [facility]. Patient is seen today due to persistent need of ICU care Available chart/ vitals / labs / Images reviewed Video assessment done using tele ICU camera, rest of exam as per RN He is a 77-year-old male with a past medical history of sacral decubitus lives in at home and he was brought to the emergency room because of generalized weakness, and he was also throwing up dark emesis. He was unable to give any further history. He is found to have a significant of dehydration with lactic acidosis and signs of cellulitis on the left leg and urine analysis consistent with a urinary tract infection. Sepsis is suspected and he is given IV fluids for sepsis protocol and now he is feeling somewhat better but he is a disoriented and complains of back pain at the decubitus ulcer and it is found to be stage IV unable to see the Roman apparently. A surgical consultation has been obtained and he is supposed to go to surgery for debridement. 10/10/22 he underwent decubitus ulcer debridement yesterday. He is tachycardic. Blood cultures are growing prob. anerobic bacilli but final ID pending. wound culture growing proteaus species. he is on vanc and zosyn. Aparently he is not well cared at home by family. They apparently refused NH placement during previous admission. assurance services manager health care are working with family to place him in NH 10/11/22. today he is brathing better on room air. bp has been high on and off. blood c/s grew bacteroids fragilis and wound c/s grew proteus species. Impression 1. Anaerobic sepsis 2. Urinary tract infection 3. Cellulitis of the left leg 4. Infected stage IV sacral decubitus ulcer with significant pain. 5. Altered mental status probably due to sepsis improving 6. Possible upper GI bleed. but stable . hb stable. 7. Questionable history of DVT. Recommendations 1. Continue hydration monitor BUN and creatinine 2. Broad-spectrum antibiotics per primary care physician . 3. Surgical input appreciated. He underwent debridement on 10/09/22 4. History of for paroxysmal atrial fibrillation and he was on Xarelto. Now it is on hold due to suspicion of GI bleed 5. Protonix intravenously. 6. started on lovenox and asa by cards. Coordination of care with primary care physician and bedside consultants. Critical care time spent on this patient today is approximately 25 minutes. I am remotely monitoring this patient from Tele icu station in [place]. I am unable to do the bedside exam, and history/physical and pertinent information is taken from other notes in the computer and bedside DIRECT MARKETING ANALYST Certain portions of this document may have been dictated utilizing voice recognition technology such as [employer]. Inherent to this technology, typographical and grammatical errors may exist. As much as I am diligent to identify and correct to these mistakes, some errors may remain in the document.- Sepsis Event Evaluation Height, Weight, BMI Height: 5'11.00" Weight: 310lbs. 0.0oz. [id number]; 35.80 BMI Method: Exam Exam Patient acknowledged, consented, and participated in this virtual visit which was conducted using real time audio/video Vital Signs Date Time Temp Pulse Resp B/P (MAP) Pulse Ox O2 Delivery O2 Flow Rate FiO2 10/11/22 10:00 114 138/79 (98) Room Air 10/11/22 09:00 111 140/103 (115) 96 Room Air 10/11/22 08:00 107 137/88 (104) 96 Room Air 10/11/22 08:00 96 Room Air 10/11/22 07:44 36.3 10/11/22 07:00 112 12 149/79 (102) 96 Room Air 10/11/22 07:00 112 10/11/22 06:00 112 13 125/81 (96) 96 Room Air 10/11/22 05:00 111 138/90 (106) Room Air 10/11/22 04:00 107 146/90 (108) Room Air 10/11/22 04:00 92 Room Air 10/11/22 04:00 36.0 10/11/22 03:00 113 14 141/103 (116) 91 Room Air 10/11/22 02:00 114 14 132/92 (105) 95 Room Air 10/11/22 01:00 111 10/11/22 01:00 112 14 151/82 (105) 95 Room Air 10/11/22 00:00 36.1 10/11/22 00:00 114 15 146/102 (117) 94 Room Air 10/10/22 23:59 93 Room Air 10/10/22 23:00 112 16 95 Room Air 10/10/22 22:00 112 25 160/79 (106) 95 Room Air 10/10/22 21:00 113 26 153/85 (107) 94 Room Air 10/10/22 20:46 Room Air 10/10/22 20:00 36.0 10/10/22 20:00 112 23 155/83 (107) 94 Room Air 10/10/22 19:00 Room Air 10/10/22 19:00 112 22 147/73 (97) 94 Room Air 10/10/22 19:00 113 10/10/22 18:00 112 22 146/80 (102) 98 OxyMask 2.00 10/10/22 17:00 117 22 137/85 (102) 98 OxyMask 2.00 10/10/22 16:00 116 21 142/87 (105) 98 OxyMask 2.00 10/10/22 15:37 35.9 10/10/22 15:34 96 OxyMask 2.00 10/10/22 15:00 116 19 166/87 (113) 98 OxyMask 2.00 10/10/22 14:00 118 19 130/83 (99) 98 OxyMask 2.00 10/10/22 13:00 107 15 127/71 (89) 99 OxyMask 2.00 10/10/22 12:00 112 16 143/91 (108) 98 OxyMask 2.00 10/10/22 12:00 96 OxyMask 2.00 I & O 10/11/22 07:00 Intake Total 1100 ml Output Total 1675 ml Balance -575 ml Height & Weight Height: 5'11.00" Weight: 310lbs. 0.0oz. [id number]; 35.80 BMI Method: General Appearance: No Apparent Distress, WD/WN HEENT: PERRL/EOMI, Normal ENT Inspection, Other (dry mucous membranes ) Neck: Non Tender, Supple Respiratory: Chest Non Tender, No Accessory Muscle Use, No Respiratory Distress Cardiovascular: No JVD, Tachycardia Capillary Refill: Greater Than 3 Seconds Peripheral Pulses: 2+ Radial Pulses (R), 2+ Radial Pulses (L) Gastrointestinal: non tender, soft Extremity: Normal Capillary Refill, Swelling Neurologic/Psychiatric: Alert, Disoriented (oriented to person and follows simple command) Skin: Warm/Dry, Pallor, Other (Sacral ulcer grade 4 with granulation tissue and minimal surrounding erythema) Lymphatic: No Adenopathy Results Lab Laboratory Tests 10/10/22 03:26 10/11/22 04:07 Assessment/Plan Assessment/Plan As above Critical Care: Critically Ill Patient Time spent with patient (mins): 25 JOSE G BENJAMIN MD Oct 11, 2022 11:15
[2022-10-11] MEDS ORDERED: hydrALAZINE (APESOLINE) 20 MG/ML VIAL IV PRN (12:00)
[2022-10-11] MEDS ORDERED: ACETAMINOPHEN 500 MG TAB (TYLENOL) PO PRN (14:00)
[2022-10-11 16:09] VITALS: BP 145/82
[2022-10-11 19:41] VITALS: BP 137/91
[2022-10-11] MEDS: PANTOPRAZOLE 40 MG (PROTONIX) VIAL IV SCH (20:24)
[2022-10-11] MEDS: morphine INJ 10 MG/ML 1ML (SYR OR VIAL) IVP PRN (21:35)
[2022-10-12] VITALS: BP 133/74
[2022-10-12] MEDS: D5 NS 1000 ML IV SOLUTION 1,000 ML IV SCH ×3 (00:57→08:54)
[2022-10-12] MEDS: PIPERACILLIN SODIUM/TAZOBACTAM 4.5 GM in NS (IVPB) 100 ML IV SCH ×3 (00:58→17:05)
[2022-10-12 03:24] VITALS: BP 149/83
[2022-10-12 06:05] LABS: BASOPHILS % (AUTO) 0 % (0-10); EOSINOPHILS # (AUTO) 0.2 10^3/uL (0.0-0.3); EOSINOPHILS % (AUTO) 2 % (0-10); HEMATOCRIT 27 % (40-54); HEMOGLOBIN 9.1 g/dL (13.3-17.7); LYMPHOCYTES # (AUTO) 0.8 10^3/uL (1.0-4.0); LYMPHOCYTES % (AUTO) 7 % (12-44); MEAN CORPUSCULAR HEMOGLOBIN 31 pg (25-34); MEAN CORPUSCULAR HGB CONC 34 g/dL (32-36); MEAN CORPUSCULAR VOLUME 93 fL (80-99); MEAN PLATELET VOLUME 8.8 fL (9.0-12.2); MONOCYTES # (AUTO) 0.7 10^3/uL (0.0-1.0); MONOCYTES % (AUTO) 7 % (0-12); NEUTROPHILS # (AUTO) 8.8 10^3/uL (1.8-7.8); NEUTROPHILS % (AUTO) 78 % (42-75); PLATELET COUNT 380 10^3/uL (130-400); WHITE BLOOD COUNT 11.3 10^3/uL (4.3-11.0)
[2022-10-12 06:18] LABS: POTASSIUM 3.2 MMOL/L (3.6-5.0)
[2022-10-12 06:20] LABS: CALCIUM 7.8 MG/DL (8.5-10.1)
[2022-10-12 06:21] LABS: TOTAL PROTEIN 4.7 GM/DL (6.4-8.2)
[2022-10-12 06:23] LABS: BILIRUBIN,TOTAL 1.1 MG/DL (0.1-1.0)
[2022-10-12 06:24] LABS: PHOSPHORUS 1.4 MG/DL (2.3-4.7)
[2022-10-12 06:27] LABS: MAGNESIUM 1.9 MG/DL (1.6-2.4)
--- NOTE | 2022-10-12 07:35 | Progress Note - Surgery ---
CLARISSAMICHA 10/12/22 0735: Subjective Date Seen by a Provider: Oct 12, 2022 Time Seen by a Provider: 07:30 Subjective/Events-last exam Today pt is alert and oriented to person. He also notes he has had some pain in his back that improves with pain medication. He had a swallow evaluation yes terday that was limited by his mentation, it was recommended that assessing dysphagia continues as mentation improves. Review of Systems Musculoskeletal: back pain Pt is unreliable historian Objective Exam Vital Signs Date Time Temp Pulse Resp B/P (MAP) Pulse Ox O2 Delivery O2 Flow Rate FiO2 10/12/22 03:24 36.3 100 22 149/83 (105) 100 Room Air 10/12/22 00:00 36.4 101 20 133/74 (93) 93 Room Air 10/11/22 22:00 93 Room Air 10/11/22 21:00 Room Air 10/11/22 19:41 37.0 108 18 137/91 (106) 93 Room Air 10/11/22 18:50 Room Air 10/11/22 16:09 36.4 98 18 145/82 (103) 94 Room Air 10/11/22 12:39 36.4 10/11/22 12:10 100 Room Air 10/11/22 12:00 114 27 131/83 (99) 99 Room Air 10/11/22 10:00 114 138/79 (98) Room Air 10/11/22 09:00 111 140/103 (115) 96 Room Air 10/11/22 08:00 107 137/88 (104) 96 Room Air 10/11/22 08:00 96 Room Air 10/11/22 07:44 36.3 I & O 10/12/22 07:00 Intake Total 4380 ml Output Total 1900 ml Balance 2480 ml Capillary Refill : Greater Than 3 Seconds General Appearance: No Apparent Distress, WD/WN, Obese HEENT: PERRL/EOMI, Moist Mucous Membranes Neck: Non Tender, Supple Respiratory: Chest Non Tender, No Accessory Muscle Use, No Respiratory Distress Cardiovascular: Regular Rate, Rhythm, No JVD, Normal Peripheral Pulses Peripheral Pulses: 2+ Radial Pulses (R), 2+ Radial Pulses (L) Gastrointestinal: soft, tenderness (minimal tenderness to palpation diffusely) Extremity: Normal Capillary Refill, Non Tender, Swelling Neurologic/Psychiatric: Alert, Other (oriented to person and follows simple command, not oriented to place or time) Skin: Normal Color, Warm/Dry, Other (Sacral wound packed and dressed) Lymphatic: No Adenopathy Results Lab Laboratory Tests 10/11/22 12:08: Glucometer 105 10/11/22 17:53: Glucometer 106 10/12/22 01:09: Glucometer 111H 10/12/22 05:36: White Blood Count 11.3H, Red Blood Count 2.93L, Hemoglobin 9.1L, Hematocrit 27L, Mean Corpuscular Volume 93, Mean Corpuscular Hemoglobin 31, Mean Corpuscular Hemoglobin Concent 34, Red Cell Distribution Width 14.3, Platelet Count 380, Mean Platelet Volume 8.8L, Immature Granulocyte % (Auto) 6, Neutrophils (%) (Auto) 78H, Lymphocytes (%) (Auto) 7L, Monocytes (%) (Auto) 7, Eosinophils (%) (Auto) 2, Basophils (%) (Auto) 0, Neutrophils # (Auto) 8.8H, Lymphocytes # (Auto) 0.8L, Monocytes # (Auto) 0.7, Eosinophils # (Auto) 0.2, Basophils # (Auto) 0.0, Immature Granulocyte # (Auto) 0.7H, Sodium Level 146H, Potassium Level 3.2L, Chloride Level 121H, Carbon Dioxide Level 17L, Anion Gap 8, Blood Urea Nitrogen 18, Creatinine 1.00, Estimat Glomerular Filtration Rate 77, BUN/Creatinine Ratio 18, Glucose Level 113H, Calcium Level 7.8L, Corrected Calcium 9.4, Phosphorus Level 1.4L, Magnesium Level 1.9, Total Bilirubin 1.1H, Aspartate Amino Transf (AST/SGOT) 62H, Alanine Aminotransferase (ALT/SGPT) 36, Alkaline Phosphatase 180H, Total Protein 4.7L, Albumin 2.0L Microbiology 10/09/22 Gram Stain - Final, Resulted 10/09/22 Anaerobic Culture, Resulted Pending 10/09/22 Surgical Culture - Final, Resulted Mixed Bacterial Shania Proteus mirabilis 10/08/22 MRSA Screen - Final, Complete MRSA not isolated 10/07/22 Urine Culture - Final, Complete NO GROWTH 10/07/22 Blood Culture - Preliminary, Resulted Bacteroides fragilis Assessment/Plan Assessment/Plan Assessment/Plan POD #3 s/p sacral decubitus ulcer debridement ?GI bleed - upper Sacral decubitus ulcer - grade 4 (necrotic) Sepsis Cellulitis Unable to obtain history and no family present at this time, per review he has experienced coffee-ground emesis and has had scopes in the past Continue IV abx and ppi Not had any further bloody emesis Continue pain control Will need care home wound care Dressing change per wound care Continue to evaluate dysphagia as mentation improves RIKKI QUACH DO 10/12/22 1024: Subjective Subjective/Events-last exam Patient is alert, oriented better than what he was. Has some pain in the back. Denies any abdominal pain. No family at bedside. Denies n/v fever sweats chills shortness of breath or chest pain. Objective Exam General Appearance: No Apparent Distress, WD/WN, Obese HEENT: PERRL/EOMI, Moist Mucous Membranes Neck: Non Tender, Supple Respiratory: Chest Non Tender, No Accessory Muscle Use, No Respiratory Distress Cardiovascular: Regular Rate, Rhythm, No JVD Gastrointestinal: non tender, soft Extremity: Non Tender, Swelling Neurologic/Psychiatric: Alert, Other (oriented to person and follows simple command, not oriented to place or time) Skin: Normal Color, Warm/Dry, Other (Sacral wound packed and dressed) Lymphatic: No Adenopathy Assessment/Plan Assessment/Plan Assessment/Plan POD #3 s/p sacral decubitus ulcer debridement ?GI bleed - upper Sacral decubitus ulcer - grade 4 (necrotic) Sepsis Cellulitis Unable to obtain history and no family present at this time, per review he has experienced coffee-ground emesis and has had scopes in the past Continue IV abx and ppi Not had any further bloody emesis Continue pain control Will need long-term wound care Dressing changes per wound care Continue to evaluate dysphagia as mentation improves will sign off, call if needed Supervisory-Addendum Brief Verification & Attestation Participated in pt care: history, MDM, physical Personally performed: exam, history, MDM, supervision of care Care discussed with: Medical Student Procedures: n/a Results interpretation: Verified all documentation Verification and Attestation of Medical Student E/M Service A medical student performed and documented this service in my presence. I reviewed and verified all information documented by the medical student and made modifications to such information, when appropriate. I personally performed the physical exam and medical decision making. Rikki Quach, Oct 12, 2022,10:22 MICHA ROMO Oct 12, 2022 07:35 RIKKI QUACH DO Oct 12, 2022 10:24
[2022-10-12 07:37] VITALS: BP 155/71
[2022-10-12] MEDS: PANTOPRAZOLE 40 MG (PROTONIX) VIAL IV SCH ×2 (08:43→20:35)
[2022-10-12] MEDS: ENOXAPARIN 100 MG/1 ML (LOVENOX) SYR SC SCH ×2 (08:51→21:42)
[2022-10-12] MEDS: ASPIRIN E.C. 81 MG (ECOTRIN) TAB PO SCH (08:53)
--- NOTE | 2022-10-12 08:56 | Speech Therapy Daily Note ---
Speech Daily Progress Note Subjective Date Seen by Provider: Oct 12, 2022 Time Seen by Provider: 08:20 The patient was lying in bed, awake and alert, upon entrance to his room by the clinician. The patient made eye contact with the clinician when his name was spoken and was seated upright in bed for safe swallowing position. Objective The patient displayed increased ability to follow simple, one-step commands on this date, demonstrating oral motor movement intermittently after a direct model from the clinician. The patient consumed ice chips, teaspoons of water, single straw drinks of water, consecutive straw drinks of water, puree, and a solid. The patient was able to draw material appropriately from teaspoon and straw on this date. Prolonged mastication was present with the solid consistency, as well as, decreased bolus formation. A thin liquid bolus was used to soften the solid consistency and complete posterior transfer. Overt s/s of suspected aspiration were not demonstrated with any consistency tested. The patient's vocal quality remained clear following each swallow. If/once the patient is cleared by the primary team or surgery to advance from a clear liquid diet, the following would be appropriate: - MM5 with thin liquids, as tolerated. - Fully upright and alert for P.O. intake. - Full, 1:1 feeding assistance and supervision. - Small, single bites. - Crush medication and place in puree for administration. - Monitor for s/s of suspected aspiration with P.O. intake. If demonstrated, please contact speech pathology. The results and recommendations were provided to the patient and the patient's RN immediately following completion of the study. Assessment Assessment Current Status: Fair Progress Treatment Plan Continue Plan of Care Speech Short Term Goals Short Term Goals Short Term Goals 1. The patient will complete trials of the least restrictive consistency without s/s of suspected aspiration with mild clinician verbal cueing. Time Frame-STG: Two Days. Speech Patient Registration Specialist Goals Longterm Goals 1. The patient will tolerate the least restrictive diet without s/s of suspected aspiration. Time Frame: Five Days. Speech-Plan Treatment Plan Speech Therapy Treatment Plan: Continue Plan of Care Treatment Duration: Oct 11, 2022 Frequency: 4 times per week Estimated Hrs Per Day: .25 hour per day Rehab Potential: Guarded Safety Risks/Education Teaching Recipient: Patient Teaching Methods: Discussion Response to Teaching: Unable to Comprehend Education Topics Provided: Results, Recommendations, Plan of Care, Safe Swallowing Precautions Time Speech Therapy Time In: 08:20 Speech Therapy Time Out: 08:50 DATE: Oct 12, 2022 Total Billed Time: 30 Billed Treatment Time 1, DANA YOJANA ROSALES Oct 12, 2022 08:56
--- NOTE | 2022-10-12 09:53 | Progress Note - Cardiology ---
Cardiology SOAP Progress Note Subjective: No cp or palp or syncope No shortness of breath at rest No n/v/d Gen malaise and weakness present No focal weakness Objective: I&O/Vital Signs 10/11/22 10/12/22 10/12/22 10/12/22 22:00 00:00 03:24 07:37 Temp 36.4 36.3 35.8 Pulse 101 100 89 Resp 20 22 20 B/P (MAP) 133/74 (93) 149/83 (105) 155/71 (99) Pulse Ox 93 93 100 94 O2 Delivery Room Air Room Air Room Air Room Air 10/11/22 23:59 Intake Total 1980 ml Output Total 1225 ml Balance 755 ml Weight (Pounds): 310 Weight (Ounces): 0.0 Weight (Calculated Kilograms): 140.325254 Constitutional: No AAO x 3; well-developed, well-nourished, other (confused, but does not appear in acute distress) Respiratory: No accessory muscle use; chest expansion is symmetric, chest is bilaterally symmetric, other (fair, bilat air entry) Cardiovascular: regular rate-rhythm, S1 and S2, systolic murmur (soft GAURAV at card base) Gastrointestional: No tender; soft; No guarding, No rebound; audible bowel sounds Extremities: No clubbing, No cyanosis; significant edema (bilat leg swelling, mod, more on L) Neurologic/Psychiatric: No oriented x 3; other (moves all limbs) Skin: normal color; No cool, No diaphoresis; other (sacral ulcer under dressing) Results/Procedures: Labs Laboratory Tests 10/11/22 12:08: Glucometer 105 10/11/22 17:53: Glucometer 106 10/12/22 01:09: Glucometer 111H 10/12/22 05:36: White Blood Count 11.3H, Red Blood Count 2.93L, Hemoglobin 9.1L, Hematocrit 27L, Mean Corpuscular Volume 93, Mean Corpuscular Hemoglobin 31, Mean Corpuscular Hemoglobin Concent 34, Red Cell Distribution Width 14.3, Platelet Count 380, Mean Platelet Volume 8.8L, Immature Granulocyte % (Auto) 6, Neutrophils (%) (Auto) 78H, Lymphocytes (%) (Auto) 7L, Monocytes (%) (Auto) 7, Eosinophils (%) (Auto) 2, Basophils (%) (Auto) 0, Neutrophils # (Auto) 8.8H, Lymphocytes # (Auto) 0.8L, Monocytes # (Auto) 0.7, Eosinophils # (Auto) 0.2, Basophils # (Auto) 0.0, Immature Granulocyte # (Auto) 0.7H, Sodium Level 146H, Potassium Level 3.2L, Chloride Level 121H, Carbon Dioxide Level 17L, Anion Gap 8, Blood Urea Nitrogen 18, Creatinine 1.00, Estimat Glomerular Filtration Rate 77, BUN/Creatinine Ratio 18, Glucose Level 113H, Calcium Level 7.8L, Corrected Calcium 9.4, Phosphorus Level 1.4L, Magnesium Level 1.9, Total Bilirubin 1.1H, Aspartate Amino Transf (AST/SGOT) 62H, Alanine Aminotransferase (ALT/SGPT) 36, Alkaline Phosphatase 180H, Total Protein 4.7L, Albumin 2.0L Microbiology 10/09/22 Gram Stain - Final, Resulted 10/09/22 Anaerobic Culture - Preliminary, Resulted Bacteroides fragilis See Comments 10/09/22 Surgical Culture - Final, Resulted Mixed Bacterial Shania Proteus mirabilis 10/08/22 MRSA Screen - Final, Complete MRSA not isolated 10/07/22 Urine Culture - Final, Complete NO GROWTH 10/07/22 Blood Culture - Final, Complete Bacteroides fragilis Laboratory Tests 10/11/22 04:07 10/12/22 05:36 A/P: Assessment: Severe sepsis - managed by the Hospitalist/Medical svce Confusion / Mental Status Change - managed by the Hospitalist/Medical svce Large sacral decubitus - s/p debridement on 10-10-22 DVT - Nonoccluding thrombus in the left popliteal vein on leg venous Doppler of 10-08-22 Poor care and self-care at home - Rhabdomyolysis due to prolonged stay on the floor at home in mid 2021 CAD: - CT chest of August 2016 at is reported to have shown marked cor calcification and at least mildaortic valve calcification - Echocardiogram of 07/28/19 showed LVEF 60-65%; mild MR, mild to mod tricuspid regurg; [id number] - MPI 12-12-21: Small to moderate amount of inferolateral ischemia. Normal regional wall motion. Normal global left ventricular systolic function with a calculated ejection fraction of 64%. - Last card cath of 12-26-21: 1. Coronary artery disease primarily consisting of mid vessel occlusion of the right coronary with collateralization of the distal right coronary by the left anterior descending artery. There is diffuse moderate disease of the left coronary system. The first diagonal branch of left anterior descending artery is of a small caliber and has approximately 70% ostial and proximal stenosis. Normal left ventricular end-diastolic pressure. Normal global left ventricular systolic function with ejection fraction approximately 60%. Carotid dz - Mild carotid art disease on carotid u/s of 12/04/18 No evidence of AAA on abd ao screening scan of 11/06/16 H/o palpitations - Holter study of 04-25-15 showed infrequent isolated and coupled PVC's. 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 Status post VATS assisted left upper lobe lobectomy in August 2015. Followed by Dr Pederson - cT1c [place] 7 (4+3) prostate cancer with initial PSA level of 8.98 diagnosed in late 2016, status-post definitive radiation therapy to 8100 cGy in 45 fractions completed on 08/08/2017 with no ADT. Followedby Henrique Pederson and Dyana Obstructive sleep apnea - treated with CPAP Chronic bilat leg swelling - likely related to venous insuff and/or chronic therapy with calcium channel blockers Prostate cancer, - managed by his urologist, Dr Turpin Chronic mild transaminase elevation -likely ABDI, followed by Dr Palafox Plan: * Complex management due to multiple comorbidities * Low-dose ASA for CAD * Treatment dose enoxaparin for DVT if allowed by the Med and Surg svce * We recommend that the Medical serivce monitors labs closely and corrects electrolyte abnormalities * K low on 10/12/22: FELECIA Calvo MD FACP FAC CCDS Oct 12, 2022 09:53
[2022-10-12] MEDS ORDERED: KCL 20 MEQ TAB (K-DUR) PO ONE (10:00)
--- NOTE | 2022-10-12 11:10 | Progress Note ---
Subjective Subjective/Events-last exam Patient more awake this AM will try diet today per speech. Denies any pain. Bed bound Review of Systems General: Fatigue, Malaise Pulmonary: No Dyspnea, No Cough Cardiovascular: Edema; No: Chest Pain, Palpitations Gastrointestinal: No: Abdominal Pain, Diarrhea, Constipation Neurological: Weakness, Incoordination, Confusion Objective Exam Last Set of Vital Signs Vital Signs Date Time Temp Pulse Resp B/P (MAP) Pulse Ox O2 Delivery O2 Flow Rate FiO2 10/12/22 07:37 35.8 89 20 155/71 (99) 94 Room Air 10/10/22 18:00 2.00 Capillary Refill : Greater Than 3 Seconds I&O Intake and Output 10/12/22 00:00 Intake Total 4480 ml Output Total 2050 ml Balance 2430 ml Intake Oral 850 ml IV Total 3630 ml Output Urine Total 2050 ml # Bowel Movements 1 General: Alert, No Acute Distress Lungs: Clear to Auscultation, Normal Air Movement Heart: Regular Rate, No Murmurs Abdomen: Normal Bowel Sounds, Soft, No Tenderness, No Masses Extremities: Other (1+ pitting edema ) Results/Procedures Lab Laboratory Tests 10/11/22 12:08: Glucometer 105 10/11/22 17:53: Glucometer 106 10/12/22 01:09: Glucometer 111H 10/12/22 05:36: White Blood Count 11.3H, Red Blood Count 2.93L, Hemoglobin 9.1L, Hematocrit 27L, Mean Corpuscular Volume 93, Mean Corpuscular Hemoglobin 31, Mean Corpuscular Hemoglobin Concent 34, Red Cell Distribution Width 14.3, Platelet Count 380, Mean Platelet Volume 8.8L, Immature Granulocyte % (Auto) 6, Neutrophils (%) (Auto) 78H, Lymphocytes (%) (Auto) 7L, Monocytes (%) (Auto) 7, Eosinophils (%) (Auto) 2, Basophils (%) (Auto) 0, Neutrophils # (Auto) 8.8H, Lymphocytes # (Auto) 0.8L, Monocytes # (Auto) 0.7, Eosinophils # (Auto) 0.2, Basophils # (Auto) 0.0, Immature Granulocyte # (Auto) 0.7H, Sodium Level 146H, Potassium Level 3.2L, Chloride Level 121H, Carbon Dioxide Level 17L, Anion Gap 8, Blood Urea Nitrogen 18, Creatinine 1.00, Estimat Glomerular Filtration Rate 77, BUN/Creatinine Ratio 18, Glucose Level 113H, Calcium Level 7.8L, Corrected Calcium 9.4, Phosphorus Level 1.4L, Magnesium Level 1.9, Total Bilirubin 1.1H, Aspartate Amino Transf (AST/SGOT) 62H, Alanine Aminotransferase (ALT/SGPT) 36, Alkaline Phosphatase 180H, Total Protein 4.7L, Albumin 2.0L Microbiology 10/09/22 Gram Stain - Final, Resulted 10/09/22 Anaerobic Culture - Preliminary, Resulted Bacteroides fragilis See Comments 10/09/22 Surgical Culture - Final, Resulted Mixed Bacterial Shania Proteus mirabilis 10/08/22 MRSA Screen - Final, Complete MRSA not isolated 10/07/22 Urine Culture - Final, Complete NO GROWTH 10/07/22 Blood Culture - Final, Complete Bacteroides fragilis Assessment/Plan Assessment/Plan (1) Severe sepsis Status: Acute Assessment & Plan: - Continue IVF and IV antibiotics, LA resolved, HDS, Admit to ICU 10/09: d/c Vanco, culture Gram neg rods, continue IVFs and IV antibiotics 10/10: Cultures pending, continue broad spectrum antibiotics, labile VS 10/11: HDS, Continue IV antibiotics, will transfer to med/surg as he is not longer needing ICU care 10/12: working on SNF placement (2) Altered mental status Status: Acute Assessment & Plan: - Likely 2/2 to sepsis and acute illness on top of mild dementia 10/12: confused but more alert today, able to answer questions and participate with speech Qualifiers: Qualified Codes: R41.0 - Disorientation, unspecified (3) Acute kidney injury Status: Resolved Assessment & Plan: - IVFs, continue to monitor 10/09: Cr improving, will continue to monitor 10/10: Cr improving (4) Hematemesis Status: Acute Assessment & Plan: - General surgery consulted, Hgb stable 10/11: Stop PPX drip, continue IV BID Qualifiers: Qualified Codes: K92.0 - Hematemesis (5) Sacral decubitus ulcer, stage IV Status: Acute Assessment & Plan: - Will need debridment, Dr Quach consulted, Dr Sears and wound care consulted, patient will need NH placement 10/09: To OR for debridment today (6) Left leg cellulitis Status: Acute Assessment & Plan: - US pending 10/09: + thrombus, continue treatment dosing of lovenox (7) Deep vein thrombosis (DVT) of left lower extremity Status: Acute Assessment & Plan: 10/09: Lovenox Qualifiers: Qualified Codes: I82.432 - Acute embolism and thrombosis of left popliteal vein (8) CAD (coronary artery disease) Status: Chronic (9) Dysphagia Status: Acute Assessment & Plan: 10/12: Will start dysphagia diet per speech (10) Discharge planning issues Assessment & Plan: 10/10: Called several times throughout the day to discuss care with and was unable to reach her. Nurse stated that danial plans to come to hospital this evening KENNETH PORTER MD Oct 12, 2022 11:09
[2022-10-12] MEDS: POTASSIUM CL 10MEQ/50ML IVPB 50 ML IV SCH ×4 (11:45→16:37)
[2022-10-12 12:00] VITALS: BP 138/80
[2022-10-12 15:25] VITALS: BP 165/82
[2022-10-12 20:07] VITALS: BP 163/94
[2022-10-13] VITALS (7 sets, daily range): BP systolic 115–155; BP diastolic 71–85
[2022-10-13] MEDS: PIPERACILLIN SODIUM/TAZOBACTAM 4.5 GM in NS (IVPB) 100 ML IV SCH ×2 (01:11→11:50)
[2022-10-13] MEDS: D5 NS 1000 ML IV SOLUTION 1,000 ML IV SCH (01:11)
[2022-10-13] MEDS: morphine INJ 10 MG/ML 1ML (SYR OR VIAL) IVP PRN (03:02)
[2022-10-13 05:38] LABS: BASOPHILS # (AUTO) 0.1 10^3/uL (0.0-0.1); BASOPHILS % (AUTO) 1 % (0-10); EOSINOPHILS # (AUTO) 0.3 10^3/uL (0.0-0.3); EOSINOPHILS % (AUTO) 3 % (0-10); HEMATOCRIT 29 % (40-54); HEMOGLOBIN 9.7 g/dL (13.3-17.7); LYMPHOCYTES % (AUTO) 9 % (12-44); MEAN CORPUSCULAR HEMOGLOBIN 31 pg (25-34); MEAN CORPUSCULAR HGB CONC 33 g/dL (32-36); MEAN CORPUSCULAR VOLUME 92 fL (80-99); MEAN PLATELET VOLUME 8.9 fL (9.0-12.2); MONOCYTES # (AUTO) 0.7 10^3/uL (0.0-1.0); MONOCYTES % (AUTO) 7 % (0-12); NEUTROPHILS # (AUTO) 7.7 10^3/uL (1.8-7.8); NEUTROPHILS % (AUTO) 75 % (42-75); PLATELET COUNT 374 10^3/uL (130-400); WHITE BLOOD COUNT 10.3 10^3/uL (4.3-11.0)
[2022-10-13 06:08] LABS: BILIRUBIN,TOTAL 0.9 MG/DL (0.1-1.0); CREATININE SERUM 0.95 MG/DL (0.60-1.30); MAGNESIUM 1.9 MG/DL (1.6-2.4); PHOSPHORUS 1.8 MG/DL (2.3-4.7); POTASSIUM 3.6 MMOL/L (3.6-5.0); TOTAL PROTEIN 4.8 GM/DL (6.4-8.2)
[2022-10-13 06:17] LABS: EOSINOPHILS % (MANUAL) 5 %; LYMPHOCYTES % (MANUAL) 13 %; METAMYELOCYTES % 3 %; MONOCYTES % (MANUAL) 2 %; NEUTROPHILS % (MANUAL) 77 %; SMEAR SCAN COMMENT YES
[2022-10-13 06:18] LABS: RBC MORPH NORMAL
--- NOTE | 2022-10-13 09:12 | Cardiology Progress Note ---
Subjective Date Seen by Provider: Oct 13, 2022 Time Seen by Provider: 09:11 Subjective/Events-last exam Patient is laying down in bed, lethargic. No new complaint. Objective-Cardiology Exam Last Set of Vital Signs Vital Signs 10/12/22 10/13/22 15:48 07:25 Temp 36.3 Pulse 85 Resp 18 B/P (MAP) 136/85 (102) Pulse Ox 97 O2 Delivery Room Air O2 Flow Rate 0.00 I&O Intake and Output 10/13/22 00:00 Intake Total 1826 ml Output Total 1025 ml Balance 801 ml Intake Oral 626 ml IV Total 1200 ml Output Urine Total 1025 ml # Bowel Movements 1 General: Alert, Cooperative, No Acute Distress HEENT: Atraumatic Neck: Supple, No JVD Lungs: Clear to Auscultation, Normal Air Movement Heart: Regular Rate, Normal S1, Normal S2, No Murmurs Abdomen: Normal Bowel Sounds, Soft, No Tenderness, No Masses Extremities: No Clubbing, Other (1+ pitting edema ) Skin: Other (Large Debub wound, see wound care notes) Neuro: Normal Speech Psych/Mental Status: Mood NL Results Lab Laboratory Tests 10/13/22 05:22 A/P-Cardiology Assessment/Plan Severe sepsis, improving. - managed by the Hospitalist/Medical svce Confusion / Mental Status Change - managed by the Hospitalist/Medical svce Large sacral decubitus - s/p debridement on 10-10-22 DVT - Nonoccluding thrombus in the left popliteal vein on leg venous Doppler of 10-08-22 Poor care and self-care at home - Rhabdomyolysis due to prolonged stay on the floor at home in mid 2021 CAD: - CT chest of August 2016 at is reported to have shown marked cor calcification and at least mildaortic valve calcification - Echocardiogram of 07/28/19 showed LVEF 60-65%; mild MR, mild to mod tricuspid regurg; [id number] - MPI 12-12-21: Small to moderate amount of inferolateral ischemia. Normal regional wall motion. Normal global left ventricular systolic function with a calculated ejection fraction of 64%. - Last card cath of 12-26-21: 1. Coronary artery disease primarily consisting of mid vessel occlusion of the right coronary with collateralization of the distal right coronary by the left anterior descending artery. There is diffuse moderate disease of the left coronary system. The first diagonal branch of left anterior descending artery is of a small caliber and has approximately 70% ostial and proximal stenosis. Normal left ventricular end-diastolic pressure. Normal global left ventricular systolic function with ejection fraction approximately 60%. Carotid dz - Mild carotid art disease on carotid u/s of 12/04/18 No evidence of AAA on abd ao screening scan of 11/06/16 H/o palpitations - Holter study of 04-25-15 showed infrequent isolated and coupled PVC's. 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 Status post VATS assisted left upper lobe lobectomy in August 2015. Followed by Dr Pederson - cT1c [place] 7 (4+3) prostate cancer with initial PSA level of 8.98 diagnosed in late 2016, status-post definitive radiation therapy to 8100 cGy in 45 fractions completed on 08/08/2017 with no ADT. Followedby Henrique Pederson and Dyana Obstructive sleep apnea - treated with CPAP Chronic bilat leg swelling - likely related to venous insuff and/or chronic therapy with calcium channel blockers Prostate cancer, - managed by his urologist, Dr Turpin Chronic mild transaminase elevation -likely ABDI, followed by OSORIO Colby MD Oct 13, 2022 09:11
--- NOTE | 2022-10-13 10:46 | Progress Note - Hospitalist ---
Subjective HPI/CC On Admission Date Seen by Provider: Oct 13, 2022 Time Seen by Provider: 10:15 Subjective/Events-last exam No meaningful communication per nursing staff not a change for this patient. He did lose IV access peripherally and has no peripheral venous access. Were in the process of getting a PICC line placed. No other care concerns per nursing staff. Objective Exam Vital Signs Vital Signs Date Time Temp Pulse Resp B/P (MAP) Pulse Ox O2 Delivery O2 Flow Rate FiO2 10/13/22 07:25 36.3 85 18 136/85 (102) 97 Room Air 10/12/22 15:48 0.00 Capillary Refill : Greater Than 3 Seconds General Appearance: No Apparent Distress, Chronically ill, Obese Respiratory: Lungs Clear (Anteriorly), No Accessory Muscle Use, No Respiratory Distress Cardiovascular: Regular Rate, Rhythm, No Gallop, No Murmur Gastrointestinal: Normal Bowel Sounds, No Organomegaly, Non Tender, Soft Results/Procedures Lab Laboratory Tests 10/13/22 05:22 Patient resulted labs reviewed. Assessment/Plan Assessment and Plan Assess & Plan/Chief Complaint (1) Severe sepsis Status: Acute Assessment & Plan: - Continue IVF and IV antibiotics, LA resolved, HDS, Admit to ICU 10/09: d/c Vanco, culture Gram neg rods, continue IVFs and IV antibiotics 10/10: Cultures pending, continue broad spectrum antibiotics, labile VS 10/11: HDS, Continue IV antibiotics, will transfer to med/surg as he is not longer needing ICU care 10/12: working on SNF placement 10/13: I received word that the patient has been accepted to [facility] for ongoing antibiotics and wound care staff reporting that they can accept the patient tomorrow we will arrange for transfer tomorrow. No change in status otherwise. 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 (2) Altered mental status Status: Acute Assessment & Plan: - Likely 2/2 to sepsis and acute illness on top of mild dementia 10/12: confused but more alert today, able to answer questions and participate with speech Qualifiers: Qualified Codes: R41.0 - Disorientation, unspecified (3) Acute kidney injury Status: Resolved Assessment & Plan: - IVFs, continue to monitor 10/09: Cr improving, will continue to monitor 10/10: Cr improving (4) Hematemesis Status: Acute Assessment & Plan: - General surgery consulted, Hgb stable 10/11: Stop PPX drip, continue IV BID Qualifiers: Qualified Codes: K92.0 - Hematemesis (5) Sacral decubitus ulcer, stage IV Status: Acute Assessment & Plan: - Will need debridment, Dr Quach consulted, Dr Sears and wound care consulted, patient will need NH placement 10/09: To OR for debridment today (6) Left leg cellulitis Status: Acute Assessment & Plan: - US pending 10/09: + thrombus, continue treatment dosing of lovenox (7) Deep vein thrombosis (DVT) of left lower extremity Status: Acute Assessment & Plan: 10/09: Lovenox Qualifiers: Qualified Codes: I82.432 - Acute embolism and thrombosis of left popliteal vein (8) CAD (coronary artery disease) Status: Chronic (9) Dysphagia Status: Acute Assessment & Plan: 10/12: Will start dysphagia diet per speech (10) Discharge planning issues Assessment & Plan: 10/10: Called several times throughout the day to discuss care with and was unable to reach her. Nurse stated that danial plans to come to hospital this evening Critical Care Critically Ill Patient JANET ABRAHAM MD Oct 13, 2022 10:46
[2022-10-13] MEDS: PANTOPRAZOLE 40 MG (PROTONIX) VIAL IV SCH (11:50)
[2022-10-13] MEDS: ASPIRIN E.C. 81 MG (ECOTRIN) TAB PO SCH (13:43)
[2022-10-13] MEDS: ENOXAPARIN 100 MG/1 ML (LOVENOX) SYR SC SCH ×2 (13:43→21:56)
[2022-10-13] MEDS ORDERED: ACETAMINOPHEN 325 MG TABLET PO PRN (14:00)
[2022-10-13] MEDS: AUGMENTIN 875 MG TAB (AMOXICILLIN/CLAVULANATE) PO SCH (17:32)
[2022-10-13] MEDS: PANTOPRAZOLE 40 MG (PROTONIX) TAB PO SCH (20:33)
[2022-10-14] VITALS (7 sets, daily range): BP systolic 113–164; BP diastolic 69–80
[2022-10-14 05:27] LABS: BASOPHILS # (AUTO) 0.1 10^3/uL (0.0-0.1); BASOPHILS % (AUTO) 0 % (0-10); EOSINOPHILS # (AUTO) 0.3 10^3/uL (0.0-0.3); EOSINOPHILS % (AUTO) 3 % (0-10); HEMATOCRIT 32 % (40-54); HEMOGLOBIN 10.5 g/dL (13.3-17.7); LYMPHOCYTES % (AUTO) 8 % (12-44); MEAN CORPUSCULAR HEMOGLOBIN 31 pg (25-34); MEAN CORPUSCULAR HGB CONC 33 g/dL (32-36); MEAN CORPUSCULAR VOLUME 94 fL (80-99); MONOCYTES # (AUTO) 0.6 10^3/uL (0.0-1.0); MONOCYTES % (AUTO) 5 % (0-12); NEUTROPHILS # (AUTO) 9.2 10^3/uL (1.8-7.8); NEUTROPHILS % (AUTO) 79 % (42-75); PLATELET COUNT 419 10^3/uL (130-400); WHITE BLOOD COUNT 11.7 10^3/uL (4.3-11.0)
[2022-10-14 05:51] LABS: ALBUMIN 2.1 GM/DL (3.2-4.5); BILIRUBIN,TOTAL 0.9 MG/DL (0.1-1.0); CALCIUM 8.2 MG/DL (8.5-10.1); CREATININE SERUM 0.85 MG/DL (0.60-1.30); MAGNESIUM 1.5 MG/DL (1.6-2.4); PHOSPHORUS 2.2 MG/DL (2.3-4.7); POTASSIUM 3.3 MMOL/L (3.6-5.0); TOTAL PROTEIN 5.1 GM/DL (6.4-8.2)
[2022-10-14] MEDS ORDERED: MAGNESIUM 1 GM/100 ML IVPB 100 ML IV ONE (07:15)
[2022-10-14] MEDS ORDERED: KCL 20 MEQ TAB (K-DUR) PO ONE (07:15)
--- NOTE | 2022-10-14 09:25 | Cardiology Progress Note ---
Subjective Date Seen by Provider: Oct 14, 2022 Time Seen by Provider: 09:24 Subjective/Events-last exam Patient was seen at bedside, laying down comfortably, feeling better. No new complain Objective-Cardiology Exam Last Set of Vital Signs Vital Signs 10/12/22 10/14/22 15:48 07:26 Temp 36.1 Pulse 94 Resp 18 B/P (MAP) 138/80 (99) Pulse Ox 94 O2 Delivery Room Air O2 Flow Rate 0.00 I&O Intake and Output 10/14/22 00:00 Intake Total 806 ml Output Total 1100 ml Balance -294 ml Intake Oral 806 ml Output Urine Total 1100 ml # Bowel Movements 4 General: Alert, Cooperative, No Acute Distress HEENT: Atraumatic Neck: Supple, No JVD Lungs: Clear to Auscultation, Normal Air Movement Heart: Regular Rate, Normal S1, Normal S2, No Murmurs Abdomen: Normal Bowel Sounds, Soft, No Tenderness, No Masses Extremities: No Clubbing, Other Skin: Other (Large Debub wound, see wound care notes) Neuro: Normal Speech Psych/Mental Status: Mood NL Results Lab Laboratory Tests 10/14/22 05:03 A/P-Cardiology Assessment/Plan Severe sepsis, improving. - managed by the Hospitalist/Medical svce Confusion / Mental Status Change - managed by the Hospitalist/Medical svce Large sacral decubitus - s/p debridement on 10-10-22 DVT - Nonoccluding thrombus in the left popliteal vein on leg venous Doppler of 10-08-22 Poor care and self-care at home - Rhabdomyolysis due to prolonged stay on the floor at home in mid 2021 Hypokalemia, hypomagnesemia, replace and monitor CAD: - CT chest of August 2016 at is reported to have shown marked cor calcification and at least mildaortic valve calcification - Echocardiogram of 07/28/19 showed LVEF 60-65%; mild MR, mild to mod tricuspid regurg; [id number] - MPI 12-12-21: Small to moderate amount of inferolateral ischemia. Normal regional wall motion. Normal global left ventricular systolic function with a calculated ejection fraction of 64%. - Last card cath of 12-26-21: 1. Coronary artery disease primarily consisting of mid vessel occlusion of the right coronary with collateralization of the distal right coronary by the left anterior descending artery. There is diffuse moderate disease of the left coronary system. The first diagonal branch of left anterior descending artery is of a small caliber and has approximately 70% ostial and proximal stenosis. Normal left ventricular end-diastolic pressure. Normal global left ventricular systolic function with ejection fraction approximately 60%. Carotid dz - Mild carotid art disease on carotid u/s of 12/04/18 No evidence of AAA on abd ao screening scan of 11/06/16 H/o palpitations - Holter study of 04-25-15 showed infrequent isolated and coupled PVC's. 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 Status post VATS assisted left upper lobe lobectomy in August 2015. Followed by Dr Pederson - cT1c [place] 7 (4+3) prostate cancer with initial PSA level of 8.98 diagnosed in late 2016, status-post definitive radiation therapy to 8100 cGy in 45 fractions completed on 08/08/2017 with no ADT. Followedby Henrique Pederson and Dyana Obstructive sleep apnea - treated with CPAP Chronic bilat leg swelling - likely related to venous insuff and/or chronic therapy with calcium channel blockers Prostate cancer, - managed by his urologist, Dr Turpin Chronic mild transaminase elevation -likely ABDI, followed by OSORIO Colby MD Oct 14, 2022 09:25
--- NOTE | 2022-10-14 09:46 | Progress Note - Hospitalist ---
Subjective HPI/CC On Admission Date Seen by Provider: Oct 14, 2022 Time Seen by Provider: 09:30 Subjective/Events-last exam Staff report at times patient has been understandable with less confusion and no reported agitation. For me he opens his eyes and did not answer any simple questions but did not appear to be in acute distress. Objective Exam Vital Signs Vital Signs Date Time Temp Pulse Resp B/P (MAP) Pulse Ox O2 Delivery O2 Flow Rate FiO2 10/14/22 07:26 36.1 94 18 138/80 (99) 94 Room Air 10/12/22 15:48 0.00 Capillary Refill : Greater Than 3 Seconds General Appearance: No Apparent Distress, Chronically ill, Other (Pallorous unchanged from yesterday) Respiratory: Normal Breath Sounds, No Accessory Muscle Use, No Respiratory Distress Cardiovascular: Regular Rate, Rhythm, No Edema, No Gallop, No JVD, No Murmur Extremity: Pedal Edema Results/Procedures Lab Laboratory Tests 10/14/22 05:03 Patient resulted labs reviewed. Assessment/Plan Assessment and Plan Assess & Plan/Chief Complaint (1) Severe sepsis Status: Acute Assessment & Plan: - Continue IVF and IV antibiotics, LA resolved, HDS, Admit to ICU 10/09: d/c Vanco, culture Gram neg rods, continue IVFs and IV antibiotics 10/10: Cultures pending, continue broad spectrum antibiotics, labile VS 10/11: HDS, Continue IV antibiotics, will transfer to med/surg as he is not longer needing ICU care 10/12: working on SNF placement 10/13: I received word that the patient has been accepted to [facility] for ongoing antibiotics and wound care staff reporting that they can accept the patient tomorrow we will arrange for transfer tomorrow. No change in status otherwise. 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 10/14: Unable to establish PICC line abscess apparently the line was then but he pulled away for this reason he was switched to Augmentin with no IV access peripherally he is tolerating 875 mg twice daily PC with no apparent difficulty. Will attempt PICC line again in the morning. While he is excepted today for transfer to [place] we have no ambulance/transfer capability per discussion with nursing staff today. Hopeful transfer tomorrow. No evidence for exacerbation of severe sepsis with switch to oral therapy with likely stage IV sacral decubitus source of infection. Blood cultures positive for Bacteroides. (2) Altered mental status Status: Acute Assessment & Plan: - Likely 2/2 to sepsis and acute illness on top of mild dementia 10/12: confused but more alert today, able to answer questions and participate with speech Qualifiers: Qualified Codes: R41.0 - Disorientation, unspecified (3) Acute kidney injury Status: Resolved Assessment & Plan: - IVFs, continue to monitor 10/09: Cr improving, will continue to monitor 10/10: Cr improving (4) Hematemesis Status: Acute Assessment & Plan: - General surgery consulted, Hgb stable 10/11: Stop PPX drip, continue IV BID Qualifiers: Qualified Codes: K92.0 - Hematemesis (5) Sacral decubitus ulcer, stage IV Status: Acute Assessment & Plan: - Will need debridment, Dr Quach consulted, Dr Sears and wound care consulted, patient will need NH placement 10/09: To OR for debridment today (6) Left leg cellulitis Status: Acute Assessment & Plan: - US pending 10/09: + thrombus, continue treatment dosing of lovenox (7) Deep vein thrombosis (DVT) of left lower extremity Status: Acute Assessment & Plan: 10/09: Lovenox Qualifiers: Qualified Codes: I82.432 - Acute embolism and thrombosis of left popliteal vein (8) CAD (coronary artery disease) Status: Chronic (9) Dysphagia Status: Acute Assessment & Plan: 10/12: Will start dysphagia diet per speech (10) Discharge planning issues Assessment & Plan: 10/10: Called several times throughout the day to discuss care with and was unable to reach her. Nurse stated that danial plans to come to hospital this evening Critical Care Critically Ill Patient JANET ABRAHAM MD Oct 14, 2022 09:46
[2022-10-14] MEDS: AUGMENTIN 875 MG TAB (AMOXICILLIN/CLAVULANATE) PO SCH ×2 (10:10→18:19)
[2022-10-14] MEDS: ENOXAPARIN 100 MG/1 ML (LOVENOX) SYR SC SCH ×2 (10:11→21:08)
[2022-10-14] MEDS: PANTOPRAZOLE 40 MG (PROTONIX) TAB PO SCH ×2 (10:11→21:08)
[2022-10-14] MEDS: MAGNESIUM OXIDE (MAG-OX)400 MG TAB PO SCH ×2 (10:11→18:19)
[2022-10-14] MEDS: ASPIRIN E.C. 81 MG (ECOTRIN) TAB PO SCH (10:11)
[2022-10-14] MEDS ORDERED: HYDROcodone/APAP 5 MG/325 MG (LORTAB) TAB PO PRN (18:15)
[2022-10-14] MEDS ORDERED: HYDROcodone/APAP 5 MG/325 MG (LORTAB) TAB ONE (18:17)
[2022-10-15 03:56] VITALS: BP 117/77
[2022-10-15 05:50] LABS: BASOPHILS % (AUTO) 0 % (0-10); EOSINOPHILS # (AUTO) 0.3 10^3/uL (0.0-0.3); EOSINOPHILS % (AUTO) 2 % (0-10); HEMATOCRIT 31 % (40-54); HEMOGLOBIN 10.4 g/dL (13.3-17.7); LYMPHOCYTES # (AUTO) 1.1 10^3/uL (1.0-4.0); LYMPHOCYTES % (AUTO) 10 % (12-44); MEAN CORPUSCULAR HEMOGLOBIN 31 pg (25-34); MEAN CORPUSCULAR HGB CONC 33 g/dL (32-36); MEAN CORPUSCULAR VOLUME 93 fL (80-99); MEAN PLATELET VOLUME 9.3 fL (9.0-12.2); MONOCYTES # (AUTO) 0.6 10^3/uL (0.0-1.0); MONOCYTES % (AUTO) 5 % (0-12); NEUTROPHILS # (AUTO) 9.2 10^3/uL (1.8-7.8); NEUTROPHILS % (AUTO) 80 % (42-75); PLATELET COUNT 421 10^3/uL (130-400); WHITE BLOOD COUNT 11.5 10^3/uL (4.3-11.0)
[2022-10-15 06:09] LABS: ALBUMIN 2.1 GM/DL (3.2-4.5); BILIRUBIN,TOTAL 0.8 MG/DL (0.1-1.0); CREATININE SERUM 0.77 MG/DL (0.60-1.30); MAGNESIUM 1.2 MG/DL (1.6-2.4); PHOSPHORUS 2.5 MG/DL (2.3-4.7); POTASSIUM 3.3 MMOL/L (3.6-5.0); TOTAL PROTEIN 5.1 GM/DL (6.4-8.2)
[2022-10-15 07:55] VITALS: BP 125/76
--- NOTE | 2022-10-15 09:42 | Progress Note - Cardiology ---
Cardiology SOAP Progress Note Subjective: Does not report cp or palp or syncope or shortness of breath or n/vd Reports gen weakness Objective: I&O/Vital Signs 10/14/22 10/15/22 10/15/22 23:09 03:56 07:55 Temp 35.9 36.0 36.2 Pulse 99 58 101 Resp 16 16 18 B/P (MAP) 131/79 (96) 117/77 (90) 125/76 (92) Pulse Ox 96 94 95 O2 Delivery Room Air Room Air Room Air 10/15/22 00:00 Intake Total 740 ml Output Total 1200 ml Balance -460 ml Weight (Pounds): 310 Weight (Ounces): 0.0 Weight (Calculated Kilograms): [id number] Constitutional: No AAO x 3; well-developed, well-nourished, other (confused, but does not appear in acute distress) Respiratory: No accessory muscle use; chest expansion is symmetric, chest is bilaterally symmetric, other (fair, bilat air entry) Cardiovascular: regular rate-rhythm, S1 and S2, systolic murmur (soft GAURAV at card base) Gastrointestional: No tender; soft; No guarding, No rebound; audible bowel sounds Extremities: No clubbing, No cyanosis; significant edema (bilat leg swelling, mod, more on L) Neurologic/Psychiatric: No oriented x 3; other (moves all limbs) Skin: normal color; No cool, No diaphoresis; other (sacral ulcer under dressing) Results/Procedures: Labs Laboratory Tests 10/15/22 05:23: White Blood Count 11.5H, Red Blood Count 3.35L, Hemoglobin 10.4L, Hematocrit 31L , Mean Corpuscular Volume 93, Mean Corpuscular Hemoglobin 31, Mean Corpuscular Hemoglobin Concent 33, Red Cell Distribution Width 15.2H, Platelet Count 421H, Mean Platelet Volume 9.3, Immature Granulocyte % (Auto) 2, Neutrophils (%) (Auto) 80H, Lymphocytes (%) (Auto) 10L, Monocytes (%) (Auto) 5, Eosinophils (%) (Auto) 2, Basophils (%) (Auto) 0, Neutrophils # (Auto) 9.2H, Lymphocytes # (Auto) 1.1, Monocytes # (Auto) 0.6, Eosinophils # (Auto) 0.3, Basophils # (Auto) 0.0, Immature Granulocyte # (Auto) 0.3H, Sodium Level 140, Potassium Level 3.3L, Chloride Level 111H, Carbon Dioxide Level 19L, Anion Gap 10, Blood Urea Nitrogen 11, Creatinine 0.77, Estimat Glomerular Filtration Rate 91, BUN/Creatinine Ratio 14, Glucose Level 77, Calcium Level 8.0L, Corrected Calcium 9.5, Phosphorus Level 2.5, Magnesium Level 1.2L, Total Bilirubin 0.8, Aspartate Amino Transf (AST/SGOT) 84H, Alanine Aminotransferase (ALT/SGPT) 52, Alkaline Phosphatase 236H, Total Protein 5.1L, Albumin 2.1L Microbiology 10/09/22 Gram Stain - Final, Complete 10/09/22 Anaerobic Culture - Final, Complete Bacteroides fragilis See Comments 10/09/22 Surgical Culture - Final, Complete Mixed Bacterial Shania Proteus mirabilis 10/08/22 MRSA Screen - Final, Complete MRSA not isolated 10/07/22 Urine Culture - Final, Complete NO GROWTH 10/07/22 Blood Culture - Final, Complete Bacteroides fragilis Laboratory Tests 10/14/22 05:03 10/15/22 05:23 A/P: Assessment: Severe sepsis - managed by the Hospitalist/Medical svce Confusion / Mental Status Change - managed by the Hospitalist/Medical svce Large sacral decubitus - s/p debridement on 10-10-22 DVT - Nonoccluding thrombus in the left popliteal vein on leg venous Doppler of 10-08-22 Poor care and self-care at home - Rhabdomyolysis due to prolonged stay on the floor at home in mid 2021 CAD: - CT chest of August 2016 at is reported to have shown marked cor calcification and at least mildaortic valve calcification - Echocardiogram of 07/28/19 showed LVEF 60-65%; mild MR, mild to mod tricuspid regurg; [id number] - MPI 12-12-21: Small to moderate amount of inferolateral ischemia. Normal regional wall motion. Normal global left ventricular systolic function with a calculated ejection fraction of 64%. - Last card cath of 12-26-21: 1. Coronary artery disease primarily consisting of mid vessel occlusion of the right coronary with collateralization of the distal right coronary by the left anterior descending artery. There is diffuse moderate disease of the left coronary system. The first diagonal branch of left anterior descending artery is of a small caliber and has approximately 70% ostial and proximal stenosis. Normal left ventricular end-diastolic pressure. Normal global left ventricular systolic function with ejection fraction approxi mately 60%. Carotid dz - Mild carotid art disease on carotid u/s of 12/04/18 No evidence of AAA on abd ao screening scan of 11/06/16 H/o palpitations - Holter study of 04-25-15 showed infrequent isolated and coupled PVC's. 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 Status post VATS assisted left upper lobe lobectomy in August 2015. Followed by Dr Pederson - cT1c [place] 7 (4+3) prostate cancer with initial PSA level of 8.98 diagnosed in late 2016, status-post definitive radiation therapy to 8100 cGy in 45 fractions completed on 08/08/2017 with no ADT. Followedby Henrique Pederson and [facility]ana Obstructive sleep apnea - treated with CPAP Chronic bilat leg swelling - likely related to venous insuff and/or chronic therapy with calcium channel blockers Prostate cancer, - managed by his urologist, Dr Turpin Chronic mild transaminase elevation -likely ABDI, followed by Dr Palafox Plan: * Complex management due to multiple comorbidities * Low-dose ASA for CAD * Has been on treatment dose enoxaparin for several days because of DVT; change to oral apixaban * We recommend that the Medical serivce monitors labs closely and corrects electrolyte abnormalities * K low: FELECIA Calvo MD [facility] Oct 15, 2022 09:42
[2022-10-15] MEDS ORDERED: KCL 20 MEQ TAB (K-DUR) PO ONE (09:46)
[2022-10-15] MEDS: ASPIRIN E.C. 81 MG (ECOTRIN) TAB PO SCH (09:48)
[2022-10-15] MEDS: MAGNESIUM OXIDE (MAG-OX)400 MG TAB PO SCH (09:48)
[2022-10-15] MEDS: AUGMENTIN 875 MG TAB (AMOXICILLIN/CLAVULANATE) PO SCH (09:48)
[2022-10-15] MEDS: PANTOPRAZOLE 40 MG (PROTONIX) TAB PO SCH (09:48)
[2022-10-15] MEDS ORDERED: KCL 20 MEQ TAB (K-DUR) PO NR (10:00)
[2022-10-15] MEDS ORDERED: MGX400T PO (11:20)
[2022-10-15] MEDS ORDERED: ASPI-1238 PO (11:20)
[2022-10-15] MEDS ORDERED: AMOX1TAB12 PO (11:20)
[2022-10-15] MEDS ORDERED: APIX5TAB PO (11:20)
[2022-10-15] MEDS ORDERED: ACHD5005 PO (11:20)
--- NOTE | 2022-10-15 11:21 | Discharge Summary ---
Diagnosis/Chief Complaint Date of Admission Oct 08, 2022 at 09:00 Date of Discharge Discharge Date: Oct 15, 2022 Discharge Diagnosis (1) Severe sepsis Status: Acute Assessment & Plan: - Continue IVF and IV antibiotics, LA resolved, HDS, Admit to ICU 10/09: d/c Vanco, culture Gram neg rods, continue IVFs and IV antibiotics 10/10: Cultures pending, continue broad spectrum antibiotics, labile VS 10/11: HDS, Continue IV antibiotics, will transfer to med/surg as he is not longer needing ICU care 10/12: working on SNF placement 10/13: I received word that the patient has been accepted to [facility] for ongoing antibiotics and wound care staff reporting that they can accept the patient tomorrow we will arrange for transfer tomorrow. No change in status otherwise. 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 10/14: Unable to establish PICC line abscess apparently the line was then but he pulled away for this reason he was switched to Augmentin with no IV access peripherally he is tolerating 875 mg twice daily PC with no apparent difficulty. Will attempt PICC line again in the morning. While he is excepted today for transfer to [place] we have no ambulance/transfer capability per discussion with nursing staff today. Hopeful transfer tomorrow. No evidence for exacerbation of severe sepsis with switch to oral therapy with likely stage IV sacral decubitus source of infection. Blood cultures positive for Bacteroides. (2) Altered mental status Status: Acute Assessment & Plan: - Likely 2/2 to sepsis and acute illness on top of mild dementia 10/12: confused but more alert today, able to answer questions and participate with speech Qualifiers: Qualified Codes: R41.0 - Disorientation, unspecified (3) Acute kidney injury Status: Resolved Assessment & Plan: - IVFs, continue to monitor 10/09: Cr improving, will continue to monitor 10/10: Cr improving (4) Hematemesis Status: Acute Assessment & Plan: - General surgery consulted, Hgb stable 10/11: Stop PPX drip, continue IV BID Qualifiers: Qualified Codes: K92.0 - Hematemesis (5) Sacral decubitus ulcer, stage IV Status: Acute Assessment & Plan: - Will need debridment, Dr Quach consulted, Dr Sears and wound care consulted, patient will need NH placement 10/09: To OR for debridment today (6) Left leg cellulitis Status: Acute Assessment & Plan: - US pending 10/09: + thrombus, continue treatment dosing of lovenox (7) Deep vein thrombosis (DVT) of left lower extremity Status: Acute Assessment & Plan: 10/09: Lovenox Qualifiers: Qualified Codes: I82.432 - Acute embolism and thrombosis of left popliteal vein (8) CAD (coronary artery disease) Status: Chronic (9) Dysphagia Status: Acute Assessment & Plan: 10/12: Will start dysphagia diet per speech (10) Discharge planning issues Assessment & Plan: 10/10: Called several times throughout the day to discuss care with and was unable to reach her. Nurse stated that danial plans to come to hospital this evening Discharge Summary Discharge Physical Examination Allergies: Coded Allergies: No Known Drug Allergies (Unverified , 04/10/15) Vitals & I&Os Vital Signs Date Time Temp Pulse Resp B/P (MAP) Pulse Ox O2 Delivery O2 Flow Rate FiO2 10/15/22 12:00 36.0 96 14 142/72 (95) 95 Room Air 10/15/22 09:00 0.00 General Appearance: Other (drowsy, severely debilitated) Respiratory: Clear to Auscultation Cardiovascular: Regular Rate Hospital Course Was the Problem List Reviewed?: Yes Lengthy course after he was admitted for AMS and lethargy and was found to meet severe sepsis criteria from decubitus ulcer. Abx initiated and surgery was consulted for debridement and that was performed in uneventful manner. Mild GIB was noted with coffee ground emesis but that was managed conservatively and hes hgb stabilized. Overall he has a very poor prognosis but the wound will need specialty care prior to DC to NH so he was moved to [place] and I updated the accepting physician. Labs (last 24 hrs) Laboratory Tests 10/07/22 22:45: White Blood Count 14.6H, Red Blood Count 3.90L, Hemoglobin 12.2L, Hematocrit 36L , Mean Corpuscular Volume 91, Mean Corpuscular Hemoglobin 31, Mean Corpuscular Hemoglobin Concent 34, Red Cell Distribution Width 13.2, Platelet Count 401H, Mean Platelet Volume 9.5, Immature Granulocyte % (Auto) 2, Neutrophils (%) (Auto) 87H, Lymphocytes (%) (Auto) 5L, Monocytes (%) (Auto) 6, Eosinophils (%) (Auto) 0, Basophils (%) (Auto) 0, Neutrophils # (Auto) 12.8H, Lymphocytes # (Auto) 0.7L, Monocytes # (Auto) 0.9, Eosinophils # (Auto) 0.0, Basophils # (Auto) 0.0, Immature Granulocyte # (Auto) 0.2H, Neutrophils % (Manual) 86, Lymphocytes % (Manual) 5, Monocytes % (Manual) 5, Band Neutrophils 4, Blood Morphology Comment NORMAL, Erythrocyte Sedimentation Rate 46H, Prothrombin Time 24.9H, INR Comment 2.2H, Activated Partial Thromboplast Time 49H, Sodium Level 134L, Potassium Level 3.5L, Chloride Level 101, Carbon Dioxide Level 19L, Anion Gap 14, Blood Urea Nitrogen 73H, Creatinine 1.57H, Estimat Glomerular Filtration Rate 45, BUN/Creatinine Ratio 46, Glucose Level 92, Lactic Acid Level 4.59*H, Calcium Level 9.3, Corrected Calcium 10.6H, Total Bilirubin 1.1H, Aspartate Amino Transf (AST/SGOT) 56H, Alanine Aminotransferase (ALT/SGPT) 46, Alkaline Phosphatase 163H, Total Creatine Kinase 261H, C-Reactive Protein High Sensitivity 21.97H, Total Protein 5.6L, Albumin 2.4L 10/07/22 23:21: Urine Color YELLOW, Urine Clarity CLEAR, Urine pH 6.0, Urine Specific [place] 1.015L, Urine Protein NEGATIVE, Urine Glucose (UA) NEGATIVE, Urine Ketones NEGATIVE, Urine Nitrite NEGATIVE, Urine Bilirubin NEGATIVE, Urine Urobilinogen 2.0, Urine Leukocyte Esterase TRACEH, Urine RBC (Auto) 3+H, Urine RBC 10-25H, Urine WBC 0-2, Urine Crystals PRESENTH, Urine Amorphous Sediment FEW STACIE URATESH, Urine Bacteria TRACE, Urine Casts PRESENT, Urine Hyaline Casts 0-2H, Urine Mucus NEGATIVE, Urine Other SPERM PRESENT, Urine Culture Indicated NO 10/07/22 23:38: Influenza Type A (RT-PCR) Not Detected, Influenza Type B (RT-PCR) Not Detected, SARS-CoV-2 RNA (RT-PCR) Not Detected 10/08/22 00:00: Blood Gas Puncture Site LEFT RADIAL, Blood Gas Patient Temperature 36.0, Arterial Blood pH 7.42, Arterial Blood Partial Pressure CO2 35, Arterial Blood Partial Pressure O2 54L, Arterial Blood HCO3 23, Arterial Blood Total CO2 23.6, Arterial Blood Oxygen Saturation 89L, Arterial Blood Base Excess -1.4, Jakob Test YES-POS, Blood Gas Ventilator Setting NO, Blood Gas Inspired Oxygen ROOM AIR 10/08/22 01:02: Lactic Acid Level 4.16*H 10/08/22 03:15: Lactic Acid Level 2.23*H, Total Creatine Kinase 271H 10/08/22 06:25: Lactic Acid Level 1.51 10/08/22 09:00: Lab Scanned Report Referred Lab Report 10/08/22 12:04: White Blood Count 13.1H, Red Blood Count 3.74L, Hemoglobin 11.5L, Hematocrit 34L , Mean Corpuscular Volume 91, Mean Corpuscular Hemoglobin 31, Mean Corpuscular Hemoglobin Concent 34, Red Cell Distribution Width 13.2, Platelet Count 351, Mean Platelet Volume 9.3, Sodium Level 136, Potassium Level 3.4L, Chloride Level 105, Carbon Dioxide Level 22, Anion Gap 9, Blood Urea Nitrogen 66H, Creatinine 1.38H, Estimat Glomerular Filtration Rate 52, BUN/Creatinine Ratio 48, Glucose Level 84, Calcium Level 8.6, Magnesium Level 1.7 10/08/22 17:38: Glucometer 79 10/09/22 04:07: White Blood Count 12.2H, Red Blood Count 3.26L, Hemoglobin 10.1L, Hematocrit 30L , Mean Corpuscular Volume 92, Mean Corpuscular Hemoglobin 31, Mean Corpuscular Hemoglobin Concent 34, Red Cell Distribution Width 13.5, Platelet Count 344, Mean Platelet Volume 9.3, Sodium Level 140, Potassium Level 3.2L, Chloride Level 113H, Carbon Dioxide Level 18L, Anion Gap 9, Blood Urea Nitrogen 52H, Creatinine 1.29, Estimat Glomerular Filtration Rate 56, BUN/Creatinine Ratio 40, Glucose Level 71, Calcium Level 8.1L, Magnesium Level 1.6, Immature Granulocyte % (Auto) 5, Neutrophils (%) (Auto) 86H, Lymphocytes (%) (Auto) 4L, Monocytes (%) (Auto) 4, Eosinophils (%) (Auto) 1, Basophils (%) (Auto) 0, Neutrophils # (Auto) 10.5H, Lymphocytes # (Auto) 0.5L, Monocytes # (Auto) 0.5, Eosinophils # (Auto) 0.1, Basophils # (Auto) 0.0, Immature Granulocyte # (Auto) 0.6H, Prothrombin Time 18.5H, INR Comment 1.5H, Corrected Calcium 9.7, Phosphorus Level 2.3, Total Bilirubin 0.9, Aspartate Amino Transf (AST/SGOT) 60H, Alanine Aminotransferase (ALT/SGPT) 42, Alkaline Phosphatase 161H, Total Protein 4.8L, Albumin 2.0L 10/10/22 03:26: White Blood Count 12.5H, Red Blood Count 3.16L, Hemoglobin 9.7L, Hematocrit 30L, Mean Corpuscular Volume 95, Mean Corpuscular Hemoglobin 31, Mean Corpuscular Hemoglobin Concent 32, Red Cell Distribution Width 14.1, Platelet Count 389, Mean Platelet Volume 9.0, Sodium Level 142, Potassium Level 4.1, Chloride Level 116H, Carbon Dioxide Level 16L, Anion Gap 10, Blood Urea Nitrogen 34H, Creatinine 1.12, Estimat Glomerular Filtration Rate 67, BUN/Creatinine Ratio 30, Glucose Level 76, Calcium Level 8.0L, Magnesium Level 2.1, Immature Granulocyte % (Auto) 6, Neutrophils (%) (Auto) 81H, Lymphocytes (%) (Auto) 6L, Monocytes (%) (Auto) 5, Eosinophils (%) (Auto) 2, Basophils (%) (Auto) 0, Neutrophils # (Auto) 10.2H, Lymphocytes # (Auto) 0.8L, Monocytes # (Auto) 0.6, Eosinophils # (Auto) 0.2, Basophils # (Auto) 0.1, Immature Granulocyte # (Auto) 0.8H, Corrected Calcium 9.5, Phosphorus Level 2.5, Total Bilirubin 0.9, Aspartate Amino Transf (AST/SGOT) 62H, Alanine Aminotransferase (ALT/SGPT) 43, Alkaline Phosphatase 165H, Total Protein 4.8L, Albumin 2.1L 10/11/22 04:07: White Blood Count 12.5H, Red Blood Count 3.12L, Hemoglobin 9.6L, Hematocrit 29L, Mean Corpuscular Volume 94, Mean Corpuscular Hemoglobin 31, Mean Corpuscular Hemoglobin Concent 33, Red Cell Distribution Width 14.6H, Platelet Count 392, Mean Platelet Volume 8.9L, Immature Granulocyte % (Auto) 6, Neutrophils (%) (Auto) 82H, Lymphocytes (%) (Auto) 6L, Monocytes (%) (Auto) 5, Eosinophils (%) (Auto) 1, Basophils (%) (Auto) 0, Neutrophils # (Auto) 10.2H, Lymphocytes # (Auto) 0.7L, Monocytes # (Auto) 0.7, Eosinophils # (Auto) 0.2, Basophils # (Auto) 0.1, Immature Granulocyte # (Auto) 0.7H, Sodium Level 145, Potassium Level 3.9, Chloride Level 118H, Carbon Dioxide Level 16L, Anion Gap 11, Blood Urea Nitrogen 24H, Creatinine 1.13, Estimat Glomerular Filtration Rate 66, BUN/Creatinine Ratio 21, Glucose Level 66L, Calcium Level 8.1L, Corrected Calcium 9.7, Phosphorus Level 2.0L, Magnesium Level 1.9, Total Bilirubin 1.0, Aspartate Amino Transf (AST/SGOT) 59H, Alanine Aminotransferase (ALT/SGPT) 37, Alkaline Phosphatase 180H, Total Protein 4.7L, Albumin 2.0L 10/11/22 12:08: Glucometer 105 10/11/22 17:53: Glucometer 106 10/12/22 01:09: Glucometer 111H 10/12/22 05:36: White Blood Count 11.3H, Red Blood Count 2.93L, Hemoglobin 9.1L, Hematocrit 27L, Mean Corpuscular Volume 93, Mean Corpuscular Hemoglobin 31, Mean Corpuscular Hemoglobin Concent 34, Red Cell Distribution Width 14.3, Platelet Count 380, Mean Platelet Volume 8.8L, Immature Granulocyte % (Auto) 6, Neutrophils (%) (Auto) 78H, Lymphocytes (%) (Auto) 7L, Monocytes (%) (Auto) 7, Eosinophils (%) (Auto) 2, Basophils (%) (Auto) 0, Neutrophils # (Auto) 8.8H, Lymphocytes # (Auto) 0.8L, Monocytes # (Auto) 0.7, Eosinophils # (Auto) 0.2, Basophils # (Auto) 0.0, Immature Granulocyte # (Auto) 0.7H, Sodium Level 146H, Potassium Level 3.2L, Chloride Level 121H, Carbon Dioxide Level 17L, Anion Gap 8, Blood Urea Nitrogen 18, Creatinine 1.00, Estimat Glomerular Filtration Rate 77, BUN/Creatinine Ratio 18, Glucose Level 113H, Calcium Level 7.8L, Corrected Ca lcium 9.4, Phosphorus Level 1.4L, Magnesium Level 1.9, Total Bilirubin 1.1H, Aspartate Amino Transf (AST/SGOT) 62H, Alanine Aminotransferase (ALT/SGPT) 36, Alkaline Phosphatase 180H, Total Protein 4.7L, Albumin 2.0L 10/12/22 11:56: Glucometer 96 10/12/22 17:09: Glucometer 98 10/13/22 05:22: White Blood Count 10.3, Red Blood Count 3.16L, Hemoglobin 9.7L, Hematocrit 29L, Mean Corpuscular Volume 92, Mean Corpuscular Hemoglobin 31, Mean Corpuscular Hemoglobin Concent 33, Red Cell Distribution Width 14.7H, Platelet Count 374, Mean Platelet Volume 8.9L, Immature Granulocyte % (Auto) 5, Neutrophils (%) (Auto) 75, Lymphocytes (%) (Auto) 9L, Monocytes (%) (Auto) 7, Eosinophils (%) (Auto) 3, Basophils (%) (Auto) 1, Neutrophils # (Auto) 7.7, Lymphocytes # (Auto) 1.0, Monocytes # (Auto) 0.7, Eosinophils # (Auto) 0.3, Basophils # (Auto) 0.1, Immature Granulocyte # (Auto) 0.6H, Sodium Level 145, Potassium Level 3.6, Chloride Level 121H, Carbon Dioxide Level 16L, Anion Gap 8, Blood Urea Nitrogen 13, Creatinine 0.95, Estimat Glomerular Filtration Rate 81, BUN/Creatinine Ratio 14, Glucose Level 93, Calcium Level 8.0L, Corrected Calcium 9.6, Phosphorus Level 1.8L, Magnesium Level 1.9, Total Bilirubin 0.9, Aspartate Amino Transf (AST/SGOT) 88H, Alanine Aminotransferase (ALT/SGPT) 52, Alkaline Phosphatase 222H, Total Protein 4.8L, Albumin 2.0L, Neutrophils % (Manual) 77, Lymphocytes % (Manual) 13, Monocytes % (Manual) 2, Eosinophils % (Manual) 5, Metamyelocytes % 3, Blood Morphology Comment NORMAL, Smear Scan YES 10/14/22 05:03: White Blood Count 11.7H, Red Blood Count 3.41L, Hemoglobin 10.5L, Hematocrit 32L , Mean Corpuscular Volume 94, Mean Corpuscular Hemoglobin 31, Mean Corpuscular Hemoglobin Concent 33, Red Cell Distribution Width 14.9H, Platelet Count 419H, Mean Platelet Volume 9.0, Immature Granulocyte % (Auto) 5, Neutrophils (%) (Auto) 79H, Lymphocytes (%) (Auto) 8L, Monocytes (%) (Auto) 5, Eosinophils (%) (Auto) 3, Basophils (%) (Auto) 0, Neutrophils # (Auto) 9.2H, Lymphocytes # (Auto) 1.0, Monocytes # (Auto) 0.6, Eosinophils # (Auto) 0.3, Basophils # (Auto) 0.1, Immature Granulocyte # (Auto) 0.6H, Sodium Level 145, Potassium Level 3.3L, Chloride Level 116H, Carbon Dioxide Level 18L, Anion Gap 11, Blood Urea Nitrogen 12, Creatinine 0.85, Estimat Glomerular Filtration Rate 88, BUN/Creatinine Ratio 14, Glucose Level 81, Calcium Level 8.2L, Corrected Calcium 9.7, Phosphorus Level 2.2L, Magnesium Level 1.5L, Total Bilirubin 0.9, Aspartate Amino Transf (AST/SGOT) 71H, Alanine Aminotransferase (ALT/SGPT) 51, Alkaline Phosphatase 220H, Total Protein 5.1L, Albumin 2.1L 10/15/22 05:23: White Blood Count 11.5H, Red Blood Count 3.35L, Hemoglobin 10.4L, Hematocrit 31L , Mean Corpuscular Volume 93, Mean Corpuscular Hemoglobin 31, Mean Corpuscular Hemoglobin Concent 33, Red Cell Distribution Width 15.2H, Platelet Count 421H, Mean Platelet Volume 9.3, Immature Granulocyte % (Auto) 2, Neutrophils (%) (Auto) 80H, Lymphocytes (%) (Auto) 10L, Monocytes (%) (Auto) 5, Eosinophils (%) (Auto) 2, Basophils (%) (Auto) 0, Neutrophils # (Auto) 9.2H, Lymphocytes # (Auto) 1.1, Monocytes # (Auto) 0.6, Eosinophils # (Auto) 0.3, Basophils # (Auto) 0.0, Immature Granulocyte # (Auto) 0.3H, Sodium Level 140, Potassium Level 3.3L, Chloride Level 111H, Carbon Dioxide Level 19L, Anion Gap 10, Blood Urea Nitrogen 11, Creatinine 0.77, Estimat Glomerular Filtration Rate 91, BUN/Creatinine Ratio 14, Glucose Level 77, Calcium Level 8.0L, Corrected Calcium 9.5, Phosphorus Level 2.5, Magnesium Level 1.2L, Total Bilirubin 0.8, Aspartate Amino Transf (AST/SGOT) 84H, Alanine Aminotransferase (ALT/SGPT) 52, Alkaline Phosphatase 236 H, Total Protein 5.1L, Albumin 2.1L Microbiology 10/09/22 Gram Stain - Final, Complete 10/09/22 Anaerobic Culture - Final, Complete Bacteroides fragilis See Comments 10/09/22 Surgical Culture - Final, Complete Mixed Bacterial Shania Proteus mirabilis 10/08/22 MRSA Screen - Final, Complete MRSA not isolated 10/07/22 Urine Culture - Final, Complete NO GROWTH 10/07/22 Blood Culture - Final, Complete Bacteroides fragilis Pending Labs Microbiology Date/Time Source Procedure Growth Status 10/09/22 14:31 Wound Sacral Decubitus Gram Stain - Final Complete 10/09/22 14:31 Anaerobic Culture - Final Bacteroides fragilis See Comments Complete 10/09/22 14:31 Surgical Culture - Final Mixed Bacterial Shania Proteus mirabilis Complete 10/08/22 10:08 Nasal MRSA Screen - Final MRSA not isolated Complete 10/07/22 23:21 Ulcer Sacral Decubitus Gram Stain - Final Complete 10/07/22 23:21 Wound Culture - Final Proteus species Mixed Bacterial Shania See Comments Complete 10/07/22 23:21 Urine Diggs Cath Urine Culture - Final NO GROWTH Complete 10/07/22 23:00 Peripheral Arm, Right Blood Culture - Final Bacteroides fragilis Complete 10/07/22 22:45 Peripheral Lt Ac Blood Culture - Final Bacteroides fragilis Complete Laboratory Tests 10/07/22 22:45: White Blood Count 14.6, Red Blood Count 3.90, Hemoglobin 12.2, Hematocrit 36, Mean Corpuscular Volume 91, Mean Corpuscular Hemoglobin 31, Mean Corpuscular Hemoglobin Concent 34, Red Cell Distribution Width 13.2, Platelet Count 401, Mean Platelet Volume 9.5, Immature Granulocyte % (Auto) 2, Neutrophils (%) (Auto) 87, Lymphocytes (%) (Auto) 5, Monocytes (%) (Auto) 6, Eosinophils (%) (Auto) 0, Basophils (%) (Auto) 0, Neutrophils # (Auto) 12.8, Lymphocytes # (Auto) 0.7, Monocytes # (Auto) 0.9, Eosinophils # (Auto) 0.0, Basophils # (Auto) 0.0, Immature Granulocyte # (Auto) 0.2, Neutrophils % (Manual) 86, Lymphocytes % (Manual) 5, Monocytes % (Manual) 5, Band Neutrophils 4, Blood Morphology Comment NORMAL, Erythrocyte Sedimentation Rate 46, Prothrombin Time 24.9, INR Comment 2.2, Activated Partial Thromboplast Time 49, Sodium Level 134, Potassium Level 3.5, Chloride Level 101, Carbon Dioxide Level 19, Anion Gap 14, Blood Urea Nitrogen 73, Creatinine 1.57, Estimat Glomerular Filtration Rate 45, BUN/Creatinine Ratio 46, Glucose Level 92, Lactic Acid Level 4.59, Calcium Level 9.3, Corrected Calcium 10.6, Total Bilirubin 1.1, Aspartate Amino Transf (AST/SGOT) 56, Alanine Aminotransferase (ALT/SGPT) 46, Alkaline Phosphatase 163, Total Creatine Kinase 261, C-Reactive Protein High Sensitivity 21.97, Total Protein 5.6, Albumin 2.4 10/07/22 23:21: Urine Color YELLOW, Urine Clarity CLEAR, Urine pH 6.0, Urine Specific [place] 1.015, Urine Protein NEGATIVE, Urine Glucose (UA) NEGATIVE, Urine Ketones NEGATIVE, Urine Nitrite NEGATIVE, Urine Bilirubin NEGATIVE, Urine Urobilinogen 2.0, Urine Leukocyte Esterase TRACE, Urine RBC (Auto) 3+, Urine RBC 10-25, Urine WBC 0-2, Urine Crystals PRESENT, Urine Amorphous Sediment FEW STACIE URATES, Urine Bacteria TRACE, Urine Casts PRESENT, Urine Hyaline Casts 0-2, Urine Mucus NEGATIVE, Urine Other SPERM PRESENT, Urine Culture Indicated NO 10/07/22 23:38: Influenza Type A (RT-PCR) Not Detected, Influenza Type B (RT-PCR) Not Detected, SARS-CoV-2 RNA (RT-PCR) Not Detected 10/08/22 00:00: Blood Gas Puncture Site LEFT RADIAL, Blood Gas Patient Temperature 36.0, Arterial Blood pH 7.42, Arterial Blood Partial Pressure CO2 35, Arterial Blood Partial Pressure O2 54, Arterial Blood HCO3 23, Arterial Blood Total CO2 23.6, Arterial Blood Oxygen Saturation 89, Arterial Blood Base Excess -1.4, Jakob Test YES-POS, Blood Gas Ventilator Setting NO, Blood Gas Inspired Oxygen ROOM AIR 10/08/22 01:02: Lactic Acid Level 4.16 10/08/22 03:15: Lactic Acid Level 2.23, Total Creatine Kinase 271 10/08/22 06:25: Lactic Acid Level 1.51 10/08/22 09:00: Lab Scanned Report Referred Lab Report 10/08/22 12:04: White Blood Count 13.1, Red Blood Count 3.74, Hemoglobin 11.5, Hematocrit 34, Mean Corpuscular Volume 91, Mean Corpuscular Hemoglobin 31, Mean Corpuscular Hemoglobin Concent 34, Red Cell Distribution Width 13.2, Platelet Count 351, Mean Platelet Volume 9.3, Sodium Level 136, Potassium Level 3.4, Chloride Level 105, Carbon Dioxide Level 22, Anion Gap 9, Blood Urea Nitrogen 66, Creatinine 1.38, Estimat Glomerular Filtration Rate 52, BUN/Creatinine Ratio 48, Glucose Level 84, Calcium Level 8.6, Magnesium Level 1.7 10/08/22 17:38: Glucometer 79 10/09/22 04:07: White Blood Count 12.2, Red Blood Count 3.26, Hemoglobin 10.1, Hematocrit 30, Mean Corpuscular Volume 92, Mean Corpuscular Hemoglobin 31, Mean Corpuscular Hemoglobin Concent 34, Red Cell Distribution Width 13.5, Platelet Count 344, Mean Platelet Volume 9.3, Sodium Level 140, Potassium Level 3.2, Chloride Level 113, Carbon Dioxide Level 18, Anion Gap 9, Blood Urea Nitrogen 52, Creatinine 1.29, Estimat Glomerular Filtration Rate 56, BUN/Creatinine Ratio 40, Glucose Level 71, Calcium Level 8.1, Magnesium Level 1.6, Immature Granulocyte % (Auto) 5, Neutrophils (%) (Auto) 86, Lymphocytes (%) (Auto) 4, Monocytes (%) (Auto) 4, Eosinophils (%) (Auto) 1, Basophils (%) (Auto) 0, Neutrophils # (Auto) 10.5, Lymphocytes # (Auto) 0.5, Monocytes # (Auto) 0.5, Eosinophils # (Auto) 0.1, Basophils # (Auto) 0.0, Immature Granulocyte # (Auto) 0.6, Prothrombin Time 18.5, INR Comment 1.5, Corrected Calcium 9.7, Phosphorus Level 2.3, Total Bilirubin 0.9, Aspartate Amino Transf (AST/SGOT) 60, Alanine Aminotransferase (ALT/SGPT) 42, Alkaline Phosphatase 161, Total Protein 4.8, Albumin 2.0 10/10/22 03:26: White Blood Count 12.5, Red Blood Count 3.16, Hemoglobin 9.7, Hematocrit 30, Mean Corpuscular Volume 95, Mean Corpuscular Hemoglobin 31, Mean Corpuscular Hemoglobin Concent 32, Red Cell Distribution Width 14.1, Platelet Count 389, Mean Platelet Volume 9.0, Sodium Level 142, Potassium Level 4.1, Chloride Level 116, Carbon Dioxide Level 16, Anion Gap 10, Blood Urea Nitrogen 34, Creatinine 1.12, Estimat Glomerular Filtration Rate 67, BUN/Creatinine Ratio 30, Glucose Level 76, Calcium Level 8.0, Magnesium Level 2.1, Immature Granulocyte % (Auto) 6, Neutrophils (%) (Auto) 81, Lymphocytes (%) (Auto) 6, Monocytes (%) (Auto) 5, Eosinophils (%) (Auto) 2, Basophils (%) (Auto) 0, Neutrophils # (Auto) 10.2, Lymphocytes # (Auto) 0.8, Monocytes # (Auto) 0.6, Eosinophils # (Auto) 0.2, Basophils # (Auto) 0.1, Immature Granulocyte # (Auto) 0.8, Corrected Calcium 9.5, Phosphorus Level 2.5, Total Bilirubin 0.9, Aspartate Amino Transf (AST/SGOT) 62, Alanine Aminotransferase (ALT/SGPT) 43, Alkaline Phosphatase 165, Total Protein 4.8, Albumin 2.1 10/11/22 04:07: White Blood Count 12.5, Red Blood Count 3.12, Hemoglobin 9.6, Hematocrit 29, Mean Corpuscular Volume 94, Mean Corpuscular Hemoglobin 31, Mean Corpuscular Hemoglobin Concent 33, Red Cell Distribution Width 14.6, Platelet Count 392, Me an Platelet Volume 8.9, Immature Granulocyte % (Auto) 6, Neutrophils (%) (Auto) 82, Lymphocytes (%) (Auto) 6, Monocytes (%) (Auto) 5, Eosinophils (%) (Auto) 1, Basophils (%) (Auto) 0, Neutrophils # (Auto) 10.2, Lymphocytes # (Auto) 0.7, Monocytes # (Auto) 0.7, Eosinophils # (Auto) 0.2, Basophils # (Auto) 0.1, Immature Granulocyte # (Auto) 0.7, Sodium Level 145, Potassium Level 3.9, Chloride Level 118, Carbon Dioxide Level 16, Anion Gap 11, Blood Urea Nitrogen 24, Creatinine 1.13, Estimat Glomerular Filtration Rate 66, BUN/Creatinine Ratio 21, Glucose Level 66, Calcium Level 8.1, Corrected Calcium 9.7, Phosphorus Level 2.0, Magnesium Level 1.9, Total Bilirubin 1.0, Aspartate Amino Transf (AST/SGOT) 59, Alanine Aminotransferase (ALT/SGPT) 37, Alkaline Phosphatase 180, Total Protein 4.7, Albumin 2.0 10/11/22 12:08: Glucometer 105 10/11/22 17:53: Glucometer 106 10/12/22 01:09: Glucometer 111 10/12/22 05:36: White Blood Count 11.3, Red Blood Count 2.93, Hemoglobin 9.1, Hematocrit 27, Mean Corpuscular Volume 93, Mean Corpuscular Hemoglobin 31, Mean Corpuscular Hemoglobin Concent 34, Red Cell Distribution Width 14.3, Platelet Count 380, Mean Platelet Volume 8.8, Immature Granulocyte % (Auto) 6, Neutrophils (%) (Auto) 78, Lymphocytes (%) (Auto) 7, Monocytes (%) (Auto) 7, Eosinophils (%) (Auto) 2, Basophils (%) (Auto) 0, Neutrophils # (Auto) 8.8, Lymphocytes # (Auto) 0.8, Monocytes # (Auto) 0.7, Eosinophils # (Auto) 0.2, Basophils # (Auto) 0.0, Immature Granulocyte # (Auto) 0.7, Sodium Level 146, Potassium Level 3.2, Chloride Level 121, Carbon Dioxide Level 17, Anion Gap 8, Blood Urea Nitrogen 18, Creatinine 1.00, Estimat Glomerular Filtration Rate 77, BUN/Creatinine Ratio 18, Glucose Level 113, Calcium Level 7.8, Corrected Calcium 9.4, Phosphorus Level 1.4, Magnesium Level 1.9, Total Bilirubin 1.1, Aspartate Amino Transf (AST/SGOT) 62, Alanine Aminotransferase (ALT/SGPT) 36, Alkaline Phosphatase 180, Total Protein 4.7, Albumin 2.0 10/12/22 11:56: Glucometer 96 10/12/22 17:09: Glucometer 98 10/13/22 05:22: White Blood Count 10.3, Red Blood Count 3.16, Hemoglobin 9.7, Hematocrit 29, Mean Corpuscular Volume 92, Mean Corpuscular Hemoglobin 31, Mean Corpuscular Hemoglobin Concent 33, Red Cell Distribution Width 14.7, Platelet Count 374, Mean Platelet Volume 8.9, Immature Granulocyte % (Auto) 5, Neutrophils (%) (Auto) 75, Lymphocytes (%) (Auto) 9, Monocytes (%) (Auto) 7, Eosinophils (%) (A uto) 3, Basophils (%) (Auto) 1, Neutrophils # (Auto) 7.7, Lymphocytes # (Auto) 1.0, Monocytes # (Auto) 0.7, Eosinophils # (Auto) 0.3, Basophils # (Auto) 0.1, Immature Granulocyte # (Auto) 0.6, Sodium Level 145, Potassium Level 3.6, Chloride Level 121, Carbon Dioxide Level 16, Anion Gap 8, Blood Urea Nitrogen 13, Creatinine 0.95, Estimat Glomerular Filtration Rate 81, BUN/Creatinine Ratio 14, Glucose Level 93, Calcium Level 8.0, Corrected Calcium 9.6, Phosphorus Level 1.8, Magnesium Level 1.9, Total Bilirubin 0.9, Aspartate Amino Transf (AST/SGOT) 88, Alanine Aminotransferase (ALT/SGPT) 52, Alkaline Phosphatase 222, Total Protein 4.8, Albumin 2.0, Neutrophils % (Manual) 77, Lymphocytes % (Manual) 13, Monocytes % (Manual) 2, Eosinophils % (Manual) 5, Metamyelocytes % 3, Blood Morphology Comment NORMAL, Smear Scan YES 10/14/22 05:03: White Blood Count 11.7, Red Blood Count 3.41, Hemoglobin 10.5, Hematocrit 32, Mean Corpuscular Volume 94, Mean Corpuscular Hemoglobin 31, Mean Corpuscular Hemoglobin Concent 33, Red Cell Distribution Width 14.9, Platelet Count 419, Mean Platelet Volume 9.0, Immature Granulocyte % (Auto) 5, Neutrophils (%) (Auto) 79, Lymphocytes (%) (Auto) 8, Monocytes (%) (Auto) 5, Eosinophils (%) (Auto) 3, Basophils (%) (Auto) 0, Neutrophils # (Auto) 9.2, Lymphocytes # (Auto) 1.0, Monocytes # (Auto) 0.6, Eosinophils # (Auto) 0.3, Basophils # (Auto) 0.1, Immature Granulocyte # (Auto) 0.6, Sodium Level 145, Potassium Level 3.3, Chloride Level 116, Carbon Dioxide Level 18, Anion Gap 11, Blood Urea Nitrogen 12, Creatinine 0.85, Estimat Glomerular Filtration Rate 88, BUN/Creatinine Ratio 14, Glucose Level 81, Calcium Level 8.2, Corrected Calcium 9.7, Phosphorus Level 2.2, Magnesium Level 1.5, Total Bilirubin 0.9, Aspartate Amino Transf (AST/SGOT) 71, Alanine Aminotransferase (ALT/SGPT) 51, Alkaline Phosphatase 220, Total Protein 5.1, Albumin 2.1 10/15/22 05:23: White Blood Count 11.5, Red Blood Count 3.35, Hemoglobin 10.4, Hematocrit 31, Mean Corpuscular Volume 93, Mean Corpuscular Hemoglobin 31, Mean Corpuscular Hemoglobin Concent 33, Red Cell Distribution Width 15.2, Platelet Count 421, Me an Platelet Volume 9.3, Immature Granulocyte % (Auto) 2, Neutrophils (%) (Auto) 80, Lymphocytes (%) (Auto) 10, Monocytes (%) (Auto) 5, Eosinophils (%) (Auto) 2, Basophils (%) (Auto) 0, Neutrophils # (Auto) 9.2, Lymphocytes # (Auto) 1.1, Monocytes # (Auto) 0.6, Eosinophils # (Auto) 0.3, Basophils # (Auto) 0.0, Immature Granulocyte # (Auto) 0.3, Sodium Level 140, Potassium Level 3.3, Chloride Level 111, Carbon Dioxide Level 19, Anion Gap 10, Blood Urea Nitrogen 11, Creatinine 0.77, Estimat Glomerular Filtration Rate 91, BUN/Creatinine Ratio 14, Glucose Level 77, Calcium Level 8.0, Corrected Calcium 9.5, Phosphorus Level 2.5, Magnesium Level 1.2, Total Bilirubin 0.8, Aspartate Amino Transf (AST/SGOT) 84, Alanine Aminotransferase (ALT/SGPT) 52, Alkaline Phosphatase 236, Total Protein 5.1, Albumin 2.1 Discharge Home Medications: Active Scripts Active Magnesium Oxide 400 Mg (241.3 Mg Magnesium) Tablet 400 Mg PO BIDPC 30 Days Aspirin EC (Aspirin) 81 Mg Tablet.dr 81 Mg PO DAILY 30 Days Hydrocodone-Acetamin 5-325 mg (Hydrocodone/Acetaminophen) 5 Mg-325 Mg Tablet 1 Ea PO Q4H PRN 10 Days Eliquis (Apixaban) 5 Mg Tablet 5 Mg PO BID 365 Days Amox Tr-K Clv 875-125 mg Tab (Amoxicillin/Potassium Clav) 875 Mg-125 Mg Tablet 875 Mg PO BID WITH MEALS 2 Days Reported Haloperidol 1 Mg Tablet 1 Mg PO BID LAST FILLED 05-30-2022 #60/30 DAY SUPPLY Quetiapine Fumarate 100 Mg Tablet 100 Mg PO TID LAST FILLED 07-14-2022 #90/30 DAY SUPPLY Pramipexole Dihydrochloride (Pramipexole Di-HCl) 1 Mg Tablet 1 Mg PO HS LAST FILLED 07-14-2022 #30/30 DAY SUPPLY Oxybutynin Chloride 5 Mg Tablet 5 Mg PO DAILY LAST FILLED 07-14-2022 #30/30 DAY SUPPLY Cyanocobalamin Injection (Cyanocobalamin) 1,000 Mcg/Ml Inj 1,000 Mcg IM MONTHLY Sertraline HCl 25 Mg Tablet 25 Mg PO DAILY Pantoprazole Sodium 40 Mg Tablet.dr 40 Mg PO DAILY Potassium Chloride 20 Meq Tab.er.prt 20 Meq PO DAILY Metoprolol Succinate 100 Mg Tab.er.24h 100 Mg PO DAILY LAST FILLED 07-14-2022 #30/30 DAY SUPPLY Famotidine 40 Mg Tablet 40 Mg PO HS LAST FILLED 07-14-2022 #30/30 DAY SUPPLY Gabapentin 100 Mg Capsule 200 Mg PO HS TAKES 2 (100MG) CAPS LAST FILLED 07-14-2022 #60/30 DAY SUPPLY Montelukast Sodium 10 Mg Tablet 10 Mg PO HS LAST FILLED 07-14-2022 #30/30 DAY SUPPLY Flomax (Tamsulosin HCl) 0.4 Mg Cap 0.4 Mg PO DAILY LAST FILLED 05-17-2022 #30/30 DAY SUPPLY Atorvastatin Calcium 20 Mg Tablet 20 Mg PO HS Instructions to patient/family Please see electronic discharge instructions given to patient. VERN HORN DO Oct 15, 2022 11:21
[2022-10-15 12:00] VITALS: BP 142/72
--- NOTE | 2022-10-15 17:17 | Physician Query Clarification ---
Physician Query-General Query to Physician: The medical record reflects the following clinical scenario: The patient, in the setting of History/Risk factors, Mild dementia, admitted with decubitus ulcer and sepsis Clinical Findings GCS 13 on admission did improve to 14, Was not at baseline cognitive level on admission was, drowsy lethargic and "unable to comprehend" on admission per nursing. Then after several days of treatment improved to "Awake/alert" and documentation of "able to answer questions and participate with speech" Treatment IV fluids, IV antibiotics and neuro monitoring Question: Can you further specify "Altered Mental Status likely secondary to sepsis" per the clinical indicators above? Please document your response in the Progress Notes or Discharge Summary. Acute metabolic encephalopathy in the setting of chronic dementia, present on admission, now improved Other, with explanation of clinical findings Clinically undetermined, no explanation for clinical findings Please clarify and document your clinical opinion in the Progress Notes and Discharge Summary including the definitive and/or presumptive diagnosis, (suspected or probable), related to the above clinical findings. Please include clinical findings supporting your diagnosis. In responding to this query, please exercise your independent professional judgment. The purpose of this communication is to more accurately reflect the complexity of your patients condition. The fact that a question is asked does not imply that any particular answer is desired or expected. Thank you for timely response to this clarification. Christiane Hamilton, MSN, RN Clinical Director Of Product Development [phone] [email or web address] PHYSICIAN RESPONSE: Based on the clinical findings in the record, please respond to the query above on this document as an addendum. Physician Response: Physician Response Yes Acute metabolic encephalopathy with chronic dementia If you have questions please contact: Wrapper Rewinder: Ext: Thank you for your time and cooperation. Clinical Director Of Product Development/Wrapper Rewinder This is a permanent part of the medical rec ord CHRISTIANE HAMILTON Oct 15, 2022 17:17 KENNETH PORTER MD Oct 15, 2022 20:19 VERN HORN DO Oct 15, 2022 20:48
--- NOTE | 2022-10-15 17:28 | Physician Query Clarification ---
Physician Query-General Query to Physician: The medical record reflects the following clinical evidence: Clinical Indicators: Required 02 at 4 to 5 L for several hours, Respiratory rate 20s to 30s was 24 on admission most often 20 and above, was on at least 2 L from admission until 4 days into stay when patient was able to titrate to RA, lowest O2 sat recorded is 90% (on 2L P/F=214) has mostly been about 94 and above on O2, No respiratory S/S documented but patient had altered LOC on admission Risk Factor(s): Advanced age, Dementia, Sepsis, Decub Treatment: Supplemental 02, IV ABX, Respiratory Monitoring Acute respiratory failure with hypoxia, present on admission now resolved Other explanation of clinical findings Unable to determine (no explanation for clinical findings) Please clarify and document your clinical opinion in the progress notes and discharge summary including the definitive and/or presumptive diagnosis, (suspected or probable), related to the above clinical findings. Please include clinical findings supporting your diagnosis. Christiane Hamilton, MSN, RN Clinical Senior Manager [employer] [phone] [email or web address] PHYSICIAN RESPONSE: Based on the clinical findings in the record, please respond to the query above on this document as an addendum. Physician Response: Physician Response Yes Acute hypoxic respiratory failure now resolved If you have questions please contact: Inspector [employer] Points: Ext: Thank you for your time and cooperation. Clinical Senior Manager [employer]/Inspector [employer] Points This is a permanent part of the medical record CHRISTIANE HAMILTON Oct 15, 2022 17:28 KENNETH PORTER MD Oct 15, 2022 20:21 VENR HORN DO Oct 15, 2022 20:49
[2022-10-15] MEDS ORDERED: APIXABAN 5 MG (ELIQUIS) TABLET PO SCH (21:00)
== END 2022-10-15 14:15 | DRG 853 ==
LOC: EDUNIT# 22:36 → ER 22:37 → ICU 10-08 09:00 → 4TH 10-11 13:31
PROVIDERS: ADMIT Internal Medicine; ATTEND Internal Medicine
PROC: 0KBN0ZZ Excision of Right Hip Muscle, Open Approach (ICD-10-PCS; 2022-10-09)
PROC: 0KBP0ZZ Excision of Left Hip Muscle, Open Approach (ICD-10-PCS; principal; 2022-10-09 14:09)
DX: A41.4 Sepsis due to anaerobes (principal); G93.41 Metabolic encephalopathy; L89.154 Pressure ulcer of sacral region, stage 4; J96.01 Acute respiratory failure with hypoxia; R65.21 Severe sepsis with septic shock; I13.0 Hypertensive heart and chronic kidney disease with heart failure and stage 1 through stage 4 chronic kidney disease, or unspecified chronic kidney disease; Z68.41 Body mass index [BMI] 40.0-44.9, adult; L03.312 Cellulitis of back [any part except buttock and flank]; M86.8X8 Other osteomyelitis, other site; N17.9 Acute kidney failure, unspecified; D68.9 Coagulation defect, unspecified; K92.0 Hematemesis; E46 Unspecified protein-calorie malnutrition; I25.10 Atherosclerotic heart disease of native coronary artery without angina pectoris; I50.9 Heart failure, unspecified; E78.00 Pure hypercholesterolemia, unspecified; K21.9 Gastro-esophageal reflux disease without esophagitis; M19.90 Unspecified osteoarthritis, unspecified site; E66.01 Morbid (severe) obesity due to excess calories; Z85.46 Personal history of malignant neoplasm of prostate; Z85.118 Personal history of other malignant neoplasm of bronchus and lung; Z20.822 Contact with and (suspected) exposure to COVID-19; F03.90 Unspecified dementia, unspecified severity, without behavioral disturbance, psychotic disturbance, mood disturbance, and anxiety; Z86.718 Personal history of other venous thrombosis and embolism; Z79.01 Long term (current) use of anticoagulants; I95.9 Hypotension, unspecified
CPT/HCPCS: 36410; 36415; 51702; 71045; 76937; 80048; 80053; 81000; 82550; 82805; 82947; 83605; 83735; 84100; 85007; 85025; 85027; 85610; 85652; 85730; 86141; 86850; 86900; 86901; 87040; 87070; 87075; 87076; 87077; 87081; 87088; 87185; 87186; 87205; 87636; 93005; 93970; 94760; 96361; 96365; 96367; 96375

== ENCOUNTER 2022-11-23 13:10 | Emergency (ER) | payer MEDICARE ==
[~2022-11-23 13:10] MED LIST changes: +ACHD5005 PO; +AMOX1TAB12 PO; +APIX5TAB PO; +CNC1KV IM; +HALO1TAB PO; +MGX400T PO; +OXYB5TAB13 PO; +POTA-179 PO; +PRAM1TAB5 PO; +QUET100T33 PO; +RIVA20TA PO; +SERT-412 PO
--- NOTE | 2022-11-23 13:25 | ED Respiratory ---
General Stated Complaint: LOW O2; LETHARGY Source: patient, RN/MD, EMS, shelter records Exam Limitations: no limitations History of Present Illness Date Seen by Provider: November 23, 2022 Time Seen by Provider: 13:15 Initial Comments 77-year-old male with past medical history of hypertension, hyperlipidemia, CAD, JENN, chronic edema, dementia, prostate cancer, CKD, liver disease, and history of lung cancer coming in via EMS from the shelter due to lethargy and low oxygen. Per nursing report, the patient was lethargic on their arrival to the room to assess him, he was arousable to stimulation gently. Oxygen was reportedly 80% and he was placed on 5 L. On EMS arrival his oxygen was in the high 90s with the oxygen present. Patient was alert at that time. Glucose was 89 for them, blood pressure appropriate, heart rate just under 100. Patient is denying any pain other than his sacral decubitus wound which is being managed by wound care physician with a wound VAC in place. Allergies and Home Medications Allergies Coded Allergies: No Known Drug Allergies (Unverified , 04/10/15) Patient Home Medication List Home Medication List Reviewed: Yes Amoxicillin/Potassium Clav (Amox Tr-K Clv 875-125 mg Tab) 875 Mg-125 Mg Tablet, 875 MG PO BID WITH MEALS Prescribed by: VERN HRON on 10/15/22 1120 Apixaban (Eliquis) 5 Mg Tablet, 5 MG PO BID Prescribed by: VERN HORN on 10/15/22 1120 Aspirin (Aspirin EC) 81 Mg Tablet.dr, 81 MG PO DAILY Prescribed by: VERN HORN on 10/15/22 1120 Atorvastatin Calcium (Atorvastatin Calcium) 20 Mg Tablet, 20 MG PO HS, (Reported) Entered as Reported by: MARIELENA FERNANDEZ on 04/10/15 1105 Cyanocobalamin (Cyanocobalamin Injection) 1,000 Mcg/Ml Inj, 1,000 MCG IM MONTHLY, (Reported) Entered as Reported by: JHONY HOWELL on 10/10/22 1606 Famotidine (Famotidine) 40 Mg Tablet, 40 MG PO HS, (Reported) Entered as Reported by: MATEUSZ BISHOP on 12/26/21 0819 Gabapentin (Gabapentin) 100 Mg Capsule, 200 MG PO HS, (Reported) Entered as Reported by: MATEUSZ BISHOP on 12/26/21 08 Haloperidol (Haloperidol) 1 Mg Tablet, 1 MG PO BID, (Reported) Entered as Reported by: JHONY HOWELL on 10/10/22 160 Hydrocodone/Acetaminophen (Hydrocodone-Acetamin 5-325 mg) 5 Mg-325 Mg Tablet, 1 EA PO Q4H PRN for PAIN-MODERATE (5-7) Prescribed by: VERN HORN on 10/15/22 112 Magnesium Oxide (Magnesium Oxide) 400 Mg (241.3 Mg Magnesium) Tablet, 400 MG PO BIDPC Prescribed by: VERN HORN on 10/15/22 112 Metoprolol Succinate (Metoprolol Succinate) 100 Mg Tab.er.24h, 100 MG PO DAILY, (Reported) Entered as Reported by: JHONY HOWELL on 02/01/22 0957 Montelukast Sodium (Montelukast Sodium) 10 Mg Tablet, 10 MG PO HS, (Reported) Entered as Reported by: MATEUSZ BISHOP on 12/26/21818 Oxybutynin Chloride (Oxybutynin Chloride) 5 Mg Tablet, 5 MG PO DAILY, (Reported) Entered as Reported by: JHONY HOWELL on 10/10/221605 Pantoprazole Sodium (Pantoprazole Sodium) 40 Mg Tablet.dr, 40 MG PO DAILY, (Reported) Entered as Reported by: JHONY HOWELL on 10/10/221605 Potassium Chloride (Potassium Chloride) 20 Meq Tab.er.prt, 20 MEQ PO DAILY, (Reported) Entered as Reported by: JHONY HOWELL on 10/10/221605 Pramipexole Di-HCl (Pramipexole Dihydrochloride) 1 Mg Tablet, 1 MG PO HS, (Reported) Entered as Reported by: JHONY HOWELL on 10/10/22 160 Quetiapine Fumarate (Quetiapine Fumarate) 100 Mg Tablet, 100 MG PO TID, (Reported) Entered as Reported by: JHONY HOWELL on 10/10/221605 Sertraline HCl (Sertraline HCl) 25 Mg Tablet, 25 MG PO DAILY, (Reported) Entered as Reported by: JHONY HOWELL on 10/10/221605 Tamsulosin HCl (Flomax) 0.4 Mg Cap, 0.4 MG PO DAILY, (Reported) Entered as Reported by: MATEUSZ BISHOP on 12/26/21 0819 Review of Systems Review of Systems Constitutional: No fever EENTM: no symptoms reported Respiratory: see HPI Cardiovascular: no symptoms reported Gastrointestinal: no symptoms reported Genitourinary: no symptoms reported Musculoskeletal: no symptoms reported Skin: see HPI Psychiatric/Neurological: See HPI Past Ftjocbd-Nyswts-Oymgqf Hx Patient Social History Substance use?: No Immunizations Up To Date First/Initial COVID19 Vaccinat: 2019 Second COVID19 Vaccination Reymundo: 2019 Third COVID19 Vaccination Date: 2019 Seasonal Allergies Seasonal Allergies: No Past Medical History Surgery/Hospitalization HX: poor historian HTN, HLD, CAD AMLODIPINE Surgeries: Yes Adenoidectomy, Cardiac, Lobectomy, Orthopedic, Tonsillectomy Respiratory: Yes (CHRONIC DYSPNEA; CARCINOID TUMOR OF LUNG) Sleep Apnea Currently Using CPAP: No Currently Using BIPAP: No Cardiac: Yes (CHF; CAROTID DISEASE) Chronic Edema/Swelling, Coronary Artery Disease, High Cholesterol, Hypertension Neurological: Yes (SUSPECTED DEMENTIA-HAS BEEN PRESCRIBED ARICEPT IN PAST) Reproductive Disorders: No Sexually Transmitted Disease: No HIV/AIDS: No Genitourinary: Yes (PROSTATE CANCERP;CKD) Kidney Stones Gastrointestinal: Yes (POSSIBLE ABDI) Gastroesophageal Reflux, Liver Disease/Jaundice Musculoskeletal: Yes Arthritis Endocrine: Yes (MORBID OBESITY. ) Loss of Vision: Denies Hearing Impairment: Denies Cancer: Yes Prostate, Lung Did You Recieve Any Treatments: Yes What Type of Treatment Did You: Surgical Intervention Psychosocial: No Integumentary: No Blood Disorders: No Family Medical History Arthritis Hypertension No Pertinent Family Hx SOCIAL HISTORY: -DENIES SMOKING -DENIES DRUG USE -HISTORY OF ETOH, CLAIMS NO RECENT USE, PER PT 01/13/22 PAST SURGICAL HISTORY: -BILATERAL KNEE REPLACEMENT -VATS ASSISTED LEFT UPPER LOBE RESECTION FOR CARCINOID TUMOR 08/2015 -RADIATION SEED IMPLANTS FOR PROSTATE CANCER 2017 -EGD/COLONOSCOPIES -CARDIAC CATH 12/26/[address] CANCINO: CONCLUSIONS: 1. Coronary artery disease primarily consisting of mid vessel occlusion of the right coronary with collateralization of the distal right coronary by the left anterior descending artery. There is diffuse moderate disease of the left coronary system. The first diagonal branch of left anterior descending artery is of a small caliber and has approximately 70% ostial and proximal stenosis. 2. Normal left ventricular end-diastolic pressure. 3. Normal global left ventricular systolic function with ejection fraction approximately 60%. DISCUSSION AND RECOMMENDATIONS: Based on results of the study, it appears appropriate to continue a conservative approach at this time. Continuing outpatient followup is advised. Physical Exam Vital Signs - First Documented 11/23/22 13:10 Temp 36.7 Pulse 85 Resp 20 B/P (MAP) 118/68 (85) Pulse Ox 97 O2 Delivery Room Air Capillary Refill : Height: 5'11.00" Weight: 310lbs. 0.0oz. 140.179538do; 35.80 BMI Method: General Appearance: WD/WN, no apparent distress, obese, other (Chronically ill-appearing) Eyes: Bilateral Eye Normal Inspection HEENT: PERRL/EOMI, normal ENT inspection, pharynx normal Neck: non-tender, full range of motion, supple, normal inspection Respiratory: chest non-tender, lungs clear, normal breath sounds, no respiratory distress, no accessory muscle use Cardiovascular: regular rate, rhythm Gastrointestinal: normal bowel sounds, non tender, soft; No distended, No guarding Extremities: normal range of motion, non-tender, normal inspection, no calf tenderness, normal capillary refill, pedal edema Neurologic/Psychiatric: no motor/sensory deficits, alert, normal mood/affect Skin: normal color, warm/dry, other (Wound VAC in place on his sacrum) Focused Exam Lactate Level 11/23/22 13:10: Lactic Acid Level 1.11 Lactic Acid Level Laboratory Tests Test 11/23/22 13:10 Lactic Acid Level 1.11 MMOL/L (0.50-2.00) Progress/Results/Core Measures Suspected Sepsis SIRS Temperature: Pulse: Respiratory Rate: Laboratory Tests 11/23/22 13:10: White Blood Count 16.2H Blood Pressure / Mean: 11/23/22 13:10: Lactic Acid Level 1.11 Laboratory Tests 11/23/22 13:10: Creatinine 0.74, INR Comment 1.5H, Platelet Count 456H, Total Bilirubin 0.8 Results/Orders Lab Results Laboratory Tests Test 11/23/22 13:10 Range/Units White Blood Count 16.2 H 4.3-11.0 10^3/uL Red Blood Count 3.86 L 4.30-5.52 10^6/uL Hemoglobin 11.4 L 13.3-17.7 g/dL Hematocrit 36 L 40-54 % Mean Corpuscular Volume 93 80-99 fL Mean Corpuscular Hemoglobin 30 25-34 pg Mean Corpuscular Hemoglobin Concent 32 32-36 g/dL Red Cell Distribution Width 14.2 10.0-14.5 % Platelet Count 456 H 130-400 10^3/uL Mean Platelet Volume 8.6 L 9.0-12.2 fL Immature Granulocyte % (Auto) 0 % Neutrophils (%) (Auto) 81 H 42-75 % Lymphocytes (%) (Auto) 7 L 12-44 % Monocytes (%) (Auto) 10 0-12 % Eosinophils (%) (Auto) 1 0-10 % Basophils (%) (Auto) 0 0-10 % Neutrophils # (Auto) 13.1 H 1.8-7.8 10^3/uL Lymphocytes # (Auto) 1.2 1.0-4.0 10^3/uL Monocytes # (Auto) 1.6 H 0.0-1.0 10^3/uL Eosinophils # (Auto) 0.1 0.0-0.3 10^3/uL Basophils # (Auto) 0.0 0.0-0.1 10^3/uL Immature Granulocyte # (Auto) 0.1 0.0-0.1 10^3/uL Neutrophils % (Manual) 66 % Lymphocytes % (Manual) 7 % Monocytes % (Manual) 12 % Eosinophils % (Manual) 1 % Band Neutrophils 14 % Platelet Estimate INCREASED Polychromasia SLIGHT Hypochromasia SLIGHT Macrocytosis SLIGHT Prothrombin Time 18.3 H 12.2-14.7 SEC INR Comment 1.5 H 0.8-1.4 Activated Partial Thromboplast Time 37 H 24-35 SEC Urine Color YELLOW Urine Clarity SL CLOUDY Urine pH 6.5 5-9 Urine Specific [employer] <=1.005 1.016-1.022 Urine Protein TRACE H NEGATIVE Urine Glucose (UA) NEGATIVE NEGATIVE Urine Ketones NEGATIVE NEGATIVE Urine Nitrite NEGATIVE NEGATIVE Urine Bilirubin NEGATIVE NEGATIVE Urine Urobilinogen 0.2 < = 1.0 MG/DL Urine Leukocyte Esterase 2+ H NEGATIVE Urine RBC (Auto) 1+ H NEGATIVE Urine RBC 2-5 H /HPF Urine WBC 25-50 H /HPF Urine Squamous Epithelial Cells NONE /HPF Urine Crystals NONE /LPF Urine Bacteria LARGE H /HPF Urine Casts NONE /LPF Urine Mucus NEGATIVE /LPF Urine Culture Indicated CULTURE PENDING Sodium Level 135 135-145 MMOL/L Potassium Level 4.1 3.6-5.0 MMOL/L Chloride Level 102 98-107 MMOL/L Carbon Dioxide Level 23 21-32 MMOL/L Anion Gap 10 5-14 MMOL/L Blood Urea Nitrogen 13 7-18 MG/DL Creatinine 0.74 0.60-1.30 MG/DL Estimat Glomerular Filtration Rate 92 BUN/Creatinine Ratio 18 Glucose Level 88 70-105 MG/DL Lactic Acid Level 1.11 0.50-2.00 MMOL/L Calcium Level 8.9 8.5-10.1 MG/DL Corrected Calcium 10.1 8.5-10.1 MG/DL Total Bilirubin 0.8 0.1-1.0 MG/DL Aspartate Amino Transf (AST/SGOT) 57 H 5-34 U/L Alanine Aminotransferase (ALT/SGPT) 57 H 0-55 U/L Alkaline Phosphatase 258 H 40-136 U/L Total Protein 6.1 L 6.4-8.2 GM/DL Albumin 2.5 L 3.2-4.5 GM/DL My Orders Orders - DONALDO HOWARD MD Cbc With Automated Diff (11/23/22 13:21) Comprehensive Metabolic Panel (11/23/22 13:21) Blood Culture (11/23/22 13:21) Urinalysis (11/23/22 13:21) Urine Culture (11/23/22 13:21) Protime With Inr (11/23/22 13:21) Partial Thromboplastin Time (11/23/22 13:21) Chest 1 View Ap/Pa Only (11/23/22 13:21) Ed Iv/Invasive Line Start (11/23/22 13:21) Ekg Tracing (11/23/22 13:21) Vital Signs Adult Sepsis Patie Q15M (11/23/22 13:21) O2 (11/23/22 13:21) Remove Rings In Anticipation O (11/23/22 13:21) Lactic Acid Analyzer (11/23/22 13:21) Manual Differential (11/23/22 13:10) Ceftriaxone 1gm/50ml (1xdose) (11/23/22 14:15) Vital Signs/I&O 11/23/22 13:10 Temp 36.7 Pulse 85 Resp 20 B/P (MAP) 118/68 (85) Pulse Ox 97 O2 Delivery Room Air Capillary Refill : Progress Note : Progress Note 77-year-old male brought in due to lethargy and low oxygen. ABCs were intact and vitals were stable on presentation. The patient was removed from oxygen and we monitored him for well over an hour with his oxygen being around 97 to 98%. When I reviewed his history from his prior hospitalization, he does have obstructive sleep apnea. It is possible the patient was asleep without a CPAP, and was just desatting. EKG ordered and interpreted by me showing normal sinus rhythm with no acute ischemic changes. An IV was placed and basic labs were obtained and were significant for leukocytosis, normal lactic acid, normal creatinine, mildly elevated LFTs which are nonspecific, urinalysis with likely infection. He does have a catheter chronically, and given his leukocytosis and per the shelter staff confusion, we will start him on IV ceftriaxone here followed by prescription antibiotic. Chest x-ray ordered and interpreted by me showing no obvious pneumonia. The patient is on Eliquis, and I think a PE is very unlikely, especially given his oxygenation and mental status were normal within minutes of EMS arrival. I believe the patient is stable for discharge with outpatient follow-up. He was sent home with strict return precautions ECG Initial ECG Impression Date: November 23, 2022 Initial ECG Impression Time: 13:32 Initial ECG Rate: 85 Initial ECG Rhythm: Normal Sinus Comment Narrow QRS, left axis deviation, no significant ST changes or T wave abnormality Diagnostic Imaging Diagonstic Imaging: Xray (chest) Comments [facility]. [place], [place] NAME: EVENS DOMINGUEZ [facility] REC#: [id number] PT STATUS: REG ER : 1945 PHYSICIAN: DONALDO HOWARD MD ADMIT DATE: 11/23/22/ER FS Draft Date of Exam:11/23/22 CHEST 1 VIEW AP/PA ONLY Indication: Hypoxia. Compared: 10/07/2022 Findings: Previous nodular density along the left aorticopulmonary window has since resolved, likely was superimposed. Vascular structures today seen with a differing orientation and mild rotation. No focal pulmonary consolidation. There is no effusion or pneumothorax. Impression: No acute-appearing abnormality. Dictated on workstation # [id number] Dict: 11/23/22 1340 Trans: 11/23/22 1347 CV [id number] Interpreted by: JOYCELYN HOLLAND Electronically signed by: Departure Impression Primary Impression: Cystitis Additional Impression: JENN (obstructive sleep apnea) Disposition: HOME, SELF-CARE Condition: Stable Departure-Patient Inst. Decision time for Depature: 14:30 Referrals: NO,LOCAL PHYSICIAN (PCP/Family) Primary Care Physician Patient Instructions: Urinary Tract Infection, Adult ED, Obstructive Sleep Apnea, Adult (DC) Add. Discharge Instructions: Your oxygen was 97 and 98% on room air for over an hour in the ER without intervention. We suspect it was your sleep apnea, you likely need to wear a CPAP or wear oxygen when you are resting. Your chest x-ray was clear. Your labs were concerning for a urinary tract infection and you will be on antibiotics for the next 10 days. He received IV antibiotics in the ER, next antibiotic will be due tomorrow. Scripts Cefdinir (Cefdinir) 300 Mg Capsule 300 MG PO BID for 10 Days, #20 CAP 0 Refills Prov: DONALDO HOWARD MD 11/23/22 DONALDO HOWARD MD November 23, 2022 13:24
[2022-11-23 13:36] LABS: BASOPHILS % (AUTO) 0 % (0-10); BILIRUBIN,URINE NEGATIVE (NEGATIVE); COLOR,URINE YELLOW; EOSINOPHILS # (AUTO) 0.1 10^3/uL (0.0-0.3); EOSINOPHILS % (AUTO) 1 % (0-10); GLUCOSE, URINE (UA) NEGATIVE (NEGATIVE); HEMATOCRIT 36 % (40-54); HEMOGLOBIN 11.4 g/dL (13.3-17.7); KETONES,URINE NEGATIVE (NEGATIVE); LEUKOCYTE ESTERASE ,URINE 2+ (NEGATIVE); LYMPHOCYTES # (AUTO) 1.2 10^3/uL (1.0-4.0); LYMPHOCYTES % (AUTO) 7 % (12-44); MEAN CORPUSCULAR HEMOGLOBIN 30 pg (25-34); MEAN CORPUSCULAR HGB CONC 32 g/dL (32-36); MEAN CORPUSCULAR VOLUME 93 fL (80-99); MEAN PLATELET VOLUME 8.6 fL (9.0-12.2); MONOCYTES # (AUTO) 1.6 10^3/uL (0.0-1.0); MONOCYTES % (AUTO) 10 % (0-12); NEUTROPHILS # (AUTO) 13.1 10^3/uL (1.8-7.8); NEUTROPHILS % (AUTO) 81 % (42-75); NITRITE,URINE NEGATIVE (NEGATIVE); PH,URINE 6.5 (5-9); PLATELET COUNT 456 10^3/uL (130-400); PROTEIN,URINE TRACE (NEGATIVE); WHITE BLOOD COUNT 16.2 10^3/uL (4.3-11.0)
[2022-11-23 13:46] LABS: BACTERIA,URINE LARGE /HPF; CLARITY,URINE SL CLOUDY; WBC,URINE 25-50 /HPF
--- NOTE | 2022-11-23 13:48 | Diagnostic Imaging Report ---
Indication: Hypoxia. Compared: 10/07/2022 Findings: Previous nodular density along the left aorticopulmonary window has since resolved, likely was superimposed. Vascular structures today seen with a differing orientation and mild rotation. No focal pulmonary consolidation. There is no effusion or pneumothorax. Impression: No acute-appearing abnormality. Dictated by: Dictated on workstation # [id number]
[2022-11-23 13:56] LABS: INR 1.5 (0.8-1.4); PROTHROMBIN TIME PATIENT 18.3 SEC (12.2-14.7)
[2022-11-23 14:03] LABS: BAND NEUTROPHILS 14 %; EOSINOPHILS % (MANUAL) 1 %; HYPOCHROMASIA SLIGHT; LYMPHOCYTES % (MANUAL) 7 %; MONOCYTES % (MANUAL) 12 %; NEUTROPHILS % (MANUAL) 66 %; PLATELET ESTIMATE INCREASED; POLYCHROMASIA SLIGHT
[2022-11-23 14:05] LABS: ALBUMIN 2.5 GM/DL (3.2-4.5); BILIRUBIN,TOTAL 0.8 MG/DL (0.1-1.0); CALCIUM 8.9 MG/DL (8.5-10.1); CREATININE SERUM 0.74 MG/DL (0.60-1.30); POTASSIUM 4.1 MMOL/L (3.6-5.0); TOTAL PROTEIN 6.1 GM/DL (6.4-8.2)
[2022-11-23] MEDS ORDERED: cefTRIAXone IV/IM 1,000 MG in NS (IVPB) 50 ML IV ONE (14:15)
[2022-11-23] MEDS ORDERED: CEFD300C3 PO (14:19)
[2022-11-23 14:30] VITALS: BP 115/75
[2022-11-24] MEDS ORDERED: CEFD300C3 PO (09:00)
[2022-11-26] MEDS ORDERED: CEFD300C3 PO (14:57)
[2022-11-26] MEDS ORDERED: NITR-65 PO (14:57)
== END 2022-11-23 14:30 | disposition home or self-care (01) ==
LOC: EDUNIT# 13:13 → ER FS 13:13
DX: N30.90 Cystitis, unspecified without hematuria (principal); G47.33 Obstructive sleep apnea (adult) (pediatric); R79.89 Other specified abnormal findings of blood chemistry; E66.01 Morbid (severe) obesity due to excess calories; Z85.118 Personal history of other malignant neoplasm of bronchus and lung; Z68.35 Body mass index [BMI] 35.0-35.9, adult; Z79.02 Long term (current) use of antithrombotics/antiplatelets
CPT/HCPCS: 36415; 71045; 80053; 81000; 83605; 85007; 85027; 85610; 85730; 87040; 87077; 87088; 87186

== ENCOUNTER → 2022-12-18 | Outpatient (CLI) | payer MEDICARE ==
[~2022-12-18] MED LIST changes: +CEFD300C3 PO; +NITR-65 PO
[2022-12-18 12:44] LABS: CLARITY,URINE TURBID; COLOR,URINE RED; GLUCOSE, URINE (UA) NEGATIVE (NEGATIVE); KETONES,URINE NEGATIVE (NEGATIVE); LEUKOCYTE ESTERASE ,URINE 2+ (NEGATIVE); NITRITE,URINE NEGATIVE (NEGATIVE); PH,URINE 8.5 (5-9); PROTEIN,URINE 2+ (NEGATIVE)
[2022-12-18 13:03] LABS: BACTERIA,URINE FEW /HPF; BILIRUBIN,URINE 1+ (NEGATIVE); RBC,URINE TNTC /HPF; WBC,URINE >100 /HPF
== END ==
PROVIDERS: ATTEND Pediatrics
DX: N39.0 Urinary tract infection, site not specified (principal)
CPT/HCPCS: 81000; 87077; 87088

== ENCOUNTER 2023-01-04 00:42 | Emergency (ER) | payer MEDICARE ==
[~2023-01-04] VITALS: Ht 177 cm; Wt 99.7 kg
[2023-01-04 00:48] VITALS: BP 128/67
--- NOTE | 2023-01-04 00:56 | ED Fall/Injury ---
General Chief Complaint: Neurological Problems Stated Complaint: FALL Source: patient, RN/MD, EMS, alf records Exam Limitations: no limitations History of Present Illness Date Seen by Provider: Jan 04, 2023 Time Seen by Provider: 00:48 Initial Comments 77-year-old male with past medical history of hypertension, hyperlipidemia, CAD, JENN, chronic edema, dementia, prostate cancer, CKD, liver disease, history of lung, and frequent falls coming in via EMS from the alf due to a fall. They report hematoma to the right side of his face and some skin tears. He is on Eliquis per report. After he hit his head, began slurring speech somewhat. The fall was around 11 PM. Otherwise denying any other acute complaints. Allergies and Home Medications Allergies Coded Allergies: No Known Drug Allergies (Unverified , 04/10/15) Patient Home Medication List Home Medication List Reviewed: Yes Amoxicillin/Potassium Clav (Amox Tr-K Clv 875-125 mg Tab) 875 Mg-125 Mg Tablet, 875 MG PO BID WITH MEALS Prescribed by: VERN HORN on 10/15/22 1120 Apixaban (Eliquis) 5 Mg Tablet, 5 MG PO BID Prescribed by: VERN HORN on 10/15/22 1120 Aspirin (Aspirin EC) 81 Mg Tablet.dr, 81 MG PO DAILY Prescribed by: VERN HORN on 10/15/22 1120 Atorvastatin Calcium (Atorvastatin Calcium) 20 Mg Tablet, 20 MG PO HS, (Reported) Entered as Reported by: MARIELENA FERNANDEZ on 04/10/15 1105 Cefdinir (Cefdinir) 300 Mg Capsule, 300 MG PO BID Prescribed by: WANDER PRAJAPATI on 11/24/22 0900 Cefdinir (Cefdinir) 300 Mg Capsule, 300 MG PO BID Prescribed by: DONALDO HOWARD on 11/26/22 1457 Cyanocobalamin (Cyanocobalamin Injection) 1,000 Mcg/Ml Inj, 1,000 MCG IM MONTHLY, (Reported) Entered as Reported by: JHONY HOWELL on 10/10/22 1606 Famotidine (Famotidine) 40 Mg Tablet, 40 MG PO HS, (Reported) Entered as Reported by: MATEUSZ BISHOP on 12/26/21 0819 Gabapentin (Gabapentin) 100 Mg Capsule, 200 MG PO HS, (Reported) Entered as Reported by: MATEUSZ BISHOP on 12/26/21 0819 Haloperidol (Haloperidol) 1 Mg Tablet, 1 MG PO BID, (Reported) Entered as Reported by: JHONY HOWELL on 10/10/22 1606 Hydrocodone/Acetaminophen (Hydrocodone-Acetamin 5-325 mg) 5 Mg-325 Mg Tablet, 1 EA PO Q4H PRN for PAIN-MODERATE (5-7) Prescribed by: VERN HORN on 10/15/22 1120 Magnesium Oxide (Magnesium Oxide) 400 Mg (241.3 Mg Magnesium) Tablet, 400 MG PO BIDPC Prescribed by: VERN HORN on 10/15/22 1120 Metoprolol Succinate (Metoprolol Succinate) 100 Mg Tab.er.24h, 100 MG PO DAILY, (Reported) Entered as Reported by: JHONY HOWELL on 02/01/22 0957 Montelukast Sodium (Montelukast Sodium) 10 Mg Tablet, 10 MG PO HS, (Reported) Entered as Reported by: MATEUSZ BISHOP on 12/26/21 0819 Nitrofurantoin Monohyd/M-Cryst (Macrobid 100 mg Capsule) 100 Mg Capsule, 1 TAB PO BID Prescribed by: DONALDO HOWARD on 11/26/22 1457 Nitrofurantoin Monohyd/M-Cryst (Macrobid 100 mg Capsule) 100 Mg Capsule, 1 TAB PO BID Prescribed by: DONALDO HOWARD on 01/04/23 0129 Oxybutynin Chloride (Oxybutynin Chloride) 5 Mg Tablet, 5 MG PO DAILY, (Reported) Entered as Reported by: JHONY HOWELL on 10/10/22 160 Pantoprazole Sodium (Pantoprazole Sodium) 40 Mg Tablet.dr, 40 MG PO DAILY, (Reported) Entered as Reported by: JHONY HOWELL on 10/10/22 160 Potassium Chloride (Potassium Chloride) 20 Meq Tab.er.prt, 20 MEQ PO DAILY, (Reported) Entered as Reported by: JHONY HOWELL on 10/10/22 160 Pramipexole Di-HCl (Pramipexole Dihydrochloride) 1 Mg Tablet, 1 MG PO HS, (Reported) Entered as Reported by: JHONY HOWELL on 10/10/22 160 Quetiapine Fumarate (Quetiapine Fumarate) 100 Mg Tablet, 100 MG PO TID, (Reported) Entered as Reported by: JHONY HOWELL on 10/10/22 1606 Sertraline HCl (Sertraline HCl) 25 Mg Tablet, 25 MG PO DAILY, (Reported) Entered as Reported by: JHONY OHWELL on 10/10/22 1606 Tamsulosin HCl (Flomax) 0.4 Mg Cap, 0.4 MG PO DAILY, (Reported) Entered as Reported by: MATEUSZ BISHOP on 12/26/21 0819 Review of Systems Review of Systems Constitutional: No fever Eyes: No Symptoms Reported Ears, Nose, Mouth, Throat: no symptoms reported Respiratory: no symptoms reported Cardiovascular: no symptoms reported Gastrointestinal: no symptoms reported Genitourinary: no symptoms reported Musculoskeletal: no symptoms reported Skin: no symptoms reported Psychiatric/Neurological: See HPI Past [id number]-Cbflro-Ykvpsi Hx Patient Social History Substance use?: No Immunizations Up To Date First/Initial COVID19 Vaccinat: 2019 Second COVID19 Vaccination Reymundo: 2019 Third COVID19 Vaccination Date: 2019 Seasonal Allergies Seasonal Allergies: No Past Medical History Surgery/Hospitalization HX: poor historian HTN, HLD, CAD AMLODIPINE CKD Sleep apnea Liver disease Hyperlipidema Dementia Pressure ulcer sacral region with wound vac Surgeries: Yes Adenoidectomy, Cardiac, Lobectomy, Orthopedic, Tonsillectomy Respiratory: Yes (CHRONIC DYSPNEA; CARCINOID TUMOR OF LUNG) Sleep Apnea Currently Using CPAP: No Currently Using BIPAP: No Cardiac: Yes (CHF; CAROTID DISEASE) Chronic Edema/Swelling, Coronary Artery Disease, High Cholesterol, Hypertension Neurological: Yes (SUSPECTED DEMENTIA-HAS BEEN PRESCRIBED ARICEPT IN PAST) Reproductive Disorders: No Sexually Transmitted Disease: No HIV/AIDS: No Genitourinary: Yes (PROSTATE CANCERP;CKD) Kidney Stones Gastrointestinal: Yes (POSSIBLE ABDI) Gastroesophageal Reflux, Liver Disease/Jaundice Musculoskeletal: Yes Arthritis Endocrine: Yes (MORBID OBESITY. ) Loss of Vision: Denies Hearing Impairment: Denies Cancer: Yes Prostate, Lung Did You Recieve Any Treatments: Yes What Type of Treatment Did You: Surgical Intervention Psychosocial: No Integumentary: No Blood Disorders: No Family Medical History Arthritis Hypertension No Pertinent Family Hx SOCIAL HISTORY: -DENIES SMOKING -DENIES DRUG USE -HISTORY OF ETOH, CLAIMS NO RECENT USE, PER PT 01/13/22 PAST SURGICAL HISTORY: -BILATERAL KNEE REPLACEMENT -VATS ASSISTED LEFT UPPER LOBE RESECTION FOR CARCINOID TUMOR 08/2015 -RADIATION SEED IMPLANTS FOR PROSTATE CANCER 2017 -EGD/COLONOSCOPIES -CARDIAC CATH 12/26/[address] CANCINO: CONCLUSIONS: 1. Coronary artery disease primarily consisting of mid vessel occlusion of the right coronary with collateralization of the distal right coronary by the left anterior descending artery. There is diffuse moderate disease of the left coronary system. The first diagonal branch of left anterior descending artery is of a small caliber and has approximately 70% ostial and proximal stenosis. 2. Normal left ventricular end-diastolic pressure. 3. Normal global left ventricular systolic function with ejection fraction approximately 60%. DISCUSSION AND RECOMMENDATIONS: Based on results of the study, it appears appropriate to continue a conservative approach at this time. Continuing outpatient followup is advised. Physical Exam Vital Signs Vital Signs - First Documented 01/04/23 00:48 Temp 35.3 Pulse 74 Resp 8 B/P (MAP) 128/67 (87) Pulse Ox 99 O2 Delivery Room Air Capillary Refill : Height, Weight, BMI Height: 5'11.00" Weight: 310lbs. 0.0oz. [id number]; 35.80 BMI Method: General Appearance: WD/WN, no apparent distress HEENT: PERRL/EOMI, normal ENT inspection, pharynx normal Neck: non-tender, full range of motion, supple, normal inspection Respiratory: chest non-tender, lungs clear, normal breath sounds, no respiratory distress, no accessory muscle use Gastrointestinal: normal bowel sounds, non tender, soft; No distended, No guarding, No rebound Back: normal inspection, no CVA tenderness, no vertebral tenderness Extremities: normal range of motion, non-tender, no pedal edema, no calf tenderness, normal capillary refill Neurologic/Psychiatric: 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 nml as tested, no motor/sensory deficits, alert, normal mood/affect Skin: normal color [place] Coma Score Best Eye Response: (4) Open Spontaneously Best Verbal Response: (5) Oriented Best Motor Response: (6) Obeys Commands Progress/Results/Core Measures Results/Orders Lab Results Laboratory Tests Test 01/04/23 01:15 01/04/23 01:40 Range/Units White Blood Count 9.0 4.3-11.0 10^3/uL Red Blood Count 4.02 L 4.30-5.52 10^6/uL Hemoglobin 11.3 L 13.3-17.7 g/dL Hematocrit 36 L 40-54 % Mean Corpuscular Volume 90 80-99 fL Mean Corpuscular Hemoglobin 28 25-34 pg Mean Corpuscular Hemoglobin Concent 31 L 32-36 g/dL Red Cell Distribution Width 16.5 H 10.0-14.5 % Platelet Count 434 H 130-400 10^3/uL Mean Platelet Volume 8.8 L 9.0-12.2 fL Immature Granulocyte % (Auto) 0 % Neutrophils (%) (Auto) 73 42-75 % Lymphocytes (%) (Auto) 14 12-44 % Monocytes (%) (Auto) 10 0-12 % Eosinophils (%) (Auto) 2 0-10 % Basophils (%) (Auto) 1 0-10 % Neutrophils # (Auto) 6.6 1.8-7.8 10^3/uL Lymphocytes # (Auto) 1.3 1.0-4.0 10^3/uL Monocytes # (Auto) 0.9 0.0-1.0 10^3/uL Eosinophils # (Auto) 0.2 0.0-0.3 10^3/uL Basophils # (Auto) 0.1 0.0-0.1 10^3/uL Immature Granulocyte # (Auto) 0.0 0.0-0.1 10^3/uL Urine Color YELLOW Urine Clarity CLOUDY Urine pH 7.5 5-9 Urine Specific [place] 1.010 L 1.016-1.022 Urine Protein NEGATIVE NEGATIVE Urine Glucose (UA) NEGATIVE NEGATIVE Urine Ketones NEGATIVE NEGATIVE Urine Nitrite POSITIVE H NEGATIVE Urine Bilirubin NEGATIVE NEGATIVE Urine Urobilinogen 0.2 < = 1.0 MG/DL Urine Leukocyte Esterase 2+ H NEGATIVE Urine RBC (Auto) NEGATIVE NEGATIVE Urine RBC NONE /HPF Urine WBC 10-25 H /HPF Urine Squamous Epithelial Cells NONE /HPF Urine Crystals NONE /LPF Urine Bacteria NEGATIVE /HPF Urine Casts NONE /LPF Urine Mucus SMALL H /LPF Urine Culture Indicated YES Sodium Level 138 135-145 MMOL/L Potassium Level 4.4 3.6-5.0 MMOL/L Chloride Level 104 98-107 MMOL/L Carbon Dioxide Level 24 21-32 MMOL/L Anion Gap 10 5-14 MMOL/L Blood Urea Nitrogen 13 7-18 MG/DL Creatinine 0.79 0.60-1.30 MG/DL Estimat Glomerular Filtration Rate 90 BUN/Creatinine Ratio 16 Glucose Level 93 70-105 MG/DL Calcium Level 9.2 8.5-10.1 MG/DL Corrected Calcium 10.2 H 8.5-10.1 MG/DL Total Bilirubin 0.3 0.1-1.0 MG/DL Aspartate Amino Transf (AST/SGOT) 28 5-34 U/L Alanine Aminotransferase (ALT/SGPT) 19 0-55 U/L Alkaline Phosphatase 147 H 40-136 U/L Troponin I < 0.30 <0.30 NG/ML Total Protein 7.1 6.4-8.2 GM/DL Albumin 2.7 L 3.2-4.5 GM/DL My Orders Orders - DONALDO HOWARD MD Ct Head/Cervical Spine Wo (01/04/23 00:44) Chest 1 View Ap/Pa Only (01/04/23 00:44) Cbc With Automated Diff (01/04/23 00:57) Comprehensive Metabolic Panel (01/04/23 00:57) Troponin I Fs (01/04/23 00:57) Ed Iv/Invasive Line Start (01/04/23 00:57) Ekg Tracing (01/04/23 00:57) Monitor-Rhythm Ecg Trace Only (01/04/23 00:57) Ua Culture If Indicated (01/04/23 01:04) Urine Culture (01/04/23 01:15) Vital Signs/I&O 01/04/23 00:48 Temp 35.3 Pulse 74 Resp 8 B/P (MAP) 128/67 (87) Pulse Ox 99 O2 Delivery Room Air Progress Progress Note : Progress Note 77-year-old male with above history coming in after a ground-level fall hitting his head. ABCs were intact and vitals were stable on presentation. GCS 14 with very mild confusion. Patient does have dementia at baseline and is never fully oriented. The abrasions on his skin are all superficial, nothing requires repair. The wounds were just cleansed regularly. CT head and cervical spine ordered and interpreted by me showing no obvious intracranial hemorrhage, no obvious cervical spine fracture. I discussed the case with the radiologist on- call per stat rad, and they stated that it was negative as well. Chest x-ray ordered and interpreted by me showing no obvious pneumothorax, and overall appears similar to prior chest x-ray. EKG ordered and interpreted by me showing no acute ischemic changes, appears similar to prior. An IV was placed and basic labs were obtained as well. Urinalysis also sent given the increasing confusion per the alf with his Dig[place] in place. I reviewed his prior microbiology reports, and he has grown out E faecium that was sensitive to Macrobid. We will give him a dose here followed by prescription. His white blood cell count is normal, creatinine normal, sodium normal, troponin negative. CT head and cervical spine final report came back negative for any acute abnormalities. I believe the patient is stable for discharge with outpatient follow-up. He was sent home with strict return precautions Initial ECG Impression Date: Jan 04, 2023 Initial ECG Impression Time: 01:21 Initial ECG Rate: 74 Initial ECG Rhythm: Normal Sinus Comment Narrow QRS, left axis deviation, no STEMI Diagnostic Imaging Diagonstic Imaging: Xray (chest), CT (head and c spine) Departure Impression Primary Impression: Concussion Qualified Codes: S06.0X0A - Concussion without loss of consciousness, initial encounter Additional Impression: Cystitis Disposition: 01 HOME, SELF-CARE Condition: Stable Departure-Patient Inst. Decision time for Depature: 03:20 Referrals: EVENS PICHARDO MD (PCP/Family) Primary Care Physician Patient Instructions: Concussion, Adult ED, Urinary Tract Infection, Adult ED Add. Discharge Instructions: The CT imaging was unremarkable for significant abnormality in the head or neck. Unfortunately, you likely do have a concussion which can cause some confusion. Also does have a urinary tract infection which can also make symptoms worse. Antibiotics were sent to the pharmacy, the first dose was given tonight. Scripts Nitrofurantoin Monohyd/M-Cryst (Macrobid 100 mg Capsule) 100 Mg Capsule 1 TAB PO BID for 10 Days, #20 CAP Prov: DONALDO HOWARD MD 01/04/23 DONALDO HOWARD MD Jan 04, 2023 00:55
[2023-01-04 01:22] LABS: BASOPHILS # (AUTO) 0.1 10^3/uL (0.0-0.1); BASOPHILS % (AUTO) 1 % (0-10); EOSINOPHILS # (AUTO) 0.2 10^3/uL (0.0-0.3); EOSINOPHILS % (AUTO) 2 % (0-10); HEMATOCRIT 36 % (40-54); HEMOGLOBIN 11.3 g/dL (13.3-17.7); LYMPHOCYTES # (AUTO) 1.3 10^3/uL (1.0-4.0); LYMPHOCYTES % (AUTO) 14 % (12-44); MEAN CORPUSCULAR HEMOGLOBIN 28 pg (25-34); MEAN CORPUSCULAR HGB CONC 31 g/dL (32-36); MEAN CORPUSCULAR VOLUME 90 fL (80-99); MEAN PLATELET VOLUME 8.8 fL (9.0-12.2); MONOCYTES # (AUTO) 0.9 10^3/uL (0.0-1.0); MONOCYTES % (AUTO) 10 % (0-12); NEUTROPHILS # (AUTO) 6.6 10^3/uL (1.8-7.8); NEUTROPHILS % (AUTO) 73 % (42-75); PLATELET COUNT 434 10^3/uL (130-400)
[2023-01-04 01:26] LABS: BILIRUBIN,URINE NEGATIVE (NEGATIVE); CLARITY,URINE CLOUDY; COLOR,URINE YELLOW; GLUCOSE, URINE (UA) NEGATIVE (NEGATIVE); KETONES,URINE NEGATIVE (NEGATIVE); LEUKOCYTE ESTERASE ,URINE 2+ (NEGATIVE); NITRITE,URINE POSITIVE (NEGATIVE); PH,URINE 7.5 (5-9); PROTEIN,URINE NEGATIVE (NEGATIVE)
[2023-01-04] MEDS ORDERED: NITR-65 PO (01:29)
[2023-01-04 01:52] LABS: BACTERIA,URINE NEGATIVE /HPF
[2023-01-04 02:14] LABS: ALANINE AMINOTRANSFERASE 19 U/L (0-55); ALKALINE PHOSPHATASE 147 U/L (40-136); BILIRUBIN,TOTAL 0.3 MG/DL (0.1-1.0); BUN/CREATININE RATIO 16; CALCIUM 9.2 MG/DL (8.5-10.1); CARBON DIOXIDE 24 MMOL/L (21-32); CHLORIDE 104 MMOL/L (98-107); CREATININE SERUM 0.79 MG/DL (0.60-1.30); GFR ESTIMATED 90; GLUCOSE 93 MG/DL (70-105); POTASSIUM 4.4 MMOL/L (3.6-5.0); SODIUM 138 MMOL/L (135-145)
[2023-01-04 02:15] LABS: ALBUMIN 2.7 GM/DL (3.2-4.5); TOTAL PROTEIN 7.1 GM/DL (6.4-8.2)
[2023-01-04] MEDS ORDERED: NITROFURANTOIN 100 MG (MACROBID) CAPSULE PO ONE (03:30)
--- NOTE | 2023-01-04 07:13 | Diagnostic Imaging Report ---
EXAMINATION: Chest radiograph, portable AP view. DATE: 01/04/2023 1:09 AM INDICATION: 77-year-old male, fall, syncope. Chest pain. COMPARISON: November 23, 2022. FINDINGS: Heart size and mediastinal contours are grossly unchanged. There is elevation of left hemidiaphragm. There is no identified pneumothorax. There is no large pleural effusion. There is no identified interval focal airspace consolidation. IMPRESSION: 1. No identified interval acute cardiopulmonary abnormality. Dictated by: Dictated on workstation # [id number]
--- NOTE | 2023-01-04 07:21 | Diagnostic Imaging Report ---
PROCEDURE: CT head and CT cervical spine without contrast. TECHNIQUE: Multiple contiguous axial images were obtained through the brain and cervical spine without the use of intravenous contrast. Sagittal and coronal reformations through the cervical spine were then performed. Auto Exposure Controls were utilized during the CT exam to meet ALARA standards for radiation dose reduction. DATE: January 04, 2023. COMPARISON: CT head and cervical spine January 13, 2022. INDICATION: 77-year-old male, fall, syncope, slurred speech. Head and neck pain. FINDINGS: There is soft tissue swelling in the region of the right forehead consistent with site of soft tissue contusion/small hematoma. There are high attenuation protuberances near the skin surface along the anterior and posterior scalp on axial image 29 which are nonspecific. Additional foci with similar appearance are also present at the level of the scalp. There is no identified skull fracture. There is mucosal thickening of the right sphenoid sinus. There is wall thickening of the right sphenoid sinus compatible with chronic sinusitis. No air-fluid level or bubbly areas of internal lucency to suggest acute sinusitis. There is proportional prominence of the ventricles and additional CSF spaces consistent with severe cerebral volume loss. There are probable findings of chronic small vessel ischemic disease. There is no mass effect or midline shift. There is no acute intracranial hemorrhage. There is no abnormal extra-axial fluid collection. There are significant motion limitations for evaluation of the cervical spine. There are marked limitations in particular at the levels of the lower aspect of C2, C3, C4, and upper aspect of C5. There is no visualized fracture of the cervical spine. CT is limited for assessment of disc pathology as well as additional nonbony causes of pathology in the spinal canal. The visualized portions of the lung apices are clear. Impression: 1. No identified acute intracranial abnormality. 2. Soft tissue contusion/small hematoma in the region of the right for head. 3. Significant motion limited evaluation of the cervical spine without the visualized cervical spine fracture. Dictated by: Dictated on workstation # [id number]
[2023-01-07] MEDS ORDERED: AMOX1TAB12 PO (17:33)
== END 2023-01-04 03:56 | disposition home or self-care (01) ==
LOC: EDUNIT# 00:42 → ER FS 00:43
DX: S06.0X0A Concussion without loss of consciousness, initial encounter (principal); T14.8XXA Other injury of unspecified body region, initial encounter; N30.90 Cystitis, unspecified without hematuria; E66.01 Morbid (severe) obesity due to excess calories; Z68.35 Body mass index [BMI] 35.0-35.9, adult; Z79.02 Long term (current) use of antithrombotics/antiplatelets; W18.30XA Fall on same level, unspecified, initial encounter; W22.8XXA Striking against or struck by other objects, initial encounter; Y92.129 Unspecified place in nursing home as the place of occurrence of the external cause
CPT/HCPCS: 36415; 70450; 71045; 72125; 80053; 81000; 84484; 85025; 87077; 87088; 87186; 93005; 93041

== ENCOUNTER 2023-01-12 05:36 | Emergency (ER) | payer MEDICARE ==
[~2023-01-12 05:36] MED LIST changes: -POTA10CA44 PO; +POTA10CA84 PO
--- NOTE | 2023-01-12 06:12 | ED Chest Pain ---
General Chief Complaint: Trauma-Non Activation Stated Complaint: GEN PROBLEMS Nursing Triage Note: neck pain Source: patient, EMS Exam Limitations: no limitations (LINDA PIMENTEL MD) History of Present Illness Date Seen by Provider: Jan 12, 2023 Time Seen by Provider: 05:37 Initial Comments This 77-year-old gentleman presents to the emergency room via EMS after sliding to the floor when he missed his recliner chair. While on the floor he complained of chest pain which prompted the EMS call. He denies having chest pain at this time. The incident was reportedly nontraumatic. He missed the chair and slid down against the edge of it. Reportedly he did not strike his head or neck. Patient denies hitting his head. He does report some neck pain which he states was not present prior to the incident. C-collar was not applied as body habitus did not appear to accommodate c-collar. There was concern that manipulating his head and neck to force the c-collar on would cause more harm than protection. Patient was lying still and compliant with not moving. Patient is alert, talkative, and answers questions appropriately. He was seen in this emergency room on January 04 after having a fall. Work-up was fairly unremarkable. He has residual evidence of injury after that fall including a bruise on his right forehead and healing skin tears on the left arm. He was prescribed nitrofurantoin which was later changed to cefdinir after review of cultures. He has an indwelling Diggs catheter. Patient is oriented to his baseline based on prior history and GCS is 14. Patient has known coronary artery disease which is under conservative management. Location Injury Occurred: [facility] (LIDNA PIMENTEL MD) Allergies and Home Medications Allergies Coded Allergies: No Known Drug Allergies (Unverified , 04/10/15) Patient Home Medication List Home Medication List Reviewed: Yes (LINDA PIMENTEL MD) Amoxicillin/Potassium Clav (Amox Tr-K Clv 875-125 mg Tab) 875 Mg-125 Mg Tablet, 875 MG PO BID WITH MEALS Prescribed by: VERN HORN on 10/15/22 1120 Amoxicillin/Potassium Clav (Amox Tr-K Clv 875-125 mg Tab) 875 Mg-125 Mg Tablet, 1 EACH PO BID Prescribed by: WANDER PRAJAPATI on 01/07/23 1733 Apixaban (Eliquis) 5 Mg Tablet, 5 MG PO BID Prescribed by: VERN HORN on 10/15/22 1120 Aspirin (Aspirin EC) 81 Mg Tablet.dr, 81 MG PO DAILY Prescribed by: VERN HORN on 10/15/22 1120 Atorvastatin Calcium (Atorvastatin Calcium) 20 Mg Tablet, 20 MG PO HS, (Reported) Entered as Reported by: MARIELENA FERNANDEZ on 04/10/15 1105 Cefdinir (Cefdinir) 300 Mg Capsule, 300 MG PO BID Prescribed by: WANDER PRAJAPATI on 11/24/22 0900 Cefdinir (Cefdinir) 300 Mg Capsule, 300 MG PO BID Prescribed by: DONALDO HOWARD on 11/26/22 1457 Cyanocobalamin (Cyanocobalamin Injection) 1,000 Mcg/Ml Inj, 1,000 MCG IM MONTHLY, (Reported) Entered as Reported by: JHONY HOWELL on 10/10/22 1606 Famotidine (Famotidine) 40 Mg Tablet, 40 MG PO HS, (Reported) Entered as Reported by: MATEUSZ BISHOP on 12/26/21 0819 Gabapentin (Gabapentin) 100 Mg Capsule, 200 MG PO HS, (Reported) Entered as Reported by: MATEUSZ BISHOP on 12/26/21 0819 Haloperidol (Haloperidol) 1 Mg Tablet, 1 MG PO BID, (Reported) Entered as Reported by: JHONY HOWELL on 10/10/22 1606 Hydrocodone/Acetaminophen (Hydrocodone-Acetamin 5-325 mg) 5 Mg-325 Mg Tablet, 1 EA PO Q4H PRN for PAIN-MODERATE (5-7) Prescribed by: VERN HORN on 10/15/22 1120 Magnesium Oxide (Magnesium Oxide) 400 Mg (241.3 Mg Magnesium) Tablet, 400 MG PO BIDPC Prescribed by: VERN HORN on 10/15/22 1120 Metoprolol Succinate (Metoprolol Succinate) 100 Mg Tab.er.24h, 100 MG PO DAILY, (Reported) Entered as Reported by: JHONY HOWELL on 02/01/22 0957 Montelukast Sodium (Montelukast Sodium) 10 Mg Tablet, 10 MG PO HS, (Reported) Entered as Reported by: MATEUSZ BISHOP on 12/26/21 0819 Nitrofurantoin Monohyd/M-Cryst (Macrobid 100 mg Capsule) 100 Mg Capsule, 1 TAB PO BID Prescribed by: DONALDO HOWARD on 11/26/22 1457 Nitrofurantoin Monohyd/M-Cryst (Macrobid 100 mg Capsule) 100 Mg Capsule, 1 TAB PO BID Prescribed by: DONALDO HWOARD on 01/04/23 0129 Oxybutynin Chloride (Oxybutynin Chloride) 5 Mg Tablet, 5 MG PO DAILY, (Reported) Entered as Reported by: JHONY HOWELL on 10/10/22 160 Pantoprazole Sodium (Pantoprazole Sodium) 40 Mg Tablet.dr, 40 MG PO DAILY, (Reported) Entered as Reported by: JHONY HOWELL on 10/10/22 160 Potassium Chloride (Potassium Chloride) 20 Meq Tab.er.prt, 20 MEQ PO DAILY, (Reported) Entered as Reported by: JHONY HOWELL on 10/10/22 160 Pramipexole Di-HCl (Pramipexole Dihydrochloride) 1 Mg Tablet, 1 MG PO HS, (Reported) Entered as Reported by: JHONY HOWELL on 10/10/22 160 Quetiapine Fumarate (Quetiapine Fumarate) 100 Mg Tablet, 100 MG PO TID, (Reported) Entered as Reported by: JHONY HOWELL on 10/10/22 160 Sertraline HCl (Sertraline HCl) 25 Mg Tablet, 25 MG PO DAILY, (Reported) Entered as Reported by: JHONY HOWELL on 10/10/22 160 Tamsulosin HCl (Flomax) 0.4 Mg Cap, 0.4 MG PO DAILY, (Reported) Entered as Reported by: MATEUSZ BISHOP on 12/26/21 08 Review of Systems Review of Systems Constitutional: no symptoms reported EENTM: See HPI Respiratory: No Symptoms Reported Cardiovascular: No Symptoms Reported Gastrointestinal: No Symptoms Reported Genitourinary: See HPI Musculoskeletal: see HPI Skin: see HPI Psychiatric/Neurological: See HPI Endocrine: No Symptoms Reported Hematologic/Lymphatic: No Symptoms Reported (LINDA PIMENTEL MD) Past Omlvbvf-Weelzu-Nacwpd Hx Patient Social History Tobacco Use?: No Substance use?: No Alcohol Use?: No (LINDA PIMENTEL MD) Immunizations Up To Date First/Initial COVID19 Vaccinat: 2020 Second COVID19 Vaccination Reymundo: 2020 Third COVID19 Vaccination Date: 2019 (LINDA PIMENTEL MD) Seasonal Allergies Seasonal Allergies: No (LINDA PIMENTEL MD) Past Medical History Surgery/Hospitalization HX: poor historian HTN, HLD, CAD AMLODIPINE CKD Sleep apnea Liver disease Hyperlipidema Dementia Pressure ulcer sacral region with wound vac Surgeries: Yes Adenoidectomy, Cardiac, Lobectomy, Orthopedic, Tonsillectomy Respiratory: Yes (CHRONIC DYSPNEA; CARCINOID TUMOR OF LUNG) Sleep Apnea Currently Using CPAP: No Currently Using BIPAP: No Cardiac: Yes (CHF; CAROTID DISEASE) Chronic Edema/Swelling, Coronary Artery Disease, High Cholesterol, Hypertension Neurological: Yes (SUSPECTED DEMENTIA-HAS BEEN PRESCRIBED ARICEPT IN PAST) Reproductive Disorders: No Sexually Transmitted Disease: No HIV/AIDS: No Genitourinary: Yes (PROSTATE CANCERP;CKD) Kidney Stones Gastrointestinal: Yes (POSSIBLE ABDI) Gastroesophageal Reflux, Liver Disease/Jaundice Musculoskeletal: Yes Arthritis Endocrine: Yes (MORBID OBESITY. ) Loss of Vision: Denies Hearing Impairment: Denies Cancer: Yes Prostate, Lung Did You Recieve Any Treatments: Yes What Type of Treatment Did You: Surgical Intervention Psychosocial: No Integumentary: No Blood Disorders: No (LINDA PIMENTEL MD) Family Medical History Arthritis Hypertension No Pertinent Family Hx SOCIAL HISTORY: -DENIES SMOKING -DENIES DRUG USE -HISTORY OF ETOH, CLAIMS NO RECENT USE, PER PT 01/13/22 PAST SURGICAL HISTORY: -BILATERAL KNEE REPLACEMENT -VATS ASSISTED LEFT UPPER LOBE RESECTION FOR CARCINOID TUMOR 08/2015 -RADIATION SEED IMPLANTS FOR PROSTATE CANCER 2016 -EGD/COLONOSCOPIES -CARDIAC CATH 12/26/[address] CANCINO: CONCLUSIONS: 1. Coronary artery disease primarily consisting of mid vessel occlusion of the right coronary with collateralization of the distal right coronary by the left anterior descending artery. There is diffuse moderate disease of the left coronary system. The first diagonal branch of left anterior descending artery is of a small caliber and has approximately 70% ostial and proximal stenosis. 2. Normal left ventricular end-diastolic pressure. 3. Normal global left ventricular systolic function with ejection fraction approximately 60%. DISCUSSION AND RECOMMENDATIONS: Based on results of the study, it appears appropriate to continue a conservative approach at this time. Continuing outpatient followup is advised. (LINDA PIMENTEL MD) Physical Exam Vital Signs Vital Signs - First Documented 01/12/23 05:38 Temp 35.6 Pulse 66 Resp 18 B/P (MAP) 134/77 (96) Pulse Ox 99 O2 Delivery Room Air (NORRIS,LISETTE L DO) Vital Signs Capillary Refill : Less Than 3 Seconds (LINDA PIMENTEL MD) Height, Weight, BMI Height: 5'11.00" Weight: 310lbs. 0.0oz. [id number]; 31.00 BMI Method: General Appearance: No Apparent Distress, WD/WN HEENT: PERRL/EOMI, Normal ENT Inspection, Other (Bruise on right forehead) Neck: Normal Inspection, Supple, Tender Midline (Posterior) Respiratory: Chest Non Tender, Lungs Clear, Normal Breath Sounds, No Accessory Muscle Use Cardiovascular: Regular Rate, Rhythm, No Edema, No Murmur Gastrointestinal: Normal Bowel Sounds, Non Tender, Soft Extremity: Non Tender, Other (Healing skin tears on the left arm) Neurologic/Psychiatric: Alert, No Motor/Sensory Deficits, Normal Mood/Affect, Other (Moves all 4 extremities equally. Oriented to baseline.) Skin: Normal Color, Warm/Dry, Ecchymosis (LINDA PIMENTEL MD) Progress/Results/Core Measures Results/Orders Lab Results Laboratory Tests Test 01/12/23 05:44 01/12/23 07:35 Range/Units White Blood Count 7.6 4.3-11.0 10^3/uL Red Blood Count 4.06 L 4.30-5.52 10^6/uL Hemoglobin 11.4 L 13.3-17.7 g/dL Hematocrit 36 L 40-54 % Mean Corpuscular Volume 89 80-99 fL Mean Corpuscular Hemoglobin 28 25-34 pg Mean Corpuscular Hemoglobin Concent 32 32-36 g/dL Red Cell Distribution Width 16.7 H 10.0-14.5 % Platelet Count 394 130-400 10^3/uL Mean Platelet Volume 9.6 9.0-12.2 fL Immature Granulocyte % (Auto) 1 % Neutrophils (%) (Auto) 68 42-75 % Lymphocytes (%) (Auto) 15 12-44 % Monocytes (%) (Auto) 12 0-12 % Eosinophils (%) (Auto) 4 0-10 % Basophils (%) (Auto) 1 0-10 % Neutrophils # (Auto) 5.1 1.8-7.8 10^3/uL Lymphocytes # (Auto) 1.1 1.0-4.0 10^3/uL Monocytes # (Auto) 0.9 0.0-1.0 10^3/uL Eosinophils # (Auto) 0.3 0.0-0.3 10^3/uL Basophils # (Auto) 0.1 0.0-0.1 10^3/uL Immature Granulocyte # (Auto) 0.1 0.0-0.1 10^3/uL Prothrombin Time 14.7 12.2-14.7 SEC INR Comment 1.1 0.8-1.4 Activated Partial Thromboplast Time 41 H 24-35 SEC Sodium Level 139 135-145 MMOL/L Potassium Level 4.6 3.6-5.0 MMOL/L Chloride Level 107 98-107 MMOL/L Carbon Dioxide Level 23 21-32 MMOL/L Anion Gap 9 5-14 MMOL/L Blood Urea Nitrogen 11 7-18 MG/DL Creatinine 0.70 0.60-1.30 MG/DL Estimat Glomerular Filtration Rate 94 BUN/Creatinine Ratio 16 Glucose Level 90 70-105 MG/DL Calcium Level 8.6 8.5-10.1 MG/DL Corrected Calcium 9.7 8.5-10.1 MG/DL Magnesium Level 1.8 1.6-2.4 MG/DL Total Bilirubin 0.2 0.1-1.0 MG/DL Aspartate Amino Transf (AST/SGOT) 46 H 5-34 U/L Alanine Aminotransferase (ALT/SGPT) 26 0-55 U/L Alkaline Phosphatase 113 40-136 U/L Myoglobin 41.9 <72.0 NG/ML Troponin I < 0.30 < 0.30 <0.30 NG/ML Total Protein 6.8 6.4-8.2 GM/DL Albumin 2.6 L 3.2-4.5 GM/DL (NORRIS,LISETTE L DO) Vital Signs/I&O 01/12/23 01/12/23 05:38 08:53 Temp 35.6 36.7 Pulse 66 74 Resp 18 16 B/P (MAP) 134/77 (96) 138/86 Pulse Ox 99 96 O2 Delivery Room Air Room Air (LISETTE NORRIS DO) Blood Pressure Mean: 96 Progress Progress Note : Time: 06:25 Progress Note Patient was interviewed and examined immediately upon arrival. Report was received from EMS. No acute injuries were identified on his examination. Prior injuries from a week ago were noted. Manual C-spine precautions were observed. CT of the cervical spine was obtained and reviewed by me. By my interpretation there were significant degenerative changes without any acute injury. Report is pending. Chest x-ray was viewed by me. Body habitus, technique, and inspiration limit to the value of the chest x-ray. On radiologist's report there was mention of possible lower lobe infiltrate and possible increase in vascularity from prior. Those findings do not necessarily correlate with patient's clinical presentation. If infiltrate is present, patient has recently been changed to cefdinir which would be appropriate therapy for a pneumonia. Patient has not had a symptoms of pneumonia noted in his history. EKG was obtained and immediately interpreted. Sinus rhythm was present with slightly prolonged DE interval. No ischemic changes were appreciated. Labs are pending. (LINDA PIMENTEL MD) Progress Note : Progress Note Patient's care was assumed from Dr. PIMENTEL at shift change. At this time all labs and imaging results were reviewed and were back. Patient had a repeat troponin pending at 2 hours. That was obtained and reviewed which was negative. Patient's with no further symptoms throughout his stay. Patient stable and discharged home (LISETTE NORRIS DO) Initial ECG Impression Date: Jan 12, 2023 Initial ECG Impression Time: 05:58 Initial ECG Rate: 65 Initial ECG Rhythm: Normal Sinus Initial ECG Intervals: Normal Initial ECG Intervals Sinus rhythm with no ST elevation or depression. First-degree AV block with DE interval of 214 ms. Left axis deviation noted. No abnormal intervals. (LINDA PIMENTEL MD) Diagnostic Imaging Diagonstic Imaging: Xray Plain Films/CT/US/NM/MRI: chest Comments NAME: EVENS DOMINGUEZ [facility] REC#: [id number] PT STATUS: REG ER : 1945 PHYSICIAN: LINDA PIMENTEL MD ADMIT DATE: 01/12/23/ER FS Draft Date of Exam:01/12/23 CHEST 1 VIEW AP/PA ONLY INDICATION: Chest pain TECHNIQUE: Single view chest 5:54 AM CORRELATION STUDY: 01/04/2023 FINDINGS: Heart size, mediastinum, and vasculature overall slightly more prominent from prior. Elevated left diaphragm. There does appear to be increased opacity left lung base suspect for infiltrate. Right lung generally clear. IMPRESSION: 1. Cardiac enlargement, stable. Vasculature perhaps slightly increased from prior. Suspect infiltrate left lung base. Dictated on workstation # [id number] Dict: 01/12/2306 Trans: 01/12/23 0616 [facility] [id number] Interpreted by: BONNY MADDOX DO (LINDA PIMENTEL MD) Departure Impression Primary Impression: Chest pain Qualified Codes: R07.9 - Chest pain, unspecified Additional Impressions: Neck pain Fall Qualified Codes: W19.XXXA - Unspecified fall, initial encounter Disposition: 01 HOME, SELF-CARE Condition: Stable Departure-Patient Inst. Referrals: EVENS PICHARDO MD (PCP/Family) Primary Care Physician Patient Instructions: Chest Pain That Is Not Caused by the Heart (DC), Neck Pain Exercises Add. Discharge Instructions: Follow up with primary care provider as needed. All discharge instructions reviewed with patient and/or family. Voiced understanding. LINDA PIMENTEL MD Jan 12, 2023 06:12 LISETTE NORRIS DO Jan 12, 2023 08:12
[2023-01-12 06:18] LABS: BASOPHILS # (AUTO) 0.1 10^3/uL (0.0-0.1); BASOPHILS % (AUTO) 1 % (0-10); EOSINOPHILS # (AUTO) 0.3 10^3/uL (0.0-0.3); EOSINOPHILS % (AUTO) 4 % (0-10); HEMATOCRIT 36 % (40-54); HEMOGLOBIN 11.4 g/dL (13.3-17.7); LYMPHOCYTES # (AUTO) 1.1 10^3/uL (1.0-4.0); LYMPHOCYTES % (AUTO) 15 % (12-44); MEAN CORPUSCULAR HEMOGLOBIN 28 pg (25-34); MEAN CORPUSCULAR HGB CONC 32 g/dL (32-36); MEAN CORPUSCULAR VOLUME 89 fL (80-99); MEAN PLATELET VOLUME 9.6 fL (9.0-12.2); MONOCYTES # (AUTO) 0.9 10^3/uL (0.0-1.0); MONOCYTES % (AUTO) 12 % (0-12); NEUTROPHILS # (AUTO) 5.1 10^3/uL (1.8-7.8); NEUTROPHILS % (AUTO) 68 % (42-75); PLATELET COUNT 394 10^3/uL (130-400); WHITE BLOOD COUNT 7.6 10^3/uL (4.3-11.0)
--- NOTE | 2023-01-12 06:18 | Diagnostic Imaging Report ---
INDICATION: Chest pain TECHNIQUE: Single view chest 5:54 AM CORRELATION STUDY: 01/04/2023 FINDINGS: Heart size, mediastinum, and vasculature overall slightly more prominent from prior. Elevated left diaphragm. There does appear to be increased opacity left lung base suspect for infiltrate. Right lung generally clear. IMPRESSION: 1. Cardiac enlargement, stable. Vasculature perhaps slightly increased from prior. Suspect infiltrate left lung base. Dictated by: Dictated on workstation # [id number]
[2023-01-12 06:26] LABS: INR 1.1 (0.8-1.4); PROTHROMBIN TIME PATIENT 14.7 SEC (12.2-14.7)
--- NOTE | 2023-01-12 06:35 | Diagnostic Imaging Report ---
Clinical indications: Patient slid out of recliner. Patient has neck pain. EXAM: Axial CT scan the cervical spine performed without IV contrast. Sagittal and coronal reformatted images are created. COMPARISON: CT scan the head and cervical spine without contrast dated 01/13/2022. FINDINGS: Patient body habitus limits evaluation of the mid to lower cervical spine bony detail. There is no acute cervical spine fracture. There is stable degenerative grade 1 anterolisthesis of C4 on C5. There are small degenerative spurs involving the cervical spine. There is stable moderate loss of disk space height at C5-C6 level. There is no significant neck soft tissue abnormality. Visualized upper lung jaramillo show mild atelectasis and/or scarring. IMPRESSION: Stable cervical spine degenerative disease with no acute fracture. Dictated by: Dictated on workstation # [id number]
[2023-01-12 06:36] LABS: ALANINE AMINOTRANSFERASE 26 U/L (0-55); ALBUMIN 2.6 GM/DL (3.2-4.5); ALKALINE PHOSPHATASE 113 U/L (40-136); BILIRUBIN,TOTAL 0.2 MG/DL (0.1-1.0); BUN/CREATININE RATIO 16; CALCIUM 8.6 MG/DL (8.5-10.1); CARBON DIOXIDE 23 MMOL/L (21-32); CHLORIDE 107 MMOL/L (98-107); GFR ESTIMATED 94; GLUCOSE 90 MG/DL (70-105); MAGNESIUM 1.8 MG/DL (1.6-2.4); POTASSIUM 4.6 MMOL/L (3.6-5.0); SODIUM 139 MMOL/L (135-145); TOTAL PROTEIN 6.8 GM/DL (6.4-8.2)
[2023-01-12 08:53] VITALS: BP 138/86
== END 2023-01-12 08:53 | disposition home or self-care (01) ==
LOC: EDUNIT# 05:36 → ER FS 05:37
DX: S00.83XA Contusion of other part of head, initial encounter (principal); R07.9 Chest pain, unspecified; M54.2 Cervicalgia; I44.0 Atrioventricular block, first degree; E66.01 Morbid (severe) obesity due to excess calories; Z68.31 Body mass index [BMI] 31.0-31.9, adult; W22.03XA Walked into furniture, initial encounter
CPT/HCPCS: 36415; 71045; 72125; 80053; 83735; 83874; 84484; 85025; 85610; 85730; 93005

== ENCOUNTER → 2023-03-11 | Outpatient (CLI) | payer MEDICARE ==
[2023-03-11 17:16] LABS: CLARITY,URINE TURBID; COLOR,URINE YELLOW
[2023-03-11 17:17] LABS: BACTERIA,URINE LARGE /HPF; BILIRUBIN,URINE NEGATIVE (NEGATIVE); GLUCOSE, URINE (UA) NEGATIVE (NEGATIVE); KETONES,URINE NEGATIVE (NEGATIVE); LEUKOCYTE ESTERASE ,URINE 3+ (NEGATIVE); NITRITE,URINE POSITIVE (NEGATIVE); PROTEIN,URINE 2+ (NEGATIVE); RBC,URINE 25-50 /HPF; SQUAMOUS EPITHELIAL CELL,UR RARE /HPF; WBC,URINE TNTC /HPF
== END ==
PROVIDERS: ATTEND Pediatrics
DX: N39.0 Urinary tract infection, site not specified (principal)
CPT/HCPCS: 81000; 87088